=== PATIENT | female | born 1990 | race Caucasian/White ===

== ENCOUNTER → 2016-12-02 | Outpatient (CLI) | payer MEDICAID ==
[~2016-12-02] MED LIST: AMOXICOT500 MG PO; BENZONATATE100 M1 PO; CEFDINIR300 M1 PO; CIPRO 500MG TA500 MG PO; DICYCLOMINE HCL20 MG PO; FLEXERIL10 MG PO; FLINTSTONES CO1 EACH PO; KEFLEX 500MG.500 MG PO; NICOTINE T21 MG/24 H TD; PERCOCET 5/3251 EACH PO; PERCOGESIC1 TAB PO; PHENERGAN 25MG.25 M1 PO; PROMETHAZINE5 ML/UDC PO; ZYRTEC10 M2 PO; [UNRECOGNIZED DRUG - OTHER] PO
== END ==
LOC: LAB 16:50
DX: N39.0 Urinary tract infection, site not specified (principal)

== ENCOUNTER 2017-04-20 17:18 | Emergency (ER) | payer MEDICAID ==
[~2017-04-20] VITALS: Ht 162.6 cm; Wt 74.8 kg
--- NOTE | 2017-04-20 17:40 | [facility]gent Treatment Center Report ---
History of Present Issue Date/Time Seen by Provider 04/20/17 4354 Visit Reason Pt arrived:Walked Presenting Problem:PT C/O LOWER BACK PAIN, BILATERAL EAR PAIN, AND FATIGUE X2 DAYS Location if Accident: Onset of symptoms date/time:/ or onset unknown for:MEDICAL HX UNKNOWN Have you (or family members/close friends) recently traveled outside the [place]? N If Yes, where/when: Have you had exposure to infectious disease within the past month? TB? Other? Specify: c/o bilateral ear pain with right worse then left and mild intermittent cough x 2-3 days. Daughter w/ same symptoms. No fevers. While here, also wanting to discuss chronic low back pain present since of children > 8 years ago. Intermittent, more frequently over the last year, unchanged with tylenol, hasnt taken or tried anything else. Denies new injury or new symptoms. Intermittent burning pain right side x years. No incontinence or difficulty urinating. Has never discussed w/ PCP. Source patient Exam Limitations no limitations ALLERGIES Coded Allergies: aspirin (06/22/16) ibuprofen (From MOTRIN) (06/22/16) naproxen (06/22/16) nitrofurantoin (From MACROBID) (06/22/16) sulfamethoxazole (From BACTRIM) (06/22/16) trimethoprim (From BACTRIM) (06/22/16) Home Medications Active Scripts Oxycodone 5MG/[id number] (Oxycodone-Acetaminophen 5-325) 1-2 TAB PO Q4HP PRN MODERATE TO SEVERE PAIN #30 TAB Prov: 06/24/16 Nicotine (Nicotine Patch) 21 MG TD DAILY #14 PATCH Ref 1 Prov: 06/24/16 Reported Medications Multivitamin W/Iron, Minerals (Flintstones Complete) 1 EACH PO DAILY History Medical History General CAD? No Angina: No NH: No Hypertension? No Hyperlipidemia? No CHF? No DVT? No PE? No COPD? No Asthma? No Anemia? No GERD? No Gastric ulcers? No GI Bleed? No Hernia? No Thyroid Problems? No Hypothyroidism? No CVA? No Seizures? No Diabetes? No Renal Insuffiency? No UTI? No Stones? No BPH? No GB Disease: No Nephritic Syndrome? No Asplenia? No Hepatitis? No Sickle Cell Disease? No Arthritis? No Migraines? No Cataracts? No Glaucoma? No MRSA? No HIV? No TB? No Anxiety? No Depression? No Cancer? No More? No Immunization HX DT/Tetanus 1-4 YRS Flu Refused Pneumonia Refuses Surgical Hx Previous Surgery?Y LEFT FOOT CYST Social History Smoking Hx Smoker: Current Every Day Smoker Tobacco: Yes Type Cigarettes Packs/day < 1 Pack Alcohol Alcohol: No Review of Systems All Other Systems Reviewed and Negative Constitutional see HPI Eyes denies drainage ENT see HPI, nose discharge. denies: ear discharge, nose congestion, throat pain. Respiratory see HPI, denies shortness of breath, denies wheezing Cardiovascular denies chest pain Gastrointestinal denies no symptoms reported Genitourinary denies: dysuria, frequency. Musculoskeletal see HPI Skin denies lesions, denies lumps, denies rash Psychiatric/Neurological denies headache Physical Exam Vital Signs Vital Signs Date Time Temp Pulse Resp B/P Pulse O2 O2 Flow FiO2 Ox Delivery Rate 04/20 1822 98.6 77 18 106/63 98 04/20 1733 98.6 77 18 106/63 98 General Appearance normal appearance, no apparent distress, lifted 96 pound autistic 9 year old onto exam table without any obvious distress Eye Exam - bilateral eye normal exam Ear, Nose, Throat normal ENT inspection Neck non-tender, supple Respiratory Status No: respiratory distress, productive cough, non productive cough. Lung Sounds anterior: lungs clear. posterior: lungs clear. bilateral: lungs clear. Cardiovascular regular rate/rhythm, no peripheral edema, no murmur Back normal inspection, no CVA tenderness, gait normal, no tenderness Extremities normal range of motion Strength 5 Lower Ext (L), 5 Lower Ext (R) Neurologic alert, no motor/sensory deficits, oriented x 3 Skin normal color, warm/dry Lymphatic no adenopathy Medical Decision Making LABS/Meds/Orders Pt receiving controlled substance in ED? No Departure Departure Time of Disposition 1810 Disposition DC Home or Self Care(routine) Clinical Impression Primary Impression: Chronic low back pain with right-sided sciatica Qualifiers: Back pain laterality: midline Qualified Code: M54.41 - Lumbago with sciatica, right side Secondary Impressions: Upper respiratory virus Condition STABLE Referrals VIDYA GUNTER (Family) Schedule a follow up to discuss chronic low back pain since we do not treat chronic pain here at [facility]. IMMEDIATELY for new or worsening symptoms OR no noticeable improvement over the next 72 hours. 911 for difficulty breathing or swallowing. Patient Instructions DI for Low Back Pain, DI for Viral Upper Respiratory Infection -- Adult Additional Instructions * No sign of bacterial infection. Likely viral. Virus can take 7-14 days to run their course * Monitor Temp. Tylenol every 4 hours as needed no more then 5 times in 24 hours and/or ibuprofen every 6 hours as needed (as long as your primary care doctor has told you that it is ok to take both) for fever/aches/pain. ER if fever no less than 101 despite tylenol and ibuprofen * Encourage fluids, water, gatorade, powerade, pedialyte if /toddler/child * warm salt water gargles * warm fluids * sore throat lozenges * sleep elevated * humidifier/vaporizer * Bromfed may cause drowsiness. Know how it effects you (or your child) before driving, caring for small children, or sending your child to school. No other antihistamines/allergy medications while taking bromfed. * Be sure to schedule fu appt with primary care to discuss chronic low back pain Discharge Counseling Counseled pt/family regarding diagnosis, medications/RX, home care, follow up needs Prescriptions Current Visit Scripts D-METHORPHAN HB/P-EPD HCL/BPM (Bromfed Dm Cough Syrup) 10 ML PO QIDP PRN cough #240 ML at 1207
[2017-04-20 18:22] VITALS: BP 106/63
--- OUTSIDE RECORDS SUMMARY | 2017-04-29 08:01 | External Medical Summary Rpt | CCD ---
Author Author , DESHAWN HESS Address Unknown Phone [email or web address] [place] Care Team Providers Care Carton Maker Name Role Phone [facility] Unavailable Unavailable PHYSICIANS [facility], [facility] PHYSICIANS [facility] Unavailable Unavailable MEDICAL CT, [facility] CT DENIZ FINLEY, Unavailable Unavailable DENIZ FINLEY ALL, SANTOYO ALL Unavailable Unavailable MERRITT DELMERRITT DEL Unavailable Unavailable [facility], Unavailable Unavailable [facility] GERSON NIETO Unavailable Unavailable GERSON MCDONALD, GERSON Unavailable Unavailable [facility] Unavailable Unavailable PHYSICIANS, [facility] GREG LETICIA, Unavailable Unavailable GREG LETICIA [id number], Unavailable Unavailable [id number] JESSIE SHAH, Unavailable Unavailable JESSIE SHAH KIRK M, Unavailable Unavailable RHYS VALDEZ DAMIAN F, Unavailable Unavailable AMADA GILLIAM F GERMAINE TONIA, GERMAINE Unavailable Unavailable TONIA TAVARES HEN, TAVARES Unavailable Unavailable HEN JUNIOR CHANEY, Unavailable Unavailable JUNIOR CHANEY JOSHUA M, Unavailable Unavailable GENIA MOODY ROBERT P, Unavailable Unavailable EVANGELIST MERRITT MARK E, Unavailable Unavailable REJI SOSA, Unavailable Unavailable SONNY STEVENS Unavailable Unavailable KEISHA RODRI DENNIS, Unavailable Unavailable RODRI DENNIS DOUGLAS J, Unavailable Unavailable MARIA CALHOUN WILLIAM B, Unavailable Unavailable RENARD HARRELL HARPEYojana SOMMERS, HARPEL Unavailable Unavailable TOOTIE DENVER ALAS, Unavailable Unavailable DENVER ALAS [facility] Unavailable Unavailable INC, [facility] ROSALES BAZZI, Unavailable Unavailable ROSALES BAZZI ROB F, Unavailable Unavailable HERFEYojana DOROTHY F [facility], Unavailable Unavailable [facility] SHEA, MAURICE I, Unavailable Unavailable SHEA MAURICE I [facility], Unavailable Unavailable [facility], Unavailable Unavailable [facility] POOL DE LA CRUZ, POOL Unavailable Unavailable DOROTHY CALZADA, FAUSTINA CALZADA Unavailable Unavailable FAREED GARSIA, Unavailable Unavailable FAREED GARSIA DARREN R, Unavailable Unavailable RODNEY SILVA R [facility] Unavailable Unavailable PHYSICIANS L, [facility] VICKEY ABDUL, Unavailable Unavailable VICKEY ABDUL, Unavailable Unavailable BETTYE ADHIKARI JANESSA JONES, JILL, JONES, Unavailable Unavailable TAYLOR REHMAN CHR, SHERIE Unavailable Unavailable [facility] Unavailable Unavailable [facility], [facility] [employer], Unavailable Unavailable [employer] [facility] [employer], Unavailable Unavailable [facility] [employer] MATTY ROSEN, Unavailable Unavailable MATTY ROSEN [facility] Unavailable Unavailable DEPARTMENT, [facility] DEPART[facility] Unavailable Unavailable DEPARTMENT, [facility] HEALTH DEPARTMENT WALTER MANE, Unavailable Unavailable WALTER MANE MAUREEN, LI, Unavailable Unavailable DALTON ZIMMERMAN Unavailable Unavailable FRITZ CABAN SHLOMO, CABAN Unavailable Unavailable DINA MONTES DE OCA Unavailable Unavailable [facility] Unavailable Unavailable HOSPITA, [facility] Unavailable Unavailable HOSPITAL, [facility] Unavailable Unavailable HOSPITAL E, [facility] CHRIS CURTIS, Unavailable Unavailable CHRIS CURTIS EMMETT P, Unavailable Unavailable LISA SHAY MORGAN Unavailable Unavailable TOOTIE OVERBEE TAVIA, OVERBEE Unavailable Unavailable TAVIA [facility], Unavailable Unavailable [facility], Unavailable Unavailable [facility] LINDSEY MENENDEZ, Unavailable Unavailable LINDSEY MENENDEZ BAL, Renetta R, BAL, A Unavailable Unavailable R BAL, VIRAL, BAL, Unavailable Unavailable [facility] Un[facility], Unavailable Unavailable [facility] PICKMARIA M HUNTLEY NATALIE, Unavailable Unavailable EVANGELIST ARRIAGA JR, Unavailable Unavailable [facility]ANGELIST HUGGINS [facility] Unavailable Unavailable OF [place], [facility] Unavailable [facility], [facility], Unavailable Unavailable [facility], Unavailable Unavailable [facility], Unavailable Unavailable [facility], Unavailable Unavailable INC., [facility], Unavailable Unavailable [facility] Unavailable Unavailable OF [facility], [facility] MELI LARA RAUF, Unavailable Unavailable MELI SABRINA, MCKAYLA Unavailable Unavailable A, SABRINA, MCKAYLA A RENUSCH RUI, RENUSCH Unavailable Unavailable LEONIE VITALE, Unavailable Unavailable LEONIE LYNCH [id number], Unavailable Unavailable [id number] Unavailable Unavailable [id number] # [id number], [facility] [id number] # [id number] JUNIOR SANCHEZ, Unavailable Unavailable JUNIOR SANCHEZ ROGERS Unavailable Unavailable GIOVANI VILLARREAL, Unavailable Unavailable GIOVANI SR MICAELA, ROSS, Unavailable Unavailable YASMANI BERMUDEZ, Unavailable Unavailable YASMANI MCCARTHY C STONE GAR, STONE Unavailable Unavailable GAR STONE JAM, STONE Unavailable Unavailable WALTER BLACKWELL, Unavailable Unavailable WALTER GONZALEZ KENNETH L, Unavailable Unavailable CHAVO ANNA SOMAY JHA, Unavailable Unavailable SOTINGEAWALTER SWANSON SOWER, Unavailable Unavailable WALTER ELDER, Unavailable Unavailable RADHA ELDER, Unavailable Unavailable ROBER TOLEDO, Unavailable Unavailable ROBER LIGHT [facility] Unavailable Unavailable [facility], [facility] Unavailable Unavailable DOCK COORDINATOR , [facility] CTR DOCK COORDINATOR [facility] Unavailable Unavailable [facility], [facility] Unavailable Unavailable PHYSICIANS, [facility] Unavailable Unavailable [place], [facility] Unavailable Unavailable [facility] MILDRED, Unavailable Unavailable [facility] DUNG ETIENNE, Unavailable Unavailable STERNEBERG, DUNG B THRELKELD II UMER, Unavailable Unavailable THRELKELD II UMER [facility] Unavailable Unavailable #5, [facility] JUNIOR LEONARD, Unavailable Unavailable JUNIOR LEONARD ROY, Unavailable Unavailable SALAS BEATTY, CUATE ALANIS, Unavailable Unavailable [facility]KE [facility] # [id number], Unavailable Unavailable [facility] # [id number] WALKER III, Unavailable Unavailable JJ, WALKER III, JJ [facility], Unavailable Unavailable [facility] PHM [id number] LEONIE PHILLIP, Unavailable Unavailable LEONIE PHILLIP, Unavailable Unavailable ALLISON PORTILLO, Unavailable Unavailable ALLISON TRINIDAD JEFFREY, Unavailable Unavailable JESSIE WALDEN YOUNG VAN Unavailable Unavailable Purpose Continuity of Care Document - 08-22-2007 through 2016 Problems Code Diagnosis DOS Provider Status 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 [id number] ATYP SQ 12-25-2016 [facility] CELLS UNDET PHYSICIANS GROUP SIGNIFICANC E CYTOL SMER CERV [id number] CERV HIGH 12-25-2016 [facility] RSK HUMAN PHYSICIANS PAPILLOMAVI GROUP PERI DNA TEST POS N390 URINARY 12-02-2016 [facility] TRACT PHYSICIANS INFECTION GROUP SITE NOT SPECIFIED R102 PELVIC AND 12-02-2016 [facility] PERINEAL PHYSICIANS PAIN GROUP Z392 ENCOUNTER 08-19-2016 [facility] FOR ROUTINE LLC FOLLOW-UP O80 ENCOUNTER 06-22-2016 [facility] FOR PHYSICIANS FULL-TERM GROUP UNCOMPLICAT ED DELIVERY Z370 SINGLE LIVE 06-22-2016 [facility] PHYSICIANS GROUP Z3A39 39 WEEKS 06-22-2016 [facility] Z3480 ENC 06-16-2016 [facility] SUPERVISION PHYSICIANS OTH NORMAL GROUP PREG UNS TRIMESTER O6003 06-09-2016 [facility] LABOR PHYSICIANS WITHOUT GROUP DELIVERY THIRD TRIMESTER F82109 DRUG USE 06-09-2016 [facility] COMPLICATIN PHYSICIANS G GROUP UNS TRIMESTER O4703 FALSE LABOR 06-01-2016 [facility] BEFORE 37 PHYSICIANS CMPLETE GROUP WEEKS GEST 3RD TRI Z3A36 36 WEEKS 06-01-2016 [facility] [id number] OTHER SPEC 05-21-2016 [facility] RELATED INC COND 3RD TRIMESTER O471 FALSE LABOR 05-21-2016 [facility] AT/AFTER PHYSICIANS 37 GROUP COMPLETED WEEKS GEST Z3A34 34 WEEKS 05-21-2016 [facility] R109 UNSPECIFIED 05-20-2016 [facility] PAIN INC J069 ACUTE UPPER 05-11-2016 [facility]ANS, RESPIRATORY PLLC INFECTION UNSPECIFIED U72773 DRUG USE 05-08-2016 [facility] COMPLICATIN PHYSICIANS G GROUP THIRD TRIMESTER J95573 SPOTTING 04-11-2016 [facility] G INC THIRD TRIMESTER V696394 DECREASED 04-11-2016 [facility] MOVEMENTS INC THIRD TRIMESTER NA/UNS Z3A28 28 WEEKS 04-11-2016 [facility] Y19549 ABNORMAL 03-30-2016 [facility] GLUCOSE PHYSICIANS COMPLICATIN GROUP G R1011 RIGHT UPPER 03-19-2016 [facility] MEDICAL PAIN IMAGING ASS R110 NAUSEA 03-19-2016 [place] [facility] T96001 OTHER SPEC 03-10-2016 [facility] RELATED INC COND 2ND TRIMESTER O479 FALSE LABOR 03-10-2016 [facility] PHYSICIANS UNSPECIFIED GROUP Z3A24 24 WEEKS 03-10-2016 [facility] Z3492 ENC 02-12-2016 [facility] MEDICAL NORMAL IMAGING ASS UNS 2 TRIMESTER Z36 ENCOUNTER 02-12-2016 [facility] FOR [facility] INC SCREENING OF MOTHER Z3A20 20 WEEKS 02-12-2016 [facility]ICAL OF IMAGING ASS N898 OTHER 01-29-2016 [facility] SPECIFIED PHYSICIANS, NONINFLAMMA PLLC TORY DISORDERS VAGINA O209 HEMORRHAGE 01-29-2016 [place] IN EARLY MEDICAL IMAGING ASS UNSPECIFIED O2692 01-29-2016 [facility] RELATED PHYSICIANS, CONDITIONS PLLC UNS 2ND TRIMESTER Z3A18 18 WEEKS 01-29-2016 [facility] OF IMAGING ASS L74770 UTERINE 12-04-2015 [facility] SIZE-DATE PHYSICIANS DISCREPANCY GROUP FIRST TRIMESTER Z78676 SPOTTING 12-01-2015 [place] COMPLICATIN MEDICAL G IMAGING ASS FIRST TRIMESTER O2691 12-01-2015 [facility] RELATED PHYSICIANS, CONDITIONS PLLC UNS 1ST TRIMESTER Z3A09 9 WEEKS 12-01-2015 [facility] MEDICAL OF IMAGING ASS B373 CANDIDIASIS 11-22-2015 [facility], OF [facility] LLC AND VAGINA Z113 ENCOUNTER 11-22-2015 [facility], SCREEN LLC INFECTIONS SEXL MODE TRANSMISSN Z3201 ENCOUNTER 11-22-2015 [facility] FOR PHYSICIANS GROUP TEST RESULT POSITIVE Z3481 ENC 11-22-2015 [facility], SUPERVISION LLC OT NORMAL 1 TRIMESTER N3000 ACUTE 11-09-2015 [facility] CYSTITIS PHYSICIANS, WITHOUT PLLC HEMATURIA R112 NAUSEA WITH 10-29-2015 ST VOMITING [facility] UNSPECIFIED PHYSICIANS K088 OTH SPEC 10-26-2015 ST. DISORDERS [facility] TEETH & MILDRED SUPPORTING STRUCTURES C52780 OTHER SPEC 10-26-2015 [facility] EMERGENCY RELATED PHYSICIANS COND 1ST TRIMESTER X43136 OTHER SPEC 10-26-2015 ST. [facility] RELATED MILDRED COND UNS TRIMESTER C50317 SMOKING 10-26-2015 ST. TOBACCO [facility] COMP MILDRED UNS TRIMESTER Z3A00 WEEKS OF 10-26-2015 [facility] GESTATION EMERGENCY OF PHYSICIANS NOT SPECIFIED O12885 OTHER LONG 10-26-2015 ST. [address] [facility] CURRENT MILDRED DRUG THERAPY Z881 ALLERGY 10-26-2015 ST. STATUS TO [facility] OTHER MIL[place]ED ANTIBIOTIC AGENTS STATUS Z886 ALLERGY 10-26-2015 ST. STATUS TO [facility] ANALGESIC [place] AGENT STATUS Z720 TOBACCO USE 10-21-2015 [facility] J0190 ACUTE 10-10-2015 ST SINUSITIS [facility] UNSPECIFIED PHYSICIANS R05 COUGH 10-10-2015 ST [facility] PHYSICIANS N33867 PAIN IN 08-24-2015 ST LEFT ELBOW [facility] PHYSICIANS U66570 PAIN IN 08-24-2015 ST LEFT KNEE [facility] PHYSICIANS Q08571Z UNSPECIFIED 08-24-2015 ST INJURY [facility] LEFT ELBOW PHYSICIANS SUBSEQUENT ENCNTR D8987ZM UNS INJURY 08-24-2015 ST LT LOWER [facility] LEG PHYSICIANS SUBSEQUENT ENCOUNTER T1490 INJURY 08-24-2015 ST UNSPECIFIED [facility] PHYSICIANS S8765ZV CONTUSION 08-22-2015 [facility] LEFT EMERGENCY ELBOW PHYSICIANS INITIAL ENCOUNTER D6638TB CONTUSION 08-22-2015 [facility] OF LEFT EMERGENCY KNEE PHYSICIANS INITIAL ENCOUNTER Z043 ENCOUNTER 08-22-2015 [facility] OBSERVATION OF NOT FOLLOW OT ACCIDENT M545 LOW BACK 07-16-2015 ST PAIN [facility] PHYSICIANS R47592 ARCUATE 06-06-2015 [facility] UTERUS PHYSICIANS GROUP M546 PAIN IN 05-30-2015 . THORACIC [facility] SPINE MIL[place]ED N946 DYSMENORRHE 05-30-2015 A [facility] UNSPECIFIED PHYSICIANS Z202 CONTACT 05-30-2015 WITH [facility] EXPOSURE PHYSICIANS INFECT SEXUAL MODE TRANSMS N921 EXCESS & 05-20-2015 . FREQUENT [facility] MENSTRUATIO MILDRED N W/IRREGULAR CYCLE N3001 ACUTE 05-02-2015 CYSTITIS [facility] WITH PHYSICIANS HEMATURIA R5383 OTHER 05-02-2015 FATIGUE [facility] PHYSICIANS Z789 OTHER 05-02-2015 SPECIFIED [facility] PHYSICIANS STATUS N939 ABNORMAL 04-30-2015 [facility] UTERINE & PHYSICIANS, VAGINAL PLLC BLEEDING UNSPECIFIED J0100 ACUTE 04-22-2015 MAXILLARY [facility] SINUSITIS PHYSICIANS UNSPECIFIED J40 BRONCHITIS 04-22-2015 NOT [facility] SPECIFIED PHYSICIANS ACUTE OR CHRONIC 5950 ACUTE 04-02-2015 CYSTITIS [facility] PHYSICIANS 96377 URINARY 04-02-2015 FREQUENCY [facility] PHYSICIANS 4778 ALLERGIC 03-19-2015 RHINITIS [facility] DUE TO PHYSICIANS OTHER ALLERGEN 6260 ABSENCE OF 03-19-2015 MENSTRUATIO [facility]LA N PHYSICIANS 14864 WHEEZING 03-19-2015 ST [facility] PHYSICIANS 7862 COUGH 03-19-2015 [facility] PHYSICIANS 29403 ABDOMINAL 03-19-2015 PAIN RIGHT [facility] UPPER PHYSICIANS QUADRANT 5990 URINARY 02-24-2015 [facility] TRACT PHYSICIANS, INFECTION PLL SITE NOT SPECIFIED 2662 OTHER 08-24-2014 [facility] B-COMPLEX HEALTH DEFICIENCIE DEPARTMENT S 45633 OTHER SIGN 08-24-2014 [facility] AND SYMPTOM HEALTH IN BREAST DEPARTMENT V0481 NEED 04-05-2013 [facility] PROPHYLACTI HEALTH C DEPARTMENT VACCINATION &INOCULATIO N FLU 6266 METRORRHAGI 03-09-2013 [facility] A HEALTH DEPARTMENT V2542 SURVEILLANC 03-09-2013 [facility] E PREV PRSC HEALTH INTRAUTERN DEPARTMENT CNTRACPT DEVC 4619 ACUTE 06-21-2012 [facility]IN[facility] UNSPECIFIED 462 ACUTE 06-21-2012 [facility] 4659 ACUTE URIS 06-16-2012 [facility] OF CLINIC UNSPECIFIED SITE 3829 UNSPECIFIED 04-25-2012 [facility] MEDIA 1121 CANDIDIASIS 04-18-2012 [facility] OF [facility] AND VAGINA DEPARTMENT V2549 SURVEILLANC 04-18-2012 [facility] PREV DIAGNOSTICS PRSC CONTRACEPT METHOD 00775 UNSPECIFIED 04-12-2012 [facility] 3670 HYPERMETROP 03-24-2012 [facility] JERROD 4779 ALLERGIC 12-21-2011 [facility] CAUSE UNSPECIFIED 5259 UNSPECIFIED 12-11-2011 [facility] DISORDER [facility] STRUCTURES 27004 NAUSEA WITH 12-11-2011 [facility] V[facility] EMERGENCY PHYSICIANS L V2511 ENC FOR 01-26-2011 [facility] INSERTION HEALTH INTRAUTERIN DEPARTMENT E CONTRACEPT DEVICE V2509 OTH GENERAL 01-23-2011 [facility] CNSL&ADVICE DEPARTMENT CONTRACEPT MANAGEMENT V7240 01-15-2011 [facility] EXAMINATION HEALTH /TEST DEPARTMENT UNCONFIRMED 7295 PAIN IN 12-15-2010 [facility] SOFT SERVICES TISSUES OF LIMB 8419 SPRAIN&STRA 12-15-2010 [facility] IN [facility] UNSPECIFIED E HOSPITAL SITE E ELBOW&FOREA RM 9592 INJURY 12-15-2010 RADI[facility]Y OTHER&UNSPE SERVICES CIFIED SHOULDER&UP PER ARM E8499 UNSPECIFIED 12-15-[address] [facility] [address] OF [facility] OCCURRENCE E HOSPITAL E E9289 UNSPECIFIED 12-15-2010 [facility] ACCIDENT [facility] E HOSP[facility] E 6268 OTH D/O 07-28-2010 PR[facility] MENSTRUATIO CARE N&OTH ABN CENTERS OF BLEED FE EAST GNT TRACT 99613 PAIN IN 04-03-2010 [facility], PHYSICIANS FOREARM PSC 85798 ABDOMINAL 08-13-2009 RADIOLOGY PAIN, SERVICES UNSPECIFIED SITE 7821 RASH AND 07-09-2009 PRIMARY OTHER CARE NONSPECIFIC CENTERS OF SKIN EAST ERUPTION 5220 PULPITIS 05-14-2009 [facility] 2441 UNSPEC 04-22-2009 PRIMARY SYMPTOM CARE ASSOC CENTERS OF W/FEMALE EAST GENITAL ORGANS 59063 NAUSEA 04-19-2009 [facility] ALONE [facility] EMERGENCY SERVICES 7881 DYSURIA 04-19-2009 [facility] EMERGENCY SERVICES V7381 SPECIAL 04-18-2009 [facility] OF SCREENING [facility] EXAMINATION HUMAN PAPILVIRUS V762 SCREENING 04-18-2009 LAB[facility] OF FOR [facility] MALIGNANT NEOPLASM OF THE CERVIX V7241 04-02-2009 [facility] EXAMINATION HEALTH OR TEST CENTRAL NEGATIVE BANK ACCT RESULT 85937 UNSPECIFIED 03-22-2009 LEONIE PHILLIP ASTIGMATISM 5206 DISTURBANCE 02-22-2009 Galina HARRELL IN TOOTH RENARD B ERUPTION 2486 DYSMENORRHE 02-05-2009 PRIMARY A CARE [facility] 12713 OTHER 01-07-2009 Y[facility]I MALAISE [facility] 7906 OTHER 01-07-2009 [facility]AL [facility] CHEMISTR[facility] 57198 OTH 01-07-2009 DEE ABNORMAL MOY/MILNER BRAIN & VOCATIONAL NURSE N RHC FUNCTION STUDY 5368 DYSPEPSIA&O 01-03-2009 YASMANI THER SPEC [facility] DISORDERS [facility]OSPITAL FUNCTION EMERGENCY STOMACH SERVICES 7804 DIZZINESS 01-03-2009 Y[facility]I AND [facility] GIDDINESS E HOSPITAL EMERGENCY SERVICES 55415 CHEST PAIN 01-03-2009 RADIOLOGY UNSPECIFIED SERVICES 71209 PAIN IN 10-18-2008 RAD[facility] JOINT, ASSOCIATES ANKLE AND PSC FOOT 93716 UNSPECIFIED 10-18-2008 [facility] SITE OF MEDICAL ANKLE GROUP SPRAIN AND STRAIN V242 ROUTINE 10-10-2008 PRIMARY CARE FOLLOW-UP CENTERS OF [place] 490 BRONCHITIS 10-07-2008 YASMANI NOT [facility] SPECIFIED E HOSPITAL ACUTE OR EMERGENCY CHRONIC SERVICES 5589 OTH&UNSPEC 09-20-2008 [facility] NONINFECTIO [employer] GASTROENTER ITIS&COLITI S 7820 DISTURBANCE 08-13-2008 [facility] 48548 OTHER 08-13-2008 RADI[facility] DYSPNEA AND ASSOCIATES PSC RESPIRATORY ABNORMALITI ES 650 NORMAL 08-10-2008 [facility] DELIVERY [facility] 89536 POOR 08-10-2008 ST GR[facility] AFFECT MED CTR MANAGEMENT MOTH DELIV 10601 POLYHYDRAMN 08-10-2008 ST IOS, WITH [facility] DELIVERY MED CTR 34771 HIGH 08-10-2008 ST VAGINAL [facility] LACERATION MED CTR WITH DELIVERY V270 OUTCOME OF 08-10-2008 ST DELIVERY [facility] SINGLE MED CTR LIVEBORN V279 OUTCOME OF 08-10-2008 [facility]ATER DELIVERY, CINTI UNSPECIFIED PATHOLOGIST INC 2859 UNSPECIFIED 08-09-2008 [facility] 34659 PERIPH 08-09-2008 [facility] NEURITIS [facility] EAST W/DELIV W/CURRENT PPC 97947 MATERNAL 08-09-2008 [facility] W/DELIVERY EAST W/CURRENT PPC V220 SUPERVISION 08-09-2008 [facility] 75164 TOB USE D/O 08-07-2008 [facility] COMP PG [place] /PP ANTEPARTM [facility]OC LLC COND/COMP 81254 POLYHYDRAMN 08-07-2008 [facility]ATER IOS [place] ANTEPARTUM COMPLICATIO ASSOC LLC N 23262 POOR 08-02-2008 [facility] ANTPRTM COND/COMP 78991 CNTRL NERV 07-30-2008 [facility]ATER SYS [place] MALFORMATIO N IN FETUS ASSOC LLC ANTEPARTUM V283 ENCOUNTER 07-30-2008 [facility] MALFORMATIO ASSOC LLC N ULTRASONIC 51847 THREATENED 07-27-2008 [facility] PREMATURE [facility] LABOR EAST ANTEPARTUM 39512 DECR 07-27-2008 [facility] ANTPRTM COND/COMP V141 PERSONAL 07-27-2008 [facility] [place] OTHER ANTIBIOTIC AGENT V149 PERSONAL 07-27-2008 [facility] [place] UNSPEC MEDICINAL AGENT 7291 UNSPECIFIED 06-29-2008 [facility] AND PHYSICIANS MYOSITIS FOR WOMEN 93504 OTH CURRENT 06-17-2008 [facility] MAT [facility] CLASSIFIABL PHYSICIANS E ELSW FOR WOMEN ANTPRTM 90573 ABDOMINAL 06-17-2008 [facility] PAIN OTHER HOSPITAL SPECIFIED EAST SITE 88187 SEVERE 06-13-2008 [facility] PRE-ECLAMPS HOSPITALS [place], PHYSICIANS ANTEPARTUM FOR WOMEN 7901 ELEVATED 06-13-2008 [facility] OF SEDIMENTATI [place] INC [place] RATE 69342 OTH SPEC 06-11-2008 [facility]ATER INDICAT [place] CARE/INTERV EN REL L&D ASSOC LLC ANTPRTM V2341 SUPERVISION 06-11-2008 [facility]ATER [place] W/HISTORY PRE-TERM ASSOC LLC LABOR 35826 SPOTTING 05-31-2008 [facility] OF COMP [place] INC ANTEPARTUM COND/COMP V222 05-03-2008 EMERGENCY STATE, [place] [address] OTHER 04-30-2008 DENVER ALAS MD LABOR, ANTEPARTUM 06809 INFECTIONS 04-19-2008 [facility] RY TRACT FOR WOMEN ANTEPARTUM 93860 MATERNAL 04-19-2008 [facility] ANEMIA, [facility] ANTEPARTUM PHYSICIANS FOR WOMEN 31284 OTH 04-19-2008 [facility] KNOWN/SUSPE HOSPITALS CTED PHYSICIANS ABNORMALITY FOR WOMEN -NEC-APC/C V289 UNSPECIFIED 03-22-2008 [employer] DIAGNOSTICS SCREENING , INC. 7802 SYNCOPE AND 03-02-2008 [facility] 06528 ENTHESOPATH 02-24-2008 [facility] UNSPECIFIED EAST SITE 64535 OTHER 02-24-2008 EMERGENCY TENOSYNOVIT CARE PHYS IS OF HAND [place] AND WRIST 7840 HEADACHE 02-24-2008 DIAGNOSTIC CARDIOLOGIS TS INC 02323 UNSPECIFIED 02-01-2008 [facility] ANTEPARTUM HOSPITALS HEMORRHAGE PHYSICIANS ANTEPARTUM FOR WOMEN 71070 RHESUS 02-01-2008 [facility] ISOIMMUN [facility] AFFCT MGMT [place] MOTH ANTPRTM COND V072 NEED FOR 02-01-2008 [facility] PROPHYLACTI [facility] IMMUNOTHERA PY V221 SUPERVISION 02-01-2008 LAB[facility] OF OF [facility] NORMAL 17925 DEHYDRATION 01-12-2008 [facility] 463 ACUTE 01-12-2008 [facility] TONSILLITIS [facility] 7336 TIETZES 01-03-2008 EMERGENCY DISEASE CARE PHYS [facility] V5869 LONG-TERM 01-03-2008 [facility] (CURRENT) HOSPITAL USE OF RUST OTHER MEDICATIONS 6823 CELLULITIS 12-24-2007 [facility] OF UPPER INC ARM AND FOREARM 23601 THREATENED 12-22-2007 [facility] , [facility] ANTEPARTUM [facility] 71617 MILD 12-17-2007 [place] [facility]PEREMESIS [facility] PROF SERV 9479 OTH SPEC 12-15-2007 [facility] PSC W/FEMALE GENITAL ORGANS 6200 FOLLICULAR 12-08-2007 [facility] CYST OF [facility] OVARY PHYSICIANS FOR WOMEN V2541 SURVEILLANC 12-08-2007 [facility] E PREV [facility] PRESCRIBED PHYSICIANS CONTRACEPT FOR WOMEN PILL 40677 ABDOMINAL 11-18-2007 [facility] RIGHT [facility] LOWER INC QUADRANT V258 OTHER 11-17-2007 [facility]PTI PHYSICIANS VE FOR WOMEN MANAGEMENT V2641 PROCREATIVE 11-17-2007 [facility] & ADVICE PHYSICIANS NATURAL FAM FOR WOMEN PLAN V7231 ROUTINE 11-17-2007 [facility] GYNECOLOGIC [facility] AL PHYSICIANS EXAMINATION FOR WOMEN 14250 SPRAIN AND 11-12-2007 [facility] UNSPECIFIED IMAGING SITE OF ASSOCIATES FOOT E8490 PLACE OF 11-12-2007 [place] [facility], [facility] E927 OVEREXERTIO 11-12-2007 [place] N&STRENUOUS MEDICAL &REPETITIVE [facility] MVMNTS/LOAD S 6264 IRREGULAR 10-27-2007 [facility] MENSTRUAL [facility] CYCLE [facility] FOR WOMEN V146 PERSONAL 10-22-2007 ST [facility] TO MEDICALCENT ANALGESIC ER AGENT 6202 OTHER AND 10-14-2007 ST [facility]PECIFIED [facility] CYST 6262 EXCESSIVE 09-28-2007 [facility] OR [facility] PSC M[place]STRUATIO N 58209 VOMITING 09-13-2007 [facility]ICE V148 PERSONAL 09-13-2007 ST HISTORY [facility] O[facility] MEDICALCENT SPEC ER MEDICINAL AGTS [id number] INSOMNIA 08-30-2007 [facility] Medications Na ND Rx Da Fi Fi Am Da Di Ph RX Ph St me C No te ll ll ou ys ag ar # ys at rm s nt no ma ic us Or Da si cy ia de te s n re d CE 16 09 10 30 30 00 TO Ac TI 71 -0 -0 .0 00 TA ti RI 40 1- 6- 00 00 L ve ZI 27 20 20 93 CA NE 10 17 17 68 RE 3 90 HC PH L AR 10 MA CY MG #5 TA BL ET MO 16 09 10 28 28 00 TO Ac NO 71 -0 -0 .0 00 TA ti -L 40 1- 6- 00 00 L ve IN 36 20 20 94 CA YA 00 17 17 04 RE H 4 80 28 PH AR TA MA BL CY ET #5 SE 16 09 10 30 30 00 TO Ac RT 71 -0 -0 .0 00 TA ti RA 40 1- 6- 00 00 L ve LI 61 20 20 95 CA NE 20 17 17 12 RE 5 38 HC PH L AR 50 MA CY MG #5 TA BL ET MI 65 09 10 14 7 00 TO Ac OM 16 -0 -0 .0 00 TA ti ET 20 1- 6- 00 00 L ve VIVEROS 74 20 20 96 CA ZI 51 17 17 01 RE NE 0 53 PH 12 AR .5 MA CY MG #5 TA BL ET HY 00 09 10 [address] 55 -0 -0 .0 00 TA ti OX 50 1- 6- 00 00 L ve YZ 32 20 20 95 CA IN 30 17 17 07 RE E 4 61 PA PH M AR 25 MA CY MG #5 CA P MO 16 07 08 28 28 00 TO NO 71 -1 -1 .0 00 TA ti -L 40 0- 1- 00 00 L ve IN 36 20 20 94 CA YA 00 17 17 04 RE H 4 80 28 PH AR TA MA BL CY ET #5 HY 00 07 08 [address] 18 -1 -1 .0 00 TA ti OX 50 0- 1- 00 00 L ve YZ 67 20 20 95 CA IN 40 17 17 07 RE E 5 61 PA PH M AR 25 MA CY MG #5 CA P SE 65 07 08 30 30 00 TO RT 86 -1 -1 .0 00 TA ti RA 20 0- 1- 00 00 L ve LI 01 20 20 95 CA NE 20 17 17 12 RE 5 38 HC PH L AR 50 MA CY MG #5 TA BL ET FE 57 07 08 30 30 00 TO RR 66 -1 -1 .0 00 TA ti OU 40 0- 1- 00 00 L ve S 07 20 20 92 CA COELLO 01 17 17 22 RE LF 0 09 AT PH E AR 32 MA 5 CY MG #5 TA BL ET CE 16 07 08 30 30 00 TO TI 71 -1 -1 .0 00 TA ti RI 40 0- 1- 00 00 L ve ZI 27 20 20 93 CA NE 10 17 17 68 RE 3 90 HC PH L AR 10 MA CY MG #5 TA BL ET MI 65 07 08 14 7 00 TO OM 16 -1 -1 .0 00 TA ti ET 20 2- 1- 00 00 L ve VIVEROS 74 20 20 95 CA ZI 51 17 17 58 RE NE 0 36 PH 12 AR .5 MA CY MG #5 TA BL ET MA 51 06 07 59 7 00 TO LA 67 -1 -2 .0 00 TA ti TH 25 6- 1- 00 00 L ve IO 29 20 20 93 CA N 40 17 17 41 RE 0. 4 99 5% PH AR LO MA TI CY ON #5 MO 16 06 07 28 28 00 TO NO 71 -0 -1 .0 00 TA ti -L 40 8- 4- 00 00 L ve IN 36 20 20 94 CA YA 00 17 17 04 RE H 4 80 28 PH AR TA MA BL CY ET #5 SE 16 05 06 30 30 00 TO RT 71 -2 -2 .0 00 TA ti RA 40 3- 3- 00 00 L ve LI 61 20 20 95 CA NE 20 17 17 12 RE 5 38 HC PH L AR 50 MA CY MG #5 TA BL ET HY 00 05 06 [address] 18 -2 -2 .0 00 TA ti OX 50 3- 3- 00 00 L ve YZ 67 20 20 95 CA IN 40 17 17 07 RE E 5 61 PA PH M AR 25 MA CY MG #5 CA P NI 16 05 06 10 5 00 TO TR 71 -1 -1 .0 00 TA ti OF 40 7- 6- 00 00 L ve UR 43 20 20 95 CA AN 90 17 17 07 RE TO 1 60 IN PH AR MO MA NO CY -M CR #5 10 0 MG MO 16 05 06 28 28 00 TO NO 71 -0 -0 .0 00 TA ti -L 40 3- 2- 00 00 L ve IN 36 20 20 94 CA YA 00 17 17 04 RE H 4 80 28 PH AR TA MA BL CY ET #5 FE 57 04 05 30 30 00 TO RR 66 -0 -0 .0 00 TA ti OU 40 5- 5- 00 00 L ve S 07 20 20 92 CA COELLO 01 17 17 22 RE LF 0 09 AT PH E AR 32 MA 5 CY MG #5 TA BL ET CE 16 04 05 30 30 00 TO TI 71 -0 -0 .0 00 TA ti RI 40 5- 5- 00 00 L ve ZI 27 20 20 93 CA NE 10 17 17 68 RE 3 90 HC PH L AR 10 MA CY MG #5 TA BL ET CI 65 04 05 30 30 00 TO Ac TA 86 -0 -0 .0 00 TA ti LO 20 5- 5- 00 00 L ve MI 00 20 20 94 CA AM 60 17 17 03 RE 5 49 HB PH R AR 20 MA CY MG #5 TA BL ET MO 16 04 05 28 28 00 TO NO 71 -0 -0 .0 00 TA ti -L 40 5- 5- 00 00 L ve IN 36 20 20 94 CA YA 00 17 17 04 RE H 4 80 28 PH AR TA MA BL CY ET #5 CE 16 03 04 30 30 00 TO Ac TI 71 -0 -0 .0 00 TA ti RI 40 6- 7- 00 00 L ve ZI 27 20 20 93 CA NE 10 17 17 68 RE 3 90 HC PH L AR 10 MA CY MG #5 TA BL ET CI 65 03 04 30 30 00 TO Ac TA 86 -0 -0 .0 00 TA ti LO 20 6- 7- 00 00 L ve MI 00 20 20 94 CA AM 60 17 17 03 RE 5 49 HB PH R AR 20 MA CY MG #5 TA BL ET MO 16 03 04 28 28 00 TO Ac NO 71 -0 -0 .0 00 TA ti -L 40 6- 7- 00 00 L ve IN 36 20 20 94 CA YA 00 17 17 04 RE H 4 80 28 PH AR TA MA BL CY ET #5 MO 16 02 03 28 28 00 TO Ac NO 71 -0 -1 .0 00 TA ti -L 40 3- 0- 00 00 L ve IN 36 20 20 94 CA YA 00 17 17 04 RE H 4 80 28 PH AR TA MA BL CY ET #5 CI 65 02 03 30 30 00 TO Ac TA 86 -0 -0 .0 00 TA ti LO 20 1- 3- 00 00 L ve MI 00 20 20 94 CA AM 60 17 17 03 RE 5 49 HB PH R AR 20 MA CY MG #5 TA BL ET CE 16 12 02 30 30 00 TO Ac TI 71 -2 -0 .0 00 TA ti RI 40 9- 3- 00 00 L ve ZI 27 20 20 93 CA NE 10 16 17 68 RE 3 90 HC PH L AR 10 MA CY MG #5 TA BL ET CI 65 01 02 30 30 00 TO Ac TA 86 -0 -0 .0 00 TA ti LO 20 4- 3- 00 00 L ve MI 00 20 20 93 CA AM 50 17 17 75 RE 5 35 HB PH R AR 10 MA CY MG #5 TA BL ET FE 57 12 01 30 30 00 TO Ac RR 66 -2 -2 .0 00 TA ti OU 40 2- 7- 00 00 L ve S 07 20 20 92 CA COELLO 01 16 17 22 RE LF 0 09 AT PH E AR 32 MA 5 CY MG #5 TA BL ET SM 49 12 01 14 14 00 TO Ac 34 -2 -2 .0 00 TA ti NI 80 2- 7- 00 00 L ve CO 14 20 20 93 CA TI 44 16 17 48 RE NE 6 27 PH 21 AR MA MG CY /2 4H #5 R PA TC H VE 00 12 01 18 17 00 TO Ac NT 17 -0 -1 .0 00 TA ti OL 30 8- 3- 00 00 L ve IN 68 20 20 92 CA 22 16 17 08 RE HF 0 25 A PH 90 AR MA MC CY G IN #5 VIVEROS LE R SM 49 12 01 14 14 00 TO Ac 34 -0 -0 .0 00 TA ti NI 80 7- 9- 00 00 L ve CO 14 20 20 93 CA TI 44 16 17 48 RE NE 6 27 PH 21 AR MA MG CY /2 4H #5 R PA TC H OX 00 12 01 30 3 00 TO Ac YC 40 -0 -0 .0 00 TA ti OD 60 7- 9- 00 00 L ve ON 51 20 20 93 CA E- 20 16 17 48 RE AC 1 54 ET PH AM AR IN MA OP CY HE N #5 5- 32 5 ME 00 07 07 20 3 RI 85 OS Ac CL 37 -0 -1 .0 TE 05 PAMELA ti OF 82 7- 1- 00 87 RN ve EN 15 20 20 AI E AM 00 11 11 D MA AT 1 PH RI E AR LY 50 MA N CY R MG 02 CA 43 PS 9 UL # E 02 43 IB 53 05 05 15 5 RI 84 EU Ac UP 74 -3 -3 .0 TE 43 GE ti RO 60 0- 1- 00 76 NI ve FE 46 20 20 AI O N 50 11 11 D HE 60 5 PH NR 0 AR Y MG MA M CY TA BL 02 ET 43 9 # 02 43 AZ 00 03 03 6. 5 RI 83 SA Ac IT 78 -2 -2 00 TE 28 VIVEROS ti HR 11 3- 3- 0 50 Y ve OM 49 20 20 AI CH YC 66 11 11 D AN IN 8 PH DA AR N 25 MA 0 CY MG 02 TA 43 BL 9 ET # 02 43 65 01 01 10 25 RI 81 MO Ac 16 -1 -1 0. TE 77 RG ti 20 0- 0- 00 77 AN ve 60 20 20 0 AI 71 11 11 D GE 0 PH RT AR RU MA DE CY 02 43 9 # 02 43 MI 00 01 01 20 5 RI 81 MO Ac OM 60 -1 -1 .0 TE 77 RG ti ET 35 0- 0- 00 78 AN ve VIVEROS 43 20 20 AI ZI 82 11 11 D GE NE 1 PH RT AR RU 25 MA DE CY MG 02 TA 43 BL 9 ET # 02 43 IB 53 09 09 60 15 RI 79 BU Ac UP 74 -1 -1 .0 TE 64 RG ti RO 60 6- 6- 00 14 E ve FE 46 20 20 AI DE N 50 10 10 D LA 60 5 PH NA 0 AR K MG MA CY TA BL 02 ET 43 9 # 02 43 CE 00 12 06 3 30 30 RI 74 MO Ac TI 78 -2 -0 .0 TE 37 RG ti RI 11 2- 7- 00 78 AN ve ZI 68 20 20 AI NE 40 09 10 D GE 1 PH RT HC AR RU L MA DE 10 CY MG 02 43 TA 9 BL # ET 02 43 TR 00 03 06 5 28 28 RI 76 WH Ac I- 55 -2 -0 .0 TE 12 IT ti SP 59 2- 7- 00 51 AK ve RI 01 20 20 AI ER NT 85 10 10 D EC 8 PH RO AR BI TA MA N BL CY C ET 02 43 9 # 02 43 RA 00 03 06 2 60 30 RI 76 WH Ac NI 17 -2 -0 .0 TE 12 IT ti TI 24 2- 7- 00 52 AK ve DI 35 20 20 AI ER NE 74 10 10 D 9 PH RO 15 AR BI 0 MA N MG CY C TA 02 BL 43 ET 9 # 02 43 CE 00 12 04 3 30 30 RI 74 MO Ac TI 78 -2 -2 .0 TE 37 RG ti RI 11 2- 7- 00 78 AN ve ZI 68 20 20 AI NE 40 09 10 D GE 1 PH RT HC AR RU L MA DE 10 CY MG 02 43 TA 9 BL # ET 02 43 CH 00 03 04 1 47 25 RI 75 RA Ac LO 11 -0 -2 3. TE 75 TL ti RH 62 4- 7- 00 74 IF ve EX 00 20 20 0 AI F ID 11 10 10 D FR IN 6 PH ED E AR ER 0. MA IC 12 CY K % C RI 02 NS 43 E 9 # 02 43 TR 00 03 04 5 28 28 RI 76 WH Ac I- 55 -2 -2 .0 TE 12 IT ti SP 59 2- 7- 00 51 AK ve RI 01 20 20 AI ER NT 85 10 10 D EC 8 PH RO AR BI TA MA N BL CY C ET 02 43 9 # 02 43 RA 00 03 04 2 60 30 RI 76 WH Ac NI 17 -2 -2 .0 TE 12 IT ti TI 24 2- 7- 00 52 AK ve DI 35 20 20 AI ER NE 74 10 10 D 9 PH RO 15 AR BI 0 MA N MG CY C TA 02 BL 43 ET 9 # 02 43 TR 00 03 03 5 28 28 RI 76 WH Ac I- 55 -2 -2 .0 TE 12 IT ti SP 59 2- 2- 00 51 AK ve RI 01 20 20 AI ER NT 85 10 10 D EC 8 PH RO AR BI TA MA N BL CY C ET 02 43 9 # 02 43 RA 00 03 03 2 60 30 RI 76 WH Ac NI 17 -2 -2 .0 TE 12 IT ti TI 24 2- 2- 00 52 AK ve DI 35 20 20 AI ER NE 74 10 10 D 9 PH RO 15 AR BI 0 MA N MG CY C TA 02 BL 43 ET 9 # 02 43 TU 00 03 03 18 4 RI 76 WH Ac SS 11 -2 -2 0. TE 12 IT ti IN 30 2- 2- 00 54 AK ve 35 20 20 0 AI ER DM 92 10 10 D 6 PH RO CO AR BI UG MA N H CY C SY RU 02 P 43 9 # 02 43 CE 00 12 03 3 30 30 RI 74 MO Ac TI 78 -2 -1 .0 TE 37 RG ti RI 11 2- 0- 00 78 AN ve ZI 68 20 20 AI NE 40 09 10 D GE 1 PH RT HC AR RU L MA DE 10 CY MG 02 43 TA 9 BL # ET 02 43 CH 00 03 03 1 47 25 RI 75 RA Ac LO 11 -0 -0 3. TE 75 TL ti RH 62 4- 4- 00 74 IF ve EX 00 20 20 0 AI F ID 11 10 10 D FR IN 6 PH ED E AR ER 0. MA IC 12 CY K % C RI 02 NS 43 E 9 # 02 43 NO 00 01 02 00 28 28 RI 75 Ac RT 55 -2 -1 .0 TE 01 CA ti RE 59 6- 1- 00 25 NI ve L 01 20 20 AI 1- 05 10 10 D II 35 8 PH I AR EN 28 M# RI 24 CO TA 39 BL ET MI 00 01 01 00 10 6 RI 74 WH Ac OM 78 -1 -2 .0 TE 78 IT ti ET 11 4- 8- 00 55 AK ve VIVEROS 83 20 20 AI ER ZI 00 10 10 D NE 1 PH RO AR BI 25 M# N 24 C MG 39 TA BL ET NU 00 01 01 00 3. 84 RI 74 WH Ac VA 05 -1 -2 00 TE 78 IT ti RI 20 4- 8- 0 53 AK ve NG 27 20 20 AI ER 30 10 10 D VA 1 PH RO GI AR BI NA M# N L 24 C RI 39 NG CE 00 12 12 00 30 30 RI 74 MO Ac TI 78 -2 -3 .0 TE 37 RG ti RI 11 2- 1- 00 78 AN ve ZI 68 20 20 AI NE 40 09 09 D GE 1 PH RT HC AR RU L M# DE 10 24 39 MG TA BL ET SE 59 12 12 00 15 30 RI 74 WH Ac RT 76 -0 -1 .0 TE 12 IT ti RA 24 9- 7- 00 42 AK ve LI 91 20 20 AI ER NE 00 09 09 D 1 PH RO HC AR BI L M# N 10 24 C 0 39 MG TA BL ET AV 00 12 12 00 28 28 RI 74 WH Ac IA 55 -0 -1 .0 TE 12 IT ti NE 59 9- 7- 00 43 AK ve -2 04 20 20 AI ER 8 55 09 09 D TA 8 PH RO BL AR BI ET M# N 24 C 39 59 12 12 00 20 10 RI 73 MO Ac 76 -0 -1 .0 TE 93 RG ti 22 1- 7- 00 59 AN ve 22 20 20 AI 10 09 09 D GE 1 PH RT AR RU M# DE 24 39 EN 00 09 11 01 28 28 RI 72 WH Ac MI 55 -1 -1 .0 TE 72 IT ti ES 59 6- 9- 00 63 AK ve SE 04 20 20 AI ER -2 75 09 09 D 8 8 PH RO TA AR BI BL M# N ET 24 C 39 00 10 11 00 15 3 RI 73 RA Ac 60 -2 -0 .0 TE 12 TL ti 35 7- 5- 00 13 IF ve 46 20 20 AI F 82 09 09 D FR 8 PH ED AR ER M# IC 24 K 39 C CI 00 10 10 00 14 7 RI 72 VA Ac MI 17 -0 -2 .0 TE 58 RG ti OF 25 3- 2- 00 33 HE ve LO 31 20 20 AI SE XA 26 09 09 D CI 0 PH RO N AR Y HC M# L 24 50 39 0 MG TA B EN 00 09 10 00 28 28 RI 72 WH Ac MI 55 -1 -2 .0 TE 72 IT ti ES 59 6- 2- 00 63 AK ve SE 04 20 20 AI ER -2 75 09 09 D 8 8 PH RO TA AR BI BL M# N ET 24 C 39 00 09 10 00 15 3 RI 72 RA Ac 60 -2 -0 .0 TE 30 TL ti 35 1- 8- 00 77 IF ve 46 20 20 AI F 82 09 09 D FR 8 PH ED AR ER M# IC 24 K 39 C FL 00 10 10 00 2. 2 RI 72 WH Ac UC 17 -0 -0 00 TE 55 IT ti ON 25 1- 8- 0 05 AK ve AZ 41 20 20 AI ER OL 21 09 09 D E 1 PH RO 15 AR BI 0 M# N MG 24 C 39 TA BL ET AC 00 09 09 00 8. 2 RI 72 RA Ac ET 09 -1 -2 00 TE 16 TL ti AM 30 4- 4- 0 83 IF ve IN 15 20 20 AI F OP 01 09 09 D FR HE 0 PH ED N- AR ER CO M# IC D 24 K #3 39 C TA BL ET EN 00 09 09 00 28 28 HO 12 WH Ac MI 55 -1 -2 .0 ME 26 IT ti ES 59 6- 4- 00 TO 28 AK ve SE 04 20 20 WN 7 ER -2 75 09 09 8 8 PH RO TA AR BI BL MA N ET CY C 00 07 08 00 15 3 RI 71 RA Ac 60 -2 -1 .0 TE 24 TL ti 35 9- 3- 00 17 IF ve 46 20 20 AI F 82 09 09 D FR 8 PH ED AR ER M# IC 24 K 39 C 00 08 08 00 20 5 KI 25 GI Ac 59 -0 -1 .0 NG 62 BS ti 10 7- 3- 00 60 ON ve 54 20 20 PH 00 09 09 AR WI 5 MA LL CY IA M IN B C 00 07 08 00 6. 1 RI 71 RA Ac 40 -2 -1 00 TE 22 TL ti 60 8- 3- 0 66 IF ve 35 20 20 AI F 70 09 09 D FR 5 PH ED AR ER M# IC 24 K 39 C AM 67 08 08 00 30 10 KI 25 GI Ac OX 25 -0 -1 .0 NG 62 BS ti IC 30 7- 3- 00 59 ON ve IL 14 20 20 PH LI 15 09 09 AR WI N 0 MA LL 50 CY IA 0 M MG IN B C CA PS UL E 00 06 06 00 10 25 RI 70 RA Ac 12 -0 -1 6. TE 15 TL ti 60 2- 8- 00 95 IF ve 07 20 20 0 AI F 53 09 09 D FR 4 PH ED AR ER M# IC 24 K 39 C TR 65 05 06 00 20 3 TO 70 ME Ac AM 16 -2 -0 .0 TA 27 LT ti AD 20 6- 4- 00 L 95 ON ve OL 62 20 20 CA 71 09 09 RE GA HC 1 RY L PH J 50 AR MA MG CY TA #5 BL ET FL 00 05 06 00 2. 1 TO 70 VIVEROS Ac UC 17 -2 -0 00 TA 24 RT ti ON 25 0- 4- 0 L 67 IG ve AZ 41 20 20 CA OL 21 09 09 RE PRANAY E 1 SE 15 PH PH 0 AR E MG MA CY TA BL #5 ET CY 00 05 06 00 30 30 TO 70 VIVEROS Ac MB 00 -1 -0 .0 TA 23 RT ti AL 23 9- 4- 00 L 53 IG ve TA 24 20 20 CA 03 09 09 RE PRANAY 30 0 SE PH PH MG AR E MA CA CY PS UL #5 E AZ 00 05 06 00 6. 5 TO 70 ME Ac IT 78 -2 -0 00 TA 27 LT ti HR 11 6- 4- 0 L 94 ON ve OM 49 20 20 CA YC 66 09 09 RE GA IN 8 RY PH J 25 AR 0 MA MG CY TA #5 BL ET FL 00 05 05 00 2. 2 TO 70 PA Ac UC 17 -1 -2 00 TA 15 TE ti ON 25 1- 1- 0 L 80 L ve AZ 41 20 20 CA OL 21 09 09 RE RA E 1 L 15 PH 0 AR MG MA CY TA BL #5 ET TR 65 05 05 00 30 15 TO 70 VIVEROS Ac AM 16 -0 -2 .0 TA 14 RT ti AD 20 8- 1- 00 L 43 IG ve OL 62 20 20 CA 71 09 09 RE PRANAY HC 1 SE L PH PH 50 AR E MA MG CY TA #5 BL ET MI 68 04 05 00 [address] Ac OM 38 -3 -0 .0 TA 05 ER ti ET 20 0- 7- 00 L 83 NE ve VIVEROS 04 20 20 CA BE ZI 11 09 09 RE RG NE [address] 25 AR EV MA EN MG CY B TA #5 BL ET LO 45 04 05 00 [address] Ac RA 80 -3 -0 .0 TA 05 ER ti TA 20 0- 7- 00 L 84 NE ve DI 65 20 20 CA BE NE 08 09 09 RE RG [address] AR EV MG MA EN CY B TA BL #5 ET 00 04 04 00 40 20 TO 50 VIVEROS Ac 59 -1 -2 .0 TA 00 RT ti 10 6- 3- 00 L 91 IG ve 33 20 20 CA 91 09 09 RE PRANAY 0 SE PH PH AR E MA CY #5 PA 68 04 04 00 30 30 TO 50 VIVEROS Ac RO 38 -1 -2 .0 TA 00 RT ti XE 20 6- 3- 00 L 92 IG ve TI 09 20 20 CA NE 70 09 09 RE PRANAY 6 SE HC PH PH L AR E 10 MA CY MG #5 TA BL ET AM 00 03 04 00 24 10 RI 68 RA Ac OX 09 -2 -0 .0 TE 68 UF ti IC 33 3- 9- 00 00 ve IL 10 20 20 AI NA LI 70 09 09 D SE N 5 PH EM 25 AR 0 M# MG 24 39 CA PS UL E 00 02 03 00 3. 5 TO 66 PA Ac 16 -2 -1 50 TA 63 TE ti 80 4- 2- 0 L 21 L ve 07 20 20 CA 03 09 09 RE RA 8 L PH AR MA CY #5 AN 24 02 03 00 30 10 TO 66 PA Ac TI 38 -2 -1 .0 TA 63 TE ti FU 50 4- 2- 00 L 19 L ve NG 20 20 20 CA AL 50 09 09 RE RA 3 L 1% PH AR CR MA EA CY M #5 AM 00 02 03 00 10 7 TO 66 PA Ac OX 09 -2 -1 0. TA 63 TE ti IC 34 4- 2- 00 L 20 L ve IL 15 20 20 0 CA LI 07 09 09 RE RA N 3 L 12 PH 5 AR MG MA /5 CY ML #5 COELLO SP AZ 00 02 02 00 6[address] Ac IT 78 -1 -2 00 TA 56 ER ti HR 11 8- 6- 0 L 85 NE ve OM 49 20 20 CA BE YC 66 09 09 RE RG IN [address] 25 AR EV 0 MA EN MG CY B TA #5 BL ET 60 02 02 00 [address] Ac 25 -1 -2 0. TA 56 ER ti 80 8- 6- 00 L 86 NE ve 23 20 20 0 CA BE 91 09 09 RE RG [address] AR EV MA EN CY B #5 CL 51 02 02 00 15 7 TO 66 PA Ac OT 67 -1 -2 .0 TA 52 TE ti RI 21 2- 6- 00 L 41 L ve MA 27 20 20 CA ZO 50 09 09 RE RA LE 1 L PH 1% AR MA CR CY EA M #5 65 01 02 00 90 30 WA 27 FL Ac 16 -2 -1 .0 LG 82 IC ti 20 5- 2- 00 RE 09 K ve 40 20 20 EN 9 RO 61 09 09 # BE 1 RT 07 P 34 6 IB 53 01 02 00 30 7 WA 27 FL Ac UP 74 -2 -1 .0 LG 82 IC ti RO 60 5- 2- 00 RE 10 K ve FE 46 20 20 EN 2 RO N 60 09 09 # BE 80 5 RT 0 07 P MG 34 6 TA BL ET AC 00 01 02 00 20 5 WA 27 FL Ac ET 09 -2 -1 .0 LG 82 IC ti AM 30 5- 2- 00 RE 09 K ve IN 15 20 20 EN 7 RO OP 01 09 09 # BE HE 0 RT N- 07 P CO 34 D 6 #3 TA BL ET LO 60 07 01 01 [address] Ac RA 50 -2 -1 .0 TA 97 ER ti TA 50 4- 5- 00 L 59 NE ve DI 14 20 20 CA BE NE 70 08 09 RE RG [address] AR EV MG MA EN CY B TA BL #5 ET NY 45 11 12 00 30 7 TO [address] 80 -1 -1 .0 TA 96 NE ti AT 20 3- 8- 00 L 95 S ve IN 05 20 20 CA JI 91 08 08 RE LL 10 1 S 0, PH 00 AR 0 MA UN CY IT /G #5 M CR EA M CE 68 12 12 00 28 7 TO 65 PRANAY Ac PH 18 -0 -1 .0 TA 96 NE ti AL 00 4- 8- 00 L 94 S ve EX 12 20 20 CA JI IN 20 08 08 RE LL 2 S 50 PH 0 AR MG MA CY CA PS #5 UL E LO 60 07 12 00 [address] Ac RA 50 -2 -1 .0 TA 97 ER ti TA 50 4- 8- 00 L 59 NE ve DI 14 20 20 CA BE NE 70 08 08 RE RG [address] AR EV MG MA EN CY B TA BL #5 ET TE 00 11 12 00 60 15 WA 27 RI Ac RB 11 -2 -0 .0 LG 51 ED ti UT 52 3- 4- 00 RE 96 LE ve AL 61 20 20 EN 2 R IN 10 08 08 # RI E 1 CH COELLO 07 AE LF 34 L AT 6 J E 2. 5 MG TA B LO 60 07 11 03 [address] Ac RA 50 -2 -2 .0 AR 97 ER ti TA 50 4- 0- 00 MC 59 NE ve DI 14 20 20 AR BE NE 70 08 08 E RG [address] MA EV MG CY EN B TA BL ET MI 68 10 11 00 [address] Ac OM 38 -2 -0 .0 AR 64 ER ti ET 20 4- 7- 00 MC 25 NE ve VIVEROS 04 20 20 AR BE ZI 11 08 08 E RG NE [address] 25 MA EV CY EN MG B TA BL ET AM 00 10 11 00 21 7 PH 65 PRANAY Ac OX 78 -2 -0 .0 AR 63 NE ti IC 12 3- 7- 00 MC 55 S ve IL 61 20 20 AR JI LI 30 08 08 E LL N 5 PH S 50 AR 0 MA MG CY CA PS UL E 64 10 11 00 5. 1 PH 65 PRANAY Ac 01 -2 -0 79 AR 63 NE ti 10 3- 7- 9 MC 56 S ve 00 20 20 AR JI 10 08 08 E LL 8 PH S AR MA CY 00 10 10 00 56 7 PH 65 PRANAY Ac 17 -0 -0 .0 AR 46 NE ti 24 2- 9- 00 MC 81 S ve 07 20 20 AR JI 37 08 08 E LL 0 PH S AR MA CY LO 60 07 10 02 [address] Ac RA 50 -2 -0 .0 AR 97 ER ti TA 50 4- 9- 00 MC 59 NE ve DI 14 20 20 AR BE NE 70 08 08 E RG [address] MA EV MG CY EN B TA BL ET HY 00 09 10 00 [address] 16 -2 -0 .3 AR 37 ER ti OC 80 0- 9- 99 MC 88 NE ve OR 01 20 20 AR BE TI 53 08 08 E RG SO [address] MA EV 1% CY EN B CR EA M MU 45 09 10 00 [address] Ac PI 80 -2 -0 .0 AR 37 ER ti RO 20 0- 9- 00 MC 89 NE ve CI 11 20 20 AR BE N 22 08 08 E RG 2% [address] OI MA EV NT CY EN ME B NT MI 10 09 09 00 10 3 PH 65 HE Ac OM 70 -1 -2 .0 AR 37 RF ti ET 20 4- 6- 00 MC 82 EL ve VIVEROS 00 20 20 AR ZI 31 08 08 E RO NE 0 PH B AR F 25 MA CY MG TA BL ET LO 60 07 09 01 [address] Ac RA 50 -2 -1 .0 AR 97 ER ti TA 50 4- 1- 00 MC 59 NE ve DI 14 20 20 AR BE NE 70 08 08 E RG [address] MA EV MG CY EN B TA BL ET NI 00 07 08 00 14 7 PH 64 PRANAY Ac TR 18 -1 -0 .0 AR 93 NE ti OF 50 7- 1- 00 MC 27 S ve UR 12 20 20 AR JI AN 20 08 08 E LL TO 1 PH S IN AR MA MO CY NO -M CR 10 0 MG 63 07 08 00 10 2 PH 64 VE Ac 30 -1 -[address] ti 40 7- 1- 00 MC 26 ve 56 20 20 AR PRANAY 21 08 08 E NI 0 PH AR MA CY 64 07 08 00 28 28 PH 64 PRANAY Ac 01 -1 -0 .0 AR 93 NE ti 10 7- 1- 00 MC 28 S ve 20 20 20 AR JI 73 08 08 E LL 4 PH S AR MA CY LO 51 07 08 00 [address] Ac RA 66 -2 -0 .0 AR 97 ER ti TA 00 4- 1- 00 MC 59 NE ve DI 52 20 20 AR BE NE 60 08 08 E RG [address] MA EV MG CY EN B TA BL ET 63 06 07 00 15 2 PH 64 SH Ac 30 -1 -0 .0 AR 74 AR ti 40 7- 3- 00 MC 43 P ve 56 20 20 AR DA 21 08 08 E 0 PH D AR P MA CY NI 00 06 07 00 14 7 WA 26 HE Ac TR 18 -2 -0 .0 LG 25 RF ti OF 50 4- 3- 00 RE 79 EL ve UR 12 20 20 EN 2 AN 20 08 08 # RO TO 1 B IN 07 F 34 MO 6 NO -M CR 10 0 MG LO 51 03 07 02 [address] Ac RA 66 -2 -0 .0 AR 13 ER ti TA 00 5- 3- 00 MC 10 NE ve DI 52 20 20 AR BE NE 60 08 08 E RG [address] MA EV MG CY EN B TA BL ET CE 00 06 07 00 21 7 CV 45 GA Ac PH 09 -0 -0 .0 S 99 IN ti AL 33 7- 3- 00 PH 54 EY ve EX 14 20 20 AR IN 70 08 08 MA RI 1 CY CH 50 AE 0 #5 L MG 43 S 7 CA PS UL E 00 06 07 00 [address] Ac 17 -2 -0 .0 AR 78 ER ti 24 5- 3- 00 MC 69 NE ve 07 20 20 AR BE 37 08 08 E RG [address] MA EV CY EN B TR 57 05 06 00 24 6 PH 64 PRANAY Ac AM 66 -2 -0 .0 AR 56 NE ti AD 40 2- 5- 00 MC 26 S ve OL 53 20 20 AR JI -A 78 08 08 E LL CE 8 PH S TA AR RI MA NO CY PH N 37 .5 -3 25 NU 00 05 06 00 1. 28 PH 64 PRANAY Ac VA 05 -2 -0 00 AR 56 NE ti RI 20 2- 5- 0 MC 25 S ve NG 27 20 20 AR JI 30 08 08 E LL VA 3 PH S GI AR NA MA L CY RI NG 00 03 05 01 30 30 TO 64 No Ac 60 -1 -2 .0 TA 02 t ti 35 1- 2- 00 L 40 Av ve 36 20 20 CA ai 12 08 08 RE la 1 bl PH e AR MA CY #5 LO 51 03 05 01 30 30 PH 64 No Ac RA 66 -2 -0 .0 AR 13 t ti TA 00 5- 8- 00 MC 10 Av ve DI 52 20 20 AR ai NE 60 08 08 E la 1 PH bl 10 AR e MA MG CY TA BL ET AM 00 04 04 00 30 10 PH 64 No Ac OX 78 -0 -2 .0 AR 23 t ti IC 12 7- 4- 00 MC 25 Av ve IL 61 20 20 AR ai LI 30 08 08 E la N 5 PH bl 50 AR e 0 MA MG CY CA PS UL E 00 03 04 00 30 30 PH 64 No Ac 60 -1 -1 .0 AR 02 t ti 35 1- 7- 00 MC 40 Av ve 36 20 20 AR ai 12 08 08 E la 1 PH bl AR e MA CY NA 68 01 04 01 60 30 PH 63 No Ac MI 46 -1 -1 .0 AR 59 t ti OX 20 6- 7- 00 MC 03 Av ve EN 18 20 20 AR ai 90 08 08 E la 37 1 PH bl 5 AR e MG MA CY TA BL ET LO 51 03 04 00 30 30 PH 64 No Ac RA 66 -2 -1 .0 AR 13 t ti TA 00 5- 0- 00 MC 10 Av ve DI 52 20 20 AR ai NE 60 08 08 E la 1 PH bl 10 AR e MA MG CY TA BL ET MI 00 03 04 00 6. 30 PH 64 No Ac OV 08 -2 -1 70 AR 13 t ti EN 51 5- 0- 0 MC 11 Av ve TI 13 20 20 AR ai L 20 08 08 E la HF 1 PH bl A AR e 90 MA CY MC G IN VIVEROS LE R 00 03 04 00 20 3 WA 45 No Ac 40 -2 -1 .0 LM 61 t ti 60 8- 0- 00 AR 44 Av ve 35 20 20 T 9 ai 70 08 08 PH la 5 M bl 10 e -0 58 4 00 02 04 00 20 10 PH 63 No Ac 52 -2 -0 .0 AR 90 t ti 71 5- 7- 00 MC 26 Av ve 44 20 20 AR ai 30 08 08 E la 5 PH bl AR e MA CY MI 00 02 04 00 20 5 PH 63 No Ac OM 59 -2 -0 .0 AR 90 t ti ET 15 5- 7- 00 MC 27 Av ve VIVEROS 30 20 20 AR ai ZI 71 08 08 E la NE 0 PH bl AR e 25 MA CY MG TA BL ET YA 50 02 03 00 28 28 PH 63 No Ac SM 41 -1 -2 .0 AR 85 t ti IN 90 8- 6- 00 MC 03 Av ve 40 20 20 AR ai 28 20 08 08 E la 3 PH bl TA AR e BL MA ET CY 63 02 03 00 10 10 PH 63 No Ac 30 -1 -2 .0 AR 81 t ti 40 2- 6- 00 MC 26 Av ve 56 20 20 AR ai 21 08 08 E la 0 PH bl AR e MA CY 50 02 03 00 20 20 PH 63 No Ac 11 -1 -2 .0 AR 81 t ti 10 2- 6- 00 MC 27 Av ve 30 20 20 AR ai 80 08 08 E la 2 PH bl AR e MA CY MI 10 02 03 00 30 5 PH 63 No Ac OM 70 -1 -2 .0 AR 80 t ti ET 20 2- 6- 00 MC 87 Av ve VIVEROS 00 20 20 AR ai ZI 31 08 08 E la NE 0 PH bl AR e 25 MA CY MG TA BL ET TE 00 01 03 00 14 14 PH 63 No Ac MA 22 -2 -2 .0 AR 66 t ti ZE 82 5- 5- 00 MC 94 Av ve PA 07 20 20 AR ai M 65 08 08 E la 15 0 PH bl AR e MG MA CY CA PS UL E NA 68 01 03 00 60 30 PH 63 No Ac MI 46 -1 -2 .0 AR 59 t ti OX 20 6- 5- 00 MC 03 Av ve EN 18 20 20 AR ai 90 08 08 E la 37 1 PH bl 5 AR e MG MA CY TA BL ET CI 65 01 03 00 30 30 PH 63 No Ac TA 86 -1 -2 .0 AR 59 t ti LO 20 6- 5- 00 MC 02 Av ve MI 00 20 20 AR ai AM 70 08 08 E la 1 PH bl HB AR e R MA 40 CY MG TA BL ET Immunization Name Date Rout CVX Reac Dose Comm Prov Is Faci e tion ent ider Refu lity Give sed n IIV3 09- 140 LESL No LESL 8-20 IE IE VACC 13 CO CO HEAL HEAL PRES TH TH ERVA DEPA DEPA TIVE RTME RTME NT NT FREE 0.5 ML DOSA GE IM USE IIV3 10-0 141 LESL No LESL 1-20 IE IE VACC 12 CO CO INE HEAL HEAL SPLI TH TH T DEPA DEPA VIRU RTME RTME S NT NT 0.5 ML DOSA GE IM USE IIV3 09- 141 LESL No DHS/ 5-20 IE CO VACC 09 CO HEAL INE HEAL TH SPLI TH CENT T DEPA RAL VIRU RTME BANK S NT 0.5 ACCT ML DOSA GE IM USE RHO( 05-[address] D) 4-20 [facility] G[facility]B ITAL ITAL [facility] N FULL -DOS E IM RHO( 01-[address] D) 6-20 [facility] IM Procedures Procedure DOS Code Location Performer Comment COLPOSCOP 28241 [facility] GERSON Y CERVIX 7 PHYSICIAN ENDOCERVI [place] [address] [facility] SURG [address] [facility] PATHOLOGY GROSS&KEISHA ROSCOPIC EXAM CULTURE 26167 [facility] BACTERIAL 7 [facility] INC INC QUANTTATI VE COLONY COUNT URINE CULTURE 76862 [facility] BCT 7 [facility] ISOL&PRSM INC INC PTV ID ISOLATE EA URINE URNLS DIP 87965 [facility] NIETO 7 PHYSICIAN STICK/TAB S GROUP LET RGNT NON-[place] W/[place] [address] [facility] TRANSVAGI 7 PHYSICIAN NAL S GROUP SUSCEPTIB 72380 [facility] LTY STDY 7 [facility] ANTIMICRB INC INC IAL MICRO/AGA R DILUTJ CYTP 64047 [facility] CERVICAL/ 7 LLC VAGINAL REQ INTERP PHYSICIAN CYTP C/V 05240 [facility] AUTO THIN 7 LLC LYR PREPJ SCR MNL RESCR PHYS IADNA 39879 [facility] HUMAN 7 LLC PAPILLOMA VIRUS HIGH-RISK TYPES VAGINAL 14060 [facility]ERSON DELIVERY 6 PHYSICIAN HARRY ONLY S GROUP W/POSTPAR [facility] DELIVERY [id number] [facility] PRODUCTS 6 [facility] OF INC INC CONCEPTIO N EXTERNAL 61419 [facility] NONSTRESS 6 PHYSICIAN HARRY TEST S GROUP PARTICLE 02011 [facility] AGGLUTINA 6 [facility] TION INC INC SCREEN EACH ANTIBODY HANDLG&/O 16914 [facility] R CONVEY 6 PHYSICIAN PHYSICIAN OF SPEC S GROUP S GROUP FOR TR OFFICE TO LAB DRUG TST G0477 [facility] PRESUMP;C 6 PHYSICIAN HARRY PBL BEING S GROUP READ DC OPT OBV ONLY EVAL C/V 17726 [facility] AMNIOTIC 6 [facility] FLUID INC INC PROTEIN QUAL EA SPECIMEN 21752 [facility] NONSTRESS 6 [facility] TEST INC INC URNLS DIP 82715 [facility] STICK/TAB INC INC LET REAGENT AUTO MICROSCOP Y 78368 [facility] NONSTRESS 6 [facility] TEST INC INC THERAPEUT 07384 [facility] IC 6 [facility] PROPHYLAC INC INC TIC/DX INJECTION SUBQ/IM FTL 01527 [facility] FIBRONECT 6 [facility] IN INC INC CERVIC[place] [address] [facility] INFUSION 6 [facility] THERAPY/P INC INC ROPHYLAXI S /DX 1ST [place] 1 [place] [address] [facility] NONSTRESS 6 [facility] TEST INC INC URNLS DIP 23896 [facility] TONG 6 [facility] STICK/TAB INC INC LET REAGENT AUTO MICROSCOP Y CULTURE 79959 [facility] BACTERIAL 6 [facility] INC INC QUANTTATI VE COLONY COUNT URINE DRUG TST G0477 [facility]ERSON PRESUMP;C 6 PHYSICIAN HARRY PBL BEING S GROUP READ DC OPT OBV ONLY DRUG TST G0477 [facility] GERSON PRESUMP;C 6 PHYSICIAN HARRY PBL BEING S GROUP READ DC OPT OBV ONLY FTL 78184 [facility] FIBRONECT 6 [facility] IN INC INC CERVICOVA G SECRETION S SEMI-NATIVIDAD DRUG TST G0477 [facility] GERSON PRESUMP;C 6 PHYSICIAN HARRY PBL BEING S GROUP READ DC OPT OBV ONLY DRUG TST G0477 [facility] PRESUMP;C 6 [facility]OSP PBL BEING INC INC READ DC OPT OBV ONLY 51807 [facility] NONSTRESS 6 [facility] TEST INC INC COLLECTIO 05763 [facility] GERSON N 6 PHYSICIAN HARRY CAPILLARY S GROUP BLOOD SPECIMEN GLUCOSE 10571 [facility] POST 6 PHYSICIAN PHYSICIAN [place] [address] [facility] ABDOMINAL 6 [facility] REAL INC INC TIME W/IMAGE LIMITED DRUG TST G0477 [facility] PRESUMP;C 6 [facility] PBL BEING INC INC READ DC OPT OBV ONLY DRUG TST G0477 [facility] PRESUMP;C 6 MEM HOSP MEM HOSP PBL BEING INC INC READ DC OPT OBV ONLY 66423 [facility] HARPEL NONSTRESS 6 PHYSICIAN TOOTIE TEST S GROUP US PREG 52283 [facility] UTERUS 6 [facility] W/DETAIL INC INC SELENA 1ST GESTATION US PREG 54721 [facility] UTERUS 6 MEDICAL LETICIA AFTER 1ST IMAGING TRIMEST ASS 1/ GESTATION DRUG TST G0477 [facility] GERSON PRESUMP;C 6 PHYSICIAN HARRY PBL [place]ING [place] [address] CHAD SANTOYO ALL 6 MEDICAL UTERUS IMAGING LIMITED ASS 1/> [place] PREG [address]08 [facility] GERSON UTERUS 6 PHYSICIAN HARRY REAL TIME S GROUP W/IMAGE DCMTN TRANSVAG DRUG TST G0477 [facility] GERSON PRESUMP;C 6 PHYSICIAN HARRY PBL BEING S GROUP READ DC OPT OBV ONLY US PREG 44952 [facility] GREG UTERUS 6 MEDICAL LETICIA REAL TIME IMAGING W/IMAGE ASS DCMTN TRANSVAG CYTP C/V 74515 [facility] AUTO THIN 6 [facility] ER JR NATALIE LYR PREPJ SCR MNL RESCR PHYS DRUG TST G0477 [facility] GERSON PRESUMP;C 6 PHYSICIAN PBL BEING S GROUP READ DC OPT OBV ONLY IADNA 37453 [facility] CHLAMYDIA 6 LLC ER JR NATALIE TRACHOMAT IS AMPLIFIED PROBE TQ IADNA 77047 [facility] NEISSERIA 6 LLC ER JR NATALIE GONORRHOE AE AMPLIFIED PROBE TQ CULTURE 57537 [facility] BACTERIAL 6 MCKAYLA BLOCK MED CTR MED CTR QUANTTATI [facility] ST VE COLONY COUNT URINE DRUG TEST G0480 [facility] DEFINITV [address] ID MED CTR MED CTR METH P DOCK COORDINATOR [facility] ST DAY 1-7 DRUG CL DRUG TEST G0479 [facility] 6 MCKAYLA BLOCK PRESUMP;I MED CTR MED CTR NSTRUMENT [facility] ST ED CHEMISTRY ANLYZER GONADOTRO 04129 [facility]. PIN 6 MCKAYLA BLOCK CHORIONIC MILDRED MILDRED QUALITATI VE COLLECTIO 55227 [facility]. N VENOUS 6 MCKAYLA BUTTSTH BLOOD MILDRED MILDRED VENIPUNCT URE RADEX 96012 RADIOLOGY STONE ELBOW 6 GAR COMPLETE ASSOCIATE MINIMUM 3 S OF NOTH VIEWS RADIOLOGI 77235 RADIOLOGY STONE C EXAM 6 GAR KNEE ASSOCIATE COMPLETE S OF NOTH 4/MORE VIEWS RADEX 05735 RADIOLOGY SHERIE SPINE 5 CHR LUMBOSACR ASSOCIATE AL 2/3 S OF NOTH VIEWS RADEX 48355 RADIOLOGY LUBBERS SPINE 5 FRITZ THORACIC ASSOCIATE 2 VIEWS S OF NOTH THERAPEUT 09351 ST CABAN IC 5 MCKAYLA JEN PROPHYLAC TIC/DX PHYSICIAN INJECTION S SUBQ/IM INJECTION J0696 ST CABAN 5 MCKAYLA SHLOMO CEFTRIAXO NE SODIUM PHYSICIAN [place] [address] [place] [address] RADIOLOGY ERWIN SOUSA TRANSVAGI 5 [place] [address] RADIOLOGY STONE ABDOMINAL 5 JAM REAL ASSOCIATE TIME S OF NOTH W/IMAGE LIMITED US PELVIC 98415 RADIOLOGY ERWIN SOUSA 5 NONOBSTET ASSOCIATE MARYBEL S OF NOTH REAL-TIME IMAGE COMPLETE COMPREHEN [address] SIVE 5 MCKAYLA MCKAYLA METABOLIC MED CTR MED CTR PANEL DOCK COORDINATOR ST DOCK COORDINATOR ST IADNA [address] CHLAMYDIA 5 MCKAYLA MCKAYLA MED CTR MED CTR TRACHOMAT DOCK COORDINATOR ST DOCK COORDINATOR ST IS AMPLIFIED PROBE TQ IADNA [address] NEISSERIA 5 MCKAYLA MCKAYLA MED CTR MED CTR GONORRHOE DOCK COORDINATOR ST DOCK COORDINATOR ST AE AMPLIFIED PROBE TQ URINE 32443 ST CABAN 5 MCKAYLA SHLOMO TEST VISUAL PHYSIC[place] [address] FREE 5 MCKAYLA MCKAYLA THYROXINE MED CTR MED CTR DOCK COORDIN[place] [address] THYROID 5 MCKAYLA MCKAYLA STIMULATI MED CTR MED CTR NG DOCK COORDINATOR ST DOCK COORDINATOR ST HORMONE TSH BLOOD [address] COUNT 5 MCKAYLA MCKAYLA COMPLETE MED CTR MED CTR AUTOMATED DOCK COORDINATOR ST DOCK COORDINATOR ST GONADOTRO [address] PIN 5 MCKAYLA MCKAYLA CHORIONIC MED CTR MED CTR DOCK COORDINATOR ST DOCK COORDINATOR ST QUALITATI VE URINE 72192 ST THRELKELD 5 MCKAYLA II UMER TEST VISUAL PHYSICIAN COLOR S CMPRSN METHS URINE 11706 [facility] FORTUNE 5 MEM [facility]OS[facility] TEST INC INC VISUAL COLOR CMPRSN METHS CULTURE 14801 [facility] BACTERIAL 5 [facility]OS[facility] INC INC [place]TT[place] [address] [facility] AMYLASE 5 [place] [address] [facility] LIPASE 5 [facility] INC INC COMPREHEN 73128 [facility] SIVE 5 [facility]OS[facility] METABOLIC INC INC PANEL URNLS DIP 61089 [facility]E 5 [facility] STICK/TAB INC INC LET REAGENT AUTO MICROSCOP Y UNCLASSIF J3490 [facility] IED DRUGS 5 [facility] INC INC BLOOD 46524 [facility] COUNT 5 [facility] COMPLETE INC INC AUTO&AUTO DIFRNTL WBC URINE 31478 [facility] CHARLIE CO 5 [facility] TEST [facility] VISUAL T T COLOR CMPRSN METHS IIV3 VACC 19309 [facility] CHAR[facility] CO 3 [facility] PRESERVAT [facility] LUL FREE T T 0.5 ML DOSAGE IM USE CONTRACEP S4993 [facility] TIVE 3 [facility] PILLS FOR [facility] T T CONTROL IAADIADOO 50172 [facility] TAVIA INFLUENZA IAADIADOO 49345 [facility] TAVIA STREPTOCO CCUS GROUP A IIV3 79140 [facility] VACCINE 2 [facility]ALTH HEALTH SPLIT [facility] VIRUS 0.5 T T ML DOSAGE IM USE CYTP 21771 [facility] CERV/VAG 2 DIAGNOSTI DIAGNOSTI AUTO THIN CS CS LAYER PREP MNL SCREEN FRAMES V2020 [facility] PURCHASES 2 JERROD ELDER DETERMINA 38062 [facility] TION 2 JERROD ELDER REFRACTIV E STATE FITTING 63006 [facility] SPECTACLE 2 JERROD ELDER S XCPT APHAKIA MONOFOCAL SPHERE V2100 [facility] SINGLE 2 JERROD ELDER VISION PLANO +/- 4.00 PER LENS OPHTH 80606 [facility] MEDICAL 2 JERROD ELDER XM&EVAL COMPRE NEW PT 1/> VST THERAPEUT 24250 YASMANI SOLIS 2 BECKINRID BECKINRID PROPHYLAC GE ARH GE ARH TIC/DX HOSPITA HOSPITA INJECTION SUBQ/IM INJECTION J2001 YASMANI GRUBER 2 BECKINRID BECKINRID LIDOCAINE GE AR[facility] HCL HOSPITA HOSPITA INTRAVENO US INFUS 10 MG INJECTION J0696 YASMANI GRUBER 2 BECKINRID BECKINRID CEFTRIAXO GE ARH GE ARH NE SODIUM HOSPITA HOSPITA PER 250 MG INJECTION J2550 YASMANI GRUBER 2 BECKINRID BECKINRID PROMETHAZ GE ARH GE AR[facility] INE HCL HOSPITA HOSPITA UP TO 50 MG INSERTION 88163 [facility] CO 1 [facility] HEALTH INTRAUTER [facility] INE T T DEVICE IUD LEVONORGE J7302 [facility] STREL-RLS 1 [facility] E [facility] INTRAUTER T T N CNTRACPT 52 MG BLOOD 49357 [facility] COUNT 1 [facility] HEMOGLOBI [facility] N T T IADNA 93207 [facility] CO NEISSERIA 1 [facility] GONORRHOE T T AE AMPLIFIED PROBE TQ IADNA 19351 [facility]IE CO CHLAMYDIA 1 [facility] TRACHOMAT T T IS AMPLIFIED PROBE TQ URINE 78951 [facility] CHARLIE CO 1 [facility] TEST [facility] VISUAL T T COLOR CMPRSN METHS RADEX 34303 YASMANI GRUBER ELBOW 1 [facility] COMPLETE DGE DGE MINIMUM 3 HOSPITAL HOSPITAL VIEWS RADEX 74008 YASMANI GRUBER FOREARM 2 1 JAZ SEBASTIAN VIEWS DGE DGE [facility]OSPITAL COLLECTIO 04821 PRIMARY PEDRO LUIS N VENOUS 1 [facility] BLOOD CENTERS VENIPUNCT OF RUST URE BLOOD 00898 PRIMARY PEDRO LUIS COUNT 1 [facility] COMPLETE CENTERS AUTO&AUTO OF RUST DIFRNTL WBC IAADIADOO 17117 PRIMARY TRINIDAD 0 CARE DOROTHY STREPTOCO CENTERS CCUS OF RUST GROUP A GONADOTRO 40920 PRIMARY TRINIDAD, PIN 0 CARE CTR ALLISON C [facility]ORIONIC OF [place] QUANTIT[place] L[place] GONADOTRO 25373 PRIMARY PEDRO LUIS PIN 0 [facility] [address] RADIOLOGY BAL, A ABDOMEN 0 SERVICES R W/CONTRAS T MATERIAL CT PELVIS 44671 RADIOLOGY BAL, A 0 SERVICES R W/CONTRAS T MATERIAL URINE 43123 PRIMARY TRINIDAD 0 CARE DOROTHY TEST CENTERS VISUAL OF RUST COLOR CMPRSN METHS COLLECTIO 81566 PRIMARY TRINIDAD N VENOUS 0 CARE DOROTHY BLOOD CENTERS VENIPUNCT OF RUST URE CULTURE 59127 [facility] BACTERIAL 9 [facility] QUANTPREMIER [facility]ALTH [facility] MEDICAL MEDICAL VE COLONY CT CT COUNT URINE URNLS DIP 81196 PRIMARY PEDRO LUIS 9 [facility] STICK/TAB CENTERS LET OF RUST REAGENT AUTO MICROSCOP Y INFLUENZA G9141 DHS/CO CHARLIE CO A H1N1 9 HEALTH HEALTH IMMUNIZAT [facility] ION BANK ACCT T ADMINISTR ATION US PELVIC 88882 PRIMARY TRINIDAD 9 CARE DOROTHY NONOBSTET CENTERS MARYBEL OF RUST REAL-TIME IMAGE COMPLETE URNLS DIP 60560 YASMANI GRUBER 9 BRECKINRI BRECKINRI STICK/TAB DGE DGE [facility] REAGENT AUTO MICROSCOP Y SUSCEPTIB 37571 YASMANI GRUBER LTY STDY 9 BRECKINRI BRECKINRI ANTIMICRB DGE DGE [facility] MICRO/AGA R DILUTJ CULTURE 75457 YASMANI GRUBER BACTERIAL 9 BRECKINRI BRECKINRI DGE DGE [facility] VE COLONY COUNT URINE CUL BACT 19628 YASMANI GRUBER AEROBIC 9 BRECKINRI BRECKINRI ADDL DGE DGE [facility] DEFINITIV E EA ISOL IADNA 73596 [facility] NEISSERIA 9 [facility] GONORRHOE AE AMPLIFIED PROBE TQ IADNA 37178 [facility] CHLAMYDIA 9 [facility] TRACHOMAT IS AMPLIFIED PROBE TQ IADNA 65597 [facility] PAPILLOMA 9 [facility] VIRUS HUMAN AMPLIFIED PROBE TQ CYTP C/V 38510 [facility] AUTO THIN 9 [facility] LYR PREPJ SCR MNL RESCR PHYS IIV3 32060 DHS/CO CHARLIE CO VACCINE 9 [facility] VIRUS 0.5 BANK ACCT T ML DOSAGE IM USE GONADOTRO 28295 YASMANI GRUBER PIN 9 JAZ SEBASTIAN [facility]IC [facility] QUANTITAT LUL URINE 46620 DHS/CO CHARLIE CO 9 [facility] VISUAL BANK ACCT T COLOR CMPRSN METHS ANALGESIA D9230 DALE HUNTER 9 [facility]. C[facility] ANXIOLYSI GILBERT HUNT S INHALATIO N OF NITROUS OXIDE SPHERE V2100 [facility], SINGLE 9 MAURICE I MAURICE I VISION PLANO +/- 4.00 PER LENS FITTING 96768 [facility], SPECTACLE 9 MAURICE I MAURICE I S XCPT APHAKIA MONOFOCAL FRAMES V2020 [facility], PURCHASES 9 MAURICE I MAURICE I DETERMINA 40900 MARJAN PHILLIP TION 9 LEONIE Gordon REFRACTIV E STATE DEEP D9220 JULIO CESAR HARRELL, SEDATION/ 9 RENARD Patel GENERAL ANESTHESI A-1ST 30 MINUTES ORTHOPANT 62481 JULIO CESAR HARRELL OGTANISHA 9 RENARD Patel COMPREHEN 95128 YASMANI GRUBER SIVE 9 [facility] ACUTE 46519 YASMANI GRUBER HEPATITIS 9 [facility]IAN PANEL [facility] BLOOD 05053 YASMANI GRUBER COUNT 9 BRECKINRI BRECKINRI COMPLETE DGE DGE AUTO&AUTO [facility] [place] [address] YASMANI GRUBER ABDOMINAL 9 BRECKINRI BRECKINRI REAL DGE DGE TIME [facility] W/IMAGE LIMITED URNLS DIP 43438 YASMANI GRUBER 9 BRECKINRI BRECKINRI STICK/TAB DGE DGE LET [facility] REAGENT AUTO MICROSCOP Y BASIC 47883 YASMANI GRUBER METABOLIC 9 BRECKINRI BRECKINRI PANEL DGE DGE CALCIUM [facility] TOTAL RADIOLOGI 88678 RADIOLOGY PAMPATI, C EXAM 9 SERVICES MAHENDER CHEST 2 VIEWS FRONTAL&L ATERAL CREATINE 31516 YASMANI GRUBER KINASE 9 BRECKINRI BRECKINRI TOTAL DGE DGE [facility] CREATINE 97548 YASMANI GRUBER KINASE MB 9 BRECKINRI BRECKINRI FRACTION DGE DGE ONLY [facility] CULTURE 82202 YASMANI GRUBER BACTERIAL 9 BRECKINRI BRECKINRI DGE DGE QUANTTATI [facility] VE COLONY COUNT URINE BLOOD 62696 YASMANI GRUBER COUNT 9 BRECKINRI BRECKINRI COMPLETE DGE DGE AUTO&AUTO [facility] DIFRNTL WBC ECG 08944 YASMANI GRUBER ROUTINE 9 BRECKINRI BRECKINRI ECG DGE DGE W/LEAST [facility] 12 LDS TRCG ONLY W/O I&[place] [address] YASMANI GRUBER TROPONIN 9 BRECKINRI BRECKINRI QUANTITAT DGE DGE LUL [facility] BLOOD [address] COUNT 9 [facility] COMPLETE AUTO&AUTO MEDICALCE MEDICALCE DIFRNTL NTER NTER WBC IADNA [address] NEISSERIA 9 [facility] GONORRHOE MEDICALCE MEDICALCE AE NTER NTER AMPLIFIED PROBE TQ BILIRUBIN [address] DIRECT 9 [facility] MEDICALCE MEDICALCE NTER NTER GONADOTRO [address] PIN 9 [facility] CHORIONIC MEDICALCE MEDICAL[place] [address] PHOSPHORU 9 [facility] S INORGANIC MEDICALCE MEDICALCE NTER NTER IADNA 61483 [facility] CHLAMYDIA 9 [facility] TRACHOMAT MEDICALCE MEDICALCE IS NTER NTER AMPLIFIED PROBE TQ COMPREHEN 72629 [facility] SIVE 9 [facility] METABOLIC PANEL MEDICALCE MEDICALCE NTER NTER COLLECTIO 88616 ST BE, N VENOUS 9 [facility] CTR VENIPUNCT URE COLLECTIO [address] N VENOUS 9 [facility] VENIPUNCT URE RADEX 31123 [facility] ANKLE 9 [facility] MINIMUM 3 VIEWS GONADOTRO 36191 [facility] PIN 9 [facility] QUALITATI VE URINALYSI 96807 [facility] S [address] [place] [address] QUAL/SEMI QUANT EXCEPT [place] AYS URINE [address] TEST VISUAL COLOR CMPRSN METHS URINE 79279 YASMANI GRUBER 9 BRECKINRI BRECKINRI TEST [facility]GE [facility] COLOR CMPRSN METHS RADIOLOGI 26978 YASMANI GRUBER C EXAM 9 BRECKINRI BREJESSINRI CHEST 2 DGE DGE [facility] FRONTAL&L ATERAL BASIC 75152 YASMANI GRUBER METABOLIC 9 BRECKINRI BRECKINRI PANEL DGE DGE [facility] TOTAL URNLS DIP 04711 YASMANI GRUBER 9 BRECKINRI BRECKINRI STICK/TAB DGE DGE [facility] REAGENT AUTO MICROSCOP Y BLOOD 06283 YASMANI GRUBER COUNT 9 BRECKINRI BRECKINRI COMPLETE DGE DGE AUTO&AUTO [facility] DIFRNTL WBC BLOOD 53621 [facility] COUNT 9 MEM HOS[facility] MEM HOSP COMPLETE INC INC AUTO&AUTO DIFRNTL WBC URNLS DIP 04404 [facility] FORTUNE 9 [facility]OS[facility] STICK/TAB INC INC LET REAGENT AUTO MICROSCOP Y BASIC 82372 [facility] METABOLIC 9 MEM HOS[facility] MEM HOSP PANEL INC INC CALCIUM TOTAL INITIAL 12393 NATALY POLLACK, INPATIENT 9 S AMBER CONSULT HEALTHCAR NEW/ESTAB E INC PT 55 MIN RADIOLOGI 12993 RADIOLOGY Eleno BENNETT 9 EXAMINATI ASSOCIATE MCKAYLA ON CHEST S PSC A SINGLE VIEW FRONTAL RADIOLOGI 66650 RADIOLOGY SABRINA C EXAM 9 CHEST 2 ASSOCIATE MCKAYLA VIEWS S PSC A FRONTAL&L ATERAL ECHOENCEP 15519 RADIOLOGY DANIEL, HALOGRAPH 9 JUNIOR Arteaga REAL ASSOCIATE TIME S PSC IMAGING EKG [address] [place] [address] CURRENT [facility] OBSTETRIC LACERATIO N OTHER 7309 [facility] ARTIFICIA [address] [place] [address] L RUPTURE [facility] OTHER 7359 [facility] MANUALLY [address] [place] [address] ASSISTED [facility] DELIVERY RADIOLOGI 67410 RADIOLOGY Eleno ROSEN 9 MATTY H EXAMINATI ASSOCIATE ON CHEST S PSC SING[place]IEW FRONTAL NEURAXIAL 38490 ST MANE, LABOR 9 MCKAYLA Meyrs ANALG/ANE MED CTR S PLND [place]INAL DEL[place] V [address] [facility] ROSS, SURG 9 CINTI SANDER PATHOLOGY PATHOLOGI STINC GROSS&KEISHA ROSCOPIC EXAM VAGINAL 17309 ST SRIVASTAV DELIVERY 9 [facility] W/POSTPAR [facility] MEDICAL 734 [facility] INDUCTION [address] [place] [address] [facility] US PREG 99061 [facility] [place], UTERUS 9 [facility] [place] REAL TIME I W/IMAGE DCMTN ASSOC [employer] DOPPLER 32341 [facility] ECHO [address] [place] [address] [facility] SPECTRAL DISPLAY COMPLETE US PREG 67401 [facility] UTERUS [address] [place] [address] REAL TIME [facility] F/U TRNSABDL PER FETUS DOPPLER 58482 [facility] REYNOLDEKLE, ECHO 9 [facility] VICKEY Alas I PULS SPECTRAL ASSOC F/U/REPEA LLC T URNLS DIP [address] HOSPITAL STICK/TAB [facility] LET REAGENT AUTO MICROSCOP Y 84353 [facility], NONSTRESS 9 MCKAYLA BLANCA J TEST MED CTR OBSERVATI 00338 ST POLACEK, ON/INPATI 9 MCKAYLA [facility] HOSPITAL CARE 50 MINUTES CULTURE 96650 [facility] BACTERIAL [address] [place] [address] QUANTTATI VE COLONY COUNT URINE OTHER 7534 [facility] [address] [place] [address] [facility] G OTHER [address] [facility] G CUL BACT 20738 [facility] XCPT 9 MCKAYLA MCKAYLA URINE BLOOD/STO MEDICALCE MEDICALCE OL NTER NTER AEROBIC ISOL IADNA 96228 [facility] NEISSERIA 9 [facility] GONORRHOE MEDICALCE MEDICALCE AE NTER NTER AMPLIFIED PROBE TQ OBSERVATI 88899 ST BOHME, ON/INPATI 9 MCKAYLA DENIZ ENT MED CTR J HOSPITAL CARE 40 MINUTES IADNA 04451 [facility] CHLAMYDIA 9 [facility] TRACHOMAT MEDICALCE MEDICALCE [place] N[place] [address] [facility] NONSTRESS [address] [place] [address] IADNA NOS 40029 [facility] DIRECT 9 [facility] PROBE TQ EACH MEDICALCE MEDICALCE ORGANISM NTER NTER 75117 [facility] NONSTRESS [address] [place] [address] SMR PRIM 94198 [facility] SRC WET [address] [place] [address] NFCT AGT PH BODY 75286 [facility] FLUID NOT [address] [place] [address] ELSEWHERE SPECIFIED OTHER 7534 [facility] [address] [place] [address] [facility] G DOPPLER 14407 [facility] ECHO 8 [facility] SPECTRAL [place] COM[place] 04257 [facility] UTERUS [address] [place] [address] REAL TIME [facility] F/U TRNSABDL PER FETUS [address] FAREED TEST PHYSICIAN S FOR WOMEN OTHER 7534 [facility] [address] [place] [address] [facility] G CULTURE 44382 [facility] TYPING 8 [facility] IMMUNOLOG IC OTH/THN IMMUNOFLU ORES CULTURE 31553 [facility] BCT 8 [facility] ISOL&PRSM PTV ID ISOLATE EA URINE CULTURE 10571 [facility] BACTERIAL 8 [facility] QUANTTATI VE COLONY COUNT URINE US PREG 26558 [facility] UTERUS [address] [place] [address] REAL TIME [facility] W/IMAGE DCMTN TRANSVAG 71302 [facility] [address] [place] [address] TEST PHYSICIAN S FOR WOMEN SMR PRIM 29143 [facility] SRC WET [address] [place] [address] [place] [facility] AGT PHYSICIAN S FOR WOMEN RHO(D) 62470 [facility] IMMUNE [address] [place] [address] GLOBULIN [facility] HUMAN FULL-DOSE IM [place] PREG 36717 [facility] UTERUS [address] [place] [address] REAL TIME [facility] F/U TRNSABDL PER [facility] THER 21881 [facility] PROPH/DX [address] [place] [address] NJX [facility] SUBQ/IM ANTIBODY 58050 [facility] SCREEN [address] [place] [address] RBC EACH [facility] SERUM TECHNIQUE IADNA 22518 [facility] [place] [employer] SPECIES DIRECT PROBE TQ IADNA 65833 [facility] [facility] [employer] VAGINALIS DIRECT PROBE TQ IADNA 03065 [facility] [place] [facility] [employer] LA VAGINALIS DIRECT PROBE TQ IADNA 28595 [facility] [place] [facility] [employer] TRACHOMAT IS AMPLIFIED PROBE TQ IADNA 83024 [facility] [place] 8 [facility] GONORRHOE AE AMPLIFIED PROBE TQ OBSERVATI 50655 [place], ON/INPATI 8 BISHOP Brooks [facility] CARE 55 MINUTES 60779 TONG [facility] NONSTRESS 8 [facility] [place] P[place] 16268 GREATER ALHAJI, UTERUS 8 [facility] F REAL TIME I F/U TRNSABDL ASSOC PER [employer] OPHTH 52983 FAMILYNELA CALHOUN, MEDICAL 8 E [facility]ISION [facility] J XM&EVAL CARE COMPRHNSV ESTAB PT 1/> 1 VISN V2103 NITIN CALHOUN PLANO 8 [facility] J TO+/-4.00 CARE D SPHER 0.12-2.00 D CYL EA FRAMES V2020 NITIN CALHOUN, PURCHASES 8 [facility] CARE DETERMINA 08406 NITIN CALHOUN TION 8 [facility] REFRACTIV CARE E STATE FITTING 31427 NITIN CALHOUN, SPECTACLE 8 [facility] S XCPT CARE APHAKIA MONOFOCAL CUL BACT 77999 [facility] AEROBIC 8 [facility] ADDL METHS DEFINITIV E EA ISOL CULTURE 79377 [facility] BACTERIAL 8 [facility] QUANTTATI VE COLONY COUNT URINE CULTURE 01877 [facility] BCT 8 [facility] ISOL&PRSM PTV ID ISOLATE EA URINE SUSCEPTIB 92231 [facility] LTY STDY 8 [facility] ANTIMICRB IAL MICRO/AGA R DILUTJ THER 75425 [facility] PROPH/DX [address] [place] [address] NJX [facility] SUBQ/IM US PREG 90954 [facility] UTERUS [address] [place] [address] AFTER TRIMEST GESTATION GONADOTRO 40061 [facility] PIN 8 DIAGNOSTI DIAGNOSTI CHORIONIC CS, INC. CS, INC. QUANTITAT LUL INHIBIN A 23045 [facility]ST 8 DIAGNOSTI DIAGNOSTI , INC. CS, INC. CHEMILUMI 10051 [facility] NESCENT 8 DIAGNOSTI DIAGNOSTI ASSAY , INC. , INC. ALPHA-FET 50070 [facility] OPROTEIN 8 DIAGNOSTI DIAGNOSTI SERUM , [place] , [place] [address] [facility] ESTRIOL 8 DIAGNOSTI DIAGNOSTI , INC. , INC. ECG 89969 [facility] ROUTINE [address] [place] [address] ECG [facility] W/LEAST 12 LDS TRCG ONLY W/O I&R ECG 94350 [facility]AG[facility]STI MCDANNOLD ROUTINE 8 C , CHRIS J ECG CARDIOLOG W/LEAST ISTS INC 12 LDS I&R ONLY BLOOD 05112 [facility] COUNT [address] [place] [address] COMPLETE [facility] AUTO&AUTO DIFRNTL WBC RHYTHM 20025 EMERGENCY CHANEY, ECG 1-3 8 [facility] LEADS PHYS INTERPRET [place] & [place] REPRT ON APPLICATI 9354 [facility] ON OF [address] [place] [address] SPLINT [facility] THER 96409 [facility] PROPH/DX [address] [place] [address] SUBQ/IM BASIC 66831 [facility] METABOLIC [address] [place] [address] PANEL [facility] [place] [address] [facility] [address] [place] [address] UTERUS 14 KINDRED [facility] WK TRANSABDL GESTAT [place] PREG 38620 [facility] [place], UTERUS 8 [facility] W REAL TIME I W/[place] [address] [facility] ABDOMINAL [address] [place] [address] REAL [facility] TIME W/IMAGE LIMITED RHO(D) 24035 [facility] IMMUNE [address] [place] [address] GLOBULIN [facility] HUMAN FULL-DOSE IM CYTP C/V 97347 [facility] AUTO THIN 8 [facility] LYR PREPJ SCR MNL RESCR CONSTRUCTION GRIP 22203 [facility] PROPH/DX [address] [place] [address] SUBQ/IM IADNA 01024 [facility] NEISSERIA 8 [facility] GONORRHOE AE AMPLIFIED PROBE TQ ANTIBODY [address] RBC EACH [facility] SERUM TECHNIQUE IADNA 80201 [facility] CHLAMYDIA 8 [facility] TRACHOMAT [place] P[place] [address]79 [facility] UTERUS [address] [place] [address] REAL TIME [facility] W/IMAGE DCMTN TRANSVAG URNLS DIP [address] STICK/TAB [facility] LET RGNT AUTO W/O MICROSCOP Y BASIC [address] PANEL [facility] CALCIUM TOTAL BLOOD [address] COMPLETE [facility] AUTO&AUTO DIFRNTL WBC BLOOD 19183 [facility] COUNT [address] [place] [address] COMPLETE AUTO&AUTO MEDICALCE MEDICALCE DIFRNTL NTER NTER WBC ANTIBODY 34312 [facility] RODRIGO-B [address] [place] [address] ARR EB VIRUS MEDICALCE MEDICALCE [place] [address] PROPH/DX [facility] 1ST >1 HR BASIC 47970 [facility] METABOLIC [address] [place] [address] PANEL CALCIUM MEDICALCE MEDICALCE TOTAL NTER NTER COLLECTIO 28089 [facility] N VENOUS 8 MEDICAL G, DUNG BLOOD GROUP B VENIPUNCT URE ANTISTREP 80124 [facility] TOLYSIN O 8 [facility] SCREEN MEDICALCE MEDICALCE NTER NTER IAADIADOO 35248 [facility] STER[facility] 8 MEDICAL G, DUNG STREPTOCO GROUP B CCUS GROUP A IAADIADOO [address] STREPTOCO [facility] CCUS GROUP A URNLS DIP [address] STICK/TAB [facility] LET RGNT AUTO W/O MICROSCOP Y CUL 89042 [facility] PRSMPTV [address] [place] [address] PTHGNC [facility] ORGANISM SCRN W/COLONY ESTIMJ INSJ 53864 [facility] NON-NDWEL [address] [place] [address] LG [facility] BLADDER CATHETER IADNA 91084 [facility] CHLAMYDIA [address] [place] [address] TRACHOMAT IS AMPLIFIED PROBE TQ GONADOTRO 58772 [facility] PIN [address] [place] [address] CHORIONIC [facility] QUANTITAT LUL IADNA 49356 [facility] NEISSERIA [address] [place] [address] GONORRHOE AE AMPLIFIED PROBE TQ BASIC 97317 [facility] METABOLIC [address] [place] [address] PANEL [facility] CALCIUM TOTAL URNLS DIP [address] STICK/TAB [facility] LET REAGENT AUTO MICROSCOP Y BLOOD 93763 [facility] COUNT [address] [place] [address] COMPLETE [facility] AUTO&AUTO DIFRNTL WBC RHYTHM 82403 EMERG[facility], ECG 1-3 8 CARE WALTER P LEADS PHYS INTERPRET [place] & [place] ECG [address] [facility] ROUTINE [address] [place] [address] ECG [facility] W/LEAST 12 LDS TRCG ONLY W/O I&R MOLEC 87874 [facility] ISOL/XTRJ 8 [facility] ACID EA TYPE MOLECULAR 09222 [facility] DX AMP 8 HARRIETT LOR[facility] 1ST 2 SEQ MOLECULAR 24094 [facility] COLE[facility] QUEST COLEMAN 8 HARRIETT [place] DIAGNOSTI [facility] INTERPRET ATION & REPORT MUTATION 31832 [facility] ID 8 HARRIETT L[place] ENZYMATIC [facility] LIG/PRIME R XTN 1 SGM EA MOLECULAR 28241 [facility] DX AMP 8 HARRIETT [place]EN[place] TARGET [facility] EA ADDL SEQ MOLEC 07565 [facility] SEP&ID HI 8 HARRIETT DELANEYU TQ [facility] NUCLEIC ACID PREP CULTURE 04089 [facility] BACTERIAL 8 [facility] INC INC QUANTTATI VE COLONY COUNT URINE BASIC 23952 [facility] METABOLIC 8 [facility] PANEL INC INC CALCIUM TOTAL URINE 78311 [facility] 8 [facility] TEST INC INC VISUAL COLOR CMPRSN METHS URNLS DIP 56281 [facility] STICK/TAB INC INC LET REAGENT [place] 77150 [facility] UTERUS 8 [facility] REAL TIME INC INC W/IMAGE DCMTN TRANSVAG BLOOD 69406 [facility] COUNT 8 [facility] COMPLETE INC INC AUTO&AUTO DIFRNTL WBC GONADOTRO 34728 [facility] PIN 8 [facility] [place] [address] [facility] LIPASE 8 [facility] INC INC BILIRUBIN 32739 [facility] DIRECT 8 [facility] INC INC URINE 17825 [facility] 8 [facility] TEST INC INC [place] [address] [facility] AMYLASE 8 [facility] INC INC URNLS DIP 24393 [facility] 8 [facility] STICK/TAB INC INC LET REAGENT AUTO MICROSCOP Y COMPREHEN 79637 [facility] SIVE 8 [facility] METABOLIC INC INC PANEL BLOOD 83413 [facility] COUNT 8 [facility] COMPLETE INC INC AUTO&[place] [address] [facility] TRANSVAGI 8 [facility] US PELVIC [address] RADIOLOGY FABIO, 8 YASMANI C NONOBSTET ASSOCIATE MARYBEL S PSC REAL[place] 09207 [facility] THER 8 [facility] PROPH/[place] [address] CHAD SHAY, ABDOMEN 8 MEDICAL LISA P W/O IMAGING CONTRAST ASSOCI[place] NFS 30771 [facility] THER 8 [facility] PROPH/DX INC INC 1ST >[address] PELVIS 49554 [facility] W/O 8 [facility] CONTRAST INC INC MATERIAL 3D 01409 CHAD LAURITA, RENDERING 8 MEDICAL LISA P IMAGING W/INTERP& ASSOCIATE POSTPROC S DIFF WORK STATION BLOOD 23763 [facility] COUNT 8 [facility] COMPLETE INC INC AUTO&AUTO DIFRNTL WBC URINE 25066 [facility] 8 [facility] TEST INC INC VISUAL COLOR CMPRSN METHS URNLS DIP 42408 [facility] 8 [facility] STICK/TAB INC INC LET REAGENT AUTO MICROSCOP Y COMPREHEN 66747 [facility] SIVE 8 [facility] METABOLIC INC INC PANEL IADNA 67983 [facility] [place] 8 [facility] GONORRHOE AE AMPLIFIED PROBE TQ CYTP C/V 14192 [facility]O THIN 8 [facility] LYR PREPJ SCR MNL RESCR PHYS IADNA 82255 [facility] 8 [facility] TRACHOMAT IS AMPLIFIED [place] 26008 RADIOLOGY RICARDO, 8 RODNEY R NONOBSTET ASSOCIATE MARYBEL IMAGE S PSC DCMTN LIMITED/F /U [place] [address] ST [facility] [place] [address] [facility] TRANSVAGI 8 [facility] URNLS DIP 46003 [facility] 8 [facility] STICK/TAB INC INC LET REAGENT AUTO MICROSCOP Y URINE 88596 [facility] 8 [facility] TEST INC INC VISUAL COLOR CMPRSN METHS RADEX 55633 [facility] FOOT 8 [facility] COMPLETE INC INC MINIMUM 3 VIEWS RADEX 29025 CHAD LAURITA, ANKLE 8 MEDICAL LISA P COMPLETE IMAGING MINIMUM 3 [place] [address] [facility] THYROID 8 [facility] STIMULATI NG HORMONE TSH GONADOTRO 64825 [facility] PIN 8 [facility] INC CHORIONIC QUANTITAT LUL ANTIBODY 28988 [facility] RUBELLA 8 [facility] ANTIBODY 47414 [facility] VARICELLA 8 DIAGNOSTI DIAGNOSTI -ZOSTER CS IN CS IN URNLS DIP [address] STICK/TAB LET MEDICALCE MEDICALCE REAGENT NTER NTER AUTO MICROSCOP Y CULTURE 01639 [facility] BCT 8 [facility] ISOL&PRSM PTV ID MEDICALCE MEDICALCE ISOLATE NTER NTER EA URINE CULTURE 15758 [facility] BACTERIAL 8 [facility] QUANTTATI MEDICALCE MEDICALCE VE COLONY NTER NTER COUNT URINE URINE 29625 [facility] [address] [place] [address] VISUAL MEDICALCE MEDICALCE COLOR NTER NTER CMPRSN METHS URINE 88861 [facility] [address] [place] [address] VISUAL COLOR CMPRSN METHS IADNA 42782 [facility] CHLAMYDIA [address] [place] [address] TRACHOMAT IS AMPLIFIED PROBE TQ IAADIADOO [address] VAGINALIS COLLECTIO [address] [facility] N VENOUS [address] [place] [address] VENIPUNCT URE IADNA 54013 [facility] NEISSERIA [address] [place] [address] GONORRHOE AE AMPLIFIED PROBE TQ BLOOD 48697 [facility] COUNT [address] [place] [address] AUTO&[place] [address] [facility] TRANSVAGI [address] [place] [address] [place] P[place]VIC 78819 RADIOLOGY Katya VALDEZOBSTET ASSOCIATE MARYBEL COLES REAL-TIME IMAGE COMPLETE HEPATIC 29493 [facility] FUNCTION 8 [facility] PANEL MEDICALCE MEDICALCE NTER NTER GROUND A0425 [facility] MILEAGE 8 CO CO PER AMBULANCE AMBULANCE STATUTE SERVICE SERVICE MILE AMBULANCE A0429 [facility] SERVICE 8 CO CO BLS AMBULANCE AMBULANCE EMERGENCY SERVICE SERVICE TRANSPORT COLLECTIO 75696 [facility] N VENOUS 8 [facility] BLOOD VENIPUNCT MEDICALCE MEDICALCE URE NTER NTER THER 91458 [facility] PROPH/DX [facility] P[facility] 1ST MEDICALCE MEDICALCE SBST/DRUG NTER NTER IV NFUS 91010 [facility] HYDRATION 8 [facility] EA HR [place] [address] [facility] LIPASE 8 [facility] MEDICALCE MEDICALCE NTER NTER BLOOD 10339 [facility] COUNT 8 [facility] COMPLETE AUTO&AUTO MEDICALCE MEDICALCE DIFRNTL NTER NTER WBC CULTURE 65578 [facility] BACTERIAL [address] [place] [address] QUANTTATI VE COLONY COUNT URINE URINE 83392 [facility] [address] [place] [address] VISUAL COLOR CMPRSN METHS THER 32108 [facility] PROPH/DX [address] [place] [address] SUBQ/IM IADNA 83025 [facility] TRICHOMON 8 [facility] VAGINALIS DIRECT PROBE TQ IADNA 04451 [facility] [place] 8 [facility] INC GONORRHOE AE AMPLIFIED PROBE TQ IADNA 79910 [facility] [place] 8 [facility] INC SPECIES DIRECT PROBE TQ IADNA 74131 [facility] GARDNEREL 8 [facility] INC [place] VAGINALIS DIRECT PROBE TQ IADNA 01083 [facility] CHLAM[facility]DIA 8 [facility] [facility] [place] [address] RADIOLOGY [facility] ABDOMEN 8 , JESSIE W/CONTRAS ASSOCIATE T T S PSC MATERIAL CT [place]VIS [address] 8 [facility] MATERIAL Encounters Encounter Start End Date Code Location Performer Type Date [facility] TONG - 7 7 [facility] TONG - 6 6 [facility] INPATIENT INC OFFICE 53196 [facility] GERSON OUTPATIEN 6 6 PHYSICIAN HARRY T VISIT S GROUP 15 MINUTES [facility] TONG - 6 6 [facility] TONG - 6 6 [facility] TONG [facility] 6 6 [facility] TONG [facility] 6 6 [facility] OUTPATIEN [facility] T OFFICE 95740 [facility] GERSON OUTPATIEN 6 6 PHYSICIAN HARRY T VISIT S GROUP 15 MINUTES EMERGENCY 27590 LOUANN CALZADA 6 6 PHYSIC[facility] V[facility] MODERATE SEVERITY OFFICE 14381 [facility] GERSON OUTPATIEN 6 6 PHYSICIAN HARRY T VISIT S GROUP 15 MINUTES [facility] TONG - 6 6 [facility] OUTPATIEN [facility] T OFFICE 77914 [facility] GERSON OUTPATIEN 6 6 PHYSICIAN HARRY T VISIT S GROUP 15 MINUTES HOSPITAL TONG - 6 6 [facility] OUTPATIEN [facility] TONG [facility] 6 6 [facility] OUT[facility]EN [facility] TONG - 6 6 [facility] OUTPATIEN [facility] T OFFICE 13959 [facility] GERSON OUTPATIEN 6 6 PHYSICIAN HARRY T VISIT S GROUP 15 MINUTES HOSPITAL TONG - 6 6 [facility] OUTPATIEN INC T OFFICE 45625 [facility] GERSON OUTPATIEN 6 6 PHYSICIAN HARRY T VISIT S GROUP 15 MINUTES [facility] TONG - 6 6 [facility] OUTPATIEN INC T EMERGENCY 13920 LOUANN RAMIREZ 6 6 [facility]YSICIAN RUI [facility] T VISIT HIGH/URGE NT SEVERITY EMERGENCY 52156 LOUANN TAMARA 6 6 PHYSICIAN [address] [facility] S, [facility] T VISIT HIGH/URGE NT SEVERITY OFFICE 85507 [facility] OUTPATIEN 6 6 PHYSICIAN T VISIT S GROUP 25 MINUTES OFFICE 52005 [facility] OUTPATIEN 6 6 PHYSICIAN T NEW 45 S GROUP MINUTES EMERGENCY 07512 LOUANN DENNIS [address] [facility] T VISIT HIGH/URGE NT SEVERITY [facility]OSPITAL ST - 6 6 [facility] OUTPATIEN MED CTR T DOCK COORDINATOR ST OFFICE 79843 [facility] OUTPATIEN 6 6 [facility] SHLOMO T VISIT 15 PHYSICIAN MINUTES S [facility] - 6 6 [facility] OUTPATIEN [facility] T EMERGENCY 30304 ST. 6 6 [facility] T VISIT MODERATE SEVERITY EMERGENCY 68002 [facility] 6 6 EMERGENCY [facility] T VISIT PHYSICIAN HIGH/URGE S NT SEVERITY EMERGENCY 34446 LOUANN MCDONALD 6 6 PHYSICIAN Kaur [address] [facility] T VISIT LOW/MODER SEVERITY HOSPITAL TONG - 6 6 [facility] OUTPATIEN INC T OFFICE 03601 [facility] OUTPATIEN 6 6 [facility]LA SHLOMO T VISIT 15 PHYSICIAN MINUTES S OFFICE [address] ST TH[facility]KELD OUTPATIEN 6 6 MCKAYLA II UMER T VISIT 25 PHYSICIAN MINUTES S EMERGENCY 64931 [facility] LAU 6 6 EMERGENCY [facility] T VISIT PHYSICIAN HIGH/URGE S NT SEVERITY OFFICE 66947 [facility] OUT[facility]IEN 5 5 [facility] SHLOMO T VISIT 15 PHYSICIAN MINUTES S OFFICE 01495 [facility] NIETO OUTPATIEN 5 5 PHYSICIAN HARRY T NEW 30 S GROUP MINUTES OFFICE 90006 [facility] OUTPATIEN 5 5 [place] SHLOMO T VISIT 15 PHYSICIAN MINUTES S [facility] - 5 5 [place] OUTPATIEN [facility] - 5 5 [place] OUTPATIEN [facility] HOSPITAL ST - 5 5 [place] OUTPATIEN MED CTR T DOCK COORDINATOR OFFICE 08471 [facility] OUTPATIEN 5 5 [place] SHLOMO T VISIT 25 PHYSICIAN MINUTES S EMERGENCY 65801 LOUANN DENNIS [address] [facility] S, [facility] VISIT MODERATE SEVERITY OFFICE 21184 [facility] OUTPATIEN 5 5 [facility] SHLOMO T VISIT 25 PHYSICIAN MINUTES S OFFICE 219[address] [facility] OUTPATIEN 5 5 M[facility]AYLA II UMER T VISIT [address] [facility] - 5 5 [facility] OUTPATIEN MED CTR T DOCK COORDINATOR ST OFFICE 00923 ST [facility] OUTPATIEN 5 5 MCKAYLA II UMER T NEW 30 MINUTES PHYSICIAN S EMERGENCY 71878 TONG 5 5 [facility] DEPARTMEN INC T VISIT MODERATE SEVERITY HOSPITAL TONG - 5 5 [facility] OUTPATIEN INC T EMERGENCY 50946 LOUANN MCDONALD 5 5 PHYSICIAN U YUDELKA DEPARTMEN S, PLLC T VISIT HIGH/URGE NT SEVERITY OFFICE 40160 [facility] OUTPATIEN 5 5 [facility]ALTH [facility] T VISIT DEPARTMEN DEPARTMEN 15 T T MINUTES OFFICE 97708 [facility] OUTPATIEN 3 3 HEALTH T VISIT DEPARTMEN 15 T MINUTES OFFICE 60722 [facility] POOL OUTPATIEN 2 2 CLINIC DOROTHY T VISIT 15 MINUTES OFFICE 46318 [facility] OVER[facility]EE OUTPATIEN 2 2 CLINIC TAVIA T VISIT 15 MINUTES OFFICE 75882 [facility] OUTPATIEN 2 2 CLINIC DOROTHY T VISIT 15 MINUTES PERIODIC 94017 [facility] PREVENTIV 2 2 [facility]ALTH HEALTH E MED EST DEPARTMEN DEPARTMEN PATIENT T T 18-39 YRS OFFICE 04298 [facility] OUTPATIEN 2 2 [facility]ALTH [facility]ALTH T VISIT DEPARTMEN DEPARTMEN 15 T T MINUTES OFFICE 36972 [facility] OUTPATI[facility] 2 2 CLINIC DOROTHY T VISIT 15 MINUTES OFFICE 85773 [facility] OUTPATIEN 2 2 CLINIC DOROTHY T VISIT 15 MINUTES OFFICE 57357 [facility] OUTPATIEN 2 2 CLINIC DOROTHY T NEW 30 MINUTES EMERGENCY 41567 YASMANI 2 2 [facility] AR[facility] T VISIT HOSPITA MODERATE SEVERITY HOSPITAL YASMANI - 2 2 [facility] OUTPATIEN GE ARH T HOSPITA OFFICE 07772 [facility] OUTPATIEN 1 1 [facility]ALTH HEALTH T VISIT DEPARTMEN DEPARTMEN 15 T T MINUTES PERIODIC 96081 [facility] PREVENTIV 1 1 [facility]ALTH HEALTH E MED EST DEPARTMEN DEPARTMEN PATIENT T T 18-39 YRS OFFICE 62953 [facility] OUTPATIEN 1 1 [facility]ALTH HEALTH T VISIT 5 DEPARTMEN DEPARTMEN MINUTES T T EMERGENCY 43276 YASMANI CHAPIN 1 1 [facility] DEPARTMEN DGE T VISIT HOSPITAL MODERATE E SEVERITY HOSPITAL YASMANI - 1 1 [facility]PAT[facility] DGE T HOSPITAL EMERGENCY 03455 YASMANI 1 1 [facility] DEPARTMEN DGE T VISIT HOSPITAL LOW/MODER SEVERITY OFFICE 75738 [facility] LUIS OUTPATIEN 1 1 CARE TOOTIE T VISIT [facility] OFFICE 29164 APPALACHI MERRITT DEL OUTPATIEN 0 0 AN T NEW 20 PHYSICIAN MINUTES S PSC OFFICE 52226 PR[facility] TRINIDAD OUTPATIEN 0 0 CARE DOROTHY T V[facility]IT [facility] OFFICE 29584 [facility] P[facility]RO LUIS OUTPATIEN 0 0 CARE TOOTIE T VISIT [facility]ENT[facility] YASMANI - 0 0 [facility] OUTPATIEN DGE T HOSPITAL OFFICE 94546 [facility] TR[facility]AD OUTPATIEN 0 0 CARE DOROTHY T VISIT [facility] OFFICE 29440 PRIMARY PEDRO LUIS OUTPATIEN 9 9 CARE TOOTIE T VISIT CENTERS [facility] OFFICE 59867 [facility] OUTPATIEN 9 9 CARE DOROTHY T VISIT CENTERS 15 [facility] APPALACHI - 9 9 AN OUTPATIEN REGIONAL T MEDICAL CT OFFICE 17910 PRIMARY PEDRO LUIS OUTPATIEN 9 9 CARE TOOTIE T VISIT [facility]ERS [facility] OFFICE 44784 [facility] OUTPATIEN 9 9 CARE DOROTHY T VISIT CENTERS [facility] EMERGENCY 08031 YASMANI BEATTY, 9 9 [facility] SALAS [facility] DGE T VISIT HOSPITAL MODERATE EMERGENCY SEVERITY SERVICES EMERGENCY 73134 YASMANI 9 9 [facility] DEPARTMEN DGE T VISIT HOSPITAL LOW/MODER SEVERITY HOSPITAL YASMANI - 9 9 [facility] OUTPATIEN DGE T HOSPITAL OFFICE 39763 [facility] OUTPATIEN 9 9 CARE DOROTHY T VISIT [facility]ENTERS [facility] OFFICE 65011 [facility] OUTPATIEN 9 9 CARE DOROTHY T VISIT CENTERS [facility] YASMANI - 9 9 [facility] OUTPATIEN DGE T HOSPITAL OFFICE 76503 DHS/CO CHARLIE CO OUTPATIEN 9 9 HEALTH HEALTH T [facility] 20 [facility] BANK ACCT T OFFICE 17715 DEE MENENDEZ OUTPATIEN 9 9 MOY/HY LINDSEY J T VISIT 5 DEN [facility] OFFICE 99301 MARJAN PHILLIP OUTPATIEN 9 9 LEONIE Gordon T [facility] 30 [facility] PERIODIC 80965 PRIMARY TRINIDAD PREVENTIV 9 9 CARE DOROTHY E MED EST CENTERS PATIENT OF RUST [id number] [facility] OFFICE 93767 PRIMARY PEDRO LUIS OUTPATIEN 9 9 CARE TOOTIE T VISIT CENTERS [facility] OFFICE 15476 JULIO CESAR HARRELL OUTPATIEN 9 9 RENARD Patel [facility] 20 MINUTES OFFICE 40252 DEE CORRIGAN OUTPATIEN 9 9 MOY/HY ANASTACIO, T VISIT [facility] 10 [facility] YASMANI - 9 9 [facility] OUTPATIEN DGE T [facility] YASMANI - 9 9 [facility] OUTPATIEN DGE T HOSPITAL EMERGENCY 09548 YASMANI 9 9 [facility] LOW/MODER SEVERITY HOSPITAL YASMANI - 9 9 [facility] OUTPATIEN DGE T HOSPITAL EMERGENCY 96649 YASMANI JANE, 9 9 [facility] MODERATE EMERGENCY SEVERITY SERVICES EMERGENCY 49134 EMERGENCY RICHARDSO [address] [facility] PHYS T VISIT [facility] H[facility]/[place]GE [place] NT SEVERITY OFFICE [address] [facility] 9 9 MCKAYLA VAZQUEZ T VISIT MED [facility] [address] [facility] 89212 [place] [facility] 9 9 MEDICAL ROSALES E T VISIT GROUP [address] [facility] T OFFICE 06369 [facility] 9 9 MEDICAL ROSALES E T VISIT GROUP 15 MINUTES HOSPITAL [facility] - 9 9 [facility] [id number] DEPARTMEN T VISIT LOW/MODER SEVERITY OFFICE 09879 [facility] 9 9 CARE DOROTHY T NEW 20 CENTERS MINUTES [facility] EMERGENCY 62270 [facility] [address] [facility] DGE T VISIT HOSPITAL LOW/MODER SEVERITY HOSPITAL [facility] 9 9 [place] [facility] DGE T HOSPITAL EMERGENCY 16812 [place]ON[place], 9 9 [facility] CORPOR[facility] T VISIT ON MODERATE SEVERITY HOSPITAL [place] - 9 9 [facility] [place] [address] 9 HOSPITAL INPATIENT RUST OFFICE [address] [facility] 9 9 MCKAYLAPASTORA VAZQUEZ T VISIT MED CTR 15 MINUTES OFFICE 95517 LEODAN ELKINS [address] [facility] JUNIOR W ION I NEW/ESTAB PATIENT ASSOC [address] [facility] OFF[facility] [address] [facility] 9 9 MCKAYLAPASTORA VAZQUEZ T [facility]ISIT MED CTR 15 MINUTES HOSPITAL [facility] 9 9 [facility] 49608 [facility] 9 9 HOSPITAL T VISIT EAST 40 MINUTES [facility] 9 9 [facility] - 9 9 [facility] T OFFICE [address] [place] [address] 9 HOSPITAL T VISIT EAST 40 MINUTES OFFICE 26278 [facility] [address] [facility] T VISIT [facility] 15 MINUTES [facility]OSP[facility] 9 9 [facility] T OFFICE 90659 [facility] 9 9 HOSPITAL T VISIT EAST 40 MINUTES [facility] 8 8 [facility] T OFFICE 47239 [facility] 8 8 [facility] T [facility]ISIT 15 PHYSICIAN MINUTES S FOR WOMEN OFFICE 49619 [facility] 8 8 [facility] T [facility]ISIT 15 PHYSICIAN MINUTES S FOR WOMEN OFFICE 72124 [facility] 8 8 [facility] III, T VISIT JJ 15 PHYSICIAN MINUTES S [facility] [place] [address] 8 [facility] T OFFICE 86087 [facility] 8 8 [facility] T VISIT 15 PHYSICIAN MINUTES S [facility] [place] [address] 8 [facility] T OFFICE 79127 [facility] 8 8 [facility] GIOVANI T VISIT 15 PHYSICIAN MINUT[facility] [place] [address] 8 [facility] T OFFICE 83138 [facility] 8 8 [facility] [place] T VISIT 15 PHYSICIAN MINUTES S FOR WOMEN OFFICE [address] [place] [address] 8 [facility] T VISIT 10 PHYSICIAN MINUTES S FOR WOMEN EMERGENCY 17124 EMERGENCY FEL, 8 8 CARE DOROTHY Lucia [facility] VISIT [facility] LOW/MODER [place] [facility] - 8 8 [facility] [place] [address] 8 [facility] OFFICE [address] [place] [address] 8 [facility] [place] T VISIT 15 PHYSICIAN MINUTES S FOR WOMEN OFFICE [address]3763 [place] [address] 8 [facility] Leon VISIT GROUP B 15 MINUTES EMERGENCY [address]7535 [place] [address] 8 [facility] VISIT MOD[facility]ATE SEVERITY [facility] [place] [address] 8 [facility] [place] [address] 8 [facility] OFFICE [address]32 [place] [address] 8 [facility] [place] VISIT GROUP B 15 MINUTES OFFICE 29341 [place] [address] 8 [facility] [place] T VISIT 15 PHYSICIAN MINUTES S FOR WOMEN EMERGENCY [address]2966 [place] [address] 8 [facility] VISIT MODERATE SEVERITY EMERGENCY 63439 EMERGENCY RITU, DEPT 8 8 CARE JUNIOR Yojana VISIT PHYS HIGH [facility] SE[facility] [place] [facility] [place] [address] 8 [facility] [place] [address] 8 [facility] [place] [address] 8 [facility] OFFICE [address]6360 [place] [address] 8 [facility] [place] T VISIT 25 PHYSICIAN MINUTES S FOR [facility] [place] [address] 8 [facility] EMERGENCY 38830 EMERGENCY VEST, [address] [facility] PHYS T VISIT [facility] [place] [facility] [place] [address] 8 [facility] [place] [address] 8 [facility] EMERGENCY 21593 [place] [address] 8 [facility] VISIT HIGH/URGE NT SEVERITY OFFICE 12197 [facility] 8 8 MEDICAL D[facility]G Leon T VISIT GROUP B 15 MINUTES HOSPITAL [facility] 8 [facility] MEDICALCE NTER EMERGENCY [address] VISIT HIGH/URGE NT SEVERITY [facility] [place] [address] 8 [facility] [place] [address] 8 [facility] EMERGENCY [address] VISIT MODERATE SEVERITY EMERGENCY 92099 EMERGENCY [place], 8 8 CARE WALTER Thompson [facility] T VISIT [facility] [place] [facility] [place] [address] 8 [facility] EMERGENCY [address] VISIT LOW/MODER SEVERITY OFFICE 72145 [facility] 8 8 [facility] III, T VISIT 5 JJ MINUTES PHYSICIAN S FOR [facility] [place] [address] 8 [facility] EMERGENCY [address] [place] [address] [facility] VISIT MODERATE SEVERITY OFFICE 92858 [facility] 8 8 [facility] [place] T VISIT 10 PHYSICIAN MINUTES S FOR [facility] [place] [address] 8 [facility] OUTPATIEN INC T EMERGENCY 06654 [place] [address] 8 [facility] T VISIT PROF SERV MODERATE SEVERITY [facility]OSPITAL [facility] [address] [facility] T OFFICE 02887 [facility] 8 8 [facility] [place] T VISIT 15 PHYSICIAN MINUTES S FOR WOMEN EMERGENCY [address] [place] [address] 8 [facility] SEVERITY [facility] [place] [address] 8 [facility] OUTPATIEN [facility] T OFFICE 67644 [facility] 8 8 [facility] A, [facility] T VISIT 25 PHYSICIAN MINUTES S [facility] [address] [facility] T EMERGENCY [address] [place] [address] 8 [facility] [place] [facility] T VISIT [facility]ATE [facility]VERITY HOSP[facility] [place] [address] 8 [facility] T OFFICE 75294 [facility] 8 8 [facility] [place] T VISIT 15 PHYSICIAN MINUTES S [facility] 8 [facility] MEDICAL[facility] NTER EMERGENCY 74306 [facility] 8 [facility] T VISIT MEDICALCE MODERATE NTER SEVERITY EMERGENCY 02824 [facility] [address] [facility] T VISIT HIGH/URGE NT SEVERITY EMERGENCY 13354 [facility] 8 [facility] T VISIT MODERATE [facility]VERITY [facility]OSPITAL [facility] [address] [facility] T EMERGENCY 98829 [facility] [address] [facility] T [facility]ISIT [facility]IGH/URGE NT SEVERITY [facility]OSPITAL [facility] [address] [facility] T OFFICE 15163 [place] [facility] 8 8 MEDICAL [facility]G Leon T [facility]ISIT GROUP B 15 MINUTES [facility] 8 [facility] NTER EMERGENCY [address] T VISIT MEDICALCE MODERATE NTER SEVERITY EMERGENCY 89674 [facility] 8 8 [facility] E VISIT MED CTR HIGH SEVERITY& THREAT FUN EMERGENCY [address] T VISIT MODERATE SEVERITY HOSPITAL [facility] [address] [facility] T OFFICE [address] [place] [address] 8 [facility] EVANGELIST ANDERSEN 45 MINUTES PHYSICIAN S FOR WOMEN OFFICE 42472 [place] [facility] 8 8 MEDICAL VIRAL T VISIT GROUP 15 MINUTES [facility] T
--- OUTSIDE RECORDS SUMMARY | 2017-04-29 08:01 | External Medical Summary Rpt | CCD ---
Author Author , DESHAWN HESS Address Unknown Phone [email or web address] Team Providers Care Vat Skimmer Name Role Phone [facility] Unavailable Unavailable PHYSICIANS [facility], [facility]IC[facility]ANS [facility] Unavailable Unavailable MEDICAL CT, [facility] DENIZ FINLEY, Unavailable Unavailable DENIZ FINLEY ALL, SANTOYO ALL Unavailable Unavailable MERRITT DELMERRITT DEL Unavailable Unavailable [facility], Unavailable Unavailable [facility] GERSON NIETO Unavailable Unavailable GERSON MCDONALD, GERSON Unavailable Unavailable [facility] Unavailable Unavailable PHYSICIANS, [facility] GREG LETICIA, Unavailable Unavailable GREG LETICIA [id number], Unavailable Unavailable [id number] JESSIE SHAH, Unavailable Unavailable JESSIE [...] ROB F, Unavailable Unavailable HERFEYojana DOROTHY F [facility], Unavailable Unavailable [facility] SHEA, MAURICE I, Unavailable Unavailable [...] TAYLOR REHMAN CHR, SHERIE Unavailable Unavailable CHR [facility] Unavailable Unavailable [facility], [facility], Unavailable Unavailable [facility], Unavailable Unavailable [facility] MATTY ROSEN, Unavailable Unavailable MATTY ROSEN [facility] Unavailable Unavailable DEPARTMENT, [facility] Unavailable Unavailable DEPARTMENT, [facility] WALTER MANE, Unavailable Unavailable WALTER MANE MAUREEN, LI, Unavailable Unavailable DALTON ZIMMERMAN Unavailable Unavailable FRITZ CABAN SHLOMO, CABAN Unavailable Unavailable DINA MONTES DE OCA Unavailable Unavailable [facility] Unavailable Unavailable HOSPITA, [facility] Unavailable Unavailable HOSPITAL, [facility] Unavailable Unavailable HOSPITAL E, [facility] E CHRIS CURTIS, Unavailable Unavailable CHRIS CURTIS EMMETT P, Unavailable Unavailable LISA SHAY MORGAN Unavailable Unavailable TOOTIE OVERBEE TAVIA, OVERBEE Unavailable Unavailable TAVIA [facility], Unavailable Unavailable [facility], [facility]available Unavailable [facility] LINDSEY MENENDEZ, Unavailable Unavailable LINDSEY MENENDEZ BAL, Renetta R, BAL, A Unavailable Unavailable R BAL, VIRAL, ABL, Unavailable Unavailable V[facility] Unavailable [facility], [facility], Unavailable Unavailable [facility] PICKMARIA M HUNTLEY NATALIE, Unavailable Unavailable EVANGELIST ARRIAGA JR, Unavailable Unavailable [facility] Unavailable Unavailable OF [facility], [facility] Un[facility] Unavailable INSTITUTE, [facility], [facility]available Unavailable [facility], Unavailable Unavailable [facility], Unavailable Unavailable [facility], Unavailable Unavailable INC., [facility], Unavailable Unavailable [facility] Unavailable Unavailable OF [facility], [facility] EMLI LARA RAUF, Unavailable Unavailable MELI SABRINA, MCKAYLA Unavailable Unavailable A, SABRINA, MCKAYLA A RENUSCH RUI, RENUSCH Unavailable Unavailable LEONIE VITALE, Unavailable Unavailable LEONIE LYNCH [id number], Unavailable Unavailable [id number] Unavailable Unavailable [id number] # [id number], [facility] [id number] # [id number] JUNIOR SANCHEZ, Unavailable Unavailable JUNIOR [...] Unavailable ROBER TOLEDO, Unavailable Unavailable ROBER [facility] Unavailable Unavailable [facility], [facility] Unavailable Unavailable [facility] , [facility] Unavailable [facility]available [facility], [facility] Unavailable Unavailable PHYSICIANS, [facility] Unavailable Unavailable [facility], [facility] Unavailable Unavailable [facility], [facility], Unavailable Unavailable [facility] DUNG ETIENNE, Unavailable Unavailable STERNEBERG, DUNG B THRELKELD II UMER, Unavailable Unavailable THRELKELD II UMER [facility] Unavailable Unavailable #5, [facility] JUNIOR LEONARD, Unavailable Unavailable JUNIOR LEONARD ROY, Unavailable Unavailable SALAS BEATTY, CUATE ALANIS, Unavailable Unavailable [facility] # [id number], Unavailable Unavailable [facility] # [id number] WALKER III, Unavailable Unavailable JJ, WALKER III, JJ [facility], Unavailable Unavailable [facility] PHM [id number] LEONIE PHILLIP, Unavailable Unavailable LEONIE PHILLIP, Unavailable Unavailable ALLISON PORTILLO, Unavailable Unavailable ALLISON TRINIDAD JEFFREY, Unavailable Unavailable JESSIE WALDEN YOUNG VAN Unavailable Unavailable Purpose Continuity of Care Document - 08-22-2007 through 2016 Problems Code Diagnosis DOS Provider Status 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 [id number] ATYP SQ 12-25-2016 [facility] CELLS UNDET PHYSICIANS GROUP SIGNIFICANC E CYTOL SMER CERV S35643 CERV HIGH 12-25-2016 [facility] RSK HUMAN PHYSICIANS PAPILLOMAVI GROUP PERI DNA TEST POS N390 URINARY 12-02-2016 [facility] TRACT PHYSICIANS INFECTION GROUP SITE NOT SPECIFIED R102 PELVIC AND 12-02-2016 [facility] PERINEAL PHYSICIANS PAIN GROUP Z392 ENCOUNTER 08-19-2016 [facility] FOR ROUTINE LLC FOLLOW-UP O80 ENCOUNTER 06-22-2016 [facility] FOR PHYSICIANS FULL-TERM GROUP UNCOMPLICAT ED DELIVERY Z370 SINGLE LIVE 06-22-2016 [facility] PH[facility]ANS GROUP Z3A39 39 WEEKS 06-22-2016 [facility] Z3480 ENC 06-16-2016 [facility] SUPERVISION PHYSICIANS OTH NORMAL GROUP PREG UNS TRIMESTER O6003 06-09-2016 [facility] LABOR PHYSICIANS WITHOUT GROUP DELIVERY THIRD TRIMESTER Q26377 DRUG USE 06-09-2016 [facility] COMPLICATIN PHYSICIANS G GROUP UNS TRIMESTER O4703 FALSE LABOR 06-01-2016 [facility] BEFORE 37 PHYSICIANS CMPLETE GROUP WEEKS GEST 3RD TRI Z3A36 36 WEEKS 06-01-2016 [facility] INC R49129 OTHER SPEC 05-21-2016 [facility] RELATED INC COND 3RD TRIMESTER O471 FALSE LABOR 05-21-2016 [facility] AT/AFTER PHYSICIANS 37 GROUP COMPLETED WEEKS GEST Z3A34 34 WEEKS 05-21-2016 [facility] INC R109 UNSPECIFIED 05-20-2016 [facility] PAIN INC J069 ACUTE UPPER 05-11-2016 [facility], RESPIRATORY PLLC INFECTION UNSPECIFIED Q47528 DRUG USE 05-08-2016 [facility] COMPLICATIN PHYSICIANS G GROUP THIRD TRIMESTER J71488 SPOTTING 04-11-2016 [facility] G INC THIRD TRIMESTER [id number] DECREASED 04-11-2016 [facility] MOVEMENTS INC THIRD TRIMESTER NA/UNS Z3A28 28 WEEKS 04-11-2016 [facility] INC J35264 ABNORMAL 03-30-2016 [facility] GLUCOSE PHYSICIANS COMPLICATIN GROUP G R1011 RIGHT UPPER 03-19-2016 [facility] MEDICAL PAIN IMAGING ASS R110 NAUSEA 03-19-2016 [facility] P25151 OTHER SPEC 03-10-2016 [facility] INC COND 2ND TRIMESTER O479 FALSE LABOR 03-10-2016 [facility] PHYSICIANS UNSPECIFIED GROUP Z3A24 24 WEEKS 03-10-2016 [facility] INC Z3492 ENC 02-12-2016 [facility] MEDICAL NORMAL IMAGING ASS UNS 2 TRIMESTER Z36 ENCOUNTER 02-12-2016 [facility] INC SCREENING OF MOTHER Z3A20 20 WEEKS 02-12-2016 [facility] MEDICAL OF IMAGING ASS N898 OTHER 01-29-2016 [facility] SPECIFIED PHYSICIANS, NONINFLAMMA PLLC TORY DISORDERS VAGINA O209 HEMORRHAGE 01-29-2016 [facility]ING ASS UNSPECIFIED O2692 01-29-2016 [facility] RELATED PHYSICIANS, CONDITIONS PLLC UNS 2ND TRIMESTER Z3A18 18 WEEKS 01-29-2016 [facility] MEDICAL OF IMAGING ASS M46396 UTERINE 12-04-2015 [facility] SIZE-DATE PHYSICIANS DISCREPANCY GROUP FIRST TRIMESTER K57167 SPOTTING 12-01-2015 [facility] G IMAGING ASS FIRST TRIMESTER O2691 12-01-2015 [facility] RELATED PHYSICIANS, CONDITIONS PLLC UNS 1ST TRIMESTER Z3A09 9 WEEKS 12-01-2015 [facility] MEDICAL OF IMAGING ASS B373 CANDIDIASIS 11-22-2015 [facility], OF [facility] AND VAGINA Z113 ENCOUNTER 11-22-2015 [facility], SCREEN LLC INFECTIONS SEXL MODE TRANSMISSN Z3201 ENCOUNTER 11-22-2015 [facility] FOR PHYSICIANS GROUP TEST RESULT POSITIVE Z3481 ENC 11-22-2015 [facility], SUPERVISION LLC OT NORMAL 1 TRIMESTER N3000 ACUTE 11-09-2015 [facility] CYSTITIS PHYSICIANS, WITHOUT PLLC HEMATURIA R112 NAUSEA WITH 10-29-2015 ST VOMITING [facility] UNSPECIFIED PHYSICIANS K088 OTH SPEC 10-26-2015 ST. DISORDERS [facility] TEETH & MILDRED SUPPORTING STRUCTURES L97683 OTHER SPEC 10-26-2015 [facility] EMERGENCY RELATED PHYSICIANS COND 1ST TRIMESTER Z35235 OTHER SPEC 10-26-2015 ST. [facility] RELATED MILDRED COND UNS TRIMESTER C46583 SMOKING 10-26-2015 ST. TOBACCO [facility] COMP MILDRED UNS TRIMESTER Z3A00 WEEKS OF 10-26-2015 [facility] GESTATION EMERGENCY OF PHYSICIANS NOT SPECIFIED X42173 OTHER LONG 10-26-[address] ST. [address] [facility] CURRENT MILDRED DRUG THERAPY Z881 ALLERGY 10-26-2015 ST. STATUS TO [facility] OTHER MILDRED ANTIBIOTIC AGENTS STATUS Z886 ALLERGY 10-26-2015 ST. STATUS TO [facility] ANALGESIC [place]ED AGENT STATUS Z720 TOBACCO USE 10-21-2015 [facility] J0190 ACUTE 10-10-2015 ST SINUSITIS [facility] UNSPECIFIED PHYSICIANS R05 COUGH 10-10-2015 ST [facility] PHYSICIANS D28462 PAIN IN 08-24-2015 ST LEFT ELBOW [facility]LA PHYSICIANS Q44522 PAIN IN 08-24-2015 ST LEFT KNEE [facility] PHYSICIANS P77681X UNSPECIFIED 08-24-2015 ST INJURY [facility] LEFT ELBOW PHYSICIANS SUBSEQUENT ENCNTR O5523MU UNS INJURY 08-24-2015 ST LT LOWER [facility] LEG PHYSICIANS SUBSEQUENT ENCOUNTER T1490 INJURY 08-24-2015 ST UNSPECIFIED [facility] PHYSICIANS L7226JI CONTUSION 08-22-2015 [facility] OF LEFT EMERGENCY ELBOW PHYSICIANS INITIAL ENCOUNTER N4868ZU CONTUSION 08-22-2015 [facility] OF LEFT EMERGENCY KNEE PHYSICIANS INITIAL ENCOUNTER Z043 ENCOUNTER 08-22-2015 [facility] OBSERVATION OF NOT FOLLOW OT ACCIDENT M545 LOW BACK 07-16-2015 ST PAIN [facility] PHYSICIANS K94303 ARCUATE 06-06-2015 [facility] UTERUS PHYSICIANS GROUP M546 PAIN IN 05-30-2015 . THORACIC [facility] SPINE MILDRED N946 DYSMENORRHE 05-30-2015 A [facility] UNSPECIFIED PHYSICIANS Z202 CONTACT 05-30-2015 WITH [facility] EXPOSURE PHYSICIANS INFECT SEXUAL MODE TRANSMS N921 EXCESS & 05-20-2015 . FREQUENT M[facility]LA MENSTRUATIO MILDRED N W/IRREGULAR CYCLE N3001 ACUTE 05-02-2015 CYSTITIS [facility] WITH PHYSICIANS HEMATURIA R5383 OTHER 05-02-2015 FATIGUE [facility] PHYSICIANS Z789 OTHER 05-02-2015 SPECIFIED [facility] PHYSICIANS STATUS N939 ABNORMAL 04-30-2015 [facility] UTERINE & PHYSICIANS, VAGINAL PLLC BLEEDING UNSPECIFIED J0100 ACUTE 04-22-2015 MAXILLARY [facility] SINUSITIS PHYSICIANS UNSPECIFIED J40 BRONCHITIS 04-22-2015 NOT [facility] SPECIFIED PHYSICIANS ACUTE OR CHRONIC 5950 ACUTE 04-02-2015 CYSTITIS [facility] PHYSICIANS 15524 URINARY 04-02-2015 FREQUENCY [facility] PHYSICIANS 4778 ALLERGIC 03-19-2015 RHINITIS ORELAND DUE TO PHYSICIANS OTHER ALLERGEN 6260 ABSENCE OF 03-19-2015 MENSTRUATIO M[facility]LA N PHYSICIANS 33338 WHEEZING 03-19-2015 ST [facility] PHYSICIANS 7862 COUGH 03-19-2015 [facility] PHYSICIANS 02264 ABDOMINAL 03-19-2015 PAIN RIGHT ORELAND UPPER PHYSICIANS QUADRANT 5990 URINARY 02-24-2015 [facility] TRACT PHYSICIANS, INFECTION PLL SITE NOT SPECIFIED 2662 OTHER 08-24-2014 [facility] B-COMPLEX HEALTH DEFICIENCIE DEPARTMENT S 87358 OTHER SIGN 08-24-2014 [facility] AND SYMPTOM [...] OF CLINIC UNSPECIFIED SITE 3829 UNSPECIFIED 04-25-2012 [facility] MEDIA 1121 CANDIDIASIS 04-18-2012 [facility] OF [facility] DEPARTMENT V2549 SURVEILLANC 04-18-2012 [facility] PREV DIAGNOSTICS PRSC CONTRACEPT METHOD 99664 UNSPECIFIED 04-12-2012 [facility] 3670 HYPERMETROP 03-24-2012 [facility] J[facility] 4779 ALLERGIC 12-21-2011 [facility] CAUSE UNSPECIFIED 5259 UNSPECIFIED 12-11-2011 [facility] DISORDER [facility] STRUCTURES 98428 NAUSEA WITH 12-11-2011 [facility] VOMITING EMERGENCY PHYSICIANS L V2511 ENC FOR 01-26-2011 [facility] INSERTION HEALTH INTRAUTERIN DEPARTMENT E CONTRACEPT DEVICE V2509 OTH GENERAL 01-23-2011 [facility] HEALTH CNSL&ADVICE DEPARTMENT CONTRACEPT MANAGEMENT V7240 01-15-2011 [facility] EXAMINATION HEALTH /TEST DEPARTMENT UNCONFIRMED 7295 PAIN IN 12-15-2010 [facility] SOFT SERVICES TISSUES OF LIMB 8419 SPRAIN&STRA 12-15-2010 [facility] IN [facility] UNSPECIFIED E HOSPITAL SITE E ELBOW&FOREA RM 9592 INJURY 12-15-2010 RADIOLOGY OTHER&UNSPE SERVICES CIFIED SHOULDER&UP PER ARM E8499 UNSPECIFIED 12-15-2010 [facility] PLACE OF [facility] OCCURRENCE E HOSPITAL E E9289 UNSPECIFIED 12-15-2010 [facility] ACCIDENT [facility] E HOSPITAL E 6268 OTH D/O 07-28-2010 PRIMARY MENSTRUATIO CARE N&OTH ABN CENTERS OF BLEED FE EAST GNT TRACT 41057 PAIN IN 04-03-2010 [facility], PHYSICIANS FOREARM PSC 30198 ABDOMINAL 08-13-2009 RADIOLOGY PAIN, SERVICES UNSPECIFIED SITE 7821 RASH AND 07-09-2009 PRIMARY OTHER CARE NONSPECIFIC CENTERS OF SKIN EAST ERUPTION 5220 PULPITIS 05-14-2009 [facility] 9447 UNSPEC 04-22-2009 PRIMARY SYMPTOM CARE ASSOC CENTERS OF W/FEMALE EAST GENITAL ORGANS 55552 NAUSEA 04-19-2009 [facility] ALONE [facility] EMERGENCY SERVICES 7881 DYSURIA 04-19-2009 [facility] EMERGENCY SERVICES V7381 SPECIAL 04-18-2009 [facility] SCREENING [facility] EXAMINATION HUMAN PAPILVIRUS V762 SCREENING 04-18-2009 [facility] OF FOR [facility] MALIGNANT NEOPLASM OF THE CERVIX V7241 04-02-2009 [facility]/CO EXAMINATION HEALTH OR TEST CENTRAL NEGATIVE BANK ACCT RESULT 13783 UNSPECIFIED 03-22-2009 LEONIE PHILLIP ASTIGMATISM 5206 DISTURBANCE 02-22-2009 Galina HARRELL IN TOOTH RNEARD B ERUPTION 6105 DYSMENORRHE 02-05-2009 PRIMARY A CARE CENTERS OF [facility] 12403 OTHER 01-07-2009 [facility] 7906 OTHER 01-07-2009 [facility] ABNORMAL [facility] B[facility] HOSPITAL CHEMISTRY 44006 OTH 01-07-2009 DEE ABNORMAL [facility]Y/[facility]ANCIAL INSTITUTION TREASURER N RHC FUNCTION STUDY 5368 DYSPEPSIA&O 01-03-2009 [facility] THER SPEC [facility] DISORD[facility] FUNCTION EMERGENCY STOMACH SERVICES 7804 DIZZINESS 01-03-2009 [facility] AND [facility] G[facility]PITAL EMERGENCY SERVICES 47334 CHEST PAIN 01-03-2009 RADIOLOGY UNSPECIFIED SERVICES 08367 PAIN IN 10-18-2008 [facility] JOINT, ASSOCIATES ANKLE AND PSC FOOT 96744 UNSPECIFIED 10-18-2008 [facility] SITE OF MEDICAL ANKLE GROUP SPRAIN AND STRAIN V242 ROUTINE 10-10-2008 PRIMARY CARE FOLLOW-UP CENTERS OF [facility] 490 BRONCHITIS 10-07-2008 Y[facility]I NOT [facility] SPECIFIED E HOSPITAL ACUTE OR EMERGENCY CHRONIC SERVICES 5589 OTH&UNSPEC 09-20-2008 [facility] NONINFECTIO [place] [facility] ITIS&COLITI S 7820 DISTURBANCE 08-13-2008 [facility]ARE SENSATION INC 60781 OTHER 08-13-2008 RADI[facility]Y DYSPNEA AND ASSOCIATES PSC RESPIRATORY ABNORMALITI ES 650 NORMAL 08-10-2008 ST DELIVERY [facility] 67377 POOR 08-10-2008 ST GR[facility] AFFECT MED CTR MANAGEMENT MOTH DELIV 82624 POLYHYDRAMN 08-10-2008 ST IOS, WITH [facility] DELIVERY MED CTR 20711 HIGH 08-10-2008 ST VAGINAL [facility] LACERATION MED CTR WITH DELIVERY V270 OUTCOME OF 08-10-2008 ST DELIVERY [facility] SINGLE MED CTR LIVEBORN V279 OUTCOME OF 08-10-2008 GREATER DELIVERY, CINTI UNSPECIFIED PATHOLOGIST INC 2859 UNSPECIFIED 08-09-2008 [facility] 37545 PERIPH 08-09-2008 [facility] NEURITIS [facility] EAST W/DELIV W/CURRENT PPC 57492 MATERNAL 08-09-2008 [facility] W/DELIVERY EAST W/CURRENT PPC V220 SUPERVISION 08-09-2008 [facility] 62480 TOB USE D/O 08-07-2008 [facility] COMP PG [place] /PP ANTEPARTM ASSOC LLC COND/COMP 77011 POLYHYDRAMN 08-07-2008 [facility]ATER IOS [place] ANTEPARTUM COMPLICATIO ASSOC LLC N 13484 POOR 08-02-2008 [facility] ANTPR[facility] COND/COMP 53411 CNTRL NERV 07-30-2008 [facility]ATER SYS [place] MALFORMATIO N IN FETUS ASSOC LLC ANTEPARTUM V283 ENCOUNTER 07-30-2008 [facility]INE [facility] MALFORMATIO ASSOC LLC N ULTRASONIC 33035 THREATENED 07-27-2008 [facility] PREMATURE [facility] LABOR EAST ANTEPARTUM 37962 DECR 07-27-2008 [facility] ANTPR[facility] COND/COMP V141 PERSONAL 07-27-2008 [facility] ALLERGY [facility] OTHER ANTIBIOTIC AGENT V149 PERSONAL 07-27-2008 [facility] ALLERGY [facility] UNSPEC MEDICINAL AGENT 7291 UNSPECIFIED 06-29-2008 [facility]ANS MYOSITIS FOR WOMEN 83391 OTH CURRENT 06-17-2008 [facility] MAT [facility] CLASSIFIABL PHYSICIANS E ELSW FOR WOMEN ANTPRTM 40663 ABDOMINAL 06-17-2008 [facility] PAIN OTHER HOSPITAL SPECIFIED EAST SITE 78554 SEVERE 06-13-2008 [facility] PRE-[facility] [place], PHYSICIANS ANTEPARTUM FOR WOMEN 7901 ELEVATED 06-13-2008 [facility] OF [place] 49248 OTH SPEC 06-11-2008 [facility]ATER INDICAT [place] CARE/INTERV EN REL L&D ASSOC LLC ANTPRTM V2341 SUPERVISION 06-11-2008 [facility]ATER [place] W/HISTORY PRE-TERM ASSOC LLC LABOR 19148 SPOTTING 05-31-2008 [facility] OF COMP [place] INC ANTEPARTUM COND/COMP V222 05-03-2008 EMERGENCY STATE, [place] [address] OTHER 04-30-2008 DENVER ALAS MD LABOR, ANTEPARTUM 49441 INFECTIONS 04-19-2008 [facility] GENITOURINA PHYSICIANS RY TRACT FOR WOMEN ANTEPARTUM 64621 MATERNAL 04-19-2008 [facility] ANEMIA, [facility] ANTEPARTUM PHYSICIANS FOR WOMEN 10337 OTH 04-19-2008 [facility] KNOWN/SUSPE HOSPITALS CTED PHYSICIANS ABNORMALITY FOR WOMEN -NEC-APC/C V289 UNSPECIFIED 03-22-2008 [facility] S[facility]EN[facility] , INC. 7802 SYNCOPE AND 03-02-2008 [facility] 51015 ENTHESOPATH 02-24-2008 [facility] UNSPECIFIED EAST SITE 98538 OTHER 02-24-2008 EMERGENCY TENOSYNOVIT CARE PHYS IS OF HAND [place] AND WRIST 7840 HEADACHE 02-24-2008 DIAGNOSTIC CARDIOLOGIS TS INC 51172 UNSPECIFIED 02-01-2008 [facility] ANTEPARTUM HOSPITALS HEMORRHAGE PHYSICIANS ANTEPARTUM FOR WOMEN 56504 RHESUS 02-01-2008 [facility] ISOIMMUN [facility] AFFCT MGMT [facility] MOTH ANTPRTM COND V072 NEED FOR 02-01-2008 [facility] PROPHYLACTI [facility] IMMUNOTHERA PY V221 SUPERVISION 02-01-2008 LABONE OF OF [facility] NORMAL 70119 DEHYDRATION 01-12-2008 [facility] 463 ACUTE 01-12-2008 [facility] TONSILLITIS [facility] 7336 TIETZES 01-03-2008 EMERGENCY DISEASE CARE PHYS [facility] V5869 LONG-TERM 01-03-2008 [facility] (CURRENT) HOSPITAL USE OF [facility] OTHER MEDICATIONS 6823 CELLULITIS 12-24-2007 [facility] AND ABSCESS MEM HOSP OF UPPER INC ARM AND FOREARM 38090 THREATENED 12-22-2007 [facility] , [facility] ANTEPARTUM PHYSICIANS FOR WOMEN 07421 MILD 12-17-2007 [facility] ANTE[facility] PROF SERV 1118 OTH SPEC 12-15-2007 RAD[facility] SYMPTOM ASSOCIATES ASSOC PSC W/FEMALE GENITAL ORGANS 6200 FOLLICULAR 12-08-2007 [facility] CYST OF [facility] OVARY PHYSICIANS FOR WOMEN V2541 SURVEILLANC 12-08-2007 [facility] E PREV [facility] PRESCRIBED PHYSICIANS CONTRACEPT FOR WOMEN PILL 67497 ABDOMINAL 11-18-2007 [facility] PAIN RIGHT MEM HOSP LOWER INC QUADRANT V258 OTHER 11-17-2007 [facility] CONTRACEPTI PHYSICIANS VE FOR WOMEN MANAGEMENT V2641 PROCREATIVE 11-17-2007 [facility] PHYSICIANS NATURAL FAM FOR WOMEN PLAN V7231 ROUTINE 11-17-2007 [facility] GYNECOLOGIC [facility] AL PHYSICIANS EXAMINATION FOR WOMEN 64216 SPRAIN AND 11-12-2007 [facility] OF MEDICAL UNSPECIFIED IMAGING SITE OF [facility] FOOT [id number] PLACE OF 11-12-2007 [place] E927 OVEREXERTIO 11-12-2007 [place] N&STRENUOUS [facility] MVMNTS/LOAD S 6264 IRREGULAR 10-27-2007 [facility] MENSTRUAL [facility] V146 PERSONAL 10-22-2007 [facility] ANALGESIC ER AGENT 6202 OTHER AND 10-14-2007 [facility]IF[facility] CYST 6262 EXCESSIVE 09-28-2007 [facility] [place] N [address] VOMITING 09-13-2007 [facility]ICE V148 PERSONAL 09-13-2007 ST [facility]ORY [facility]ICAL[facility] SPEC ER MEDICINAL AGTS 17110 INSOMNIA 08-30-2007 [facility] Medications [...] MA CY MG #5 TA BL ET [place] 65 09 10 14 7 00 TO [...] MA CY MG #5 TA BL ET [place] 65 07 08 14 7 00 TO [...] 20 5- 5- 00 00 L ve [place] 00 20 20 94 CA AM 60 [...] 20 6- 7- 00 00 L ve [place] 00 20 20 94 CA AM 60 [...] 20 1- 3- 00 00 L ve [place] 00 20 20 94 CA AM 60 [...] 20 4- 3- 00 00 L ve [place] 00 20 20 93 CA AM 50 [...] CY 02 43 9 # 02 43 W[place] 00 01 01 20 5 RI 81 [...] RI 24 CO TA 39 BL ET [place] 00 01 01 00 10 6 RI [...] 01 28 28 RI 72 WH Ac WY 55 -1 -1 .0 TE 72 IT [...] 00 14 7 RI 72 VA Ac W[place] 17 -0 -2 .0 TE 58 RG ti OF 25 3- 2- 00 33 HE ve LO 31 20 20 AI SE XA 26 09 09 D CI 0 PH RO N AR Y HC M# L 24 50 39 0 MG TA B EN 00 09 10 00 28 28 RI 72 WH Ac WY 55 -1 -2 .0 TE 72 IT [...] 00 28 28 HO 12 WH Ac WY 55 -1 -2 .0 ME 26 IT [...] MA MG CY TA #5 BL ET [place] 68 04 05 00 30 5 TO [...] 11 12 00 60 15 WA 27 DE Ac RB 11 -2 -0 .0 LG 51 ED ti UT 52 3- 4- 00 RE 96 LE ve AL 61 20 20 EN 2 R IN 10 08 08 # DE E 1 CH COELLO 07 AE LF [...] MG CY EN B TA BL ET [place] 68 10 11 00 30 5 PH [...] EV NT CY EN ME B NT WY 10 09 09 00 10 3 PH [...] 20 AR IN 70 08 08 MA DE 1 CY CH 50 AE 0 #5 [...] LL CE 8 PH S TA AR DE MA NO CY PH N 37 .5 [...] 01 60 30 PH 63 No Ac WY 46 -1 -1 .0 AR 59 t [...] e MA MG CY TA BL ET [place] 00 03 04 00 6. 30 PH [...] 5 PH bl AR e MA CY [place] 00 02 04 00 20 5 PH [...] 2 PH bl AR e MA CY W[place] 10 02 03 00 30 5 PH [...] 00 60 30 PH 63 No Ac WY 46 -1 -2 .0 AR 59 t [...] 6- 5- 00 MC 02 Av ve W[place] 00 20 20 AR ai AM 70 [...] 08 [facility] G[facility] ITAL ITAL [facility] N FULL -DOS E IM RHO( 01-[address] D) 6-20 [facility] 08 [facility] Procedures Procedure DOS Code Location Performer Comment [facility] [id number] [facility] [facility] Y CERVIX 7 PHYSICIAN ENDOCERVI [place] [address] [facility], [facility] SURG 7 [facility] PATH[facility] GROSS&KEISHA ROSCOPIC EXAM CULTURE 20883 [facility] BACTERIAL 7 [facility] INC INC QUANTTATI VE COLONY COUNT URINE CULTURE 22941 [facility] BCT 7 [facility] ISOL&PRSM INC INC PTV ID ISOLATE EA URINE URNLS DIP 40648 [facility] NIETO 7 PHYSICIAN STICK/TAB S GROUP LET RGNT [place] [address] [facility] GERSON TRANSVAGI 7 PHYSICIAN NAL S GROUP SUSCEPTIB 24421 [facility] LTY STDY 7 [facility] ANTIMICRB INC INC IAL MICRO/AGA R DILUTJ CYTP 22856 [facility] CERVICAL/ 7 LLC VAGINAL REQ INTERP PHYSICIAN CYTP C/V 54428 [facility], [facility] AUTO THIN 7 LLC LYR PREPJ SCR MNL RESCR PHYS IADNA 91031 [facility], [facility] HUMAN 7 LLC PAPILLOMA VIRUS HIGH-RISK TYPES VAGINAL 15146 [facility] GERSON DELIVERY 6 PHYSICIAN HARRY ONLY S GROUP W/POSTPAR TAHMINA CARE DELIVERY [id number] [facility] PRODUCTS 6 [facility] OF INC INC CONCEPTIO N EXTERNAL 76573 [facility] GERSON NONSTRESS 6 PHYSICIAN HARRY TEST S GROUP PARTICLE 83319 [facility] AGGLUTINA 6 [facility] TION INC INC SCREEN EACH ANTIBODY HANDLG&/O 93107 [facility] R CONVEY 6 PHYSICIAN PHYSICIAN OF SPEC S GROUP S GROUP FOR TR OFFICE TO LAB DRUG TST G0477 [facility] GERSON PRESUMP;C 6 PHYSICIAN HARRY PBL BEING S GROUP READ DC OPT OBV ONLY EVAL C/V 46049 [facility] AMNIOTIC 6 [facility] FLUID INC INC PROTEIN QUAL EA SPECIMEN 01072 [facility] NONSTRESS 6 [facility] TEST INC INC URNLS DIP 87822 [facility] 6 [facility] STICK/TAB INC INC LET REAGENT AUTO MICROSCOP Y 70492 [facility] NONSTRESS 6 [facility] TEST INC INC THERAPEUT 09607 [facility] IC 6 [facility] PROPHYLAC INC INC TIC/DX INJECTION SUBQ/IM FTL 92533 [facility] FIBRONECT 6 [facility] IN INC INC CERVIC[place] [address] [facility] INFUSION 6 [facility] THERAPY/P INC INC ROPHYLAXI S /DX 1ST TO 1 HR [address]303 [facility] NONSTRESS 6 [facility] TEST INC INC URNLS DIP 54268 [facility] TONG 6 [facility] STICK/TAB INC INC LET REAGENT AUTO MICROSCOP Y CULTURE 78745 [facility]ORGE [facility] BACTERIAL 6 [facility] INC INC QUANTTATI VE COLONY COUNT URINE DRUG TST G0477 [facility] GERSON PRESUMP;C 6 PHYSICIAN HARRY PBL BEING S GROUP READ DC OPT OBV ONLY DRUG TST G0477 [facility] GERSON PRESUMP;C 6 PHYSICIAN HARRY PBL BEING S GROUP READ DC OPT OBV ONLY FTL 61403 [facility] FIBRONECT 6 [facility] IN INC INC CERVICOVA G SECRETION S [place] DRUG TST G0477 [facility] GERSON PRESUMP;C 6 PHYSICIAN HARRY PBL BEING S GROUP READ DC OPT OBV ONLY DRUG TST G0477 [facility] PRESUMP;C 6 [facility] PBL BEING INC INC READ DC OPT OBV ONLY 57184 [facility] NONSTRESS 6 [facility] TEST INC INC COLLECTIO 95652 [facility] GERSON N 6 PHYSICIAN HARRY CAPILLARY S GROUP BLOOD SPECIMEN GLUCOSE 01164 [facility] EDMUN[facility] POST 6 PHYSICIAN PHYSICIAN [place] [address] [facility] ABDOMINAL 6 [facility] REAL INC INC TIME W/IMAGE LIMITED DRUG TST G0477 [facility] PRESUMP;C 6 [facility] PBL BEING INC INC READ DC OPT OBV ONLY DRUG TST G0477 [facility] PRESUMP;C 6 [facility] PBL BEING INC INC READ DC OPT OBV ONLY 23611 [facility] HARPEL NONSTRESS 6 PHYSICIAN TOOTIE TEST S GROUP US PREG 95149 [facility] UTERUS 6 [facility] W/DETAIL INC INC SELENA 1ST GESTATION US PREG 70758 [facility] GREG UTERUS 6 MEDICAL LETICIA AFTER 1ST IMAGING TRIMEST ASS 1/ GESTATION DRUG TST G0477 [facility] GERSON PRESUMP;C 6 PHYSICIAN HARRY PBL BEING [place] [address] CHAD SANTOYO ALL 6 MEDICAL UTERUS IMAGING LIMITED ASS 1/> FETUSES US PREG 29426 [facility] GERSON UTERUS 6 PHYSICIAN HARRY REAL TIME S GROUP W/IMAGE DCMTN TRANSVAG DRUG TST G0477 [facility] GERSON PRESUMP;C 6 PHYSICIAN HARRY PBL BEING S GROUP READ DC OPT OBV ONLY US PREG 48119 [facility] GREG UTERUS 6 MEDICAL LETICIA REAL TIME IMAGING W/IMAGE ASS DCMTN TRANSVAG CYTP C/V 34392 [facility], PICKLESIM AUTO THIN 6 LLC ER JR NATALIE LYR PREPJ SCR MNL RESCR PHYS DRUG TST G0477 [facility] GERSON PRESUMP;C 6 PHYSICIAN PBL BEING S GROUP READ DC OPT OBV ONLY IADNA 40781 [facility], PICKLESIM CHLAMYDIA 6 LLC ER JR NATALIE TRACHOMAT IS AMPLIFIED PROBE TQ IADNA 01760 [facility], PICKLESIM NEISSERIA 6 LLC ER JR NATALIE GONORRHOE AE AMPLIFIED PROBE TQ CULTURE 03017 [facility] BACTERIAL 6 MCKAYLA BLOCK MED CTR MED CTR [facility] VE COLONY COUNT URINE DRUG TEST G0480 [facility] DEFINITV [address] ID MED CTR MED CTR METH P [facility] ST DAY 1-7 DRUG CL DRUG TEST G0479 [facility] 6 MCKAYLA BLOCK PRESUMP;I MED CTR MED CTR [facility] ED CHEMISTRY ANLYZER GONADOTRO 21306 [facility]. PIN 6 MCKAYLA BLOCK CHORIONIC MILDRED MILDRED QUALITATI VE COLLECTIO 09951 [facility]. N VENOUS 6 MCKAYLA BUTTSTH BLOOD MILDRED MILDRED VENIPUNCT URE RADEX 07141 RADIOLOGY STONE ELBOW 6 GAR COMPLETE ASSOCIATE MINIMUM 3 S OF NOTH VIEWS RADIOLOGI 21511 RADIOLOGY STONE C EXAM 6 GAR KNEE ASSOCIATE COMPLETE S OF NOTH 4/MORE VIEWS RADEX 78194 RADIOLOGY SHERIE SPINE 5 CHR LUMBOSACR ASSOCIATE AL 2/3 S OF NOTH VIEWS RADEX 25627 RADIOLOGY LUBBERS SPINE 5 FRITZ THORACIC ASSOCIATE 2 VIEWS S OF NOTH THERAPEUT 26752 ST CABAN IC 5 MCKAYLA JEN PROPHYLAC TIC/DX PHYSICIAN INJECTION S SUBQ/IM INJECTION J0696 ST CABAN 5 MCKAYLA SHLOMO CEFTRIAXO NE SODIUM PHYSICIAN PER [address] [place] [address] RADIOLOGY ERWIN SOUSA TRANSVAGI 5 [place] [address] RADIOLOGY STONE ABDOMINAL 5 JAM REAL ASSOCIATE TIME S OF NOTH W/IMAGE LIMITED US PELVIC 73509 RADIOLOGY ERWIN SOUSA 5 NONOBSTET ASSOCIATE MARYBEL S OF NOTH REAL-TIME IMAGE COMPLETE COMPREHEN [address] SIVE 5 MCKAYLA MCKAYLA METABOLIC MED CTR MED CTR PANEL [facility] IADNA [address] CHLAMYDIA 5 MCKAYLA MCKAYLA MED CTR MED CTR TRACHOMAT [facility] ST IS AMPLIFIED PROBE TQ IADNA [address] NEISSERIA 5 MCKAYLA MCKAYLA MED CTR MED CTR GONORRHOE [facility] ST AE AMPLIFIED PROBE TQ URINE 28960 ST CABAN 5 MCKAYLA SHLOMO TEST VISUAL PHYSICIAN [place] [address] FREE 5 MCKAYLA MCKAYLA THYROXINE MED CTR MED CTR [facility] [place] [address] THYROID 5 MCKAYLA MCKAYLA STIMULATI MED CTR MED CTR NG [facility] ST HORMONE TSH BLOOD [address] COUNT 5 MCKAYLA MCKAYLA COMPLETE MED CTR MED CTR AUTOMATED [facility] ST GONADOTRO [address] PIN 5 MCKAYLA MCKAYLA CHORIONIC MED CTR MED CTR [facility] ST QUALITATI VE URINE 55529 ST THRELKELD 5 MCKAYLA II UMER TEST VISUAL PHYSICIAN COLOR S CMPRSN METHS URINE 55403 TONG FORTUNE 5 [facility] TEST INC INC VISUAL COLOR CMPRSN METHS CULTURE 86301 [facility] BACTERIAL 5 [facility] INC INC [place] [address] [facility] AMYLASE 5 [place] [address] [facility] LIPASE 5 [facility] INC INC COMPREHEN 71183 [facility] SIVE 5 [facility] METABOLIC INC INC PANEL URNLS DIP 98077 [facility]E 5 [facility] STICK/TAB INC INC LET REAGENT AUTO MICROSCOP Y UNCLASSIF J3490 [facility] IED DRUGS 5 [facility] INC INC BLOOD 23360 [facility] COUNT 5 [facility] COMPLETE INC INC AUTO&AUTO DIFRNTL WBC URINE 69287 [facility] CO 5 [facility] TEST [facility] VISUAL T T COLOR CMPRSN METHS IIV3 VACC 56437 [facility] 3 [facility] PRESERVAT [facility] LUL FREE T T 0.5 ML DOSAGE IM USE CONTRACEP S4993 [facility] TIVE 3 [facility] PILLS FOR [facility] T T CONTROL IAADIADOO 37884 [facility] T[facility] INFLUENZA IAADIADOO 42786 [facility] TAVIA STREPTOCO CCUS GROUP A IIV3 51463 [facility] VACCINE 2 [facility] SPLIT [facility] VIRUS 0.5 T T ML DOSAGE IM USE CYTP 33321 [facility] CERV/VAG 2 DIAGNOSTI DIAGNOSTI AUTO THIN CS CS LAYER PREP MNL SCREEN FRAMES V2020 [facility] PURCHASES 2 JERROD ELDER DETERMINA 70720 [facility] TION 2 JERROD ELDER REFRACTIV E STATE FITTING 10956 [facility] SPECTACLE 2 JERROD ELDER S XCPT APHAKIA MONOFOCAL SPHERE V2100 [facility] SINGLE 2 JERROD ELDER VISION PLANO +/- 4.00 PER LENS OPHTH 56073 [facility] MEDICAL 2 JERROD ELDER XM&EVAL COMPRE NEW PT 1/> VST THERAPEUT 14376 YASMANI SOLIS 2 BECKINRID BECKINRID PROPHYLAC GE [...] HOSPITA HOSPITA UP TO 50 MG INSERTION 38158 [facility] CHARLIE CO 1 [facility] HEALTH INTRAUTER [facility] INE T T DEVICE IUD LEVONORGE J7302 [facility] STREL-RLS 1 [facility] E [facility] INTRAUTER T T N CNTRACPT 52 MG BLOOD 10385 [facility] COUNT 1 [facility] HEMOGLOBI [facility] N T T IADNA 55480 [facility] CO NEISSERIA 1 [facility] GONORRHOE T T AE AMPLIFIED PROBE TQ IADNA 53510 [facility] CO CHLAMYDIA 1 [facility] DE[facility] TRACHOMAT T T IS AMPLIFIED PROBE TQ URINE 48376 [facility] CHARLIE CO 1 [facility] TEST [facility] VISUAL T T COLOR CMPRSN METHS RADEX 25340 YASMANI GRUBER ELBOW 1 JAZ SE[facility]STIAN COMPLETE DGE DGE MINIMUM 3 HOSPITAL HOSPITAL VIEWS RADEX 48488 YASMANI GRUBER FOREARM 2 1 JAZ SEBASTIAN VIEWS DGE DGE [facility] COLLECTIO 83901 PRIMARY PEDRO LUIS N VENOUS 1 CARE TOOTIE BLOOD CENTERS VENIPUNCT [facility] URE BLOOD 33931 PRIMARY PEDRO LUIS COUNT 1 CARE TOOTIE COMPLETE CENTERS AUTO&AUTO OF [facility] DIFRNTL WBC IAADIADOO 59034 PRIMARY TRINIDAD 0 CARE DOROTHY STREPTOCO CENTERS CCUS OF [facility] GROUP A GONADOTRO 44874 PRIMARY TRINIDAD, PIN 0 CARE CTR ALLISON C [facility] [place] QUANTITAT [place] LUL GONADOTRO 40805 PRIMARY PEDRO LUIS PIN 0 CARE TOOTIE [facility]ERS [facility] [place] [address] RADIOLOGY BAL, A ABDOMEN 0 SERVICES R W/CONTRAS T MATERIAL CT PELVIS 42523 RADIOLOGY BAL, A 0 SERVICES R W/CONTRAS T MATERIAL URINE 55494 PRIMARY TRINIDAD 0 CARE DOROTHY TEST CENTERS VISUAL OF [facility] COLOR CMPRSN METHS COLLECTIO 73150 PRIMARY TRINIDAD N VENOUS 0 CARE DOROTHY BLOOD CENTERS VENIPUNCT [facility] URE CULTURE 06558 [facility] BACTERIAL 9 [facility]ICAL VE COLONY CT CT COUNT URINE URNLS DIP 53445 PRIMARY PEDRO LUIS 9 CARE TOOTIE STICK/TAB CENTERS LET [facility] REAGENT AUTO MICROSCOP Y INFLUENZA G9141 DHS/CO CHARLIE CO A H1N1 9 HEALTH HEALTH IMMUNIZAT [facility] ION BANK ACCT T ADMINISTR ATION US PELVIC 65836 PRIMARY TRINIDAD 9 CARE DOROTHY NONOBSTET CENTERS MARYBEL [facility] REAL-TIME IMAGE COMPLETE URNLS DIP 53781 YASMANI GRUBER 9 BRECKINRI BRECKINRI STICK/TAB DGE DGE [facility] REAGENT AUTO MICROSCOP Y SUSCEPTIB 94503 YASMANI GRUBER LTY STDY 9 BRECKINRI BRECKINRI ANTIMICRB DGE DGE [facility] MICRO/AGA R DILUTJ CULTURE 98491 YASMANI GRUBER BACTERIAL 9 BRECKINRI BRECKINRI DGE DGE [facility] VE COLONY COUNT URINE CUL BACT 09781 YASMANI GRUBER AEROBIC 9 BRECKINRI BRECKINRI ADDL DGE DGE [facility] DEFINITIV E EA ISOL IADNA 02174 [facility] NEISSERIA 9 [facility] GONORRHOE AE AMPLIFIED PROBE TQ IADNA 83065 [facility] CHLAMYDIA 9 [facility] INC TRACHOMAT IS AMPLIFIED PROBE TQ IADNA 80143 [facility] PAPILLOMA 9 [facility] VIRUS HUMAN AMPLIFIED PROBE TQ CYTP C/V 25855 [facility] AUTO THIN 9 [facility] LYR PREPJ SCR MNL RESCR PHYS IIV3 85786 [facility]/CO CHARLIE CO VACCINE 9 [facility] VIRUS 0.5 BANK ACCT T ML DOSAGE IM USE GONADOTRO 43123 YASMANI GRUBER PIN 9 JAZ SEBASTIAN [facility] QUANTITAT LUL URINE 68264 DHS/CO CHARLIE CO 9 [facility] VISUAL BANK ACCT T COLOR CMPRSN METHS ANALGESIA D9230 [facility] HUNTER 9 C. C. ANXIOLYSI [facility] S INHALATIO N OF NITROUS OXIDE SPHERE V2100 [facility], SINGLE 9 MAURICE I MAURICE I VISION PLANO +/- 4.00 PER LENS FITTING 49269 [facility], SPECTACLE 9 MAURICE I MAURICE I S XCPT APHAKIA MONOFOCAL FRAMES V2020 [facility], PURCHASES 9 MAURICE I MAURICE I DETERMINA 63900 MARJAN PHILLIP TION 9 LEONIE Gordon REFRACTIV E STATE DEEP D9220 JULIO CESAR HARRELL, SEDATION/ 9 RENARD Patel GENERAL ANESTHESI A-1ST 30 MINUTES ORTHOPANT 46771 JULIO CESAR HARRELL OGTANISHA 9 RENARD Patel COMPREHEN 35624 YASMANI GRUBER SIVE 9 JAZ SEBASTIAN METABOLIC [facility] ACUTE 03128 YASMANI GRUBER HEPATITIS 9 JAZ SEBASTIAN PANEL [facility] BLOOD 19756 YASMANI GRUBER COUNT 9 BRECKINRI BRECKINRI COMPLETE DGE DGE AUTO&AUTO [facility] [place] [address] YASMANI GRUBER ABDOMINAL 9 BRECKINRI BRECKINRI REAL DGE DGE TIME [facility] W/IMAGE LIMITED URNLS DIP 49119 YASMANI GRUBER 9 BRECKINRI BRECKINRI STICK/TAB DGE DGE LET [facility] REAGENT AUTO MICROSCOP Y BASIC 62952 YASMANI GRUBER METABOLIC 9 BRECKINRI BRECKINRI PANEL DGE DGE CALCIUM [facility] TOTAL RADIOLOGI 30305 RADIOLOGY PAMPATI, C EXAM 9 SERVICES MAHENDER CHEST 2 VIEWS FRONTAL&L ATERAL CREATINE 66890 YASMANI GRUBER KINASE 9 BRECKINRI BRECKINRI TOTAL DGE DGE [facility] CREATINE 98390 YASMANI GRUBER KINASE MB 9 BRECKINRI BRECKINRI FRACTION DGE DGE ONLY [facility] CULTURE 20368 YASMANI GRUBER BACTERIAL 9 BRECKINRI BRECKINRI DGE DGE QUANTTATI [facility] VE COLONY COUNT URINE BLOOD 91485 YASMANI GRUBER COUNT 9 BRECKINRI BRECKINRI COMPLETE DGE DGE AUTO&AUTO [facility] DIFRNTL WBC ECG 06364 YASMANI GRUBER ROUTINE 9 BRECKINRI BRECKINRI ECG DGE DGE W/LEAST [facility] 12 LDS TRCG ONLY W/O I&[place] [address] YASMANI GRUBER TROPONIN 9 BRECKINRI BRECKINRI QUANTITAT DGE DGE LUL [facility] BLOOD [address] COUNT 9 [facility] COMPLETE AUTO&AUTO MEDICALCE MEDICALCE DIFRNTL NTER NTER WBC IADNA [address] NEISSERIA 9 [facility] GONORRHOE MEDICALCE MEDICALCE AE NTER NTER AMPLIFIED PROBE TQ BILIRUBIN [address] DIRECT 9 [facility] MEDICALCE MEDICALCE NTER NTER GONADOTRO [address] PIN 9 [facility] CHORIONIC MEDICALCE MEDICALCE [place] [address] PHOSPHORU 9 [facility] S INORGANIC MEDICALCE MEDICALCE NTER NTER IADNA 39943 [facility] CHLAMYDIA 9 [facility] TRACHOMAT MEDICALCE MEDICALCE IS NTER NTER AMPLIFIED PROBE TQ COMPREHEN 17900 [facility] SIVE 9 [facility] METABOLIC PANEL MEDICALCE MEDICALCE NTER NTER COLLECTIO 78646 ST BE, N VENOUS 9 [facility] CTR VENIPUNCT URE COLLECTIO [address] N VENOUS 9 [facility] VENIPUNCT URE RADEX 95291 [facility] ANKLE 9 [facility] MINIMUM 3 VIEWS GONADOTRO 84935 [facility] PIN 9 [facility] QUALITATI VE URINALYSI 96545 [facility] S [address] [place] [address] QUAL/SEMI QUANT EXCEPT [place] A[place] URINE [address] TEST VISUAL COLOR CMPRSN METHS URINE 69902 YASMANI GRUBER 9 BRECKINRI BRECKINRI TEST DGE [facility] COLOR CMPRSN METHS RADIOLOGI 01838 YASMANI GRUBER C EXAM 9 BRECKINRI BREJESSINRI CHEST [address] [facility] FRONTAL&L ATERAL BASIC 75429 YASMANI GRUBER METABOLIC 9 BRECKINRI BRECKINRI PANEL DGE DGE [facility] TOTAL URNLS DIP 44376 YASMANI GRUBER 9 BRECKINRI BRECKINRI STICK/TAB DGE DGE [facility] REAGENT AUTO MICROSCOP Y BLOOD 84066 YASMANI GRUBER COUNT 9 BRECKINRI BRECKINRI COMPLETE DGE DGE AUTO&AUTO [facility] DIFRNTL WBC BLOOD 70146 TONG FORTUNE COUNT 9 MEM HOS[facility]OS[facility] COMPLETE INC INC AUTO&AUTO DIFRNTL WBC URNLS DIP 81713 TONG FORTUNE 9 [facility] STICK/TAB INC INC LET REAGENT AUTO MICROSCOP Y BASIC 11918 TONG FORTUNE METABOLIC 9 [facility] PANEL INC INC CALCIUM TOTAL INITIAL 29799 NATALY POLLACK, INPATIENT 9 S AMBER CONSULT HEALTHCAR NEW/ESTAB E INC PT 55 MIN RADIOLOGI 16081 RADIOLOGY Eleno BENNETT 9 EXAMINATI ASSOCIATE MCKAYLA ON CHEST S PSC A SING[place]IEW FRONTAL RADIOLOGI 13375 RADIOLOGY SABRINA C EXAM 9 CHEST 2 ASSOCIATE MCKAYLA VIEWS S PSC A FRONTAL&L ATERAL ECHOENCEP 87436 RADIOLOGY DANIEL, HALOGRAPH 9 JUNIOR Arteaga REAL ASSOCIATE TIME S PSC IMAGING EKG [address] [place] [place] [address] CURRENT [facility] OBSTETRIC LACERATIO N OTHER [address] [facility] ARTIFICIA [address] [place] [address] L RUPTURE [facility] OTHER [address] [facility] MANUALLY [address] [place] [address] ASSISTED [facility] DELIVERY RADIOLOGI 53342 RADIOLOGY Eleno ROSEN 9 MATTY H EXAMINATI ASSOCIATE ON CHEST S PSC SING[place] FRONTAL NEURAXIAL 41510 ST MANE, LABOR 9 MCKAYLA Myers ANALG/ANE MED CTR S PLND [place]INAL [place] V [address] [facility] ROSS, SURG 9 CINTI SANDER PATHOLOGY PATHOLOGI STINC GROSS&KEISHA ROSCOPIC EXAM VAGINAL 94237 ST SRIVASTAV DELIVERY 9 [facility] W/POSTPAR [facility] CARE MEDICAL [address] [facility] [address] [facility] INDUCTION [address] [place] [address] HOSPITAL OF LABOR [facility] US PREG 32616 [facility] VANHOOK, UTERUS [address] [facility] Gordon REAL TIME I W/IMAGE DCMTN [facility] [employer] DOPPLER [address] [facility] ECHO [address] [place] [address] [facility] SPECTRAL DIS[place] COM[place] [address] [facility] UTERUS [address] [place] [address] REAL TIME [facility] F/U TRNSABDL PER FETUS DOPPLER 22449 [facility] REYNOLDEKLE, ECHO 9 [facility] VICKEY Alas I PULS SPECTRAL ASSOC F/U/[facility] T URNLS DIP [address] HOSPITAL STICK/TAB [facility] LET REAGENT AUTO MICROSCOP Y 26787 [facility] NONSTRESS 9 MCKAYLA BLANCA J TEST MED CTR OBSERVATI [address] ST POLACEK, ON/INPATI 9 MCKAYLA [facility] HOSPITAL CARE [address]ES CULTURE [address] [facility] BACTERIAL [address] [place] [address] QUANTTATI VE COLONY COUNT URINE OTHER [address] [facility] [address] [place] [address] MONITORIN [facility] G OTHER [address] MONITORIN [facility] G CUL BACT 23940 [facility] XCPT 9 MCKAYLA MCKAYLA URINE BLOOD/STO MEDICALCE MEDICALCE OL NTER NTER AEROBIC ISOL IADNA 75609 [facility] NEISSERIA 9 [facility] GONORRHOE MEDICALCE MEDICALCE AE NTER NTER AMPLIFIED PROBE TQ OBSERVATI 53536 ST BOHME, ON/INPATI 9 MCKAYLA DENIZ ENT MED CTR J HOSPITAL CARE 40 MINUTES IADNA 75578 [facility] CHLAMYDIA 9 [facility] TRACHOMAT MEDICALCE MEDICALCE [place] N[place] [address] [facility] NONSTRESS [address] [place] [address] IADNA NOS 79492 [facility] DIRECT 9 [facility] PROBE TQ EACH MEDICALCE MEDICALCE ORGANISM NTER NTER [address] [facility] NONSTRESS [address] [place] [address] [facility] SRC WET [address] [place] [address] NFCT AGT PH BODY [address] [facility] FLUID NOT [address] [place] [address] ELSEWHERE SPECIFIED OTHER [address] [facility] [address] [place] [address] MONITORIN [facility] G DOPPLER [address] [facility] ECHO 8 [facility] [place] COM[place] [address] [facility] UTERUS [address] [place] [address] REAL TIME [facility] F/U TRNSABDL PER FETUS [address] FAREED TEST PHYSICIAN S FOR WOMEN OTHER [address] [facility] [address] [place] [address] MONITORIN [facility] G CULTURE 18314 [facility] TYPING 8 [facility] IMMUNOLOG IC OTH/THN IMMUNOFLU ORES CULTURE 65459 [facility] BCT 8 [facility] ISOL&PRSM PTV ID ISOLATE EA URINE CULTURE 23532 [facility] BACTERIAL 8 [facility] QUANTTATI [place] P[place] [address] [facility] UTERUS [address] [place] [address] REAL TIME [facility] W/IMAGE DCMTN TRANSVAG 34734 [facility] [address] [place] [address] TEST PHYSICIAN S FOR WOMEN SMR PRIM [address] [facility], SRC WET [address] [place] [address] [facility] AGT PHYSICIAN S FOR WOMEN RHO(D) [address] [facility] IMMUNE [address] [place] [address] GLOBULIN [facility] HUMAN F[place] [address] [facility] UTERUS [address] [place] [address] REAL TIME [facility] F/U TRNSABDL PER FETUS THER [address] [facility] PROPH/DX [address] [place] [address] NJX [facility] SUBQ/IM ANTIBODY [address] [facility] SCREEN [address] [place] [address] RBC EACH [facility] SERUM TECHNIQUE IADNA 33635 [facility] [place] 8 [facility] SPECIES DIRECT PROBE TQ IADNA 36926 [facility] [place]ICH[place] 8 [facility] INC VAGINALIS DIRECT PROBE TQ IADNA 52704 [facility] [place]ARD[place] 8 [facility] INC LA VAGINALIS DIRECT PROBE TQ IADNA 38975 [facility] CHLAMYDIA 8 [facility] INC TRACHOMAT IS AMPLIFIED PROBE TQ IADNA 94473 [facility] [place] 8 [facility] GONORRHOE AE AMPLIFIED PROBE TQ OBSERVATI 15690 [place], ON/INPATI 8 [facility] HOSPITAL CARE 55 MINUTES 37109 [facility] NONSTRESS 8 [facility] [place] P[place] [address] [facility], UTERUS 8 [facility] F REAL TIME I F/U TRNSABDL ASSOC PER [employer] OPHTH 73519 FAMILYNELA CALHOUN, MEDICAL 8 [facility] XM&EVAL CARE COMPRHNSV ESTAB PT 1/> 1 VISN V2103 NITIN CALHOUN PLANO 8 [facility] TO+/-4.00 CARE D SPHER 0.12-2.00 D CYL EA FRAMES V2020 NITIN CALHOUN, PURCHASES 8 [facility] CARE DETERMINA 25471 NITIN CALHOUN TION 8 [facility] REFRACTIV CARE E STATE FITTING 98150 NITIN CALHOUN, SPECTACLE 8 [facility] S XCPT CARE APHAKIA MONOFOCAL CUL BACT 49416 [facility] AEROBIC 8 [facility] ADDL METHS DEFINITIV E EA ISOL CULTURE 05152 [facility] BACTERIAL 8 [facility] QUANTTATI VE COLONY COUNT URINE CULTURE 81811 [facility] BCT 8 [facility] ISOL&PRSM PTV ID ISOLATE EA URINE SUSCEPTIB 52481 [facility] LTY STDY 8 [facility] ANTIMICRB IAL MICRO/AGA R DILUTJ THER [address] [facility] PROPH/DX [address] [place] [address] NJX [facility] SUBQ/[place] PREG [address] [facility] UTERUS [address] [place] [address] AFTER TRIMEST GESTATION GONADOTRO 27613 [facility] QUEST PIN 8 DIAGNOSTI DIAGNOSTI CHORIONIC CS, INC. CS, INC. [place] A [address] [facility] QUEST 8 DIAGNOSTI DIAGNOSTI , INC. CS, INC. CHEMILUMI 70986 [facility] NESCENT 8 DIAGNOSTI DIAGNOSTI ASSAY , INC. , INC. ALPHA-FET 83975 [facility] OPROTEIN 8 DIAGNOSTI DIAGNOSTI SERUM , [place] , [place] [address] [facility] ESTRIOL 8 DIAGNOSTI DIAGNOSTI , INC. , INC. ECG [address] [facility] ROUTINE [address] [place] [address] ECG [facility] W/LEAST 12 LDS TRCG ONLY W/O I&R ECG 03901 DIAGNOSTI MCDANNOLD ROUTINE 8 C , CHRIS J ECG CARDIOLOG W/LEAST ISTS INC 12 LDS I&R ONLY BLOOD [address] [facility] COUNT [address] [place] [address] COMPLETE [facility] AUTO&AUTO DIFRNTL WBC RHYTHM 24837 EMERGENCY CHANEY, ECG 1-3 8 [facility] LEADS PHYS INTERPRET [place] REPRT ON APPLICATI [address] [facility] ON OF [address] [place] [address] SPLINT [facility] THER [address] [facility] PROPH/DX [address] [place] [address] SUBQ/IM BASIC [address] [facility] METABOLIC [address] [place] [address] PANEL [facility] [place] [address] [facility] [address] [place] [address] UTERUS 14 [facility] [place] P[place] 47880 [facility] [place], UTERUS 8 [facility] W REAL TIME I W/[place] [address] [facility] ABDOMINAL [address] [place] [address] REAL [facility] TIME W/IMAGE LIMITED RHO(D) [address] [facility] IMMUNE [address] [place] [address] GLOBULIN [facility] HUMAN FULL-DOSE IM CYTP C/V 62448 [facility] AUTO THIN 8 [facility] LYR PREPJ SCR MNL RESCR CRANE OPERATOR CAB [address] [facility] PROPH/DX [address] [place] [address] SUBQ/IM IADNA 70883 [facility] NE[place] 8 [facility] INC GONORRHOE AE AMPLIFIED PROBE TQ ANTIBODY [address] RBC EACH [facility] SERUM TECHNIQUE IADNA 76218 [facility] [place] 8 [facility] INC TRACHOMAT IS AMPLIFIED PROBE TQ US PREG [address] [facility] UTERUS [address] [place] [address] REAL TIME [facility] W/IMAGE DCMTN TRANSVAG URNLS DIP [address] STICK/TAB [facility] LET RGNT AUTO W/O MICROSCOP Y BASIC [address] PANEL [facility] CALCIUM TOTAL BLOOD [address] COMPLETE [facility] AUTO&AUTO DIFRNTL WBC BLOOD 75988 [facility] COUNT [address] [place] [address] COMPLETE AUTO&AUTO MEDICALCE MEDICALCE DIFRNTL NTER NTER WBC ANTIBODY 09415 [facility] RODRIGO-B [address] [place] [address] ARR EB VIRUS MEDICALCE MEDICALCE [place] [address] PROPH/DX [facility] 1ST >1 HR BASIC 03033 [facility] METABOLIC [address] [place] [address] PANEL CALCIUM MEDICALCE MEDICALCE TOTAL NTER NTER COLLECTIO 87481 [facility] N VENOUS 8 MEDICAL G, DUNG BLOOD GROUP B VENIPUNCT URE ANTISTREP 36722 [facility] TOLYSIN O 8 [facility] SCREEN MEDICALCE MEDICALCE NTER NTER IAADIADOO 07050 [facility] 8 MEDICAL G, DUNG STREPTOCO GROUP B CCUS GROUP A IAADIADOO [address] STREPTOCO [facility] CCUS GROUP A URNLS DIP [address] STICK/TAB [facility] LET RGNT AUTO W/O MICROSCOP Y CUL [address] [facility] PRSMPTV [address] [place] [address] PTHGNC [facility] ORGANISM SCRN W/COLONY ESTIMJ INSJ [address] [facility] NON-NDWEL [address] [place] [address] LG [facility] BLADDER CATHETER IADNA [address] [facility] CHLAMYDIA [address] [place] [address] TRACHOMAT IS AMPLIFIED PROBE TQ GONADOTRO [address] [facility] PIN [address] [place] [address] CHORIONIC [facility] QUANTITAT LUL IADNA [address] [facility] NEISSERIA [address] [place] [address] GONORRHOE AE AMPLIFIED PROBE TQ BASIC [address] [facility] METABOLIC [address] [place] [address] PANEL [facility] CALCIUM TOTAL URNLS DIP [address] STICK/TAB [facility] LET REAGENT AUTO MICROSCOP Y BLOOD [address] [facility] COUNT [address] [place] [address] COMPLETE [facility] AUTO&AUTO DIFRNTL WBC RHYTHM 03913 EMERGENCY [place], ECG 1-3 8 [facility] P LEADS PHYS INTERPRET [place] & [place] ECG [address] [facility] ROUTINE [address] [place] [address] ECG [facility] W/LEAST 12 LDS TRCG ONLY W/O I&R MOLEC 93055 [facility] COLEMAN [facility] ISOL/XTRJ 8 [facility] ACID EA TYPE MOLECULAR 75552 [facility] COLEMAN [facility]ST COLEMAN DX AMP 8 [facility] [place] [facility] 1ST 2 SEQ MOLECULAR 20197 [facility] COLEMAN QUEST COLEMAN 8 [facility] [place] DIAGNOSTI [facility] INTERPRET ATION & REPORT MUTATION 40256 [facility] COLEMAN QUEST COLEMAN ID 8 [facility]RI[facility] [place] ENZYMATIC [facility] LIG/PRIME R XTN 1 SGM EA MOLECULAR 04014 [facility] COLEMAN QUEST COLEMAN DX AMP 8 HARRIET[place] TARGET [facility] EA ADDL SEQ MOLEC 62656 QUEST COLEMAN QUEST COLEMAN SEP&ID HI 8 HARRIETT DELANEYU TQ R [facility] NUCLEIC ACID PREP CULTURE 25186 [facility] BACTERIAL 8 [facility] INC INC QUANTTATI VE COLONY COUNT URINE BASIC 21269 [facility] METABOLIC 8 [facility] PANEL INC INC CALCIUM TOTAL URINE 32569 [facility] 8 [facility] TEST INC INC VISUAL COLOR CMPRSN METHS URNLS DIP 53054 [facility] 8 [facility] STICK/TAB INC INC LET REAGENT AUTO MICROSCOP Y US PREG 76823 [facility] UTERUS 8 [facility] REAL TIME INC INC W/IMAGE DCMTN TRANSVAG BLOOD 00734 [facility] COUNT 8 [facility] COMPLETE INC INC AUTO&AUTO DIFRNTL WBC GONADOTRO 32867 [facility] PIN 8 [facility] [place] [address] [facility] LIPASE 8 [facility] INC INC BILIRUBIN 26364 [facility] DIRECT 8 [facility] INC INC URINE 10822 [facility] 8 [facility] TEST INC INC [place] [address] [facility] AMYLASE 8 [facility] INC INC URNLS DIP 80261 [facility] 8 [facility] STICK/TAB INC INC LET REAGENT AUTO MICROSCOP Y COMPREHEN 68005 [facility] SIVE 8 [facility] METABOLIC INC INC PANEL BLOOD 58823 [facility] COUNT 8 [facility] COMPLETE INC INC AUTO&[place] [address] [facility] TRANSVAGI 8 [facility] US PELVIC 59829 RADIOLOGY FABIO, 8 YASMANI C NONOBSTET ASSOCIATE MARYBEL S PSC REAL-[place] NFUS 70989 [facility] THER 8 [facility] PROPH/[place] [address] CHAD SHAY, ABDOMEN 8 MEDICAL LISA P W/O IMAGING CONTRAST [place] N[place] 63421 [facility] THER 8 [facility] PROPH/DX INC INC 1ST >[address] PELVIS 67063 [facility] W/O 8 [facility] CONTRAST INC INC MATERIAL 3D 55685 CHAD LAURITA, RENDERING 8 MEDICAL LISA P IMAGING W/INTERP& ASSOCIATE POSTPROC S DIFF WORK STATION BLOOD 48267 [facility] COUNT 8 [facility] COMPLETE INC INC AUTO&AUTO DIFRNTL WBC URINE 32014 [facility] 8 [facility] TEST INC INC VISUAL COLOR CMPRSN METHS URNLS DIP 51468 [facility] 8 [facility] STICK/TAB INC INC LET REAGENT AUTO MICROSCOP Y COMPREHEN 44049 [facility] SIVE 8 [facility] METABOLIC INC INC PANEL IADNA 20283 [facility] [place] 8 [facility] GONORRHOE AE AMPLIFIED PROBE TQ CYTP C/V 52943 [facility] AUTO THIN 8 [facility] LYR PREPJ SCR MNL RESCR PHYS IADNA 39234 [facility] [place] 8 [facility] TRACHOMAT IS AMPLIFIED PROBE TQ US PELVIC 66760 RADIOLOGY RICARDO, 8 RODNEY R NONOBSTET ASSOCIATE MARYBEL IMAGE S PSC DCMTN LIMITED/F /U [place] [address] ST 8 [facility] [place] [address] [facility] TRANSVAGI 8 [facility] URNLS DIP 08147 [facility] 8 [facility] STICK/TAB INC INC LET REAGENT AUTO MICROSCOP Y URINE 33854 [facility] 8 [facility] TEST INC INC VISUAL COLOR CMPRSN METHS RADEX 93070 [facility] FOOT 8 [facility] COMPLETE INC INC MINIMUM 3 VIEWS RADEX 34712 CHAD LAURITA, ANKLE 8 MEDICAL LISA P COMPLETE IMAGING MINIMUM 3 [place] [address] [facility] THYROID 8 [facility] INC STIMULATI NG HORMONE TSH GONADOTRO 09753 [facility] PIN 8 [facility] INC CHORIONIC QUANTITAT LUL ANTIBODY 18647 [facility] RUBELLA 8 [facility] INC ANTIBODY 40964 [facility] QUEST VARICELLA 8 DIAGNOSTI DIAGNOSTI -ZOSTER CS IN CS IN URNLS DIP [address] STICK/TAB LET MEDICALCE MEDICALCE REAGENT NTER NTER AUTO MICROSCOP Y CULTURE 24165 [facility] BCT 8 [facility] ISOL&PRSM PTV ID MEDICALCE MEDICALCE ISOLATE NTER NTER EA URINE CULTURE 69389 [facility] BACTERIAL 8 [facility] QUANTTATI MEDICALCE MEDICALCE VE COLONY NTER NTER COUNT URINE URINE 66275 [facility] [address] [place] [address] VISUAL MEDICALCE MEDICALCE COLOR NTER NTER CMPRSN METHS URINE 29257 [facility] [address] [place] [address] VISUAL COLOR CMPRSN METHS IADNA 43896 [facility] CHLAMYDIA [address] [place] [address] TRACHOMAT IS AMPLIFIED PROBE TQ IAADIADOO [address] VAGINALIS COLLECTIO 44672 [facility] N VENOUS [address] [place] [address] VENIPUNCT URE IADNA 09121 [facility] NE[place] [address] [place] [address] GONORRHOE AE AMPLIFIED PROBE TQ BLOOD 92436 [facility] COUNT [address] [place] [address] AUTO&[place] [address] [facility] TRANSVAGI [address] [place] [address] [place] PELVIC 45614 RADIOLOGY Katya VALDEZOBSTET ASSOCIATE MARYBEL COLES REAL-TIME IMAGE COMPLETE HEPATIC 79657 [facility] FUNCTION 8 [facility] PANEL MEDICALCE MEDICALCE NTER NTER GROUND A0425 KOJO KOJO MILEAGE 8 CO CO PER AMBULANCE AMBULANCE STATUTE SERVICE SERVICE MILE AMBULANCE A0429 KOJO KOJO SERVICE 8 CO CO BLS AMBULANCE AMBULANCE EMERGENCY SERVICE SERVICE TRANSPORT COLLECTIO 93841 [facility] N VENOUS 8 [facility] BLOOD VENIPUNCT MEDICALCE MEDICALCE URE NTER NTER THER 94736 [facility] PROPH/DX [facility] P[facility] MEDICALCE MEDICALCE SBST/DRUG NTER NTER IV NFUS 28111 [facility] HYDRATION 8 [facility] EA HR [place] [address] [facility] LIPASE 8 [facility] MEDICALCE MEDICALCE NTER NTER BLOOD 29415 [facility] COUNT 8 [facility] COMPLETE AUTO&AUTO MEDICALCE MEDICALCE DIFRNTL NTER NTER WBC CULTURE 33709 [facility] BACTERIAL [address] [place] [address] QUANTTATI VE COLONY COUNT URINE URINE 86237 [facility] [address] [place] [address] VISUAL COLOR CMPRSN METHS THER 80022 [facility] PROPH/DX [address] [place] [address] SUBQ/IM IADNA 87877 [facility] TRICHOMON 8 [facility] VAGINALIS DIRECT PROBE TQ IADNA 91311 [facility] [place] 8 [facility] INC GONORRHOE AE AMPLIFIED PROBE TQ IADNA 21432 [facility] [place] 8 [facility] INC SPECIES DIRECT PROBE TQ IADNA 17540 [facility] GARDNEREL 8 [facility] INC LA VAGINALIS DIRECT PROBE TQ IADNA 88576 [facility] CHLAMYDIA 8 [facility] [place] [address] RADIOLOGY [facility] ABDOMEN 8 , JESSIE W/CONTRAS ASSOCIATE T T S PSC MATERIAL CT P[place]VIS [address] 8 [facility] MATERIAL Encounters Encounter Start End Date Code Location Performer Type Date [facility] TONG - 7 7 [facility] OUT[facility]IEN [facility] TONG - 6 6 [facility] INPATIENT INC OFFICE 30102 [facility] GERSON OUTPATIEN 6 6 PHYSICIAN HARRY T VISIT S GROUP 15 MINUTES [facility] TONG - 6 6 [facility] TONG - 6 6 [facility] TONG - 6 6 [facility] TONG - 6 6 [facility] OUTPATIEN [facility] T OFFICE 13364 [facility] GERSON OUTPATIEN 6 6 PHYSICIAN HARRY T VISIT S GROUP 15 MINUTES EMERGENCY 99020 LOUANN CALZADA 6 6 PHYSICIAN DEPARTMEN S, [facility] V[facility] MODERATE SEVERITY OFFICE 05282 [facility] GERSON OUTPATIEN 6 6 PHYSICIAN HARRY T VISIT S GROUP 15 MINUTES [facility] TONG - 6 6 [facility] OUTPATIEN [facility] T OFFICE 09067 [facility] GERSON OUTPATIEN 6 6 PHYSICIAN HARRY T VISIT S GROUP 15 MINUTES HOSPITAL TONG - 6 6 [facility] OUTPATIEN [facility] TONG - 6 6 [facility] TONG - 6 6 [facility] OUTPATIEN [facility] T OFFICE 39127 [facility] GERSON OUTPATIEN 6 6 PHYSICIAN HARRY T VISIT S GROUP 15 MINUTES HOSPITAL TONG - 6 6 [facility] OUTPATIEN INC T OFFICE 09970 [facility] GERSON OUTPATIEN 6 6 PHYSICIAN HARRY T VISIT S GROUP 15 MINUTES [facility] TONG - 6 6 [facility] OUTPATIEN INC T EMERGENCY 04653 LOUANN RAMIREZ 6 6 [facility]ICIAN [facility]UI [facility] [place] [facility] T VISIT HIGH/URGE NT SEVERITY EMERGENCY 37338 LOUANN TAMARA 6 6 PHYSICIAN U YUDELKA [facility] S, [facility] T VISIT HIGH/URGE NT SEVERITY OFFICE 74515 [facility] OUTPATIEN 6 6 PHYSICIAN T VISIT S GROUP 25 MINUTES OFFICE 63415 [facility] OUTPATIEN 6 6 PHYSICIAN T NEW 45 S GROUP MINUTES EMERGENCY 41832 LOUANN DENNIS 6 6 PHYSICIAN KEISHA [facility] S [facility] T VISIT HIGH/URGE NT SEVERITY [facility]PITAL ST - 6 6 [facility] OUT[facility]IEN [facility] OFFICE 74054 [facility] OUTPATIEN 6 6 [facility] SHLOMO T VISIT 15 PHYSICIAN MINUTES S [facility] - 6 6 [facility] OUTPATIEN MILDRED T EMERGENCY 91745 ST. 6 6 [facility] [facility] T VISIT MODERATE SEVERITY EMERGENCY 02377 [facility] 6 6 EMERGENCY [facility] T VISIT PHYSICIAN HIGH/URGE S NT SEVERITY EMERGENCY 71016 LOUANN MCDONALD 6 6 PHYSICIAN Kaur YUDELKA [facility] S [facility] T VISIT LOW/MODER SEVERITY HOSPITAL TONG - 6 6 [facility] OUTPATIEN INC T OFFICE [address] [facility] OUT[facility] 6 6 [facility] SHLOMO T VISIT 15 PHYSICIAN MINUTES S OFFICE [address] [facility] TH[facility]KELD OUTPATIEN 6 6 [facility]CKAYLA II UMER T VISIT 25 PHYSICIAN MINUTES S EMERGENCY 46958 [facility] 6 6 EMERGENCY [facility] T VISIT PHYSICIAN HIGH/URGE S NT SEVERITY OFFICE 564[address] [facility] OUT[facility] 5 5 [facility] SHLOMO T VISIT 15 PHYSICIAN MINUTES S OFFICE 05064 [facility] NIETO OUTPATIEN 5 5 PHYSICIAN HARRY T NEW 30 S GROUP MINUTES OFFICE 61853 [facility] 5 5 [facility] SHLOMO T VISIT 15 PHYSICIAN MINUTES S [facility] - 5 5 [facility] OUTPATIEN [facility] ST. - 5 5 [facility] OUTPATIEN [facility] ST - 5 5 [facility] OUTPATIEN [facility] OFFICE 37[address] [facility] OUTPATIEN 5 5 [facility] SHLOMO T VISIT 25 PHYSICIAN MINUTES S EMERGENCY 76615 LOUANN DENNIS 5 5 PHYSICIAN KEISHA [facility] S, [facility] T VISIT MODERATE SEVERITY OFFICE 71781 [facility] OUT[facility]EN 5 5 [facility] SHLOMO T VISIT 25 PHYSICIAN MINUTES S OFFICE [address]8586 [facility] OUTPATIEN 5 5 MCKAYLA II UMER T VISIT 15 PHYSIC[address] [facility] [address] - 5 5 [facility]PATIEN [facility] OFFICE [address]257 [facility] OUTPATIEN 5 5 MCKAYLA II UMER T NEW 30 MINUTES PHYSICIAN S EMERGENCY 42393 TONG 5 5 [facility] DEPARTMEN INC T VISIT MODERATE SEVERITY HOSPITAL TONG - 5 5 [facility] OUTPATIEN INC T EMERGENCY 97097 LOUANN MCDONALD 5 5 PHYSICIAN U YUDELKA [facility]PARTMEN S, PLL[facility] T VISIT HIGH/URGE NT SEVERITY OFFICE 70131 [facility] OUTPATIEN 5 5 [facility] T VISIT DEPARTMEN DEPARTMEN 15 T T MINUTES OFFICE 18536 [facility] OUTPATIEN 3 3 HEALTH T VISIT DEPARTMEN 15 T MINUTES OFFICE 71728 [facility] 2 2 CLINIC DOROTHY T VISIT 15 MINUTES OFFICE 39112 [facility] OUT[facility] 2 2 CLINIC TAVIA T VISIT 15 MINUTES OFFICE 44865 [facility] 2 2 CLINIC DOROTHY T VISIT 15 MINUTES PERIODIC 10380 [facility] PREVENTIV 2 2 [facility]ALTH HEALTH E MED EST DEPARTMEN DEPARTMEN PATIENT T T 18-39 YRS OFFICE 95144 [facility] OUTPATIEN 2 2 [facility]ALTH [facility]ALTH T VISIT DEPARTMEN DEPARTMEN 15 T T MINUTES OFFICE 35086 [facility] 2 2 CLINIC DOROTHY T VISIT 15 MINUTES OFFICE 16366 [facility] 2 2 CLINIC DOROTHY T VISIT 15 MINUTES OFFICE 67976 [facility] OUTPATIEN 2 2 CLINIC DOROTHY T NEW 30 MINUTES EMERGENCY 88567 YASMANI 2 2 [facility] [place] [facility] T VISIT HOSPITA MODERATE SEVERITY HOSPITAL YASMANI - 2 2 [facility] OUTPATIEN GE ARH T HOSPITA OFFICE 38019 [facility] OUTPATIEN 1 1 [facility] T VISIT DEPARTMEN DEPARTMEN 15 T T MINUTES PERIODIC 91689 [facility] PREVENTIV 1 1 [facility]ALTH HEALTH E MED EST DEPARTMEN DEPARTMEN PATIENT T T 18-39 YRS OFFICE 88842 [facility] OUTPATIEN 1 1 [facility]ALTH HEALTH T VISIT 5 DEPARTMEN DEPARTMEN MINUTES T T EMERGENCY 20294 YASMANI CHAPIN 1 1 MAILEINRI [facility] DEPARTMEN DGE T VISIT HOSPITAL MODERATE E SEVERITY HOSPITAL YASMANI - 1 1 [facility] OUTPATIEN DGE T HOSPITAL EMERGENCY 36915 YASMANI 1 1 [facility] DEPARTMEN DGE T VISIT HOSPITAL LOW/MODER SEVERITY OFFICE 56156 [facility] PEDRO LUIS OUTPATIEN 1 1 CARE TOOTIE T VISIT CENTERS 15 OF [facility] OFFICE 37098 APPALACHI MERRITT DEL OUTPATIEN 0 0 AN T NEW 20 PHYSICIAN MINUTES S PSC OFFICE 06291 [facility] TRINIDAD OUTPATIEN 0 0 CARE DOROTHY T VISIT CENTERS 15 OF [facility] OFFICE 91915 PRIMARY PEDRO LUIS OUTPATIEN 0 0 CARE TOOTIE T VISIT CENTERS 15 OF [facility] YASMANI - 0 0 [facility] OUTPATIEN DGE T HOSPITAL OFFICE 37753 PR[facility] TR[facility] OUTPATIEN 0 0 CARE DOROTHY T VISIT CENTERS 15 OF [facility] OFFICE 37039 PRIMARY PEDRO LUIS OUTPATIEN 9 9 CARE TOOTIE T VISIT CENTERS 15 OF [facility] OFFICE 21620 PRIMARY TR[facility]AD OUTPATIEN 9 9 CARE DOROTHY T VISIT CENTERS 15 OF [facility] APPALACHI - 9 9 AN OUTPATIEN REGIONAL T MEDICAL CT OFFICE 95224 PRIMARY PEDRO LUIS OUTPATIEN 9 9 CARE TOOTIE T VISIT CENTERS 15 OF [facility] OFFICE 97439 [facility] OUTPATIEN 9 9 CARE DOROTHY T VISIT CENTERS 15 OF [facility] EMERGENCY 59058 YASMANI BEATTY, 9 9 [facility]ILEINRI [facility] [place] DGE T VISIT HOSPITAL MODERATE EMERGENCY SEVERITY SERVICES EMERGENCY 95277 YASMANI 9 9 [facility] DEPARTMEN DGE T VISIT HOSPITAL LOW/MODER SEVERITY HOSPITAL YASMANI - 9 9 [facility] OUTPATIEN DGE T HOSPITAL OFFICE 70175 [facility] [place] OUTPATIEN 9 9 CARE DOROTHY T VISIT CENTERS 15 OF [facility] OFFICE 06774 [facility]IMARY [place] OUTPATIEN 9 9 CARE DOROTHY T VISIT CENTERS 15 OF [facility] YASMANI - 9 9 [place] OUTPATIEN DGE T HOSPITAL OFFICE 81186 DHS/CO CHARLIE CO OUTPATIEN 9 9 [facility] 20 [facility] BANK ACCT T OFFICE 05197 DEE MENENDEZ OUTPATIEN 9 9 MOY/HY LINDSEY J T VISIT 5 DEN [facility] OFFICE 30893 MARJAN PHILLIP OUTPATIEN 9 9 LEONIE Gordon T [facility] 30 [facility] PERIODIC 81195 PRIMARY [place] PREVENTIV 9 9 CARE DOROTHY E MED EST CENTERS PATIENT OF [facility] OFFICE 03851 PRIMARY PEDRO LUIS OUTPATIEN 9 9 CARE TOOTIE T VISIT CENTERS 15 OF [facility] OFFICE 23382 JULIO CESAR HARRELL OUTPATIEN 9 9 RENARD Patel [facility] 20 MINUTES OFFICE 43361 DEE CORRIGAN OUTPATIEN 9 9 MOY/HY ANASTACIO, T VISIT [facility] 10 [facility] YASMANI - 9 9 [place] OUTPATIEN DGE T [facility] YASMANI - 9 9 [place] OUTPATIEN DGE T HOSPITAL EMERGENCY 31952 YASMANI 9 9 [facility] LOW/MODER SEVERITY HOSPITAL YASMANI - 9 9 [place] OUTPATIEN DGE T HOSPITAL EMERGENCY 72892 YASMANI JANE, 9 9 [facility] MODERATE EMERGENCY SEVERITY SERVICES EMERGENCY 22156 EMERGENCY RICHARDSO 9 9 LEONIE TSAI [facility] PHYS T VISIT [facility] HIGH/URGE [place] NT SEVERITY OFFICE [address] [facility] 9 9 MCKAYLA VAZQUEZ T VISIT MED CTR [address] - 9 9 [facility] 66642 [facility] 9 9 MEDICAL ROSALES E T VISIT GROUP [address] 9 9 [facility] T OFFICE 89197 [facility] 9 9 MEDICAL ROSALES E T VISIT GROUP 15 MINUTES HOSPITAL [facility] 9 9 [facility] [address] DEPARTMEN T VISIT LOW/MODER SEVERITY OFFICE 82881 PRIMARY [facility] 9 9 CARE DOROTHY T NEW 20 CENTERS MINUTES [facility] EMERGENCY 25893 [facility] 9 [facility]OSP[facility] LOW/MODER SEVERITY [facility]OSPITAL [facility] 9 9 [facility]RI [facility] DGE T HOSPITAL EMERGENCY 95870 [place] SONNY, 9 9 [facility] CORPORATI T VISIT ON MODERATE SEVERITY HOSPITAL [place] - 9 9 [facility] [place] [phone] 9 HOSPITAL INPATIENT [facility] OFFICE [address] [facility] 9 9 MCKAYLAPASTORA VAZQUEZ T VISIT MED CTR 15 MINUTES OFFICE 31188 LEODAN ELKINS 9 9 [facility] JUNIOR W ION I NEW/ESTAB PATIENT ASSOC 15 MIN [facility] [address] [facility] 9 9 MCKAYLAPASTORA VAZQUEZ T VISIT MED CTR 15 MINUTES HOSPITAL [facility] 9 9 [facility] 25764 [facility] 9 9 HOSPITAL T VISIT EAST 40 MINUTES HOSPITAL [facility] 9 9 [facility] 9 9 [facility] T OFFICE 19870 [place] [address] 9 [facility] T VISIT EAST 40 MINUTES OFFICE 48753 [facility] 9 9 [facility] 9 9 [facility] T OFF[facility] 80336 [facility] 9 9 HOSPITAL T VISIT EAST 40 MINUTES [facility]PITAL [facility] 8 8 [facility] T OFFICE 22094 [facility] 8 8 [facility] T [facility]ISIT 15 PHYSICIAN MINUTES S FOR WOMEN OFFICE 16849 [facility] 8 8 [facility] T VISIT 15 PHYSICIAN MINUTES S FOR WOMEN OFFICE 05380 [facility] 8 8 [facility] III, T VISIT JJ 15 PHYSICIAN MIN[facility]ES [facility] [place] [address] 8 [facility] T OFFICE 66438 [facility] 8 8 [facility] T [facility]ISIT 15 PHYSICIAN MINUT[facility] S [facility] [place] [address] 8 [facility] T OFFICE 55304 [facility] 8 8 [facility] GIOVANI T VISIT 15 [facility]IC[facility] [place] [address] 8 [facility] T OFFICE 69582 [facility] 8 8 [facility] T [facility]ISIT 15 PHYSICIAN MINUTES S FOR WOMEN OFFICE 21079 [place] [address] 8 [facility] T [facility]ISIT 10 PHYSICIAN MINUTES S FOR WOMEN EMERGENCY 59158 EMERGENCY FEL, 8 8 CARE DOROTHY Lucia [facility] VISIT [facility] [place] [facility] T[facility] - 8 8 [facility] [place] [address] 8 [facility] OFFICE 38222 [place] [address] 8 [facility] T VISIT 15 PHYSICIAN MINUTES S FOR WOMEN OFFICE 56606 [place] [address] 8 [facility] [place] VISIT GROUP B 15 MINUTES EMERGENCY 18615 [place] [address] 8 [facility] VISIT MODERATE SEVERITY [facility]OSPITAL [place] [address] 8 [facility] [place] [address] 8 [facility] OFFICE 19329 [place] [address] 8 [facility] [place] VISIT GROUP B 15 MINUTES OFFICE 00737 [place] [address] 8 [facility] T VISIT 15 PHYSICIAN MINUTES S FOR WOMEN EMERGENCY 94983 [place] [address] 8 [facility] VISIT MODERATE SEVERITY EMERGENCY 10329 EMERGENCY RITU, DEPT 8 8 CARE JUNIOR Yojana VISIT PHYS HIGH [facility] SE[place] [place] [facility] [place] [address] 8 [facility] [place] [address] 8 [facility] [place] [address] 8 [facility] OFFICE 34022 [place] [address] 8 [facility] T VISIT 25 PHYSICIAN MINUTES S [facility] [place] [address] 8 [facility] EMERGENCY 86911 EMERGENCY VEST, 8 8 CARE ZEKE [facility] PHYS T VISIT [facility] [place] NT SEVERITY [facility] [place] [address] 8 [facility] [place] [address] 8 [facility] EMERGENCY 32606 [place] [address] 8 [facility] VISIT HIGH/URGE NT SEVERITY OFFICE 01405 [facility] 8 8 MED[facility] Leon T VISIT GROUP B 15 MINUTES H[facility] 8 [facility] MED[facility] NTER EMERGENCY [address] VISIT HIGH/URGE NT SEVERITY [facility] [place] [address] 8 [facility] [place] [address] 8 [facility] EMERGENCY [address] VISIT MODERATE SEVERITY EMERGENCY 03177 EMERGENCY [place], 8 8 CARE WALTER [facility] T VISIT [facility] [place] SE[facility] [place] [address] 8 [facility] EMERGENCY [address] VISIT LOW/MODER SEVERITY OFFICE 72513 [facility] 8 8 [facility] III, T VISIT 5 JJ MINUTES PHYSICIAN S [facility] [place] [address] 8 [facility] EMERGENCY [address]1583 [place] [address] [address] [facility] VISIT MODERATE SEVERITY OFFICE 57479 [facility] 8 8 [facility] T [facility]ISIT 10 PHYSICIAN MINUTES S [facility] [place] [address] 8 [facility] OUTPATIEN INC T EMERGENCY 65819 [place] [address] 8 [facility] T VISIT PROF SERV MODERATE SEVERITY [facility]OSPITAL [facility] 8 8 [facility] T OFFICE 87948 [facility] 8 8 [facility] T VISIT 15 PHYSICIAN MINUTES S FOR WOMEN EMERGENCY 27690 [place] [address] 8 [facility] VISIT MODERATE SEVERITY [facility]OSP[facility] [place] [address] 8 [facility]PAT[facility]EN [facility] T OFFICE 90692 [facility] 8 8 [facility] A, [place] T VISIT 25 PHYSICIAN MINUTES S [facility] 8 8 [facility] T EMERGENCY 97250 [place] [address] 8 [facility] VISIT MODERATE [facility]VERITY HOSPITAL [place] [address] [facility] T OFFICE 44661 [facility] 8 8 [facility] T VISIT 15 PHYSICIAN MINUTES S [facility] 8 8 [facility] T MEDICALCE NTER EMERGENCY 29972 [facility] 8 [facility] T VISIT MEDICALCE MODERATE NTER SEVERITY EMERGENCY 98863 [facility] 8 8 [place] [facility] MED CTR T VISIT HIGH/URGE NT SEVERITY EMERGENCY 55887 [facility] 8 [facility] T VISIT MODERATE [facility]VERITY [facility]OSP[facility] 8 8 [facility] T EMERGENCY 40846 [facility] 8 8 [place] Dial [facility] T VISIT HIGH/URGE NT SEVERITY [facility]OSP[facility] 8 [facility] T OFFICE 52693 [place] [facility] 8 [facility] [place] T VISIT GROUP B 15 MINUTES [facility] 8 [facility] T MEDICALCE NTER EMERGENCY [address] T VISIT MEDICALCE MODERATE NTER SEVERITY EMERGENCY 30716 [facility] 8 8 [facility] E VISIT MED CTR HIGH SEVERITY& THREAT FUN EMERGENCY [address] T VISIT MODERATE SEVERITY HOSPITAL [facility] 8 [facility] T OFFICE 09828 [place] [address] 8 [facility] EVANGELIST ANDERSEN 45 MINUTES PHYSICIAN S FOR WOMEN OFFICE 31146 [place] [facility] 8 8 MEDICAL VIRAL T VISIT GROUP 15 MINUTES HOSPITAL [facility] 8 [facility] T
--- OUTSIDE RECORDS SUMMARY | 2017-04-29 08:14 | External Medical Summary Rpt | CCD ---
Author Author , DESHAWN ROCHEEVETTE Address Unknown Phone [email or web address] & [email or web address] Care Team Providers Care Chestnut Tanner Name Role Phone [facility] Unavailable Unavailable [facility], [facility] Unavailable Unavailable MEDICAL CT, [facility] MED[facility] CT DENIZ FINLEY, Unavailable Unavailable DENIZ FINLEY ALL, SANTOYO ALL Unavailable Unavailable JAMARI HERRERA, Unavailable Unavailable JAMARI HERRERA BURGE DEL Unavailable Unavailable [facility], Unavailable Unavailable [facility] GERSON NIETO Unavailable Unavailable GERSON MCDONALD, GERSON Unavailable Unavailable [facility] Unavailable Unavailable PHYSICIANS, [facility] GREG LETICIA, Unavailable Unavailable GREG LETICIA [id number], Unavailable Unavailable [id number] JESSIE SHAH, Unavailable Unavailable JESSIE SHAH KIRK M, Unavailable Unavailable RHYS VALDEZ DAMIAN F, Unavailable Unavailable AMADA GILLIAM DOZIER Unavailable Unavailable TONIA TAVARES SHAHRAM, TAVARES Unavailable Unavailable JUNIOR REAGAN, Unavailable Unavailable JUNIOR CHANEY JOSHUA M, Unavailable Unavailable GENIA MOODY ROBERT P, Unavailable Unavailable EVANGELIST MERRITT MARK E, Unavailable Unavailable REJI SOSA, Unavailable Unavailable SONNY STEVENS Unavailable Unavailable KEISHA RODRI DENNIS, Unavailable Unavailable RODRI DENNIS DOUGLAS J, Unavailable Unavailable MARIA CALHOUN WILLIAM B, Unavailable Unavailable RENARD HARRELL HARPEYojana TOOTIE, HARPEL Unavailable Unavailable TOOTIE DENVER ALAS, Unavailable Unavailable DENVER ALAS [facility] Unavailable Unavailable INC, [facility] ROSALES BAZZI, Unavailable Unavailable ROSALES BAZZI ROB F, Unavailable Unavailable HERFEL DOROTHY F [facility], Unavailable Unavailable [facility] SHEA, MAURICE I, Unavailable Unavailable SHEA, MAURICE I [facility], Unavailable Un[facility], Unavailable Unavailable [facility] POOL DE LA CRUZ, POOL Unavailable Unavailable DOROTHY FAUSTINA CALZADA, FAUSTINA CALZADA Unavailable Unavailable FAREED GARSIA, Unavailable Unavailable FAREED GARSIA DARREN R, Unavailable Unavailable RODNEY SILVA R [facility] Unavailable Unavailable [facility] L, [facility] VICKEY ABDUL, Unavailable Unavailable VICKEY ABDUL, Unavailable Unavailable BETTYE ADHIKARI, TAYLOR BROOKS JONES, Unavailable Unavailable TAYLOR REHMAN CHR, SHERIE Unavailable Unavailable CHR [facility] Unavailable Unavailable [facility], [facility], Unavailable Unavailable [facility], Unavailable Unavailable [facility] MATTY ROSEN, Unavailable Unavailable MATTY ROSEN [facility] Unavailable Unavailable DEPARTMENT, [facility] Unavailable Unavailable DEPARTMENT, [facility] WALTER MANE, Unavailable Unavailable WALTER MANE MAUREEN, LI, Unavailable Unavailable DALTON ZIMMERMAN Unavailable Unavailable FRITZ CABAN SHLOMO, CABAN Unavailable Unavailable DINA MONTES DE OCA Unavailable Unavailable [facility] Unavailable Unavailable HOSPITA, [facility] Unavailable Unavailable HOSPITAL E, [facility] CHRIS CURTIS, Unavailable Unavailable CHRIS CURTIS BRADLEY L, Unavailable Unavailable KEISHA LÓPEZ EMMETT P, Unavailable Unavailable LISA SHAY MORGAN Unavailable Unavailable TOOTIE OVERBEE TAVIA, OVERBEE Unavailable Unavailable TAVIA [facility], Unavailable Unavailable [facility], Unavailable Unavailable [facility] LINDSEY MENENDEZ, Unavailable Unavailable LINDSEY MENENDEZ BAL, A R, MALLY, A Unavailable Unavailable R BAL, VIRAL, BAL, Unavailable Unavailable V[facility] Unavailable [facility], Unavailable Unavailable [facility] ALBANJOSÉ MIGUEL HUNTLEY NATALIE, Unavailable Unavailable EVANGELIST ARRIAGA JR, Unavailable Unavailable [facility] Unavailable Unavailable [facility], [facility], [facility], [facility]available Unavailable [facility], Unavailable Unavailable [facility], Unavailable Unavailable [facility], Unavailable Unavailable INC., [facility], Unavailable Unavailable [facility] Unavailable Unavailable OF [facility], [facility] JANE, JANE GARRISON, Unavailable Unavailable MELI MCKAYLA BENNETT Unavailable Unavailable A, SABRINA MCKAYLA A ASHLEY LY Unavailable Unavailable LEONIE VITALE, Unavailable Unavailable LEONIE LYNCH [id number], Unavailable Unavailable [id number] Unavailable Unavailable [id number] # [id number], [facility] [id number] # [id number] JUNIOR SANCHEZ, Unavailable Unavailable JUNIOR SANCHEZ ROGERS Unavailable Unavailable MONTSERRAT SR GIOVANI, Unavailable Unavailable ORIN, GIOVANI SANDER PINEDA, MIRIAM, Unavailable Unavailable YASMANI BERMUDEZ, Unavailable Unavailable YASMANI MCCARTHY STONE Unavailable Unavailable JAIDEN SAMANIEGO, STONE Unavailable Unavailable WALTER BLACKWELL, Unavailable Unavailable WALTER GONZALEZ KENNETH L, Unavailable Unavailable CHAVO ANNA, Unavailable Unavailable WALTER NICOLAS SOWER, Unavailable Unavailable WALTER ELDER, Unavailable Unavailable RADHA ELDER, Unavailable Unavailable ROBER TOLEDO, Unavailable Unavailable NADEGE, ROBER [facility] Unavailable Unavailable [facility] Unavailable Unavailable [facility] Unavailable Unavailable [facility], [facility] Unavailable Unavailable PH[facility]IC[facility]ANS, [facility] Unavailable Unavailable [facility], Unavailable Unavailable [facility] DUNG ETIENNE, Unavailable Unavailable DUNG BARROSO THRELKELD II UMER, Unavailable Unavailable THRELKELD II UMER [facility] Unavailable Unavailable #5, [facility] JUNIOR LEONARD, Unavailable Unavailable JUNIOR LEONARD ROY, Unavailable Unavailable SALAS BEATTY, DENISE ALANIST, Unavailable Unavailable [facility]EKE [facility] # [id number], Unavailable Unavailable [facility] # [id number] WALKER III, Unavailable Unavailable JJ, WALKER III, JJ [id number], Unavailable Unavailable [id number] LEONIE PHILLIP, Unavailable Unavailable LEONIE PHILLIP, Unavailable Unavailable ALLISON PORTILLO, Unavailable Unavailable ALLISON TRINIDAD JEFFREY, Unavailable Unavailable JESSIE WALDEN YOUNG VAN Unavailable Unavailable Purpose Continuity of Care Document - 08-22-2007 through 2016 Problems Code Diagnosis DOS Provider Status 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 [id number] ATYP SQ 12-25-2016 [facility] CELLS UNDET PHYSICIANS GROUP SIGNIFICANC E CYTOL SMER CERV G48603 CERV HIGH 12-25-2016 [facility] RSK HUMAN PHYSICIANS PAPILLOMAVI GROUP PERI DNA TEST POS N390 URINARY 12-02-2016 [facility] TRACT PHYSICIANS INFECTION GROUP SITE NOT SPECIFIED R102 PELVIC AND 12-02-2016 [facility] PERINEAL PHYSICIANS PAIN GROUP Z392 ENCOUNTER 08-19-2016 [facility] FOR ROUTINE LLC FOLLOW-UP O80 ENCOUNTER 06-22-2016 [facility] FOR PHYSICIANS FULL-TERM GROUP UNCOMPLICAT ED DELIVERY Z370 SINGLE LIVE 06-22-2016 [facility] PHYSICIANS GROUP Z3A39 39 WEEKS 06-22-2016 [facility] Z3480 ENC 06-16-2016 [facility] SUPERVISION PHYSICIANS OTH NORMAL GROUP PREG UNS TRIMESTER O6003 06-09-2016 [facility] LABOR PHYSICIANS WITHOUT GROUP DELIVERY THIRD TRIMESTER H68406 DRUG USE 06-09-2016 [facility] COMPLICATIN PHYSICIANS G GROUP UNS TRIMESTER O4703 FALSE LABOR 06-01-2016 [facility] BEFORE 37 PHYSICIANS CMPLETE GROUP WEEKS GEST 3RD TRI Z3A36 36 WEEKS 06-01-2016 [facility] F38173 OTHER SPEC 05-21-2016 [facility] RELATED INC COND 3RD TRIMESTER O471 FALSE LABOR 05-21-2016 [facility] AT/AFTER PHYSICIANS 37 GROUP COMPLETED WEEKS GEST Z3A34 34 WEEKS 05-21-2016 [facility] INC R109 UNSPECIFIED 05-20-2016 [facility]AL [facility] PAIN INC J069 ACUTE UPPER 05-11-2016 [facility], RESPIRATORY PLLC INFECTION UNSPECIFIED P10850 DRUG USE 05-08-2016 [facility] COMPLICATIN PHYSICIANS G GROUP THIRD TRIMESTER R81068 SPOTTING 04-11-2016 [facility] G INC THIRD TRIMESTER [id number] DECREASED 04-11-2016 [facility] MOVEMENTS INC THIRD TRIMESTER NA/UNS Z3A28 28 WEEKS 04-11-2016 [facility] C69032 ABNORMAL 03-30-2016 [facility] GLUCOSE PHYSICIANS COMPLICATIN GROUP G R1011 RIGHT UPPER 03-19-2016 [facility] MEDICAL PAIN IMAGING ASS R110 NAUSEA 03-19-2016 [facility] M06730 OTHER SPEC 03-10-2016 [facility] RELATED [facility] COND 2ND TRIMESTER O479 FALSE LABOR 03-10-2016 [facility] PHYSICIANS UNSPECIFIED GROUP Z3A24 24 WEEKS 03-10-2016 [facility] INC Z3492 ENC 02-12-2016 [facility] MEDICAL NORMAL IMAGING ASS UNS 2 TRIMESTER Z36 ENCOUNTER 02-12-2016 [facility] SCREENING OF MOTHER Z3A20 20 WEEKS 02-12-2016 [facility] MEDICAL OF IMAGING ASS N898 OTHER 01-29-2016 [facility] SPECIFIED PHYSICIANS, NONINFLAMMA PLLC TORY DISORDERS VAGINA O209 HEMORRHAGE 01-29-2016 [place] IN EARLY MEDICAL IMAGING ASS UNSPECIFIED O2692 01-29-2016 [facility] RELATED PHYSICIANS, CONDITIONS PLLC UNS 2ND TRIMESTER Z3A18 18 WEEKS 01-29-2016 [facility] MEDICAL OF IMAGING ASS A56707 UTERINE 12-04-2015 [facility] SIZE-DATE PHYSICIANS DISCREPANCY GROUP FIRST TRIMESTER M65011 SPOTTING 12-01-2015 [place] COMPLICATIN MEDICAL G IMAGING ASS FIRST TRIMESTER O2691 12-01-2015 [facility] RELATED PHYSICIANS, CONDITIONS PLLC UNS 1ST TRIMESTER Z3A09 9 WEEKS 12-01-2015 [facility] MEDICAL OF IMAGING ASS B373 CANDIDIASIS 11-22-2015 [facility], OF [facility] LLC AND VAGINA Z113 ENCOUNTER 11-22-2015 [facility], SCREEN LLC INFECTIONS SEXL MODE TRANSMISSN Z3201 ENCOUNTER 11-22-2015 [facility] FOR PHYSICIANS GROUP TEST RESULT POSITIVE Z3481 ENC 11-22-2015 [facility], SUPERVISION LLC OTH NORMAL 1 TRIMESTER N3000 ACUTE 11-09-2015 [facility] CYSTITIS PHYSICIANS, WITHOUT PLLC HEMATURIA R112 NAUSEA WITH 10-29-2015 ST VOMITING [facility] UNSPECIFIED PHYSICIANS K088 OTH SPEC 10-26-2015 ST. DISORDERS [facility] TEETH & [place] SUPPORTING STRUCTURES Y44736 OTHER SPEC 10-26-2015 [facility] RELATED PHYSICIANS COND 1ST TRIMESTER G30196 OTHER SPEC 10-26-2015 ST. [facility] RELATED [place] COND UNS TRIMESTER W00236 SMOKING 10-26-2015 ST. TOBACCO [facility] COMP [place] UNS TRIMESTER Z3A00 WEEKS OF 10-26-2015 [facility] GESTATION EMERGENCY OF PHYSICIANS NOT SPECIFIED J11477 OTHER LONG 10-26-2015 ST. [address] [facility] CURRENT [place] DRUG THERAPY Z881 ALLERGY 10-26-2015 ST. STATUS TO [facility] OTHER [place] ANTIBIOTIC AGENTS STATUS Z886 ALLERGY 10-26-2015 ST. STATUS TO [facility] ANALGESIC [place] AGENT STATUS Z720 TOBACCO USE 10-21-2015 [facility] J0190 ACUTE 10-10-2015 ST SINUSITIS [facility] UNSPECIFIED PHYSICIANS R05 COUGH 10-10-2015 ST [facility] PHYSICIANS U36313 PAIN IN 08-24-2015 ST LEFT ELBOW [facility] PHYSICIANS P08655 PAIN IN 08-24-2015 ST LEFT KNEE [facility] PHYSICIANS R27433T UNSPECIFIED 08-24-2015 ST INJURY [facility] LEFT ELBOW PHYSICIANS SUBSEQUENT ENCNTR S7764CF UNS INJURY 08-24-2015 ST LT LOWER [facility] LEG PHYSICIANS SUBSEQUENT ENCOUNTER T1490 INJURY 08-24-2015 ST UNSPECIFIED [facility] PHYSICIANS H2585YX CONTUSION 08-22-2015 [facility] OF LEFT EMERGENCY ELBOW PHYSICIANS INITIAL ENCOUNTER K9168DS CONTUSION 08-22-2015 [facility] OF LEFT EMERGENCY KNEE PHYSICIANS INITIAL ENCOUNTER Z043 ENCOUNTER 08-22-2015 [facility] OBSERVATION OF NOT FOLLOW OT ACCIDENT M545 LOW BACK 07-16-2015 ST PAIN [facility] PHYSICIANS R29765 ARCUATE 06-06-2015 [facility] UTERUS PHYSICIANS GROUP M546 PAIN IN 05-30-2015 ST. THORACIC [facility] SPINE [place] N946 DYSMENORRHE 05-30-2015 ST A [facility] UNSPECIFIED PHYSICIANS Z202 CONTACT 05-30-2015 ST WITH [facility] EXPOSURE PHYSICIANS INFECT SEXUAL MODE TRANSMS N921 EXCESS & 05-20-2015 ST. FREQUENT [facility] MENSTRUATIO MILDRED N W/IRREGULAR CYCLE N3001 ACUTE 05-02-2015 ST CYSTITIS [facility] WITH PHYSICIANS HEMATURIA R5383 OTHER 05-02-2015 ST FATIGUE [facility] PHYSICIANS Z789 OTHER 05-02-2015 SPECIFIED [facility] PHYSICIANS STATUS N939 ABNORMAL 04-30-2015 [facility] UTERINE & PHYSICIANS, VAGINAL PLLC BLEEDING UNSPECIFIED J0100 ACUTE 04-22-2015 ST MAXILLARY [facility] SINUSITIS PHYSICIANS UNSPECIFIED J40 BRONCHITIS 04-22-2015 NOT [facility] SPECIFIED PHYSICIANS ACUTE OR CHRONIC 5950 ACUTE 04-02-2015 ST CYSTITIS [facility] PHYSICIANS 50498 URINARY 04-02-2015 ST FREQUENCY [facility] PHYSICIANS 4778 ALLERGIC 03-19-2015 RHINITIS [facility] DUE TO PHYSICIANS OTHER ALLERGEN 6260 ABSENCE OF 03-19-2015 ST MENSTRUATIO [facility] N PHYSICIANS 51121 WHEEZING 03-19-2015 ST [facility] PHYSICIANS 7862 COUGH 03-19-2015 ST [facility] PHYSICIANS 55938 ABDOMINAL 03-19-[address] UPPER PHYSICIANS QUADRANT 5990 URINARY 02-24-2015 [facility] TRACT PHYSICIANS, INFECTION PLLC SITE NOT SPECIFIED 2662 OTHER 08-24-2014 [facility] B-COMPLEX HEALTH DEFICIENCIE DEPARTMENT S 42015 OTHER SIGN 08-24-2014 [facility] AND SYMPTOM [...] OF CLINIC UNSPECIFIED SITE 3829 UNSPECIFIED 04-25-2012 [facility] MEDIA 1121 CANDIDIASIS 04-18-2012 [facility] DEPARTMENT V2549 SURVEILLANC 04-18-2012 [facility] PRE[facility]AG[facility]ST[facility] PRSC CONTRACEPT METHOD 69026 UNSPECIFIED 04-12-2012 [facility] 3670 HYPERMETROP 03-24-2012 [facility] JERROD 4779 ALLERGIC 12-21-2011 [facility]IN[facility] CAUSE UNSPECIFIED 5259 UNSPECIFIED 12-11-2011 [facility] DISORDER [facility] STRUCTURES 08381 NAUSEA WITH 12-11-2011 [facility] V[facility] EMERGENCY PHYSICIANS L V2511 ENC FOR 01-26-2011 [facility] INSERTION HEALTH INTRAUTERIN DEPARTMENT E CONTRACEPT DEVICE V2509 OTH GENERAL 01-23-2011 [facility] HEALTH CNSL&ADVICE DEPARTMENT CONTRACEPT MANAGEMENT V7240 01-15-2011 [facility] EXAMINATION HEALTH /TEST DEPARTMENT UNCONFIRMED 7295 PAIN IN 12-15-2010 [facility] SOFT SERVICES TISSUES OF LIMB 8419 SPRAIN&STRA 12-15-2010 YASMANI IN [facility] UNSPECIFIED E HOSPITAL SITE E ELBOW&FOREA RM 9592 INJURY 12-15-2010 RADIOLOGY OTHER&UNSPE SERVICES CIFIED SHOULDER&UP PER ARM E8499 UNSPECIFIED 12-15-[address] [facility] [address] OF [facility] OCCURRENCE E HOSPITAL E E9289 UNSPECIFIED 12-15-2010 [facility] ACCIDENT [facility] E HOSPITAL E 6268 OTH D/O 07-28-2010 PR[facility] MENSTRUATIO CARE N&OTH ABN CENTERS OF BLEED FE EAST GNT TRACT 96349 PAIN IN 04-03-2010 [facility], PHYSICIANS FOREARM PSC 91464 ABDOMINAL 08-13-2009 RADIOLOGY PAIN, SERVICES UNSPECIFIED SITE 7821 RASH AND 07-09-2009 PRIMARY OTHER CARE NONSPECIFIC CENTERS OF SKIN EAST ERUPTION 5220 PULPITIS 05-14-2009 [facility] 8762 UNSPEC 04-22-2009 PRIMARY SYMPTOM CARE ASSOC CENTERS OF W/FEMALE EAST GENITAL ORGANS 27752 NAUSEA 04-19-2009 [facility] EMERGENCY SERVICES 7881 DYSURIA 04-19-2009 [facility] EMERGENCY SERVICES V7381 SPECIAL 04-18-2009 [facility] OF SCREENING [place] INC EXAMINATION HUMAN PAPILVIRUS V762 SCREENING 04-18-2009 [facility] OF FOR [facility] MALIGNANT NEOPLASM OF THE CERVIX V7241 04-02-2009 [facility]/CO EXAMINATION HEALTH OR TEST CENTRAL NEGATIVE BANK ACCT RESULT 76351 UNSPECIFIED 03-22-2009 LEONIE PHILLIP W ASTIGMATISM 5206 DISTURBANCE 02-22-2009 Galina HARRELL IN TOOTH RENARD B ERUPTION 6583 DYSMENORRHE 02-05-2009 PRIMARY A CARE CENTERS [facility] 17660 OTHER 01-07-2009 YASMANI MALAISE AND [facility] 7906 OTHER 01-07-2009 YASMANI ABNORMAL [facility] BLOOD E HOSPITAL CHEMISTRY 37021 OTH 01-07-2009 DEE ABNORMAL MOY/MILNER BRAIN & ACCOUNT INSTALLATION SPECIALIST N RHC FUNCTION STUDY 5368 DYSPEPSIA&O 01-03-2009 YASMANI THER SPEC [facility] DISORDERS E HOSPITAL FUNCTION EMERGENCY STOMACH SERVICES 7804 DIZZINESS 01-03-2009 YASMANI AND ZEESHANHOLLYCarolyn GIDDINESS E HOSPITAL EMERGENCY SERVICES 91216 CHEST PAIN 01-03-2009 RADIOLOGY UNSPECIFIED SERVICES 84433 PAIN IN 10-18-2008 [facility] JOINT, ASSOCIATES ANKLE AND PSC FOOT 12887 UNSPECIFIED 10-18-2008 [facility] SITE OF MEDICAL ANKLE GROUP SPRAIN AND STRAIN V242 ROUTINE 10-10-2008 PRIMARY CARE FOLLOW-UP CENTERS [facility] 490 BRONCHITIS 10-07-2008 [facility] NOT [facility] SPECIFIED E HOSPITAL ACUTE OR EMERGENCY CHRONIC SERVICES 5589 OTH&UNSPEC 09-20-2008 [facility] NONINFECTIO Adzuna GASTROENTER ITIS&COLITI S 7820 DISTURBANCE 08-13-2008 [facility] 29609 OTHER 08-13-2008 RADI[facility] DYSPNEA AND ASSOCIATES PSC RESPIRATORY ABNORMALITI ES 650 NORMAL 08-10-2008 ST DELIVERY [facility] 69847 POOR 08-10-2008 ST GROWTH [facility] AFFECT MED CTR MANAGEMENT MOTH DELIV 64013 POLYHYDRAMN 08-10-2008 ST IOS, WITH [facility] DELIVERY MED CTR 71536 HIGH 08-10-2008 ST VAGINAL [facility] LACERATION MED CTR WITH DELIVERY V270 OUTCOME OF 08-10-2008 ST DELIVERY [facility] SINGLE MED CTR LIVEBORN V279 OUTCOME OF 08-10-2008 [facility]ATER DELIVERY, CINTI UNSPECIFIED PATHOLOGIST INC 2859 UNSPECIFIED 08-09-2008 [facility] 64416 PERIPH 08-09-2008 [facility] NEURITIS [facility] W/DELIV W/CURRENT PPC 40550 MATERNAL 08-09-2008 [facility] W/DELIVERY EAST W/CURRENT PPC V220 SUPERVISION 08-09-2008 [facility] OF [facility] CTR 85618 TOB USE D/O 08-07-2008 [facility] COMP PG [place] /PP ANTEPARTM ASSOC LLC COND/COMP 61721 POLYHYDRAMN 08-07-2008 [facility]ATER IOS [place] ANTEPARTUM COMPLICATIO ASSOC LLC N 05318 POOR 08-02-[address] [facility] ANTPRTM COND/COMP 89295 CNTRL NERV 07-30-2008 [facility]ATER SYS [place] MALFORMATIO N IN FETUS ASSOC LLC ANTEPARTUM V283 ENCOUNTER 07-30-2008 [facility]ATER ROUTINE [place] SCREEN MALFORMATIO ASSOC LLC N ULTRASONIC 78091 THREATENED 07-27-2008 [facility] LABOR EAST ANTEPARTUM 23462 DECR 07-27-2008 [facility] ANTPRTM COND/COMP V141 PERSONAL 07-27-2008 [facility] ALLERGY [facility] OTHER ANTIBIOTIC AGENT V149 PERSONAL 07-27-2008 [facility] ALLERGY [facility] UNSPEC MEDICINAL AGENT 7291 UNSPECIFIED 06-29-2008 [facility] MYALGIA HOSPITALS AND PHYSICIANS MYOSITIS FOR WOMEN 22278 OTH CURRENT 06-17-2008 [facility] MAT [facility] CLASSIFIABL PHYSICIANS E ELSW FOR WOMEN ANTPRTM 70365 ABDOMINAL 06-17-2008 [facility] PAIN OTHER HOSPITAL SPECIFIED EAST SITE 17093 SEVERE 06-13-2008 [facility] PRE-ECLAMPS HOSPITALS [place], PHYSICIANS ANTEPARTUM FOR WOMEN 7901 ELEVATED 06-13-2008 [facility] OF SEDIMENTATI [place] R[place] 60672 OTH SPEC 06-11-2008 [facility]ATER INDICAT [place] CARE/INTERV EN REL L&D ASSOC LLC ANTPRTM V2341 SUPERVISION 06-11-2008 [facility]ATER [place] W/HISTORY PRE-TERM ASSOC LLC LABOR 81943 SPOTTING 05-31-2008 [facility] OF COMP [place] INC ANTEPARTUM COND/COMP V222 05-03-2008 EMERGENCY STATE, CARE PHYS INCIDENTAL [facility] 99175 OTHER 04-30-2008 DENVER ALAS MD LABOR, ANTEPARTUM 49383 INFECTIONS 04-19-2008 [facility] GEN[facility] PHYSICIANS RY TRACT FOR WOMEN ANTEPARTUM 04131 MATERNAL 04-19-2008 [facility] ANTEPARTUM PHYSICIANS FOR WOMEN 79793 OTH 04-19-2008 [facility] KNOWN/SUSPE HOSPITALS CTED PHYSICIANS ABNORMALITY FOR WOMEN -NEC-APC/C V289 UNSPECIFIED 03-22-2008 [facility] SCREENING , INC. 7802 SYNCOPE AND 03-02-2008 [facility] 78477 ENTHESOPATH 02-24-2008 [facility] UNSPECIFIED EAST SITE 03401 OTHER 02-24-2008 EMERGENCY TENOSYNOVIT CARE PHYS IS OF HAND [facility] [facility] 7840 HEADACHE 02-24-2008 DIAGNOSTIC CARDIOLOGIS TS INC 64258 UNSPECIFIED 02-01-2008 [facility] ANTEPARTUM [facility] HEMORRHAGE PHYSICIANS ANTEPARTUM FOR WOMEN 85001 RHESUS 02-01-2008 [facility] ISOIMMUN [facility] AFFCT MGMT [facility] MOTH ANTPRTM COND V072 NEED FOR 02-01-2008 [facility] PROPHYLACTI [facility] IMMUNOTHERA PY V221 SUPERVISION 02-01-2008 [facility] OF OF [facility] NORMAL 68818 DEHYDRATION 01-12-2008 [facility] 463 ACUTE 01-12-2008 [facility] TONSILLITIS [facility] 7336 TIETZES 01-03-2008 EMERGENCY DISEASE CARE PHYS [facility] V5869 LONG-TERM 01-03-2008 [facility] (CURRENT) [facility] USE OF [facility] OTHER MEDICATIONS 6823 CELLULITIS 12-24-2007 [facility] INC ARM AND FOREARM 60008 THREATENED 12-22-2007 [facility] 18039 MILD 12-17-2007 [facility] PROF SERV 1560 OTH SPEC 12-15-2007 [facility] W/FEMALE GENITAL ORGANS 6200 FOLLICULAR 12-08-2007 [facility] V2541 SURVEILLANC 12-08-2007 [facility] E PREV [facility] PRESCRIBED [facility]ANS CONTRACEPT FOR WOMEN PILL 62272 ABDOMINAL 11-18-2007 [facility] PA[facility] RIGHT [facility] LOWER INC QUADRANT V258 OTHER 11-17-2007 [facility] SPECIFIED HOSPITALS CONTRACEPTI PHYSICIANS VE FOR WOMEN MANAGEMENT V2641 PROCREATIVE 11-17-2007 [facility] COUNSELING HOSPITALS & ADVICE PHYSICIANS NATURAL FAM FOR WOMEN PLAN V7231 ROUTINE 11-17-2007 [facility] GYNECOLOGIC [facility] AL [facility] EXAMINATION FOR WOMEN 32285 SPRAIN AND 11-12-2007 [place] STRAIN OF MEDICAL UNSPECIFIED IMAGING SITE OF ASSOCIATES FOOT E8490 PLACE OF 11-12-2007 [place] OCCURRENCE, [facility] E927 OVEREXERTIO 11-12-2007 [place] N&STRENUOUS MEDICAL &REPETITIVE [facility] MVMNTS/LOAD S 6264 IRREGULAR 10-27-2007 [facility] MENSTRUAL [facility] CYCLE [facility] V146 PERSONAL 10-22-2007 HISTORY OF [facility] TO MEDICALCENT ANALGESIC ER AGENT 6202 OTHER AND 10-14-2007 [facility] CYST 6262 EXCESSIVE 09-28-2007 [facility] [place] N [address] VOMITING 09-13-2007 [facility] V148 PERSONAL 09-13-2007 HISTORY [facility] OTH MEDICALCENT SPEC ER MEDICINAL AGTS 14649 INSOMNIA 08-30-2007 [facility] Medications [...] MA CY MG #5 TA BL ET NJ 65 09 10 14 7 00 TO [...] MA CY MG #5 TA BL ET NJ 65 07 08 14 7 00 TO [...] #5 10 0 MG MO 16 05 01 13 28 00 TO NO 71 -0 -0 [...] 65 04 05 30 30 00 TO TA 86 -0 -0 .0 00 TA ti LO 20 5- 5- 00 00 L ve [place] 00 20 20 94 CA AM 60 [...] 20 6- 7- 00 00 L ve [place] 00 20 20 94 CA AM 60 [...] 20 1- 3- 00 00 L ve [place] 00 20 20 94 CA AM 60 [...] 20 4- 3- 00 00 L ve NJ 00 20 20 93 CA AM 50 [...] CY 02 43 9 # 02 43 NJ 00 01 01 20 5 RI 81 [...] RI 24 CO TA 39 BL ET NJ 00 01 01 00 10 6 RI [...] 10 24 39 MG TA BL ET 59 12 12 00 20 10 RI 73 MO Ac 76 -0 -1 .0 TE 93 RG ti 22 1- 7- 00 59 AN ve 22 20 20 AI 10 09 09 D GE 1 PH RT AR RU M# DE 24 39 SE 59 12 12 00 15 30 [...] BI ET M# N 24 C 39 EN 00 09 11 01 28 28 RI 72 WH Ac NJ 55 -1 -1 .0 TE 72 IT [...] 00 14 7 RI 72 VA Ac NJ 17 -0 -2 .0 TE 58 RG ti OF 25 3- 2- 00 33 HE ve LO 31 20 20 AI SE XA 26 09 09 D CI 0 PH RO N AR Y HC M# L 24 50 39 0 MG TA B EN 00 09 10 00 28 28 RI 72 WH Ac NJ 55 -1 -2 .0 TE 72 IT ti ES 59 6- 2- 00 63 AK ve SE 04 20 20 AI ER -2 75 09 09 D 8 8 PH RO TA AR BI BL M# N ET 24 C 39 FL 00 10 10 00 2. 2 RI 72 WH Ac UC 17 -0 -0 00 TE 55 IT ti ON 25 1- 8- 0 05 AK ve AZ 41 20 20 AI ER OL 21 09 09 D E 1 PH RO 15 AR BI 0 M# N MG 24 C 39 TA BL ET 00 09 10 00 15 3 RI 72 RA Ac 60 -2 -0 .0 TE 30 TL ti 35 1- 8- 00 77 IF ve 46 20 20 AI F 82 09 09 D FR 8 PH ED AR ER M# IC 24 K 39 C EN 00 09 09 00 28 28 HO 12 WH Ac NJ 55 -1 -2 .0 ME 26 IT ti ES 59 6- 4- 00 TO 28 AK ve SE 04 20 20 WN 7 ER -2 75 09 09 8 8 PH RO TA AR BI BL MA N ET CY C AC 00 09 09 00 8. 2 RI 72 RA Ac ET 09 -1 -2 00 TE 16 TL ti AM 30 4- 4- 0 83 IF ve IN 15 20 20 AI F OP 01 09 09 D FR HE 0 PH ED N- AR ER CO M# IC D 24 K #3 39 C TA BL ET 00 07 08 00 6. 1 RI 71 RA Ac 40 -2 -1 00 TE 22 TL ti 60 8- 3- 0 66 IF ve 35 20 20 AI F 70 09 09 D FR 5 PH ED AR ER M# IC 24 K 39 C 00 07 08 00 15 3 [...] B C CA PS UL E 00 08 08 00 20 5 KI 25 GI Ac 59 -0 -1 .0 NG 62 BS ti 10 7- 3- 00 60 ON ve 54 20 20 PH 00 09 09 AR WI 5 MA LL CY IA M IN B C 00 06 06 00 10 25 RI 70 RA Ac 12 -0 -1 6. TE 15 TL ti 60 2- 8- 00 95 IF ve 07 20 20 0 AI F 53 09 09 D FR 4 PH ED AR ER M# IC 24 K 39 C AZ 00 05 06 00 6. 5 TO 70 ME Ac IT 78 -2 -0 00 TA 27 LT ti HR 11 6- 4- 0 L 94 ON ve OM 49 20 20 CA YC 66 09 09 RE GA IN 8 RY PH J 25 AR 0 MA MG CY TA #5 BL ET TR 65 05 06 00 20 3 TO 70 ME Ac AM 16 -2 -0 .0 TA 27 LT ti AD 20 6- 4- 00 L 95 ON ve OL 62 20 20 CA 71 09 09 RE GA HC 1 RY L PH J 50 AR MA MG CY TA #5 BL ET CY 00 05 06 00 30 30 TO 70 VIVEROS Ac MB 00 -1 -0 .0 TA 23 RT ti AL 23 9- 4- 00 L 53 IG ve TA 24 20 20 CA 03 09 09 RE PRANAY 30 0 SE PH PH MG AR E MA CA CY PS UL #5 E FL 00 05 06 00 2. 1 TO 70 VIVEROS Ac UC 17 -2 -0 00 TA 24 RT ti ON 25 0- 4- 0 L 67 IG ve AZ 41 20 20 CA OL 21 09 09 RE PRANAY E 1 SE 15 PH PH 0 AR E MG MA CY TA BL #5 ET FL 00 05 05 00 2. [...] MA MG CY TA #5 BL ET LO 45 04 05 [address] Ac RA 80 -3 -0 .0 TA 05 ER ti TA 20 0- 7- 00 L 84 NE ve DI 65 20 20 CA BE NE 08 09 09 RE RG [address] AR EV MG MA EN CY B TA BL #5 ET NJ 68 04 05 00 [address] Ac OM 38 -3 -0 .0 TA 05 ER ti ET 20 0- 7- 00 L 83 NE ve VIVEROS 04 20 20 CA BE ZI 11 09 09 RE RG NE [address] 25 AR EV MA EN MG CY B TA #5 BL ET 00 04 04 00 40 20 [...] MG CY B TA #5 BL ET CL 51 02 02 00 15 7 TO 66 PA Ac OT 67 -1 -2 .0 TA 52 TE ti RI 21 2- 6- 00 L 41 L ve MA 27 20 20 CA ZO 50 09 09 RE RA LE 1 L PH 1% AR MA CR CY EA M #5 60 02 02 [address] Ac 25 -1 -2 0. TA 56 ER ti 80 8- 6- 00 L 86 NE ve 23 20 20 0 CA BE 91 09 09 RE RG [address] AR EV MA EN CY B #5 AC 00 01 02 00 20 5 WA 27 FL Ac ET 09 -2 -1 .0 LG 82 IC ti AM 30 5- 2- 00 RE 09 K ve IN 15 20 20 EN 7 RO OP 01 09 09 # BE HE 0 RT N- 07 P CO 34 D 6 #3 TA BL ET 65 01 02 00 90 30 WA [...] P MG 34 6 TA BL ET LO 60 07 01 [address] Ac RA 50 -2 -1 .0 TA 97 ER ti TA 50 4- 5- 00 L 59 NE ve DI 14 20 20 CA BE NE 70 08 09 RE RG [address] AR EV MG MA EN CY B TA BL #5 ET CE 68 12 12 00 28 7 [...] IT /G #5 M CR EA M TE 00 11 12 00 60 15 WA 27 IL Ac RB 11 -2 -0 .0 LG 51 ED ti UT 52 3- 4- 00 RE 96 LE ve AL 61 20 20 EN 2 R IN 10 08 08 # IL E 1 CH COELLO 07 AE LF [...] MG CY EN B TA BL ET NJ 68 10 11 00 30 5 PH [...] MG CY EN B TA BL ET MU 45 09 10 [address] Ac PI 80 -2 -0 .0 AR 37 ER ti RO 20 0- 9- 00 MC 89 NE ve CI 11 20 20 AR BE N 22 08 08 E RG 2% [address] OI MA EV NT CY EN ME B NT HY 00 09 10 [address] 16 -2 -0 .3 AR 37 ER ti OC 80 0- 9- 99 MC 88 NE ve OR 01 20 20 AR BE TI 53 08 08 E RG SO [address] MA EV 1% CY EN B CR EA M NJ 10 09 09 00 10 3 PH [...] CY NO -M CR 10 0 MG 64 07 08 00 28 28 PH [...] CY EN B TA BL ET 63 07 08 00 10 2 PH 64 VE Ac 30 -1 -[address] ti 40 7- 1- 00 MC 26 ve 56 20 20 AR PRANAY 21 08 08 E NI 0 PH AR MA CY 63 06 07 00 15 2 PH 64 SH Ac 30 -1 -0 .0 AR 74 AR ti 40 7- 3- 00 MC 43 P ve 56 20 20 AR DA 21 08 08 E 0 PH D AR P MA CY LO 51 03 07 02 30 30 [...] 20 AR IN 70 08 08 MA IL 1 CY CH 50 AE 0 #5 L MG 43 S 7 CA PS UL E NI 00 06 07 00 14 7 WA 26 HE Ac TR 18 -2 -0 .0 LG 25 RF ti OF 50 4- 3- 00 RE 79 EL ve UR 12 20 20 EN 2 AN 20 08 08 # RO TO 1 B IN 07 F 34 MO 6 NO -M CR 10 0 MG 00 06 07 00 [address] Ac 17 -2 -0 .0 AR 78 ER ti 24 5- 3- 00 MC 69 NE ve 07 20 20 AR BE 37 08 08 E RG [address] MA EV CY EN B NU 00 05 06 00 1. 28 PH 64 PRANAY Ac VA 05 -2 -0 00 AR 56 NE ti RI 20 2- 5- 0 MC 25 S ve NG 27 20 20 AR JI 30 08 08 E LL VA 3 PH S GI AR NA MA L CY RI NG TR 57 05 06 00 24 6 PH 64 PRANAY Ac AM 66 -2 -0 .0 AR 56 NE ti AD 40 2- 5- 00 MC 26 S ve OL 53 20 20 AR JI -A 78 08 08 E LL CE 8 PH S TA AR IL MA NO CY PH N 37 .5 -3 25 00 03 05 01 30 30 TO [...] 01 60 30 PH 63 No Ac NJ 46 -1 -1 .0 AR 59 t ti OX 20 6- 7- 00 MC 03 Av ve EN 18 20 20 AR ai 90 08 08 E la 37 1 PH bl 5 AR e MG MA CY TA BL ET 00 03 04 00 20 3 WA 45 No Ac 40 -2 -1 .0 LM 61 t ti 60 8- 0- 00 AR 44 Av ve 35 20 20 T 9 ai 70 08 08 PH la 5 M bl 10 e -0 58 4 NJ 00 03 04 00 6. 30 PH 64 No Ac OV 08 -2 -1 70 AR 13 t ti EN 51 5- 0- 0 MC 11 Av ve TI 13 20 20 AR ai L 20 08 08 E la HF 1 PH bl A AR e 90 MA CY MC G IN VIVEROS LE R LO 51 03 04 00 30 30 PH 64 No Ac RA 66 -2 -1 .0 AR 13 t ti TA 00 5- 0- 00 MC 10 Av ve DI 52 20 20 AR ai NE 60 08 08 E la 1 PH bl 10 AR e MA MG CY TA BL ET 00 02 04 00 20 10 PH 63 No Ac 52 -2 -0 .0 AR 90 t ti 71 5- 7- 00 MC 26 Av ve 44 20 20 AR ai 30 08 08 E la 5 PH bl AR e MA CY NJ 00 02 04 00 20 5 PH 63 No Ac OM 59 -2 -0 .0 AR 90 t ti ET 15 5- 7- 00 MC 27 Av ve VIVEROS 30 20 20 AR ai ZI 71 08 08 E la NE 0 PH bl AR e 25 MA CY MG TA BL ET 63 02 03 00 10 10 PH 63 No Ac 30 -1 -2 .0 AR 81 t ti 40 2- 6- 00 MC 26 Av ve 56 20 20 AR ai 21 08 08 E la 0 PH bl AR e MA CY NJ 10 02 03 00 30 5 PH [...] TA AR e BL MA ET CY 50 02 03 00 20 20 PH 63 No Ac 11 -1 -2 .0 AR 81 t ti 10 2- 6- 00 MC 27 Av ve 30 20 20 AR ai 80 08 08 E la 2 PH bl AR e MA CY TE 00 01 03 00 14 14 [...] 00 60 30 PH 63 No Ac NJ 46 -1 -2 .0 AR 59 t [...] 6- 5- 00 MC 02 Av ve NJ 00 20 20 AR ai AM 70 08 08 E la 1 PH bl HB AR e R MA 40 CY MG TA BL ET Immunization Name Date Rout CVX Reac Dose Comm Prov Is Faci e tion ent ider Refu lity Give sed n IIV3 03-19 140 LESL No LESL 8-20 IE IE [...] 0.5 ML DOSA GE IM USE IIV3 - 141 LESL No DHS/ 5-20 IE CO VACC 09 CO HEAL INE HEAL TH SPLI TH CENT T DEPA RAL VIRU RTME BANK S NT 0.5 ACCT ML DOSA GE IM USE RHO( 05-[address] D) 4-20 [facility] H[facility] GLOB ITAL ITAL [facility] N FULL -DOS E IM RHO( 01-[address] D) 6-20 [facility] 08 [facility] HOSP GLOB ITAL [facility] N FULL -DOS E IM Procedures Procedure DOS [place] [address] [facility]G 7 [facility] GROSS&KEISHA ROSCOPIC EXAM COLPOSCOP 35400 [facility] GERSON Y CERVIX 7 PHYSICIAN ENDOCERVI S GROUP MEGAN CURETTAGE URNLS DIP 40592 [facility] NIETO 7 PHYSICIAN STICK/TAB S GROUP LET RGNT NON-[place] W/[place] [address] [facility] GERSON TRANSVAGI 7 PHYSICIAN NAL S GROUP SUSCEPTIB 53988 [facility] LTY STDY 7 [facility] ANTIMICRB INC INC IAL MICRO/AGA R DILUTJ CULTURE 95298 [facility] BACTERIAL 7 [facility] INC INC QUANTTATI VE COLONY COUNT URINE CULTURE 37835 [facility] BCT 7 [facility] ISOL&PRSM INC INC PTV ID ISOLATE EA URINE IADNA 02120 [facility] HUMAN 7 LLC [place] VIRUS HIGH-RISK TYPES CYTP 56637 [facility] CERVICAL/ 7 LLC VAGINAL REQ INTERP PHYSICIAN CYTP C/V 32009 [facility] AUTO THIN 7 LLC LYR PREPJ SCR MNL RESCR PHYS VAGINAL 79179 [facility] DELIVERY 6 PHYSICIAN HARRY ONLY S GROUP W/POSTPAR [facility]AHMINA CARE DELIVERY [id number] [facility] PRODUCTS 6 [facility] OF INC INC CONCEPTIO N EXTERNAL 36778 [facility] GERSON NONSTRESS 6 PHYSICIAN HARRY TEST S GROUP DRUG TST G0477 [facility] PRESUMP;C 6 PHYSICIAN HARRY PBL BEING S GROUP READ DC OPT OBV ONLY PARTICLE 71968 [facility] AGGLUTINA 6 [facility] TION INC INC SCREEN EACH ANTIBODY HANDLG&/O 68528 [facility] R CONVEY 6 PHYSICIAN PHYSICIAN OF SPEC S GROUP S GROUP FOR TR OFFICE TO LAB URNLS DIP 82832 [facility] 6 [facility] STICK/TAB INC INC LET REAGENT AUTO MICROSCOP Y EVAL C/V 52275 [facility] AMNIOTIC 6 [facility] FLUID INC INC PROTEIN QUAL EA SPECIMEN 59109 [facility] GERSON NONSTRESS 6 PHYSICIAN HARRY TEST S GROUP 21348 [facility] HARPEL NONSTRESS 6 PHYSICIAN TOOTIE TEST S GROUP THERAPEUT 35818 [facility] IC 6 [facility] PROPHYLAC INC INC TIC/DX INJECTION SUBQ/IM FTL 56871 [facility] FIBRONECT 6 [facility] IN INC INC CERVICOVA [place] [address] [facility] INFUSION 6 [facility] THERAPY/P INC INC ROPHYLAXI S /DX 1ST TO 1 HR URNLS DIP 55582 [facility] 6 [facility] STICK/TAB INC INC LET REAGENT AUTO MICROSCOP Y CULTURE 85952 [facility] BACTERIAL 6 [facility] INC INC QUANTTATI VE COLONY COUNT URINE 21267 [facility] NONSTRESS 6 [facility] TEST INC INC DRUG TST G0477 [facility] GERSON PRESUMP;C 6 PHYSICIAN HARRY PBL BEING S GROUP READ DC OPT OBV ONLY DRUG TST G0477 [facility] GERSON PRESUMP;C 6 PHYSICIAN HARRY PBL BEING S GROUP READ DC OPT OBV ONLY FTL 43656 [facility] FIBRONECT 6 [facility] IN INC INC CERVICOVA G SECRETION S SEMI[place] DRUG TST G0477 [facility] GERSON PRESUMP;C 6 PHYSICIAN HARRY PBL BEING S GROUP READ DC OPT OBV ONLY 40696 [facility] NONSTRESS 6 [facility] TEST INC INC DRUG TST G0477 [facility] PRESUMP;C 6 [facility] PBL BEING INC INC READ DC OPT OBV ONLY COLLECTIO 38890 [facility] GERSON N 6 PHYSICIAN HARRY CAPILLARY S GROUP BLOOD SPECIMEN GLUCOSE 00656 [facility] POST 6 PHYSICIAN PHYSICIAN [place] [address] [facility] ABDOMINAL 6 [facility] REAL INC INC TIME W/IMAGE LIMITED DRUG TST G0477 [facility] PRESUMP;C 6 [facility] PBL BEING INC INC READ DC OPT OBV ONLY 23855 [facility] HARPEL NONSTRESS 6 PHYSICIAN TOOTIE TEST S GROUP DRUG TST G0477 [facility] PRESUMP;C 6 [facility] PBL BEING INC INC READ DC OPT OBV ONLY DRUG TST G0477 [facility] GERSON PRESUMP;C 6 PHYSICIAN HARRY PBL BEING S GROUP READ DC OPT OBV ONLY US PREG 07706 [facility] U[facility]US 6 MEDICAL LETICIA AFTER 1ST IMAGING TRIMEST ASS 1 [place]REG 14030 [facility] UTERUS 6 [facility] W/DETAIL INC [place] 1[place] [address] [facility] ALL 6 MEDICAL UTERUS IMAGING LIMITED ASS 1/> FETUSES DRUG TST G0477 [facility] GERSON PRESUMP;C 6 PHYSICIAN HARRY PBL BEING S GROUP READ DC OPT OBV ONLY US PREG 71047 [facility] GERSON UTERUS 6 PHYSICIAN HARRY REAL TIME S GROUP W/IMAGE [place]CM[place] PREG [address]8436 [place] GREG UTERUS 6 MEDICAL LETICIA REAL TIME IMAGING W/IMAGE ASS DCMTN TRANSVAG CYTP C/V 50458 [facility] PICKLESIM AUTO THIN 6 LLC ER JR NATALIE LYR PREPJ SCR MNL RESCR PHYS IADNA 24916 [facility] NEISSERIA 6 LLC ER JR NATALIE GONORRHOE AE AMPLIFIED PROBE TQ IADNA 18417 [facility], [facility] CHLAMYDIA 6 LLC ER JR NATALIE TRACHOMAT IS AMPLIFIED PROBE TQ DRUG TST G0477 [facility] GERSON PRESUMP;C 6 PHYSICIAN PBL BEING S GROUP READ DC OPT OBV ONLY DRUG TEST G0480 ST DEFINITV [address] ID MED CTR MED CTR METH P RN UNIT MANAGER ST RN UNIT MANAGER ST DAY 1-7 DRUG CL CULTURE 58461 [facility] BACTERIAL 6 MCKAYLA BLOCK MED CTR MED CTR QUANTTATI RN UNIT MANAGER RN UNIT MANAGER ST VE COLONY COUNT URINE DRUG TEST G0479 ST 6 MCKAYLA BLOCK PRESUMP;I MED CTR MED CTR NSTRUMENT RN UNIT MANAGER RN UNIT MANAGER ST ED CHEMISTRY ANLYZER GONADOTRO [address] PIN 6 MCKAYLA BLOCK CHORIONIC MILDRED MILDRED QUALITATI VE COLLECTIO [address] N VENOUS 6 MCKAYLA DALLASBETH BLOOD MILDRED MILDRED VENIPUNCT URE RADEX 16672 RADIOLOGY STONE ELBOW 6 GAR COMPLETE ASSOCIATE MINIMUM 3 S OF NOTH VIEWS RADIOLOGI 86880 RADIOLOGY STONE C EXAM 6 GAR KNEE ASSOCIATE COMPLETE S OF NOTH 4/MORE VIEWS RADEX 33454 RADIOLOGY SHERIE SPINE 5 CHR LUMBOSACR ASSOCIATE AL 2/3 S OF NOTH VIEWS RADEX 96576 RADIOLOGY LUBBERS SPINE 5 FRITZ THORACIC ASSOCIATE 2 VIEWS S OF NOTH INJECTION J0696 ST CABAN 5 MCKAYLA SHLOMO CEFTRIAXO NE SODIUM PHYSICIAN PER 250 S [address] THERAPEUT [address] CABAN IC 5 MCKAYLA SHLOMO PROPHYLAC TIC/DX PHYSICIAN INJECTION S SUBQ/[place] [address] RADIOLOGY ERWIN SOUSA TRANSVAGI 5 [place] [address] RADIOLOGY BERTHA ABDOMINAL 5 JAM REAL ASSOCIATE TIME S OF NOTH W/IMAGE LIMITED US PELVIC 48645 RADIOLOGY ERWIN SOUSA 5 NONOBSTET ASSOCIATE MARYBEL S OF NOTH REAL-TIME IMAGE COMPLETE IADNA [address] CHLAMYDIA 5 MCKAYLA MCKAYLA MED CTR MED CTR TRACHOMAT RN UNIT MANAGER ST RN UNIT MANAGER [place] [address] THYROID 5 MCKAYLA MCKAYLA STIMULATI MED CTR MED CTR NG RN UNIT MANAGER ST [address] [place] [address] FREE 5 MCKAYLA MCKAYLA THYROXINE MED CTR MED CTR RN UNIT MANAGER ST RN UNIT MANAGER ST COMPREH[address] SIVE 5 MCKAYLA MCKAYLA METABOLIC MED CTR MED CTR PANEL RN UNIT MANAGER ST RN UNIT MANAGER ST IADNA [address] NEISSERIA 5 MCKAYLA MCKAYLA MED CTR MED CTR GONORRHOE RN UNIT MANAGER ST RN UNIT MANAGER ST AE AMPLIFIED PROBE TQ URINE 09926 ST CABAN 5 MCKAYLA SHLOMO TEST VISUAL PHYSICIAN COLOR S CMPRSN METHS BLOOD [address] ST ST COUNT 5 MCKAYLA MCKAYLA COMPLETE MED CTR MED CTR AUTOMATED RN UNIT MANAGER ST RN UNIT MANAGER ST GONADOTRO [address] PIN 5 MCKAYLA MCKAYLA CHORIONIC MED CTR MED CTR RN UNIT MANAGER ST RN UNIT MANAGER ST QUALITATI VE URINE 87800 ST THRELKELD 5 MCKAYLA II UMER TEST VISUAL PHYSICIAN COLOR S CMPRSN METHS URINE 37479 [facility] FORT[facility]E 5 [facility] TEST INC INC VISUAL COLOR CMPRSN METHS UNCLASSIF J3490 TONG TONG IED DRUGS 5 [facility] INC INC URNLS DIP 80537 [facility] FORT[facility]E 5 [facility] STICK/TAB INC INC LET REAGENT AUTO MICROSCOP Y CULTURE 65947 TONG TONG BACTERIAL 5 [facility] INC INC [place] [address] [facility] AMYLASE 5 [facility] INC INC COMPREHEN 72084 TONG TONG SIVE 5 [facility] METABOLIC INC INC PANEL BLOOD 54921 [facility] COUNT 5 [facility] COMPLETE INC INC AUTO&[place] [address] T[facility] LIPASE 5 [facility] INC INC URINE 70335 [facility] CO 5 [facility] VISUAL T T COLOR CMPRSN METHS IIV3 VACC 95057 [facility] CO 3 HEALTH HEALTH PRESERVAT [facility] LUL FREE T T 0.5 ML DOSAGE IM USE CONTRACEP S4993 [facility] TIVE 3 [facility] T T CONTROL IAADIADOO 63289 [facility] TAVIA INFLUENZA IAADIADOO 48388 [facility]IN[facility] TAVIA STREPTOCO CCUS GROUP A IIV3 93492 [facility] VACCINE 2 HEALTH HEALTH SPLIT [facility] VIRUS 0.5 T T ML DOSAGE IM USE CYTP 09604 [facility] CERV/VAG 2 DIAGNOSTI DIAGNOSTI AUTO THIN CS CS LAYER PREP MNL SCREEN SPHERE V2100 [facility] SINGLE 2 JERROD JERROD VISION PLANO +/- 4.00 PER LENS FITTING 05885 [facility] SPECTACLE 2 JERROD ELDER S XCPT APHAKIA MONOFOCAL OPHTH 71888 [facility] MEDICAL 2 JERROD ELDER XM&EVAL COMPRE NEW PT 1/> VST DETERMINA 18274 [facility] TION 2 JERROD ELDER REFRACTIV E STATE FRAMES V2020 [facility] PURCHASES 2 JERROD JERROD INJECTION J2001 YASMANI GRUBER 2 BECKINRID BECKINRID LIDOCAINE [facility] HCL HOSPITA HOSPITA INTRAVENO US INFUS 10 MG THERAPEUT 48219 YASMANI SOLIS 2 BECKINRID BECKINRID PROPHYLAC [facility] TIC/DX HOSPITA HOSPITA INJECTION SUBQ/IM INJECTION J2550 YASMANI GRUBER 2 BECKINRID BECKINRID PROMETHAZ [facility] INE HCL HOSPITA HOSPITA UP TO 50 MG INJECTION J0696 YASMANI GRUBER 2 BECKINRID BECKINRID CEFTRIAXO GE ARH GE AR[facility] NE SODIUM HOSPITA HOSPITA PER 250 MG LEVONORGE J7302 [facility] STREL-RLS 1 [facility] E DE[facility] INTRAUTER T T N CNTRACPT 52 MG INSERTION 82238 [facility] CO 1 [facility] INTRAUTER [facility]PART[facility] INE T T DEVICE IUD IADNA 68221 [facility] CHARLIE CO NEISSERIA 1 [facility] GONORRHOE T T AE AMPLIFIED PROBE TQ BLOOD 60439 [facility] COUNT 1 [facility] HEMOGLOBI DEPARTMEN [facility] N T T IADNA 32393 [facility] CHARLIE CO CHLAMYDIA 1 [facility] TRACHOMAT T T IS AMPLIFIED PROBE TQ URINE 84679 [facility] CHAR[facility]IE CO 1 [facility] TEST [facility]PART[facility] VISUAL T T COLOR CMPRSN METHS RADEX 36541 YASMANI GRUBER FOREARM 2 1 JAZ SEBASTIAN VIEWS DGE [facility] RADEX 14419 YASMANI GRUBER ELBOW 1 BRECKINRI BRECKINRI COMPLETE DGE DGE MINIMUM 3 [facility] VIEWS COLLECTIO 26308 PRIMARY PEDRO LUIS N VENOUS 1 CARE TOOTIE BLOOD CENTERS VENIPUNCT OF [facility] URE BLOOD 93628 PRIMARY PEDRO LUIS COUNT 1 CARE [place] COMPLETE CENTERS AUTO&AUTO OF [facility] DIFRNTL WBC IAADIADOO 28582 PRIMARY TRINIDAD 0 CARE DOROTHY STREPTOCO CENTERS CCUS OF [facility] GROUP A GONADOTRO 37589 PRIMARY TRINIDAD, PIN 0 CARE CTR ALLISON C CHORIONIC OF [employer] [facility] LUL GONADOTRO 01362 PRIMARY PEDRO LUIS PIN 0 CARE TOOTIE CHORIONIC CENTERS OF [facility] QUALITATI VE CT PELVIS 16721 RADIOLOGY BAL, A 0 SERVICES R W/[place] [address] RADIOLOGY BAL, A ABDOMEN 0 SERVICES R W/CONTRAS T MATERIAL COLLECTIO 52795 PRIMARY TRINIDAD N VENOUS 0 CARE DOROTHY BLOOD CENTERS VENIPUNCT OF [facility] URE URINE 35665 PRIMARY TRINIDAD 0 CARE DOROTHY TEST CENTERS VISUAL OF [facility] COLOR CMPRSN METHS CULTURE 64055 [facility] BACTERIAL 9 AN AN [facility] VE COLONY CT CT COUNT URINE URNLS DIP 38749 PRIMARY PEDRO LUIS 9 CARE TOOTIE STICK/TAB CENTERS LET [facility] REAGENT AUTO MICROSCOP Y INFLUENZA G9141 DHS/CO CHARLIE CO A H1N1 9 HEALTH HEALTH IMMUNIZAT [facility] ION BANK ACCT T ADMINISTR ATION US PELVIC 04604 PRIMARY TRINIDAD 9 CARE DOROTHY NONOBSTET CENTERS MARYBEL OF [facility] REAL-TIME IMAGE COMPLETE URNLS DIP 84268 YASMANI GRUBER 9 BRECKINRI BRECKINRI STICK/TAB DGE DGE [facility] REAGENT AUTO MICROSCOP Y CULTURE 74560 YASMANI GRUBER BACTERIAL 9 BRECKINRI BRECKINRI DGE DGE [facility] VE COLONY COUNT URINE CUL BACT 15145 YASMANI GRUBER AEROBIC 9 BRECKINRI BRECKINRI ADDL DGE DGE [facility] DEFINITIV E EA ISOL SUSCEPTIB 85814 YASMANI GRUBER LTY STDY 9 BRECKINRI MAILEINRI ANTIMICRB DGE [facility] MICRO/AGA R DILUTJ IADNA 08378 [facility] CHLAMYDIA 9 [facility] TRACHOMAT IS AMPLIFIED PROBE TQ CYTP C/V 49041 [facility] AUTO THIN 9 [facility] INC LYR PREPJ SCR MNL RESCR PHYS IADNA 81628 [facility] PAP[place] 9 [facility] VIRUS HUMAN AMPLIFIED PROBE TQ IADNA 05643 [facility] [place] 9 [facility] GONORRHOE AE AMPLIFIED PROBE TQ IIV3 06425 DHS/CO [facility] VACCINE [address] [facility] VIRUS 0.5 BANK ACCT T ML DOSAGE IM USE URINE 01446 DHS/CO CHARLIE CO 9 [facility] VISUAL BANK ACCT T COLOR CMPRSN METHS GONADOTRO 06905 YASMANI GRUBER PIN 9 BREJESSINRI MAILEINRI [facility] QUANTITAT LUL ANALGESIA D9230 DALE HUNTER 9 [facility]. [facility]. ANXIOLYSI GILBERT HUNT S INHALATIO N OF NITROUS OXIDE SPHERE V2100 [facility], SINGLE 9 MAURICE I MAURICE I VISION PLANO +/- 4.00 PER LENS FITTING 22615 [facility], SPECTACLE 9 MAURICE I MAURICE I S XCPT APHAKIA MONOFOCAL FRAMES V2020 [facility], PURCHASES 9 MAURICE I MAURICE I DETERMINA 93392 MARJAN PHILLIP TION 9 LEONIE W LEONIE W REFRACTIV E STATE DEEP D9220 JULIO CESAR HARRELL, SEDATION/ 9 RENARD Patel GENERAL ANESTHESI A-1ST 30 MINUTES ORTHOPANT 93761 JULIO CESAR HARRELL OGRAM 9 RENARD Patel ACUTE 53483 YASMANI GRUBER HEPATITIS 9 JAZ SEBASTIAN PANEL [facility] COMPREHEN 96373 YASMANI GRUBER SIVE 9 BRECKINRI BRECKINRI METABOLIC [facility] BLOOD 24744 YASMANI GRUBER COUNT 9 BRECKINRI BRECKINRI COMPLETE DGE DGE AUTO&AUTO [facility] [address] RADIOLOGY BAL, A ABDOMINAL 9 SERVICES R REAL TIME W/IMAGE LIMITED URNLS DIP 48060 YASMANI GRUBER 9 BRECKINRI BRECKINRI STICK/TAB DGE DGE LET [facility] REAGENT AUTO MICROSCOP Y BASIC 44659 YASMANI GRUBER METABOLIC 9 BRECKINRI BRECKINRI PANEL DGE DGE CALCIUM [facility] TOTAL RADIOLOGI 71911 YASMANI GRUBER C EXAM 9 BRECKINRI BRECKINRI CHEST 2 DGE DGE [facility] FRONTAL&L ATERAL CULTURE 70918 YASMANI GRUBER BACTERIAL 9 BRECKINRI BRECKINRI DGE DGE [facility] [place] [address] YASMANI GRUBER TROPONIN 9 BRECKINRI BRECKINRI QUANTITAT DGE [facility]GE [facility] CREATINE 23180 YASMANI GRUBER KINASE MB 9 BRECKINRI BRECKINRI FRACTION DGE DGE ONLY [facility] ECG 81421 YASMANI GRUBER ROUTINE 9 BRECKINRI BRECKINRI ECG DGE DGE W/LEAST [facility] 12 LDS TRCG ONLY W/O I&R BLOOD 45654 YASMANI BOWEN 9 BRECKINRI BRECKINRI COMPLETE DGE DGE AUTO&AUTO [facility] DIFRNTL WBC CREATINE 24644 YASMANI GRUBER KINASE 9 BRECKINRI BRECKINRI TOTAL DGE DGE [facility] BILIRUBIN [address] DIRECT 9 [facility] [place] [address] ST PHOSPHORU 9 [facility] S INORGANIC MEDICALCE MEDICALCE NTER NTER [place]ONADOTRO [address] PIN 9 [facility] CHORIONIC MED[facility] MEDICALCE QUANTITAT NTER NTER LUL BLOOD [address] COUNT 9 MCKAYLA MCKAYLA COMPLETE AUTO&AUTO MEDICALCE MEDICALCE DIFRNTL NTER NTER WBC COMPREHEN 53524 [facility] SIVE 9 [facility] METABOLIC PANEL MEDICALCE MEDICALCE NTER NTER IADNA 35568 [facility] NEISSERIA 9 [facility] GONORRHOE MEDICALCE MEDICALCE AE NTER NTER AMPLIFIED PROBE TQ COLLECTIO [address] ST BE, N VENOUS [address] VENIPUNCT URE IADNA 97205 [facility] CHLAMYDIA 9 [facility] TRACHOMAT MEDICALCE MEDICALCE IS NTER NTER AMPLIFIED PROBE TQ RADEX 83777 RADIOLOGY [place], ANKLE 9 GENIA M COMPLETE ASSOCIATE MINIMUM 3 S PSC VIEWS COLLECTIO 97938 ST N VENOUS 9 [facility] VENIPUNCT URE GONADOTRO 29435 [facility] PIN 9 [facility] QUALITATI VE URINALYSI 64168 [facility] S [address] [place] [address] QUAL/SEMI QUANT EXCEPT [place]UN[place]ASS [place] URINE [address] TEST VISUAL COLOR CMPRSN METHS URINE 79075 YASMANI GRUBER 9 BRECKINRI BRECKINRI TEST DGE [facility] COLOR CMPRSN METHS BASIC 43275 YASMANI GRUBER METABOLIC 9 BRECKINRI BRECKINRI PANEL DGE DGE [facility] TOTAL URNLS DIP 86051 YASMANI GRUBER 9 BRECKINRI BRECKINRI STICK/TAB DGE [facility] REAGENT AUTO MICROSCOP Y RADIOLOGI 13604 YASMANI GRUBER C EXAM 9 BRECKINRI BRECKINRI CHEST 2 DGE DGE [facility] FRONTAL&L ATERAL BLOOD 32470 YASMANI GRUBER COUNT 9 BRECKINRI BRECKINRI COMPLETE DGE DGE AUTO&[facility]O [facility] DIFRNTL WBC URNLS DIP 44845 [facility]E 9 [facility] STICK/TAB INC INC LET REAGENT AUTO MICROSCOP Y BASIC 15484 TONG FORTUNE METABOLIC 9 [facility] PANEL INC INC CALCIUM TOTAL BLOOD 58977 [facility] FORT[facility]E COUNT 9 [facility] COMPLETE INC INC AUTO&AUTO DIFRNTL WBC RADIOLOGI 21428 RADIOLOGY SABRINA C 9 EXAMINATI ASSOCIATE MCKAYLA ON CHEST S PSC A SINGLE VIEW FRONTAL INITIAL 91973 NATALY POLLACK, INPATIENT 9 S AMBER CONSULT HEALTHCAR NEW/ESTAB E INC PT 55 MIN RADIOLOGI 63218 RADIOLOGY Eleno BENNETT EXAM 9 CHEST 2 ASSOCIATE MCKAYLA VIEWS S PSC A FRONTAL&L ATERAL ECHOENCEP 42946 RADIOLOGY DANIEL HALOGRAPH 9 JUNIOR Arteaga REAL ASSOCIATE TIME S PSC IMAGING RADIOLOGI 49368 RADIOLOGY JESSIKA C 9 MATTY H EXAMINATI ASSOCIATE ON CHEST S PSC SINGLE VIEW FRONTAL NEURAXIAL 24230 ST MANE, LABOR 9 MCKAYLA Myers ANALG/ANE MED CTR S PLND [place] V [address] GREATER ROSS, SURG 9 CINTI SANDER PATHOLOGY PATHOLOGI STINC GROSS&KEISHA ROSCOPIC EXAM VAGINAL 42851 [facility] ROBER COR[place] ONLY MED CTR W/POSTPAR TAHMINA CARE EKG [address] REPAIR OF [address] [facility] OTHER [address] [place] [address] CURRENT [facility] OBSTETRIC LACERATIO N OTHER [address] [facility] ARTIFICIA [address] [place] [address] L RUPTURE [facility] OTHER [address] [facility] MANUALLY [address] [place] [address] ASSISTED [facility] DELIVERY MEDICAL [address] [facility] INDUCTION [address] [place] [address] [facility]OR [facility] US PREG 70435 GREATER VANHOOK, UTERUS 9 LIZ Gordon REAL TIME I W/IMAGE DCMTN ASSOC [employer] DOPPLER [address] [facility] ECHO [address] [place] [address] [facility] SPECTRAL DISPLAY COMPLETE DOPPLER 52231 GREATER JAEKLE, ECHO 9 LIZ Alas I PULS SPECTRAL ASSOC F/U/REPEA LLC T [place] PREG [address] [facility] UTERUS [address] [place] [address] REAL TIME [facility] F/U TRNSABDL PER FETUS URNLS DIP [address] [facility] STICK/TAB [facility] LET REAGENT AUTO MICROSCOP Y OBSERVATI [address]9592 ST POLMACYK, ON/INPATI 9 MCKAYLA EVANGELIST Morris ENT MED CTR HOSPITAL CARE [address] CULT[address] [facility] BACTERIAL [address] [place] [address] QUANTTATI VE COLONY COUNT URINE OTHER [address] [facility] [address] [place] [address] MONITORIN [facility] [address] [facility] NONSTRESS [address] [place] [address] TEST [facility] 18769 [facility], NONSTRESS 9 MCKAYLA DENIZ TEST MED CTR J OTHER [address] [facility]IN [facility] CUL BACT 79802 [facility] XCPT 9 [facility] URINE BLOOD/STO MEDICALCE MEDICALCE OL NTER NTER AEROBIC ISOL IADNA 99325 [facility] CHLAMYDIA 9 [facility] TRACHOMAT MEDICALCE MEDICALCE IS NTER NTER AMPLIFIED PROBE TQ IADNA 82017 [facility] NEISSERIA 9 [facility] GONORRHOE MEDICALCE MEDICALCE AE NTER NTER AMPLIFIED PROBE TQ OBSERVATI 29039 ST BOHME, ON/INPATI 9 MCKAYLA GUAMAN ENT MED CTR J HOSPITAL CARE 40 MINUTES IADNA NOS 05896 [facility] DIRECT 9 [facility] PROBE TQ EACH MEDICALCE MEDICALCE ORGANISM NTER NTER PH BODY [address] [facility] FLUID NOT [address] [place] [address] ELSEWHERE SPECIFIED SMR PRIM [address] [facility] SRC WET [address] [place] [address] NFCT AGT OTHER [address] [facility] [address] [place] [address] [facility]IN [facility] [address] [facility] NONSTRESS [address] [place] [address] [place] P[place] [address] [facility] UTERUS [address] [place] [address] REAL TIME [facility] F/U TRNSABDL PER FETUS DOPPLER [address] [facility] ECHO [address] [place] [address] [facility] SPECTRAL DISPLAY COMPLETE 94778 [facility] [place], NONSTRESS [address] [place] [address] FAREED TEST PHYSICIAN S FOR WOMEN OTHER [address] [facility] [address] [place] [address] MONITORIN [facility] G CULTURE 34913 [facility] TYPING 8 [facility] [place] INC IMMUNOLOG IC OTH/THN IMMUNOFLU ORES CULTURE 24194 [facility] BCT 8 [facility] ISOL&PRSM PTV ID ISOLATE EA URINE CULTURE 79590 [facility] BACTERIAL 8 [facility] QUANTTATI VE COLONY [place] URINE [place] P[place] [address] [facility] UTERUS [address] [place] [address] REAL TIME [facility] W/IMAGE DCMTN TRANSVAG SMR PRIM 76334 [facility], SRC WET [address] [place] [address] NFCT AGT [facility] W[facility] 77364 [facility] [address] [place] [address] TEST [facility] FOR WOM[facility] RHO(D) [address] [facility] IMMUNE [address] [place] [address] GLOBULIN [facility] HUMAN FULL-DOSE [place] PREG 41804 GREATER VANHOOK, UTERUS [address] [place] [address] W REAL TIME I F/U TRNSABDL ASSOC PER [employer] THER [address] [facility] PROPH/DX [address] [place] [address] NJX [facility] SUBQ/IM ANTIBODY [address] [facility] SCREEN [address] [place] [address] RBC EACH [facility] SERUM TECHNIQUE IADNA 80382 [facility] [place] 8 [facility] SPECIES DIRECT PROBE TQ IADNA 51088 [facility] [place] 8 [facility] [place] GONORRHOE AE AMPLIFIED PROBE TQ IADNA 15506 [facility] TRICHOMON 8 [facility] [employer] INC VAGINALIS DIRECT PROBE TQ IADNA 61853 [facility] CHLAMYDIA 8 [facility] [facility] TRACHOMAT IS AMPLIFIED PROBE TQ IADNA 89025 [facility] GARDNEREL 8 [facility] LA VAGINALIS DIRECT PROBE TQ OBSERVATI 70003 [place] ALAS, ON/INPATI 8 BISHOP [facility] CARE 55 MINUTES 45511 TONG FORTUNE NONSTRESS 8 [facility] [place] [address] GREATER ALHAJI, UTERUS 8 [facility] REAL TIME I F/U TRNSABDL ASSOC PER [employer] DETERMINA 52673 FAMILYNELA CALHOUN TION 8 E VISION MARIA J REFRACTIV CARE E STATE OPHTH 36544 NITIN CALHOUN MEDICAL 8 [facility]ISION [facility] J XM&EVAL CARE COMPRHNSV ESTAB PT 1/> FITTING 58651 NITIN CALHOUN, SPECTACLE 8 E [facility]ISION MARIA J S XCPT CARE APHAKIA MONOFOCAL 1 VISN V2103 NITIN CALHOUN, PLANO 8 E VISION MARIA J TO+/-4.00 CARE D SPHER 0.12-2.00 D CYL EA FRAMES V2020 NITIN CALHOUN, PURCHASES 8 E VISION MARIA J CARE CUL BACT 89707 [facility] AEROBIC 8 [facility] ADDL METHS DEFINITIV E EA ISOL SUSCEPTIB 81832 [facility] LTY STDY 8 [facility] INC ANTIMICRB IAL MICRO/AGA R DILUTJ CULTURE 02592 [facility] BCT 8 [facility] INC ISOL&PRSM PTV ID ISOLATE EA URINE CULTURE 47578 [facility] BACTERIAL 8 [facility] QUANTTATI VE COLONY COUNT URINE THER [address] [facility] PROPH/DX [address] [place] [address] NJX [facility] SUBQ/IM [place] P[place] [address] [facility] UTERUS [address] [place] [address] [place] [address] [facility] ESTRIOL 8 DIAGNOSTI DIAGNOSTI CS, INC. CS, INC. ALPHA-FET 45723 [facility] OPROTEIN 8 DIAGNOSTI DIAGNOSTI SERUM CS, INC. CS, INC. CHEMILUMI 39347 [facility] NESCENT 8 DIAGNOSTI DIAGNOSTI [place] CS, INC. [place], [place] A 75[address] [facility] QUEST 8 DIAGNOSTI DIAGNOSTI , INC. CS, INC. GONADOTRO 72833 [facility] PIN 8 DIAGNOSTI DIAGNOSTI CHORIONIC CS, INC. CS, INC. QUANTITAT LUL APPLICATI [address] [facility] ON OF [address] [place] [address] SPLINT [facility] BLOOD [address] [facility] COUNT [address] [place] [address] COMPLETE [facility] AUTO&AUTO DIFRNTL WBC BASIC [address] [facility] METABOLIC [address] [place] [address] PANEL [facility] CALCIUM TOTAL ECG [address] [facility] ROUTINE [address] [place] [address] ECG [facility] W/LEAST 12 LDS TRCG ONLY W/O I&R ECG 58828 DIAGNOSTI MCDANNOLD ROUTINE 8 C , CHRIS J ECG CARDIOLOG W/LEAST ISTS INC 12 LDS I&R ONLY THER [address] [facility] PROPH/DX [address] [place] [address] NJX [facility] SUBQ/IM RHYTHM 13446 EMERGENCY CHANEY, ECG 1-3 8 CARE JUNIOR L LEADS PHYS INTERPRET [facility] [place] & [place] [address] GREATER VANHOOK, 8 LIZ JUNIOR W UTERUS 14 I WK TRANSABDL [facility] [place] PREG 19792 [place]AN[place]OOK, UTERUS 8 LIZ PACHECO W REAL TIME I W/[place] [address] RADIOLOGY LÓPEZ, ABDOMINAL 8 KEISHA Dial REAL ASSOCIATE TIME S PSC W/IMAGE LIMITED RHO(D) [address] [facility] IMMUNE [address] [place] [address] GLOBULIN [facility] HUMAN FULL-DOSE IM IADNA 46855 [facility] [place] 8 [place] TRACHOMAT IS AMPLIFIED PROBE TQ THER [address] [facility] PROPH/DX [address] [place] [address] NJX [facility] SUBQ/IM CYTP C/V 62598 [facility] AUTO THIN 8 [facility] LYR PREPJ SCR MNL RESCR PHYS IADNA 81427 [facility] [place] 8 [place] [facility] [place] [facility] GONORRHOE AE AMPLIFIED PROBE TQ ANTIBODY [address] RBC EACH [facility] [place] [address] [facility] UTERUS [address] [place] [address] REAL TIME [facility] W/IMAGE DCMTN TRANSVAG URNLS DIP [address] STICK/TAB [facility] LET RGNT AUTO W/O MICROSCOP Y BASIC [address] PANEL [facility] CALCIUM TOTAL BLOOD [address] COMPLETE [facility] AUTO&AUTO DIFRNTL WBC BLOOD 07461 [facility] COUNT 8 [facility] COMPLETE AUTO&AUTO MEDICALCE MEDICALCE DIFRNTL NTER NTER WBC BASIC 13745 [place] [address] [facility] PANEL CALCIUM MEDICALCE MEDICALCE T[place] N[place] [address] [facility] THER [address] [place] [address] PROPH/DX [facility] 1ST >1 HR ANTIBODY 21548 [facility] RODRIGO-B [address] [place] [address] ARR EB VIRUS MEDICALCE MEDICALCE VIRAL NTER NTER CAPSID VCA IAADIADOO 27738 [facility] STER[facility] 8 MEDICAL G, DUNG STREPTOCO GROUP B CCUS GROUP A COLLECTIO 63719 [facility] VENOUS 8 MEDICAL G, DUNG BLOOD GROUP B VENIPUNCT URE ANTISTREP 24896 [facility] TOLYSIN O 8 [facility] SCREEN MEDICALCE MEDICALCE NTER NTER URNLS DIP [address] STICK/TAB [facility] LET RGNT AUTO W/O MICROSCOP Y IAADIADOO [address] STREPTOCO [facility] CCUS GROUP A CUL [address] [facility] PRSMPTV [address] [place] [address] PTHGNC [facility] ORGANISM SCRN W/COLONY ESTIMJ INSJ [address] [facility] NON-NDWEL [address] [place] [address] LG [facility] BLADDER CATHETER IADNA [address] [facility] CHLAMYDIA [address] [place] [address] TRACHOMAT IS AMPLIFIED PROBE TQ URNLS DIP [address] STICK/TAB [facility] LET REAGENT AUTO MICROSCOP Y BASIC [address] [facility] METABOLIC [address] [place] [address] PANEL [facility] CALCIUM TOTAL IADNA [address] [facility] NEISSERIA [address] [place] [address] GONORRHOE AE AMPLIFIED PROBE TQ BLOOD [address] [facility] COUNT [address] [place] [address] COMPLETE [facility] AUTO&AUTO DIFRNTL WBC GONADOTRO [address] [facility] PIN [address] [place] [address] CHORIONIC [facility] QUANTITAT LUL RHYTHM 17925 EMERGENCY SHARP, ECG 1-3 8 CARE WALTER P LEADS PHYS INTERPRET [facility] [facility] [place] [address] [facility] ROUTINE [address] [place] [address] ECG [facility] W/LEAST 12 LDS TRCG ONLY W/O I&R MOLECULAR 32695 [facility] COLE[facility] COLEMAN DX AMP [address] [facility] EA ADDL SEQ MOLEC 04787 [facility] CO[facility] COLEMAN SEP&ID HI 8 HARRIETT DELANEYU TQ [facility] NUCLEIC ACID PREP MOLEC 19092 [facility] COLEMAN QUEST COLEMAN ISOL/XTRJ 8 [place]RIETT [place] [facility] ACID EA TYPE MOLECULAR 08927 [facility] COLEMAN QUEST COLEMAN DX AMP [address] [facility] 1ST 2 SEQ MOLECULAR 65130 [facility] COLEMAN QUEST COLEMAN 8 [place] DIAGNOSTI [facility] INTERPRET ATION & REPORT MUTATION 05802 [facility] COLEMAN QUEST COLEMAN ID 8 [facility] [facility] LIG/PRIME R XTN 1 SGM EA BLOOD 09147 [facility]E COUNT 8 [facility] COMPLETE INC INC AUTO&AUTO DIFRNTL WBC URINE 27825 [facility] FORT[facility]E 8 [facility] TEST INC INC VISUAL COLOR CMPRSN METHS US PREG 45534 TONG FOR[facility]E UTERUS 8 [facility] REAL TIME INC INC W/IMAGE DCMTN TRANSVAG BASIC 96561 [facility] METABOLIC 8 [facility] PANEL INC INC CALCIUM TOTAL URNLS DIP 57846 [facility]E 8 [facility] STICK/TAB INC INC LET REAGENT AUTO MICROSCOP Y CULTURE 58574 [facility] BACTERIAL 8 [facility] INC INC QUANTTATI VE COLONY COUNT URINE GONADOTRO 97158 [facility] PIN 8 [place] CHORIONIC QUANTITAT LUL BILIRUBIN 75825 [facility] DIRECT 8 [place] [address] [facility] LIPASE 8 [facility] INC INC BLOOD 45499 TONG TONG COUNT 8 [facility] COMPLETE INC INC AUTO&AUTO DIFRNTL WBC URNLS DIP 46469 [facility] FORT[facility]E 8 [facility] STICK/TAB INC INC [place] [address] [facility] [place] AMYLASE 8 [facility] INC INC URINE 31303 [facility] FORT[facility]E 8 [facility] TEST INC INC VISUAL COLOR CMPRSN METHS COMPREHEN 67332 [facility] [place] SIVE 8 [facility] [place] [address] [address] [address] [place] [address] [place] [address] [place] [address] MARYBEL REAL-TIME IMAGE COMPLETE IV NFUS 28856 TONG [facility]E THER 8 [facility] PROPH/[place] [address] [facility] THER 8 [facility] PROPH/DX INC INC 1ST >[address] PELVIS 16002 CHAD SHAY, W/O 8 MEDICAL LISA P CONTRAST IMAGING MATERIAL ASSOCIATE S 3D 88576 CHAD SHAY, RENDERING 8 MEDICAL LISA P IMAGING W/INTERP& [place]OCI[place] [address] CHAD SHAY, ABDOMEN 8 MEDICAL LISA P W/O IMAGING CONTRAST ASSOCIATE MATERIAL S URNLS DIP 02335 [facility]E 8 [facility] STICK/TAB INC INC LET REAGENT AUTO MICROSCOP Y COMPREHEN 61551 [facility] SIVE 8 [facility] METABOLIC INC INC PANEL URINE 51194 [facility] FORT[facility]E 8 [facility] TEST INC INC VISUAL COLOR CMPRSN METHS BLOOD 93817 [facility] COUNT 8 [facility] COMPLETE INC INC AUTO&AUTO DIFRNTL WBC IADNA 79120 [facility] [place] 8 [facility] GONORRHOE AE AMPLIFIED PROBE TQ CYTP C/V 57529 [facility] AUTO THIN 8 [facility] LYR PREPJ SCR MNL RESCR PHYS IADNA 47369 [facility] [place] 8 [facility] TRACHOMAT IS AMPLIFIED PROBE TQ US PELVIC 98919 [facility] 8 [facility] [place] [address] RADIOLOGY HURST, TRANSVAGI 8 RODNEY R NAL ASSOCIATE S PSC US PELVIC 13571 RADIOLOGY HURST, 8 RODNEY R NONOBSTET ASSOCIATE MARYBEL IMAGE S [facility] DCMTN LIMITED/F /U URNLS DIP 17821 [facility] 8 [facility] STICK/TAB INC INC LET REAGENT AUTO MICROSCOP Y URINE 45474 [facility]E 8 [facility] TEST INC INC VISUAL COLOR CMPRSN METHS RADEX 28306 [facility] ANKLE 8 [facility] COMPLETE INC INC MINIMUM 3 VIEWS RADEX 38514 CHAD SHAY, FOOT 8 MEDICAL LISA P COMPLETE IMAGING MINIMUM 3 ASSOCIATE VIEWS S ANTIBODY 79347 [facility] RUBELL[place] 8 [facility] [place] ANTIBODY 06038 [facility] QUEST VARICELLA 8 DIAGNOSTI DIAGNOSTI -[place] [address] [facility] THYROID 8 [facility] STIMULATI NG HORMONE TSH GONADOTRO 21405 [facility] PIN 8 [facility] INC CHORIONIC QUANTITAT LUL URINE 73008 [facility] 8 [facility] TEST VISUAL MEDICALCE MEDICALCE COLOR NTER NTER CMPRSN METHS CULTURE 23845 [facility] BCT 8 [facility] ISOL&PRSM PTV ID MEDICALCE MEDICALCE ISOLATE NTER NTER EA URINE CULTURE 83874 [facility] BACTERIAL 8 [facility] QUANTTATI MEDICALCE MEDICALCE VE COLONY NTER NTER COUNT URINE URNLS DIP [address] STICK/TAB LET MEDICALCE MEDICALCE REAGENT NTER NTER AUTO MICROSCOP Y URINE 19023 [facility] [address] [place] [address] VISUAL COLOR CMPRSN METHS IAADIADOO [address] VAGINALIS IADNA 13427 [facility] CHLAMYDIA [address] [place] [address] TRACHOMAT IS AMPLIFIED PROBE TQ IADNA 81264 [facility] NEISSERIA [address] [place] [address] GONORRHOE AE AMPLIFIED PROBE TQ COLLECTIO 83180 [facility] N VENOUS [address] [place] [address] VENIPUNCT URE BLOOD 18503 [facility] COUNT [address] [place] [address] AUTO&[place] [address] RADIOLOGY DOERGER, TRANSVAGI 8 RHYS M NAL ASSOCIATE S PSC US PELVIC [address] MARYBEL REAL-TIME IMAGE COMPLETE HEPATIC [address] FUNCTION 8 [facility] PANEL MEDICALCE MEDICALCE [place]US [address] HYDRATION 8 [facility] EA HR MEDICALCE MEDICALCE NTER NTER GROUND A0425 KOJO KOJO MILEAGE 8 CO CO PER AMBULANCE AMBULANCE STATUTE SERVICE SERVICE MILE AMBULANCE A0429 KOJO KOJO SERVICE 8 [facility] CO BLS AMBULANCE AMBULANCE EMERGENCY SERVICE SERVICE TRANSPORT THER [address] PROPH/DX 8 [facility] NJX IV PUSH 1ST MEDICALCE MEDICALCE SBST/DRUG NTER NTER COLLECTIO 90781 [facility] N VENOUS 8 [facility] BLOOD VENIPUNCT MEDICALCE MEDICALCE URE NTER NTER BLOOD [address] COUNT 8 [facility] COMPLETE AUTO&AUTO MEDICALCE MEDICALCE [place] [address] LIPASE 8 [facility] MEDICALCE MEDICALCE NTER NTER THER [address] PROPH/DX 8 [facility] SUBQ/IM CULTURE 03503 [facility] BACTERIAL [address] [place] [address] QUANTTATI VE COLONY COUNT URINE URINE 39627 [facility] [address] [place] [address] VISUAL COLOR CMPRSN METHS IADNA 09908 [facility] [place] 8 [facility] INC TRACHOMAT IS AMPLIFIED PROBE TQ IADNA 07734 [facility] [place] 8 [facility] LA VAGINALIS DIRECT PROBE TQ IADNA 46888 [facility] [place] 8 [facility] INC GONORRHOE AE AMPLIFIED PROBE TQ IADNA 90204 [facility] [place] 8 [facility] [place] [facility] SPECIES DIRECT PROBE TQ IADNA 34611 [facility] TRICHOMON 8 [facility] [place] [address] ABDOMEN 8 [facility] W/[facility] T MATERIAL CT PELVIS 40618 RADIOLOGY PABLO 8 JESSIE W/[facility] PSC MATERIAL Encounters Encounter Start End Date Code Location [facility]former Type Date [facility] T[facility] - 6 6 [facility] OFFICE [id number] [facility] NIETO OUTPATIEN 6 6 PHYSICIAN [facility] T VISIT S GROUP 15 MINUTES [facility]OSPITAL TONG [facility] 6 6 [facility] TONG - 6 6 [facility] TONG - 6 6 [facility] TONG [facility] 6 6 [facility] [id number] [facility] NIETO OUTPATIEN 6 6 PHYSICIAN HARRY T VISIT S GROUP 15 MINUTES EMERGENCY [id number] [facility] ELSI 6 6 PHYSICIAN DEPARTMEN S, [facility] T VISIT MODERATE [facility]VERITY [facility]OSPITAL TONG - 6 6 [facility] 13273 [facility] GERSON OUTPATIEN 6 6 PHYSICIAN HARRY T VISIT S GROUP 15 MINUTES OFFICE 50155 [facility] NIETO OUTPATIEN 6 6 PHYSICIAN HARRY T VISIT S GROUP 15 MINUTES HOSPITAL TONG - 6 6 [facility]EN [facility] - 6 [facility] 69847 [facility] NIETO OUTPATIEN 6 6 PHYSICIAN HARRY T VISIT S GROUP 15 MINUT[facility] HOSPITAL TONG - 6 6 [facility]PATIEN [facility] TONG - 6 6 [facility] TONG - 6 6 [facility] OFFICE 45800 [facility] NIETO OUTPATIEN 6 6 PHYSICIAN HARRY T VISIT S GROUP 15 MINUTES EMERGENCY 02107 LOUANN RAMIREZ 6 6 PHYSICIAN [facility]UI [facility] T VISIT HIGH/URGE NT SEVERITY EMERGENCY 52041 LOUANN SOTINGEAN 6 6 PHYSICIAN U [facility] T VISIT HIGH/URGE NT SEVERITY OFFICE 19545 [facility] OUTPATIEN 6 6 PHYSICIAN T VISIT S GROUP 25 MINUTES OFFICE 75257 [facility] OUTPATIEN 6 6 PHYSICIAN T NEW 45 S GROUP MINUTES EMERGENCY 46906 LOUANN DENNIS 6 6 PHYSICIAN KEISHA [facility] T VISIT HIGH/URGE NT SEVERITY H[facility]PITAL ST - 6 6 [facility] RN UNIT MANAGER OFFICE [address] [facility] OUTPATIEN 6 6 MCKAYLA SHLOMO T VISIT [address] - 6 6 [facility] OUTPATIEN [facility] T EMERGENCY 47357 ST. 6 6 MCKAYLA [facility] MIL[facility]ED T VISIT MODERATE SEVERITY EMERGENCY 68153 [facility] 6 [facility] HIGH/URGE S NT SEVERITY EMERGENCY 28818 LOUANNDominique MEDINAEAN 6 6 PHYSICIAN U [facility] T VISIT LOW/MODER SEVERITY HOSPITAL TONG - 6 6 [facility]PATIEN [facility] OFFICE [address] [facility] OUTPATIEN 6 6 MCKAYLA SHLOMO T VISIT 15 PHYSICIAN MINUTES OFFICE [address] [facility] OUTPATIEN 6 6 MCKAYLA II UMER T VISIT 25 PHYSICIAN MINUTES S EMERGENCY 77235 [facility] 6 6 [facility] PHYSICIAN HIGH/URGE S NT SEVERITY OFFICE 45513 [facility] OUTPATIEN 5 5 MCKAYLAPASTORA KEENAN T VISIT 15 PHYSICIAN MINUTES S OFFICE [id number] [facility] NIETO OUTPATIEN 5 5 PHYSICIAN HARRY T NEW 30 S GROUP MINUTES OFFICE [address] [facility] OUTPATIEN 5 5 MCKAYLAPASTORA KEENAN T VISIT [address] - 5 5 [facility] ST - 5 5 [facility] T RN UNIT MANAGER OFFICE [address] ST CABAN OUTPATIEN 5 5 MCKAYLA KEENAN T VISIT 25 PHYSICIAN MINUTES S EMERGENCY 28167 LOUANN DENNIS 5 5 PHYSICIAN [facility] DEPARTMEN S, PLLC T VISIT MODERATE SEVERITY OFFICE 02982 ST CABAN OUTPATIEN 5 5 MCKAYLAPASTORA KEENAN T VISIT 25 PHYSICIAN MINUTES S OFFICE 08[address] ST THRELKELD OUTPATIEN 5 5 MCKAYLA II UMER T VISIT 15 PHYSICIAN MINUTES S OFFICE 67786 ST THRELKELD OUTPATIEN 5 5 MCKAYLA II UMER T NEW 30 MINUTES PHYSICIAN S HOSPITAL ST - 5 5 [facility] OUTPATI[facility] MED CTR T RN UNIT MANAGER [facility] TONG - 5 5 [facility] OUTPATIEN INC T EMERGENCY 33788 TONG 5 5 [facility] DEPARTMEN INC T VISIT MODERATE SEVERITY EMERGENCY 90989 LOUANN MCDONALD 5 5 PHYSICIAN U YUDELKA DEPARTMEN S, PLLC T VISIT HIGH/URGE NT SEVERITY OFFICE 40945 [facility] OUTPATIEN 5 5 [facility] T VISIT DEPARTMEN DEPARTMEN 15 T T MINUTES OFFICE 42398 [facility] OUTPATIEN 3 3 HEALTH T VISIT DEPARTMEN 15 T MINUTES OFFICE 94676 [place] [facility]PAT[facility] 2 2 CLINIC DOROTHY T VISIT 15 MINUTES OFFICE 78097 [facility] OUTPATIEN 2 2 CLINIC TAVIA T VISIT 15 MINUTES OFFICE 47209 [facility] 2 2 CLINIC DOROTHY T VISIT 15 MINUTES OFFICE 93348 [facility] OUTPATIEN 2 2 [facility] T VISIT DEPARTMEN DEPARTMEN 15 T T MINUTES PERIODIC 61846 [facility] PREVENTIV 2 2 [facility]ALTH [facility]ALTH E MED EST DEPARTMEN DEPARTMEN PATIENT T T 18-39 YRS OFFICE 23098 [place] [facility] 2 2 CLINIC DOROTHY T VISIT 15 MINUTES OFFICE 33326 [facility] [facility] 2 2 CLINIC DOROTHY T VISIT 15 MINUTES OFFICE 44354 [place] [facility] OUTPAT[facility] 2 2 CLINIC DOROTHY T NEW 30 MINUTES EMERGENCY 40558 YASMANI 2 2 [facility] T VISIT HOSPITA MODERATE SEVERITY HOSPITAL YASMANI - 2 2 [facility] OUTPATIEN GE ARH T HOSPITA OFFICE 30300 [facility] OUTPATIEN 1 1 [facility] T VISIT DEPARTMEN DEPARTMEN 15 T T MINUTES PERIODIC 81368 [facility] PREVENTIV 1 1 [facility]ALTH [facility]ALTH E MED EST DEPARTMEN DEPARTMEN PATIENT T T 18-39 YRS OFFICE 21728 [facility]IE [facility] OUTPATIEN 1 1 [facility] T VISIT 5 DEPARTMEN DEPARTMEN MINUTES T T EMERGENCY 80756 YASMANI 1 1 JAZ [facility] DGE T VISIT HOSPITAL LOW/MODER SEVERITY EMERGENCY 55488 YASMANI CHAPIN 1 1 JAZ OMALLEY [facility] DGE T VISIT HOSPITAL MODERATE E SEVERITY HOSPITAL YASMANI - 1 1 [facility] D[facility] T HOSPITAL OFFICE 56032 [facility]IMARY P[facility]RO LUIS OUTPATIEN 1 1 CARE TOOTIE T VISIT [facility]ENT[facility] OFFICE 10700 APPALACHI MERRITT DEL OUTPATIEN 0 0 AN T NEW 20 PHYSICIAN MINUTES S [facility] OFFICE 27620 PRIMARY TRINIDAD OUTPATIEN 0 0 CARE DOROTHY T VISIT CENTERS 15 [facility] OFFICE 63888 PRIMARY PEDRO LUIS OUTPATIEN 0 0 CARE TOOTIE T VISIT CENTERS 15 [facility] YASMANI - 0 0 [facility] OUTPATIEN DGE T HOSPITAL OFFICE 62167 PRIMARY TRINIDAD OUTPATIEN 0 0 CARE DOROTHY T VISIT CENTERS 15 [facility] OFFICE 99728 PRIMARY PEDRO LUIS OUTPATIEN 9 9 CARE TOOTIE T VISIT CENTERS 15 [facility] OFFICE 07087 PRIMARY TRINIDAD OUTPATIEN 9 9 CARE DOROTHY T VISIT [facility]ENTERS 15 [facility] APPALACHI - 9 9 AN OUTPATIEN REGIONAL T MEDICAL CT OFFICE 72332 PRIMARY PEDRO LUIS OUTPATIEN 9 9 CARE TOOTIE T VISIT CENTERS 15 [facility] OFFICE 12469 PRIMARY TRINIDAD OUTPATIEN 9 9 CARE DOROTHY T VISIT CENTERS 15 [facility] YASMANI - 9 9 [facility] OUTPATIEN DGE T HOSPITAL EMERGENCY 05520 YASMANI BEATTY, 9 9 JAZ MARINA [facility] DGE T VISIT HOSPITAL MODERATE EMERGENCY SEVERITY SERVICES EMERGENCY 54819 YASMANI 9 9 BRE[facility]RI [facility] DGE T VISIT HOSPITAL LOW/MODER SEVERITY OFFICE 07074 PRIMARY TRINIDAD OUTPATIEN 9 9 CARE DOROTHY T VISIT [facility]ENTERS 15 [facility] OFFICE 95965 PRIMARY [facility] OUTPATIEN 9 9 CARE DOROTHY T VISIT [facility]ENTERS 15 [facility] OFFICE 43559 DEE MENENDEZ OUTPATIEN 9 9 MOY/HY LINDSEY Morris T VISIT 5 DEN [facility] YASMANI - 9 9 [facility] OUTPATIEN DGE T HOSPITAL OFFICE 39601 DHS/CO CHARLIE CO OUTPATIEN 9 [address] ACCT OFFICE 27209 MARJAN PHILLIP OUTPATIEN 9 9 LEONIE HADLEY Evan T [facility] 30 [facility] 81128 PRIMARY TRINIDAD PREVENTIV 9 9 CARE DOROTHY E MED EST CENTERS PATIENT OF [facility] 12[facility] OFFICE 76190 PRIMARY PEDRO LUIS OUTPATIEN 9 9 CARE TOOTIE T VISIT CENTERS 15 [facility] OFFICE 38502 JULIO CESAR HARRELL OUTPATIEN 9 9 RENARD Patel T [facility] 20 [facility] YASMANI - 9 9 [facility] OUTPATIEN DGE T HOSPITAL OFFICE 62453 DEE ALMARAZPATIEN 9 9 MOY/HY ANASTACIO T VISIT [facility] ZEYNEP 10 [facility] YASMANI - 9 9 [facility] OUTPATIEN DGE T HOSPITAL EMERGENCY 32445 YASMANI LARA, 9 9 [facility] MODERATE EMERGENCY SEVERITY SERVICES HOSPITAL YASMANI - 9 9 [facility] OUTPATIEN DGE T HOSPITAL EMERGENCY 95316 YASMANI 9 9 [facility] LOW/MODER SEVERITY EMERGENCY 97211 EMERGENCY RICHARDSO 9 9 LEONIE TSAI DEPARTMEN PHYS T VISIT [facility] HIGH/URGE [place] NT [facility] H[facility] ST - 9 9 [facility] T MEDICALCE NTER OFF[facility] 49105 [facility] 9 [facility] [place] T VISIT MED CTR 15 MINUTES OFFICE 02553 [facility] 9 9 MEDICAL ROSALES E T VISIT GROUP 15 MINUTES OFFICE 82362 [facility]IS [facility] 9 9 MEDICAL ROSALES E T VISIT GROUP [address] - [address] [facility] EMERGENCY 10257 MARILIN LEGGETTRD 9 9 HOSP MED I, JAMARI [facility] CTR E T VISIT LOW/MODER SEVERITY HOSPITAL [address] [facility] OFF[facility] 20441 [facility]IMARY [facility] 9 9 CARE DOROTHY T NEW 20 CENTERS MINUTES OF [facility] YASMANI - 9 9 [facility]INE[facility]ESSINRI [facility] EMERGENCY 02137 YASMANI LARA, 9 9 [facility] HOSPITAL LOW/MODER EMERGENCY SEVERITY SERVICES EMERGENCY 33982 VIVI SONNY, 9 9 [facility] DEPARTMEN CORPORATI T VISIT ON MODERATE SEVERITY HOSPITAL CULLMAN - 9 9 [facility] 9 9 HOSPITAL INPATIENT [facility] OFFICE 43502 MIKAELA ESTRADA 9 9 MCKAYLA VAZQUEZ T VISIT MED CTR 15 MINUTES OFFICE 43366 LEODAN ELKINS 9 9 [facility] Gordon ION I NEW/ESTAB PATIENT ASSOC 15 MIN [facility] OFFICE 28927 MIKAELA ESTRADA 9 9 MCKAYLA SCHAEFERLL T VISIT MED CTR 15 MINUTES HOSPITAL [facility] 9 9 [facility] 9 9 [facility] OFFICE 13465 [facility] 9 9 HOSPITAL T VISIT EAST 40 MINUTES OFFICE 12018 [place] [address] 9 HOSPITAL T VISIT [facility] 40 MINUTES HOSPITAL [place] [address] 9 [facility] OFFICE 86997 [facility] 9 9 MCKAYLA VAZQUEZ T VISIT MED CTR 15 MINUTES OFFICE 14334 [place] [address] 9 HOSPITAL T VISIT EAST 40 MINUTES [facility]OSPITAL [place] [address] 9 [facility] [place] [address] 8 [facility] OFFICE 68957 [facility] 8 8 [facility] T VISIT 15 PHYSICIAN MINUTES S FOR WOMEN OFFICE 28165 [facility] 8 8 [facility] T VISIT [address] [facility] [place] [address] 8 [facility] OFFICE 31967 [facility] 8 8 [facility] III, T VISIT JJ 15 PHYSICIAN MINUTES S FOR WOMEN OFFICE 63804 [facility] 8 8 [facility] T VISIT [address] [facility] [place] [address] 8 [facility] OFFICE 47317 [facility] 8 8 [facility] V[facility] [address] [facility] [place] [address] 8 [facility] OFFICE 07705 [facility] 8 8 [facility] T VISIT 15 PHYSICIAN MINUTES S FOR WOMEN OFFICE 53255 [facility] 8 8 [facility] T VISIT 10 PHYSICIAN MINUTES S FOR WOMEN EMERGENCY 14150 EMERGENCY HERFE, 8 8 CARE DOROTHY Myers [facility] VISIT [facility] L[place]MODER [place] SEVERITY [facility] TONG - 8 8 [facility] [place] [address] 8 [facility] OFFICE 28143 [facility] 8 8 [facility] T VISIT 15 PHYSICIAN MINUTES S FOR WOMEN OFFICE 52026 [facility] 8 8 MEDICAL DUNG Leon T VISIT GROUP B 15 MINUTES HOSPITAL [place] [address] 8 [facility] EMERGENCY 81080 [place] [address] 8 [facility] VISIT MODERATE SEVERITY HOSPITAL [place] [address] 8 [facility] OFFICE [address]88 [place] [address] 8 MEDICAL DUNG Leon VISIT GROUP B 15 MINUTES EMERGENCY 60572 EMERGENCY RITU DEPT 8 8 CARE JUNIOR Dial VISIT PHYS [facility]IGH [facility] [place]& [place] THREAT FUNJ OFFICE 44028 [facility] 8 8 [facility] T VISIT 15 PHYSICIAN MINUTES S [facility] [place] [address] 8 [facility] EMERGENCY 98823 [place] [address] 8 [facility] VISIT MODERATE SEVERITY [facility]OSP[facility] [place] [address] 8 [facility] [place] [address] 8 [facility] [place] [address] 8 [facility] OFFICE 97966 [facility] 8 8 [facility] T VISIT 25 PHYSICIAN MINUTES S FOR WOMEN EMERGENCY 79877 EMERGENCY VEST, 8 8 CARE ZEKE DEPARTMEN PHYS T VISIT [facility] [place] NT SEVERITY [facility] [place] [address] 8 [facility] [place] [address] 8 [facility] EMERGENCY 60655 EMERGENCY VEST, 8 8 CARE ZEKE DEPARTMEN PHYS T VISIT [facility] [place] NT SEVERITY [facility] 8 [facility] MEDICALCE NTER OFFICE 57545 [facility] 8 8 MEDICAL DUNG Leon T VISIT GROUP B 15 MINUTES EMERGENCY 56428 EMERGENCY HERFEL, 8 8 CARE DOROTHY F DEPARTMEN PHYS T VISIT [facility] [place] NT SEVERITY [facility] [place] [address] 8 [facility] EMERGENCY 63002 [place] [address] 8 [facility] VISIT MODERATE SEVERITY [facility]OSPITAL [place] [address] 8 [facility] EMERGENCY [address] VISIT LOW/MODER SEVERITY HOSPITAL [place] [address] 8 [facility] EMERGENCY 70681 EMERGENCY [place], 8 8 CARE WALTER P DEPARTMEN PHYS T VISIT [facility] [place] NT SEVERITY OFFICE 65328 [facility] 8 8 HOSPITALS III, T VISIT 5 JJ MINUTES PHYSICIAN S FOR WOMEN EMERGENCY 38447 TONG 8 8 MEM HOSP [facility] INC T VISIT MODERATE SEVERITY [facility]PITAL [place] [address] 8 MEM [facility]P OUTPATIEN INC T OFFICE 16006 [facility] 8 8 [facility] T VISIT 10 PHYSICIAN MINUTES S FOR WOMEN EMERGENCY 95432 [facility] 8 8 MEM HOSP DEPARTMEN INC T VISIT MODERATE SEVERITY [facility] [place] [address] 8 [facility] OUTPATIEN INC T [facility]OS[facility]ITAL [facility] 8 [facility] T OFFICE 81949 [facility] 8 8 [facility] T VISIT 15 PHYSICIAN MINUTES S [facility] [place] [address] 8 MEM H[facility]P OUTPATIEN INC T EMERGENCY 25146 [place] 8 8 MEM HOSP DEPARTMEN INC T VISIT MODERATE SEVERITY OFFICE [address] [facility] 8 8 [facility] A, ROBER T VISIT 25 PHYSICIAN MINUTES S FOR [facility]EN [facility] T [facility] [place] [address] 8 [facility] OUTPATIEN [facility] T EMERGENCY 25308 [place] 8 8 [facility] DEPARTMEN INC T VISIT MODERATE SEVERITY OFFICE 35251 [facility] 8 8 [facility] T VISIT 15 PHYSICIAN MINUTES S FOR WOMEN EMERGENCY 09541 [facility] 8 8 MCKAYLA WATSON DEPARTMEN MED CTR T VISIT HIGH/URGE NT SEVERITY EMERGENCY 18463 [facility] 8 MCK[facility]LA [facility] T VISIT MEDICALCE MODERATE NTER SEVERITY HOSPITAL [email or web address] 8 8 [facility] T MEDICALCE NTER EMERGENCY 66050 [facility], 8 8 MCKAYLA Dial DEPARTMEN MED CTR T VISIT HIGH/URGE NT SEVERITY EMERGENCY [address] T VISIT MODERATE SEVERITY HOSPITAL [facility] 8 [facility] HOSPITAL [facility] 8 [facility] T OFFICE 66308 [facility] 8 8 MEDICAL G DUNG T VISIT GROUP B 15 MINUTES EMERGENCY [address] T VISIT MEDICALCE MODERATE NTER SEVERITY HOSPITAL [facility] 8 [facility] MEDICALCE NTER EMERGENCY [address] E VISIT MED CTR HIGH SEVERITY& THREAT FUNJ EMERGENCY [address] T VISIT MODERATE SEVERITY HOSPITAL [facility] 8 [facility] T OFFICE 95793 [facility] 8 8 [facility] 45 MINUTES PHYSICIAN S FOR WOMEN OFFICE 08408 [facility] 8 MEDICAL VIRAL T VISIT GROUP 15 MINUTES HOSPITAL [facility] 8 [facility] T
--- OUTSIDE RECORDS SUMMARY | 2017-04-29 08:14 | External Medical Summary Rpt | CCD ---
Author Author , DESHAWN ROCHEEVETTE Address Unknown Phone [email or web address] Care Team Providers Care Residential Program Director Name Role Phone [facility] Unavailable Unavailable PHYSICIANS [facility], [facility]ANS [facility] Unavailable Unavailable MEDICAL CT, [facility] CT DENIZ FINLEY, Unavailable Unavailable DENIZ FINLEY ALL, SANTOYO ALL Unavailable Unavailable JAMARI HERRERA, Unavailable Unavailable JAMARI HERRERA BURGE DEL Unavailable Unavailable [facility], Unavailable Unavailable [facility] GERSON NIETO Unavailable Unavailable GERSON MCDONALD, GERSON Unavailable Unavailable [facility] Unavailable Unavailable PHYSICIANS, [facility] GREG LETICIA, Unavailable Unavailable GREG LETICIA [id number], Unavailable Unavailable [id number] JESSIE SHAH, Unavailable Unavailable [...] ROB F, Unavailable Unavailable HERFEL DOROTHY F [facility], Unavailable Unavailable [facility] SHEA, MAURICE I, Unavailable [...] TAYLOR REHMAN CHR, SHERIE Unavailable Unavailable CHR [facility] Unavailable Unavailable [facility], [facility], Unavailable Unavailable [employer] [facility], Unavailable Unavailable [facility] MATTY ROSEN, Unavailable Unavailable MATTY ROSEN [facility] Unavailable Unavailable DEPARTMENT, [facility] Unavailable Unavailable DEPARTMENT, [facility] DE[facility]MENT WALTER MANE, Unavailable Unavailable WALTER MANE MAUREEN, LI, Unavailable Unavailable DALTON ZIMMERMAN Unavailable Unavailable FRITZ CABAN SHLOMO, CABAN Unavailable Unavailable DINA MONTES DE OCA Unavailable Unavailable [facility] Unavailable Unavailable [facility], [facility] Unavailable Unavailable [facility], [facility] Unavailable Unavailable HOSPITAL E, [facility] CHRIS CURTIS, Unavailable Unavailable CHRIS [...] [facility] Un[facility] Un[facility], [facility] Un[facility] Unavailable [facility], [facility], Unavailable Unavailable [facility], Unavailable Unavailable [facility], Unavailable Unavailable [facility], Unavailable Unavailable INC., [facility], Unavailable Unavailable [facility] Unavailable Unavailable OF [facility], [facility] JANE, JANE GARRISON, Unavailable Unavailable MELI MCKAYLA BENNETT Unavailable Unavailable A, SABRINA MCKAYLA A ASHLEY LY Unavailable Unavailable LEONIE VITALE, Unavailable Unavailable LEONIE LYNCH [id number], Unavailable Unavailable [id number] Unavailable Unavailable [id number] # [id number], [facility] [id number] # [id number] JUNIOR SANCHEZ, Unavailable Unavailable JUNIOR SANCHEZ ROGERS Unavailable Unavailable MONTSERRAT SR GIOVANI, Unavailable Unavailable ORIN, GIOVANI SANDER PINEDA, MIRIAM, Unavailable Unavailable YASMANI BERMUDEZ, Unavailable Unavailable YASMANI MCCARTHY STONE Unavailable Unavailable JAIDEN SAMANIEGO, STONE Unavailable Unavailable WALTER BLACKWELL, Unavailable Unavailable WALTER GONZALEZ KENNETH L, Unavailable Unavailable CHAVO ANNA, Unavailable Unavailable WALTER NICOLAS SOWER, Unavailable Unavailable WALTER ELDER, Unavailable Unavailable RADAH ELDER, Unavailable Unavailable ROBER TOLEDO, Unavailable Unavailable NADEGE, ROBER [facility] Unavailable Unavailable [facility] Unavailable Unavailable [facility] Unavailable Unavailable [facility], [facility] Unavailable Unavailable PHYSICIANS, [facility] Unavailable Unavailable [facility], Unavailable Unavailable [facility] DUNG ETIENNE, Unavailable Unavailable DUNG BARROSO THRELKELD II UMER, Unavailable Unavailable THRELKELD II UMER [facility] Unavailable Unavailable #5, [facility] JUNIOR LEONARD, Unavailable Unavailable JUNIOR LEONARD ROY, Unavailable Unavailable SALAS BEATTY, DENISE ALANIST, Unavailable Unavailable [facility] # [id number], Unavailable Unavailable [facility] # [id number] WALKER III, Unavailable Unavailable JJ, WALKER III, JJ [id number], Unavailable Unavailable [id number] LEONIE PHILLIP, Unavailable Unavailable LEONIE PHILLIP, Unavailable Unavailable ALLISON PORTILLO, Unavailable Unavailable ALLISON TRINIDAD JEFFREY, Unavailable Unavailable JESSIE WALDEN YOUNG VAN Unavailable Unavailable Purpose Continuity of Care Document - 08-22-2007 through 2016 Problems Code Diagnosis DOS Provider Status 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 Q85425 ATYP SQ 12-25-2016 [facility] CELLS UNDET PHYSICIANS GROUP SIGNIFICANC E CYTOL SMER CERV X60611 CERV HIGH 12-25-2016 [facility] RSK HUMAN PHYSICIANS PAPILLOMAVI GROUP PERI DNA TEST POS N390 URINARY 12-02-2016 [facility] TRACT PHYSICIANS INFECTION GROUP SITE NOT SPECIFIED R102 PELVIC AND 12-02-2016 [facility] PERINEAL PHYSICIANS PAIN GROUP Z392 ENCOUNTER 08-19-2016 [facility] FOR ROUTINE LLC FOLLOW-UP O80 ENCOUNTER 06-22-2016 [facility] FOR PHYSICIANS FULL-TERM GROUP UNCOMPLICAT ED DELIVERY Z370 SINGLE LIVE 06-22-2016 [facility] PHYSICIANS GROUP Z3A39 39 WEEKS 06-22-2016 [facility] INC Z3480 ENC 06-16-2016 [facility] SUPERVISION PHYSICIANS OTH NORMAL GROUP PREG UNS TRIMESTER O6003 06-09-2016 [facility] LABOR PHYSICIANS WITHOUT GROUP DELIVERY THIRD TRIMESTER I93753 DRUG USE 06-09-2016 [facility] COMPLICATIN PHYSICIANS G GROUP UNS TRIMESTER O4703 FALSE LABOR 06-01-2016 [facility] BEFORE 37 PHYSICIANS CMPLETE GROUP WEEKS GEST 3RD TRI Z3A36 36 WEEKS 06-01-2016 [facility] INC E48975 OTHER SPEC 05-21-2016 [facility] RELATED INC COND 3RD TRIMESTER O471 FALSE LABOR 05-21-2016 [facility] AT/AFTER PHYSICIANS 37 GROUP COMPLETED WEEKS GEST Z3A34 34 WEEKS 05-21-2016 [facility] INC R109 UNSPECIFIED 05-20-2016 [facility]BDOMINAL [facility] PAIN INC J069 ACUTE UPPER 05-11-2016 [facility] PH[facility]ICIANS, RESPIRATORY PLLC INFECTION UNSPECIFIED Q50247 DRUG USE 05-08-2016 [facility] COMPLICATIN PHYSICIANS G GROUP THIRD TRIMESTER E94688 SPOTTING 04-11-2016 [facility]PLICATIN [facility] G INC THIRD TRIMESTER [id number] DECREASED 04-11-2016 [facility] MOVEMENTS INC THIRD TRIMESTER NA/UNS Z3A28 28 WEEKS 04-11-2016 [facility] OF INC M42159 ABNORMAL 03-30-2016 [facility] GLUCOSE PHYSICIANS COMPLICATIN GROUP G R1011 RIGHT UPPER 03-19-2016 [facility] MEDICAL PAIN IMAGING ASS R110 NAUSEA 03-19-2016 [facility] N67330 OTHER SPEC 03-10-2016 [facility] COND 2ND TRIMESTER O479 FALSE LABOR 03-10-2016 [facility] PHYSICIANS UNSPECIFIED GROUP Z3A24 24 WEEKS 03-10-2016 [facility] OF INC Z3492 ENC 02-12-2016 [facility] MEDICAL NORMAL IMAGING ASS UNS 2 TRIMESTER Z36 ENCOUNTER 02-12-2016 [facility] INC SCREENING OF MOTHER Z3A20 20 WEEKS 02-12-2016 [facility] OF IMAGING ASS N898 OTHER 01-29-2016 [facility] SPECIFIED PHYSICIANS, NONINFLAMMA PLLC TORY DISORDERS VAGINA O209 HEMORRHAGE 01-29-2016 [place] [facility]LY MEDICAL IMAGING ASS UNSPECIFIED O2692 01-29-2016 [facility] RELATED PHYSICIANS, CONDITIONS PLLC UNS 2ND TRIMESTER Z3A18 18 WEEKS 01-29-2016 [facility] OF IMAGING ASS R75546 UTERINE 12-04-2015 [facility] SIZE-DATE PHYSICIANS DISCREPANCY GROUP FIRST TRIMESTER T63872 SPOTTING 12-01-2015 [place] COMPLICATIN MEDICAL G IMAGING ASS FIRST TRIMESTER O2691 12-01-2015 [facility] RELATED PHYSICIANS, CONDITIONS PLLC UNS 1ST TRIMESTER Z3A09 9 WEEKS 12-01-2015 [facility] OF IMAGING ASS B373 CANDIDIASIS 11-22-2015 [facility], OF VULVA LLC AND VAGINA Z113 ENCOUNTER 11-22-2015 [facility], SCREEN LLC INFECTIONS SEXL MODE TRANSMISSN Z3201 ENCOUNTER 11-22-2015 [facility] FOR PHYSICIANS GROUP TEST RESULT POSITIVE Z3481 ENC 11-22-2015 [facility], SUPERVISION LLC OTH NORMAL 1 TRIMESTER N3000 ACUTE 11-09-2015 [facility] CYSTITIS PHYSICIANS, WITHOUT PLLC HEMATURIA R112 NAUSEA WITH 10-29-2015 ST VOMITING [facility] UNSPECIFIED PHYSICIANS K088 OTH SPEC 10-26-2015 ST. DISORDERS [facility] TEETH & MILDRED SUPPORTING STRUCTURES J15795 OTHER SPEC 10-26-2015 [facility] RELATED PHYSICIANS COND 1ST TRIMESTER Q57194 OTHER SPEC 10-26-2015 ST. [facility] RELATED [facility] COND UNS TRIMESTER Y69022 SMOKING 10-26-2015 ST. TOBACCO [facility] COMP MILDRED UNS TRIMESTER Z3A00 WEEKS OF 10-26-2015 [facility] GESTATION EMERGENCY OF PHYSICIANS NOT SPECIFIED U01346 OTHER LONG 10-26-[address] ST. [address] [facility] CURRENT [facility] DRUG THERAPY Z881 ALLERGY 10-26-2015 ST. STATUS TO [facility] OTHER [place] ANTIBIOTIC AGENTS STATUS Z886 ALLERGY 10-26-2015 ST. STATUS TO [facility] ANALGESIC [place] AGENT STATUS Z720 TOBACCO USE 10-21-2015 [facility] J0190 ACUTE 10-10-2015 ST SINUSITIS [facility] UNSPECIFIED PHYSICIANS R05 COUGH 10-10-2015 ST [facility] PHYSICIANS M32652 PAIN IN 08-24-2015 ST LEFT ELBOW [facility] PHYSICIANS H23042 PAIN IN 08-24-2015 ST LEFT KNEE [facility] PHYSICIANS U30740F UNSPECIFIED 08-24-2015 ST INJURY [facility] LEFT ELBOW PHYSICIANS SUBSEQUENT ENCNTR D6563AM UNS INJURY 08-24-2015 ST LT LOWER [facility] LEG PHYSICIANS SUBSEQUENT ENCOUNTER T1490 INJURY 08-24-2015 ST UNSPECIFIED [facility] PHYSICIANS Z1867GH CONTUSION 08-22-2015 [facility] OF LEFT EMERGENCY ELBOW PHYSICIANS INITIAL ENCOUNTER K5805HM CONTUSION 08-22-2015 [facility] OF LEFT EMERGENCY KNEE PHYSICIANS INITIAL ENCOUNTER Z043 ENCOUNTER 08-22-2015 [facility] ASS[facility] OBSERVATION OF NOT FOLLOW OT ACCIDENT M545 LOW BACK 07-16-2015 ST PAIN [facility] PHYSICIANS Y23688 ARCUATE 06-06-2015 [facility] UTERUS PHYSICIANS GROUP M546 PAIN IN [...] FATIGUE [facility] PHYSICIANS Z789 OTHER 05-02-2015 SPECIFIED [facility] PHYSICIANS STATUS N939 ABNORMAL 04-30-2015 [facility] UTERINE & PHYSICIANS, VAGINAL PLLC BLEEDING UNSPECIFIED J0100 ACUTE 04-22-2015 ST MAXILLARY [facility] SINUSITIS PHYSICIANS UNSPECIFIED J40 BRONCHITIS 04-22-2015 NOT [facility] SPECIFIED PHYSICIANS ACUTE OR CHRONIC 5950 ACUTE 04-02-2015 ST CYSTITIS [facility] PHYSICIANS 32382 URINARY 04-02-2015 ST FREQUENCY [facility] PHYSICIANS 4778 ALLERGIC 03-19-2015 RHINITIS [facility] DUE TO PHYSICIANS OTHER ALLERGEN 6260 ABSENCE OF 03-19-2015 ST MENSTRUATIO [facility] N PHYSICIANS 10254 WHEEZING 03-19-2015 ST [facility] PHYSICIANS 7862 COUGH 03-19-2015 ST [facility] PHYSICIANS 07536 ABDOMINAL 03-19-2015 PAIN RIGHT PLATTER UPPER PHYSICIANS QUADRANT 5990 URINARY 02-24-2015 [facility] TRACT PHYSICIANS, INFECTION PLLC SITE NOT SPECIFIED 2662 OTHER 08-24-2014 [facility] B-COMPLEX HEALTH DEFICIENCIE DEPARTMENT S 03771 OTHER SIGN 08-24-2014 [facility] AND SYMPTOM [...] OF CLINIC UNSPECIFIED SITE 3829 UNSPECIFIED 04-25-2012 [facility] OT[facility] CLIN[facility] MEDIA 1121 CANDIDIASIS 04-18-2012 [facility] DEPARTMENT V2549 SURVEILLANC 04-18-2012 [facility] PRE[facility]NO[facility] PRSC CONTRACEPT METHOD 82942 UNSPECIFIED 04-12-2012 [facility] 3670 HYPERMETROP 03-24-2012 [facility] JERROD 4779 ALLERGIC 12-21-2011 [facility] CAUSE UNSPECIFIED 5259 UNSPECIFIED 12-11-2011 [facility] DISORDER [facility] STRUCTURES 89694 NAUSEA WITH 12-11-2011 [facility] VOMIT[facility] EMERGENCY PHYSICIANS L V2511 ENC FOR 01-26-2011 [facility] INSERTION HEALTH INTRAUTERIN DEPARTMENT E CONTRACEPT DEVICE V2509 OTH GENERAL 01-23-2011 [facility] HEALTH CNSL&ADVICE DEPARTMENT CONTRACEPT MANAGEMENT V7240 01-15-2011 [facility] EXAMINATION HEALTH /TEST DEPARTMENT UNCONFIRMED 7295 PAIN IN 12-15-2010 [facility] SOFT SERVICES TISSUES OF LIMB 8419 SPRAIN&STRA 12-15-2010 YASMANI IN [facility] UNSPECIFIED E HOSPITAL SITE E ELBOW&FOREA RM 9592 INJURY 12-15-2010 RADI[facility]Y OTHER&UNSPE SERVICES CIFIED SHOULDER&UP PER ARM E8499 UNSPECIFIED 12-15-2010 [facility] PLACE OF [facility] OCCURRENCE E HOSPITAL E E9289 UNSPECIFIED 12-15-2010 [facility] ACCIDENT [facility] E HOSPITAL E 6268 OTH D/O 07-28-2010 [facility] MENSTRUATIO CARE N&OTH ABN CENTERS OF BLEED FE EAST GNT TRACT 24565 PAIN IN 04-03-2010 [facility], PHYSICIANS FOREARM PSC 03350 ABDOMINAL 08-13-2009 RADI[facility] PAIN, SERVICES UNSPECIFIED SITE 7821 RASH AND 07-09-2009 PRIMARY OTHER CARE NONSPECIFIC CENTERS OF SKIN EAST ERUPTION 5220 PULPITIS 05-14-2009 [facility] 2826 UNSPEC 04-22-2009 [facility] SYMPTOM CARE ASSOC CENTERS OF W/FEMALE EAST GENITAL ORGANS 53135 NAUSEA 04-19-2009 [facility] HOSPITAL EMERGENCY SERVICES 7881 DYSURIA 04-19-2009 [facility] EMERGENCY SERVICES V7381 SPECIAL 04-18-2009 [facility] SCREENING [place] INC EXAMINATION HUMAN PAPILVIRUS V762 SCREENING 04-18-2009 [facility] OF FOR [facility] MALIGNANT NEOPLASM OF THE CERVIX V7241 04-02-2009 [facility]/CO EXAMINATION HEALTH OR TEST CENTRAL NEGATIVE BANK ACCT RESULT 86752 UNSPECIFIED 03-22-2009 [facility] PHILLIP W ASTIGMATISM 5206 DISTURBANCE 02-22-2009 Galina HARRELL IN TOOTH RENARD B ERUPTION 4163 DYSMENORRHE 02-05-2009 PRIMARY A CARE CENTERS [facility] 91208 OTHER 01-07-2009 YASMANI MALAISE [facility] 7906 OTHER 01-07-2009 YASMANI ABNORMAL [facility] BLOOD E HOSPITAL CHEMISTRY 90891 OTH 01-07-2009 DEE ABNORMAL MOY/MILNER BRAIN & BROWNING PROCESSOR N RHC FUNCTION STUDY 5368 DYSPEPSIA&O 01-03-2009 YASMANI THER SPEC [facility] DISORDERS E HOSPITAL FUNCTION EMERGENCY STOMACH SERVICES 7804 DIZZINESS 01-03-2009 YASMANI AND ZEESHANHOLLYCarolyn GIDDINESS E HOSPITAL EMERGENCY SERVICES 95106 CHEST PAIN 01-03-2009 RADIOLOGY UNSPECIFIED SERVICES 61882 PAIN IN 10-18-2008 [facility] JOINT, ASSOCIATES ANKLE AND PSC FOOT 13059 UNSPECIFIED 10-18-2008 [facility] SITE OF MEDICAL ANKLE GROUP SPRAIN AND STRAIN V242 ROUTINE 10-10-2008 PRIMARY CARE FOLLOW-UP CENTERS [facility] 490 BRONCHITIS 10-07-2008 [facility] NOT [facility] SPECIFIED E HOSPITAL ACUTE OR EMERGENCY CHRONIC SERVICES 5589 OTH&UNSPEC 09-20-2008 [place] NONINFECTIO [facility] GASTROENTER ITIS&COLITI S 7820 DISTURBANCE 08-13-2008 [facility] 18410 OTHER 08-13-2008 RAD[facility] DYSPNEA AND ASSOCIATES PSC RESPIRATORY ABNORMALITI ES 650 NORMAL 08-10-2008 ST DELIVERY [facility] 40687 POOR 08-10-2008 ST GROWTH [facility] AFFECT MED CTR MANAGEMENT MOTH DELIV 01746 POLYHYDRAMN 08-10-2008 ST IOS, WITH [facility] DELIVERY MED CTR 69956 HIGH 08-10-2008 ST VAGINAL [facility] LACERATION MED CTR WITH DELIVERY V270 OUTCOME OF 08-10-2008 ST DELIVERY [facility] SINGLE MED CTR LIVEBORN V279 OUTCOME OF 08-10-2008 [facility] DELIVERY, CINTI UNSPECIFIED PATHOLOGIST INC 2859 UNSPECIFIED 08-09-2008 [facility] 45767 PERIPH 08-09-2008 [facility] NEURITIS [facility] W/DELIV W/CURRENT PPC 12946 MATERNAL 08-09-2008 [facility] W/DELIVERY EAST W/CURRENT PPC V220 SUPERVISION 08-09-2008 [facility] [place] [facility] CTR 80076 TOB USE D/O 08-07-2008 [facility] COMP PG [place] /PP ANTEPARTM ASSOC LLC COND/COMP 45528 POLYHYDRAMN 08-07-2008 [facility] IOS [place] ANTEPARTUM COMPLICATIO ASSOC LLC N 24559 POOR 08-02-2008 [facility]MT [facility] ANTPRTM COND/COMP 08523 CNTRL NERV 07-30-2008 [facility] SYS [place] MALFORMATIO N IN FETUS ASSOC LLC ANTEPARTUM V283 ENCOUNTER 07-30-2008 [facility] ROUTINE [place] SCREEN MALFORMATIO ASSOC LLC N ULTRASONIC 40530 THREATENED 07-27-2008 [facility] LABOR EAST ANTEPARTUM 82539 DECR 07-27-2008 [facility] ANTPR[facility] COND/COMP V141 PERSONAL 07-27-2008 [facility] ALLERGY [facility] OTHER ANTIBIOTIC AGENT V149 PERSONAL 07-27-2008 [facility] ALLERGY [facility] UNSPEC MEDICINAL AGENT 7291 UNSPECIFIED 06-29-2008 [facility] AND PHYSICIANS MYOSITIS FOR WOMEN 34357 OTH CURRENT 06-17-2008 [facility] CLASS[facility]IANS E ELSW FOR WOMEN ANTPRTM 46090 ABDOMINAL 06-17-2008 [facility] PAIN OTHER HOSPITAL SPECIFIED EAST SITE 63650 SEVERE 06-13-2008 [facility] PRE-ECLAMPS HOSPITALS [place], PHYSICIANS ANTEPARTUM FOR WOMEN 7901 ELEVATED 06-13-2008 [facility] [place] 38302 OTH SPEC 06-11-2008 [facility] INDICAT [place] CARE/INTERV EN REL L&D ASSOC LLC ANTPRTM V2341 SUPERVISION 06-11-2008 [facility]ATER [place] W/HISTORY PRE-TERM ASSOC LLC LABOR 12834 SPOTTING 05-31-2008 [facility] OF COMP [place] INC ANTEPARTUM COND/COMP V222 05-03-2008 EMERGENCY STATE, CARE PHYS INCIDENTAL [facility] 93517 OTHER 04-30-2008 DENVER ALAS MD LABOR, ANTEPARTUM 69261 INFECTIONS 04-19-2008 [facility] GENITOURINA PHYSICIANS RY TRACT FOR WOMEN ANTEPARTUM 66358 MATERNAL 04-19-2008 [facility] ANTEPARTUM PHYSICIANS FOR WOMEN 83634 OTH 04-19-2008 [facility] KNOWN/SUSPE HOSPITALS CTED PHYSICIANS ABNORMALITY FOR WOMEN -NEC-APC/C V289 UNSPECIFIED 03-22-2008 [employer] DIAGNOSTICS SCREENING , INC. 7802 SYNCOPE AND 03-02-2008 [facility] 96385 ENTHESOPATH 02-24-2008 [facility] UNSPECIFIED EAST SITE 33074 OTHER 02-24-2008 EMERGENCY TENOSYNOVIT CARE PHYS IS OF HAND [facility] [place] [facility] 7840 HEADACHE 02-24-2008 DIAGNOSTIC CARDIOLOGIS TS INC 91909 UNSPECIFIED 02-01-2008 [facility] ANTEPARTUM [facility] HEMORRHAGE PHYSICIANS ANTEPARTUM FOR WOMEN 34691 RHESUS 02-01-2008 [facility] ISOIMMUN [facility] AFFCT MGMT [facility] MOTH ANTPRTM COND V072 NEED FOR 02-01-2008 [facility] PROPHYLACTI [facility] IMMUNOTHERA PY V221 SUPERVISION 02-01-2008 [facility] OF OF [place] NORMAL 22425 DEHYDRATION 01-12-2008 [facility] 463 ACUTE 01-12-2008 [facility] TONSILLITIS [facility] 7336 TIETZES 01-03-2008 EMERGENCY DISEASE CARE PHYS [facility] V5869 LONG-TERM 01-03-2008 [facility] (CURRENT) [facility] USE OF [facility] OTHER MEDICATIONS 6823 CELLULITIS 12-24-2007 [facility] AND ABSCESS MEM HOSP OF [facility]PPER INC ARM AND FOREARM 93402 THREATENED 12-22-2007 [facility] , [facility] ANTEPARTUM PHYSICIANS FOR WOMEN 10448 MILD 12-17-2007 [facility] HYPEREMESIS [email or web address] ANTEPARTUM PROF SERV 5494 OTH SPEC 12-15-2007 RAD[facility] SYMPTOM ASSOCIATES ASSOC PSC W/FEMALE GENITAL ORGANS 6200 FOLLICULAR 12-08-2007 [facility] OVARY PHYSICIANS FOR WOMEN V2541 SURVEILLANC 12-08-2007 [facility] E PREV [facility] PRESCRIBED PHYSICIANS CONTRACEPT FOR WOMEN PILL 63756 ABDOMINAL 11-18-2007 [facility] PAIN RIGHT MEM HOSP LOWER INC QUADRANT V258 OTHER 11-17-2007 [facility] SPECIFIED HOSPITALS CONTRACEPTI PHYSICIANS VE FOR WOMEN MANAGEMENT V2641 PROCREATIVE 11-17-2007 [facility] COUNSELING HOSPITALS & ADVICE PHYSICIANS NATURAL FAM FOR WOMEN PLAN V7231 ROUTINE 11-17-2007 [facility] GYNECOLOGIC [facility] AL PHYSICIANS EXAMINATION FOR WOMEN 10220 SPRAIN AND 11-12-2007 [place] STRAIN OF MEDICAL UNSPECIFIED IMAGING SITE OF ASSOCIATES FOOT E8490 PLACE OF 11-12-2007 [place] OCCURRENCE, MEDICAL HOME IMAGING ASSOCIATES E927 OVEREXERTIO 11-12-2007 [place] N&STRENUOUS MEDICAL &REPETITIVE IMAGING ASSOCIATES MVMNTS/LOAD S 6264 IRREGULAR 10-27-2007 [facility] MENSTRUAL [facility] CYCLE PHYSICIANS FOR WOMEN V146 PERSONAL 10-22-2007 HISTORY OF [facility] ALLERGY TO MEDICALCENT ANALGESIC ER AGENT 6202 OTHER AND 10-14-2007 UNSPECIFIED [facility]IAN MED CTR CYST 6262 EXCESSIVE 09-28-2007 RADI[facility] OR FREQUENT ASSOCIATES [place] N 86712 VOMITING 09-13-2007 [facility] AMB[facility]ANCE SERVICE V148 PERSONAL 09-13-2007 HISTORY [facility] ALLERGY OTH MEDICALCENT SPEC ER MEDICINAL AGTS 61836 INSOMNIA 08-30-2007 [facility] UNSPECIFIED [facility]ICAL GROUP Medications [...] MA CY MG #5 TA BL ET SC 65 09 10 14 7 00 TO [...] MA CY MG #5 TA BL ET SC 65 07 08 14 7 00 TO [...] 20 5- 5- 00 00 L ve SC 00 20 20 94 CA AM 60 [...] 20 6- 7- 00 00 L ve SC 00 20 20 94 CA AM 60 [...] 20 1- 3- 00 00 L ve SC 00 20 20 94 CA AM 60 [...] 20 4- 3- 00 00 L ve SC 00 20 20 93 CA AM 50 [...] CY 02 43 9 # 02 43 SC 00 01 01 20 5 RI 81 [...] RI 24 CO TA 39 BL ET SC 00 01 01 00 10 6 RI [...] 01 28 28 RI 72 WH Ac SC 55 -1 -1 .0 TE 72 IT [...] 00 14 7 RI 72 VA Ac SC 17 -0 -2 .0 TE 58 RG ti OF 25 3- 2- 00 33 HE ve LO 31 20 20 AI SE XA 26 09 09 D CI 0 PH RO N AR Y HC M# L 24 50 39 0 MG TA B EN 00 09 10 00 28 28 RI 72 WH Ac SC 55 -1 -2 .0 TE 72 IT [...] 00 28 28 HO 12 WH Ac SC 55 -1 -2 .0 ME 26 IT [...] EN CY B TA BL #5 ET SC 68 04 05 00 30 5 TO [...] 11 12 00 60 15 WA 27 VA Ac RB 11 -2 -0 .0 LG 51 ED ti UT 52 3- 4- 00 RE 96 LE ve AL 61 20 20 EN 2 R IN 10 08 08 # VA E 1 CH COELLO 07 AE LF [...] MG CY EN B TA BL ET SC 68 10 11 00 30 5 PH [...] 1% CY EN B CR EA M SC 10 09 09 00 10 3 PH [...] 20 AR IN 70 08 08 MA VA 1 CY CH 50 AE 0 #5 [...] LL CE 8 PH S TA AR VA MA NO CY PH N 37 .5 [...] 01 60 30 PH 63 No Ac SC 46 -1 -1 .0 AR 59 t [...] M bl 10 e -0 58 4 SC 00 03 04 00 6. 30 PH [...] 5 PH bl AR e MA CY SC 00 02 04 00 20 5 PH [...] 0 PH bl AR e MA CY SC 10 02 03 00 30 5 PH [...] 00 60 30 PH 63 No Ac SC 46 -1 -2 .0 AR 59 t [...] 6- 5- 00 MC 02 Av ve SC 00 20 20 AR ai AM 70 [...] 08 [facility] IT[facility] N FULL -DOS E IM RHO( 01-[address] D) 6-20 [facility] 08 [facility]AL [facility] N FULL -DOS E IM Procedures Procedure DOS [place] [id number] [facility], DINA SURG 7 [facility] PATHOLOGY GROSS&KEISHA ROSCOPIC EXAM COLPOSCOP [id number] [facility] GERSON Y CERVIX 7 PHYSICIAN ENDOCERVI S GROUP MEGAN CURETTAGE URNLS DIP 28586 [facility] NIETO 7 PHYSICIAN STICK/TAB S GROUP LET RGNT NON-[place] [address] [facility] GERSON TRANSVAGI 7 PHYSICIAN NAL S GROUP SUSCEPTIB 89451 [facility] LTY STDY 7 [facility] ANTIMICRB INC INC IAL MICRO/AGA R DILUTJ CULTURE 95464 [facility] BACTERIAL 7 [facility] INC INC QUANTTATI VE COLONY COUNT URINE CULTURE 00312 [facility] BCT 7 [facility] ISOL&PRSM INC INC PTV ID ISOLATE EA URINE IADNA [id number] [facility], DINA HUMAN 7 [facility] [place] VIRUS HIGH-RISK TYPES CYTP 88638 [facility] LABS, DINA CERVICAL/ 7 LLC VAGINAL REQ INTERP PHYSICIAN CYTP C/V 96544 P&C LABSDINA AUTO THIN 7 LLC LYR PREPJ SCR MNL RESCR PHYS VAGINAL 61005 [facility] DELIVERY 6 PHYSICIAN HARRY ONLY S GROUP W/POSTPAR TAHMINA CARE DELIVERY [id number] [facility] PRODUCTS 6 [facility] INC INC CONCEPTIO N EXTERNAL 36235 [facility] GERSON NONSTRESS 6 PHYSICIAN HARRY TEST S GROUP DRUG TST G0477 [facility] PRESUMP;C 6 PHYSICIAN HARRY PBL BEING S GROUP READ DC OPT OBV ONLY PARTICLE 61366 [facility] AGGLUTINA 6 [facility] TION INC INC SCREEN EACH ANTIBODY HANDLG&/O 94863 [facility] R CONVEY 6 PHYSICIAN PHYSICIAN OF SPEC S GROUP S GROUP FOR TR OFFICE TO LAB URNLS DIP 81230 [facility] FORT[facility]E 6 [facility] STICK/TAB INC INC LET REAGENT AUTO MICROSCOP Y EVAL C/V 80651 [facility] AMNIOTIC 6 [facility] FLUID INC INC PROTEIN QUAL EA SPECIMEN 29305 [facility] GERSON NONSTRESS 6 PHYSICIAN HARRY TEST S GROUP 86009 [facility] HARPEL NONSTRESS 6 PHYSICIAN TOOTIE TEST S GROUP THERAPEUT 97838 [facility] IC 6 [facility] PROPHYLAC INC INC TIC/DX INJECTION SUBQ/IM FTL 21911 [facility] T[facility] FIBRONECT 6 [facility] IN INC INC CERVICOVA [place] [address] TONG TONG INFUSION 6 [facility] THERAPY/P INC INC ROPHYLAXI S /DX 1ST TO 1 HR URNLS DIP 19284 [facility]E 6 [facility] STICK/TAB INC INC LET REAGENT AUTO MICROSCOP Y CULTURE 59994 [facility] BACTERIAL 6 [facility] INC INC QUANTTATI VE COLONY COUNT URINE 22963 TONG TONG NONSTRESS 6 [facility] TEST INC INC DRUG TST G0477 [facility] GERSON PRESUMP;C 6 PHYSICIAN HARRY PBL BEING S GROUP READ DC OPT OBV ONLY DRUG TST G0477 [facility] GERSON PRESUMP;C 6 PHYSICIAN HARRY PBL BEING S GROUP READ DC OPT OBV ONLY FTL 44115 [facility] FIBRONECT 6 [facility] IN INC INC CERVICOVA G SECRETION S [place] DRUG TST G0477 [facility] GERSON PRESUMP;C 6 PHYSICIAN HARRY PBL BEING S GROUP READ DC OPT OBV ONLY 37523 [facility] FORT[facility]E NONSTRESS 6 [facility] TEST INC INC DRUG TST G0477 [facility] PRESUMP;C 6 [facility] PBL BEING INC INC READ DC OPT OBV ONLY COLLECTIO 26741 [facility] GERSON N 6 PHYSICIAN HARRY CAPILLARY S GROUP BLOOD SPECIMEN GLUCOSE 63983 [facility] POST 6 PHYSICIAN PHYSICIAN [place] [address] [facility] ABDOMINAL 6 [facility] REAL INC INC TIME W/IMAGE LIMITED DRUG TST G0477 [facility] PRESUMP;C 6 [facility] PBL BEING INC INC READ DC OPT OBV ONLY 66390 [facility] HARPEL NONSTRESS 6 PHYSICIAN TOOTIE TEST S GROUP DRUG TST G0477 [facility] PRESUMP;C 6 [facility] PBL BEING INC INC READ DC OPT OBV ONLY DRUG TST G0477 [facility] GERSON PRESUMP;C 6 PHYSICIAN HARRY PBL BEING S GROUP READ DC OPT OBV ONLY US PREG 02973 [facility] 6 MEDICAL LETICIA AFTER 1ST IMAGING TRIMEST ASS 1 [place] PREG 26332 [facility] UTERUS 6 [facility] W/DETAIL [place] 1[place] [address] [facility] ALL 6 MEDICAL UTERUS IMAGING LIMITED ASS 1/> FETUSES DRUG TST G0477 [facility] GERSON PRESUMP;C 6 PHYSICIAN HARRY PBL BEING S GROUP READ DC OPT OBV ONLY US PREG 46402 [facility] GERSON UTERUS 6 PHYSICIAN HARRY REAL TIME S GROUP W/IMAGE DCMTN TRANSVAG [place] PREG 32224 [place] GREG UTERUS 6 MEDICAL LETICIA REAL TIME IMAGING W/IMAGE ASS DCMTN TRANSVAG CYTP C/V 12039 P&C LABS, PICKLESIM AUTO THIN 6 LLC ER JR NATALIE LYR PREPJ SCR MNL RESCR PHYS IADNA 29695 P&C LABS, PICKLESIM NEISSERIA 6 LLC ER JR NATALIE GONORRHOE AE AMPLIFIED PROBE TQ IADNA 86236 P&C LABS, PICKLESIM CHLAMYDIA 6 LLC ER JR NATALIE TRACHOMAT IS AMPLIFIED PROBE TQ DRUG TST G0477 [facility] GERSON PRESUMP;C 6 PHYSICIAN PBL BEING S GROUP READ DC OPT OBV ONLY DRUG TEST G0480 ST DEFINITV [address] ID MED CTR MED CTR METH P SIGHT MOUNTER ST SIGHT MOUNTER ST DAY 1-7 DRUG CL CULTURE 35949 [facility] BACTERIAL 6 MCKAYLA BLOCK MED CTR MED CTR QUANTTATI SIGHT MOUNTER SIGHT MOUNTER ST VE COLONY COUNT URINE DRUG TEST G0479 ST 6 MCKAYLA BLOCK PRESUMP;I MED CTR MED CTR NSTRUMENT SIGHT MOUNTER SIGHT MOUNTER ST ED CHEMISTRY ANLYZER GONADOTRO [address] PIN 6 MCKAYLA BLOCK CHORIONIC MILDRED MILDRED QUALITATI VE COLLECTIO [address] N VENOUS 6 MCKAYLA DALLASBETH BLOOD MILDRED MILDRED VENIPUNCT URE RADEX 72172 RADIOLOGY STONE ELBOW 6 GAR COMPLETE ASSOCIATE MINIMUM 3 S OF NOTH VIEWS RADIOLOGI 03595 RADIOLOGY STONE C EXAM 6 GAR KNEE ASSOCIATE COMPLETE S OF NOTH 4/MORE VIEWS RADEX 92932 RADIOLOGY SHERIE SPINE 5 CHR LUMBOSACR ASSOCIATE AL 2/3 S OF NOTH VIEWS RADEX 80375 RADIOLOGY LUBBERS SPINE 5 FRITZ THORACIC ASSOCIATE 2 VIEWS S OF NOTH INJECTION J0696 ST CABAN 5 MCAKYLA SHLOMO CEFTRIAXO NE SODIUM PHYSICIAN PER 250 S MG THERAPEUT [address] CABAN IC 5 MCKAYLA SHLOMO PROPHYLAC TIC/DX PHYSICIAN INJECTION S SUBQ/[place] [address] RADIOLOGY ERWIN SOUSA TRANSVAGI 5 [place] [address] RADIOLOGY BERTHA ABDOMINAL 5 JAM REAL ASSOCIATE TIME S OF NOTH W/IMAGE LIMITED US PELVIC 21487 RADIOLOGY ERWIN SOUSA 5 NONOBSTET ASSOCIATE MARYBEL S OF NOTH REAL-TIME IMAGE COMPLETE IADNA [address] CHLAMYDIA 5 MCKAYLA MCKAYLA MED CTR MED CTR TRACHOMAT SIGHT MOUNTER ST SIGHT MOUNTER [place] [address] THYROID 5 MCKAYLA MCKAYLA STIMULATI MED CTR MED CTR NG SIGHT M[address] [place] [address] FREE 5 MCKAYLA MCKAYLA THYROXINE MED CTR MED CTR SIGHT MOUNTER ST SIGHT MOUNTER ST COMPREHEN [address] SIVE 5 MCKAYLA MCKAYLA METABOLIC MED CTR MED CTR PANEL SIGHT MOUNTER ST SIGHT MOUNTER ST IADNA [address] NEISSERIA 5 MCKAYLA MCKAYLA MED CTR MED CTR GONORRHOE SIGHT MOUNTER ST SIGHT MOUNTER ST AE AMPLIFIED PROBE TQ URINE 94867 ST CABAN 5 MCKAYLA SHLOMO TEST VISUAL PHYSICIAN COLOR S CMPRSN METHS BLOOD [address] COUNT 5 MCKAYLA MCKAYLA COMPLETE MED CTR MED CTR AUTOMATED SIGHT MOUNTER ST SIGHT MOUNTER ST GONADOTRO [address] PIN 5 MCKAYLA MCKAYLA CHORIONIC MED CTR MED CTR SIGHT MOUNTER ST SIGHT MOUNTER ST QUALITATI VE URINE 78550 ST THRELKELD 5 MCKAYLA II UMER TEST VISUAL PHYSICIAN COLOR S CMPRSN METHS URINE 30141 TONG FORTUNE 5 [facility] TEST INC INC VISUAL COLOR CMPRSN METHS UNCLASSIF J3490 TONG TONG IED DRUGS 5 [facility] INC INC URNLS DIP 90102 TONG FORTUNE 5 [facility] STICK/TAB INC INC LET REAGENT AUTO MICROSCOP Y CULTURE 37321 TONG TONG BACTERIAL 5 [facility] INC INC [place] [address] TONG FORTUNE AMYLASE 5 [facility] INC INC COMPREHEN 29052 TONG TONG SIVE 5 [facility] METABOLIC INC INC PANEL BLOOD 99334 TONG FORTUNE COUNT 5 [facility] COMPLETE INC INC AUTO&[place] [address] TONG FORTUNE LIPASE 5 [facility] INC INC URINE 46412 [facility] 5 [facility] DE[facility] VISUAL T T COLOR CMPRSN METHS IIV3 VACC 22742 [facility]IE [facility] 3 HEALTH HEALTH PRESERVAT [facility] LUL FREE T T 0.5 ML DOSAGE IM USE CONTRACEP S4993 [facility] CHALRIE CO TIVE 3 HEALTH HEALTH PILLS FOR [facility] T T CONTROL IAADIADOO 86471 [facility] TAV[facility] INFLUENZA IAADIADOO 37600 [facility] TAVIA STREPTOCO CCUS GROUP A IIV3 97681 [facility] VACCINE 2 HEALTH HEALTH SPLIT [facility] VIRUS 0.5 T T ML DOSAGE IM USE CYTP 57237 [facility] CERV/VAG 2 DIAGNOSTI DIAGNOSTI AUTO THIN CS CS LAYER PREP MNL SCREEN SPHERE V2100 [facility] SINGLE 2 JERROD JERROD VISION PLANO +/- 4.00 PER LENS FITTING 06733 [facility] SPECTACLE 2 JERROD ELDER S XCPT APHAKIA MONOFOCAL OPHTH 90650 [facility] MEDICAL 2 JERROD ELDER XM&EVAL COMPRE NEW PT 1/> VST DETERMINA 92062 [facility] TION 2 JERROD ELDER REFRACTIV E STATE FRAMES V2020 [facility] PURCHASES 2 JERROD JERROD INJECTION J2001 YASMANI GRUBER 2 BECKINRID BECKINRID LIDOCAINE [facility] HCL HOSPITA HOSPITA INTRAVENO US INFUS 10 MG THERAPEUT 84949 YASMANI SOLIS 2 BECKINRID BECKINRID PROPHYLAC [facility] TIC/DX HOSPITA HOSPITA INJECTION SUBQ/IM INJECTION J2550 YASMANI GRUBER 2 BECKINRID BECKINRID PROMETHAZ [facility] INE HCL HOSPITA HOSPITA UP TO 50 MG INJECTION J0696 YASMANI GRUBER 2 BECKINRID BECKINRID CEFTRIAXO GE ARH GE AR[facility] NE SODIUM HOSPITA HOSPITA PER 250 MG LEVONORGE J7302 [facility] CHARLIE CO STREL-RLS 1 [facility] E DEPARTMEN DE[facility] INTRAUTER T T N CNTRACPT 52 MG INSERTION 01662 [facility] [place] CHARLIE CO [facility] INTRAUTER DEPARTMEN [facility] INE T T DEVICE IUD IADNA 65299 [facility]IE [facility] CHARLIE CO NEISSERIA 1 [facility] GONORRHOE T T AE AMPLIFIED PROBE TQ BLOOD 29762 [facility] CHARLIE CO COUNT [address] [facility] HEMOGLOBI DEPARTMEN DEPARTMISSISSIPPI [facility] N T T IADNA 34805 [facility]IE CO CHARLIE CO CHLAMYDIA 1 [facility]IP[facility] TRACHOMAT T T IS AMPLIFIED PROBE TQ URINE 10547 [facility] CHARLIE CO [facility] TEST DEPARTMEN [facility]PARTMISSISSIPPI [facility] VISUAL T T COLOR CMPRSN METHS RADEX 38452 YASMANI GRUBER FOREARM 2 1 JAZ SEBASTIAN VIEWS DGE DGE [facility] RADEX 25642 YASMANI GRUBER ELBOW 1 BRECKINRI BRECKINRI COMPLETE DGE DGE MINIMUM 3 [facility] VIEWS COLLECTIO 36221 PRIMARY PEDRO LUIS N VENOUS 1 CARE TOOTIE BLOOD [facility]ENTERS VENIPUNCT [facility] URE BLOOD 90702 PRIMARY PEDRO LUIS COUNT 1 [facility] COMPLETE CENTERS AUTO&AUTO [facility] DIFRNTL WBC IAADIADOO 07119 PRIMARY TRINIDAD 0 CARE DOROTHY STREPTOCO CENTERS CCUS [facility] GROUP A GONADOTRO 72115 PRIMARY TRINIDAD, PIN 0 CARE CTR ALLISON C [facility] [place] QUANTITAT [place] LUL GONADOTRO 06664 PRIMARY PEDRO LUIS PIN 0 CARE TOOTIE CHORIONIC [facility]ERS [facility] QUALITATI VE CT PELVIS 71665 RADIOLOGY BAL, A 0 SERVICES R W/[place] [address] RADIOLOGY BAL, A ABDOMEN 0 SERVICES R W/CONTRAS T MATERIAL COLLECTIO 96272 PRIMARY TRINIDAD N VENOUS 0 CARE DOROTHY BLOOD CENTERS VENIPUNCT [facility] URE URINE 66983 PRIMARY TRINIDAD 0 CARE DOROTHY TEST CENTERS VISUAL [facility] COLOR CMPRSN METHS CULTURE 70829 [facility] BACTERIAL 9 AN AN [facility] VE COLONY CT CT COUNT URINE URNLS DIP 37394 PRIMARY PEDRO LUIS 9 CARE [place]OTIE STICK/TAB CENTERS LET [facility] REAGENT AUTO MICROSCOP Y INFLUENZA G9141 DHS/CO CHARLIE CO A H1N1 9 HEALTH HEALTH IMMUNIZAT [facility] ION BANK ACCT T ADMINISTR ATION US PELVIC 97917 PRIMARY TRINIDAD 9 CARE DOROTHY NONOBSTET CENTERS MARYBEL [facility] REAL-TIME IMAGE COMPLETE URNLS DIP 32417 YASMANI GRUBER 9 BRECKINRI BRECKINRI STICK/TAB DGE DGE [facility] REAGENT AUTO MICROSCOP Y CULTURE 00236 YASMANI GRUBER BACTERIAL 9 BRECKINRI BRECKINRI DGE DGE [facility] VE COLONY COUNT URINE CUL BACT 58209 YASMANI GRUBER AEROBIC 9 BRECKINRI BRECKINRI ADDL DGE DGE [facility] DEFINITIV E EA ISOL SUSCEPTIB 51061 YASMANI GRUBER LTY STDY 9 BRECKINRI MAILEINRI ANTIMICRB DGE [facility] MICRO/AGA R DILUTJ IADNA 64548 [facility] CHLAMYDIA 9 [facility] TRACHOMAT IS AMPLIFIED PROBE TQ CYTP C/V 34793 [facility] AUTO THIN 9 [facility] INC LYR PREPJ SCR MNL RESCR PHYS IADNA 25244 [facility] PAP[place] 9 [facility] VIRUS HUMAN AMPLIFIED PROBE TQ IADNA 73660 [facility] NEISSERIA 9 [facility] GONORRHOE AE AMPLIFIED PROBE TQ IIV3 77632 DHS/CO CHARLIE CO VACCINE 9 [facility] VIRUS 0.5 BANK ACCT T ML DOSAGE IM USE URINE 09177 DHS/CO CHARLIE CO 9 [facility] VISUAL BANK ACCT T COLOR CMPRSN METHS GONADOTRO 26201 YASMANI GRUBER PIN 9 BREJESSINRI MAILEINRI [facility] QUANTITAT LUL ANALGESIA D9230 DALE HUNTER 9 [address] ANXIOLYSI GILBERT HUNT S INHALATIO N OF NITROUS OXIDE SPHERE V2100 [facility], SINGLE 9 MAURICE I MAURICE I VISION PLANO +/- 4.00 PER LENS FITTING 94121 [facility], SPECTACLE 9 MAURICE I MAURICE I S XCPT APHAKIA MONOFOCAL FRAMES V2020 [facility], PURCHASES 9 MAURICE I MAURICE I DETERMINA 15739 MARJAN PHILLIP TION 9 LEONIE W LEONIE W REFRACTIV E STATE DEEP D9220 JULIO CESAR HARRELL, SEDATION/ 9 RENARD Patel GENERAL ANESTHESI A-1ST 30 MINUTES ORTHOPANT 61486 JULIO CESAR HARRELL OGRAM 9 RENARD Patel ACUTE 92142 YASMANI GRUBER HEPATITIS 9 JAZ SEBASTIAN PANEL [facility] COMPREHEN 18880 YASMANI GRUBER SIVE 9 BRECKINRI BRECKINRI METABOLIC [facility] BLOOD 62009 YASMANI GRUBER COUNT 9 BRECKINRI BRECKINRI COMPLETE DGE DGE AUTO&AUTO [facility] [place] [address] RADIOLOGY BAL, A ABDOMINAL 9 SERVICES R REAL TIME W/IMAGE LIMITED URNLS DIP 68910 YASMANI GRUBER 9 BRECKINRI BRECKINRI STICK/TAB DGE DGE LET [facility] REAGENT AUTO MICROSCOP Y BASIC 49236 YASMANI GRUBER METABOLIC 9 BRECKINRI BRECKINRI PANEL DGE DGE [facility] TOTAL RADIOLOGI 35075 YASMANI GRUBER C EXAM 9 BRECKINRI BRECKINRI CHEST 2 DGE DGE [facility] FRONTAL&L ATERAL CULTURE 42380 YASMANI GRUBER BACTERIAL 9 BRECKINRI BRECKINRI DGE DGE [facility] [place] [address] YASMANI GRUBER TROPONIN 9 BRECKINRI BRECKINRI QUANTITAT DGE [facility]GE [facility] CREATINE 96058 YASMANI GRUBER KINASE MB 9 BRECKINRI BRECKINRI FRACTION DGE DGE [facility] ECG 07967 YASMANI GRUBER ROUTINE 9 BRECKINRI BRECKINRI ECG DGE DGE W/[facility] 12 LDS TRCG ONLY W/O I&R BLOOD 95812 YASMANI BOWEN 9 BRECKINRI BRECKINRI COMPLETE DGE DGE AUTO&AUTO [facility] DIFRNTL WBC CREATINE 90570 YASMANI GRUBER KINASE 9 BRECKINRI BRECKINRI TOTAL DGE DGE [facility] BILIRUBIN [address] DIRECT [facility] [place] [address] ST PHOSPHORU 9 [facility] S INORGANIC MEDICALCE MEDICALCE NTER NTER GONADOTRO [address] ST PIN 9 [facility] CHORIONIC MEDICALCE MEDICALCE QUANTITAT NTER NTER LUL BLOOD [address] COUNT 9 MCKAYLA MCKAYLA COMPLETE AUTO&AUTO MEDICALCE MEDICALCE DIFRNTL NTER NTER WBC COMPREHEN 83929 [facility] SIVE 9 [facility] METABOLIC PANEL MEDICALCE MEDICALCE NTER NTER IADNA 52645 [facility] NEISSERIA 9 [facility] GONORRHOE MEDICALCE MEDICALCE AE NTER NTER AMPLIFIED PROBE TQ COLLECTIO 82629 ST BE, N VENOUS 9 [facility] CTR VENIPUNCT URE IADNA 81964 [facility] CHLAMYDIA 9 [facility] TRACHOMAT MEDICALCE MEDICALCE IS NTER NTER AMPLIFIED PROBE TQ RADEX 31514 RADIOLOGY FRANSISCO, ANKLE 9 GENIA M COMPLETE ASSOCIATE MINIMUM 3 S PSC VIEWS COLLECTIO 14211 ST N VENOUS 9 [facility] VENIPUNCT URE GONADOTRO 02478 [facility] PIN 9 [facility] QUALITATI VE URINALYSI 04032 [facility] S [address] [place] [address] QUAL/SEMI QUANT EXCEPT [place] URINE [address] TEST VISUAL COLOR CMPRSN METHS URINE 35986 YASMANI GRUBER 9 BRECKINRI BRECKINRI TEST DGE [facility] COLOR CMPRSN METHS BASIC 83481 YASMANI GRUBER METABOLIC 9 BRECKINRI BRECKINRI PANEL DGE DGE [facility] TOTAL URNLS DIP 21486 YASMANI GRUBER 9 BRECKINRI BRECKINRI STICK/TAB DGE DGE [facility] REAGENT AUTO MICROSCOP Y RADIOLOGI 57028 YASMANI GRUBER C EXAM 9 BRECKINRI BRECKINRI CHEST 2 DGE DGE [facility] FRONTAL&L ATERAL BLOOD 27421 YASMANI GRUBER COUNT 9 BRECKINRI BRECKINRI COMPLETE DGE DGE AUTO&AUTO [facility] DIFRNTL WBC URNLS DIP 63681 TONG FORTUNE 9 [facility] STICK/TAB INC INC LET REAGENT AUTO MICROSCOP Y BASIC 04787 TONG FORTUNE METABOLIC 9 [facility] PANEL INC INC CALCIUM TOTAL BLOOD 04158 TONG FORTUNE COUNT 9 [facility] HOS[facility] HOS[facility] COMPLETE INC INC AUTO&AUTO DIFRNTL WBC RADIOLOGI 82171 RADIOLOGY SABRINA C 9 EXAMINATI ASSOCIATE MCKAYLA ON CHEST S PSC A [place] FRONTAL INITIAL 90397 NATALY POLLACK, INPATIENT 9 S AMBER CONSULT HEALTHCAR NEW/ESTAB E INC PT 55 MIN RADIOLOGI 25858 RADIOLOGY Eleno BENNETT EXAM 9 CHEST 2 ASSOCIATE MCKAYLA VIEWS S PSC A FRONTAL&L ATERAL ECHOENCEP 26284 RADIOLOGY DANIEL HALOGRAPH 9 JUNIOR Arteaga REAL ASSOCIATE TIME S PSC IMAGING RADIOLOGI 85249 RADIOLOGY JESSIKA C 9 MATTY H EXAMINATI ASSOCIATE ON CHEST S PSC [place] FRONTAL NEURAXIAL 39833 ST MANE, LABOR 9 MCKAYLA Myers ANALG/ANE MED CTR S [place] [address] GREATER ROSS, SURG 9 CINTI SANDER PATHOLOGY PATHOLOGI STINC GROSS&KEISHA ROSCOPIC EXAM VAGINAL 14473 [facility] 9 ROBER [place] ONLY MED CTR W/POSTPAR TAHMINA CARE EKG [address] REPAIR OF 7569 [facility] OTHER [address] [place] [address] CURRENT [facility] OBSTETRIC LACERATIO N OTHER 7309 [facility] ARTIFICIA [address] [place] [address] L RUPTURE [facility] OTHER 7359 [facility] MANUALLY [address] [place] [address] ASSISTED [facility] DELIVERY MEDICAL 734 [facility] INDUCTION [address] [place] [address] [facility]PITAL OF LABOR [facility] US PREG 23520 [facility], UTERUS 9 LIZ Gordon REAL TIME I W/IMAGE DCMTN [facility] [employer] DOPPLER 25625 [facility] ECHO [address] [place] [address] [facility] SPECTRAL DISPLAY COMPLETE DOPPLER 61361 GREATER JAEKLE, ECHO 9 LIZ Alas I PULS SPECTRAL ASSOC F/U/REPE[facility] T US PREG 23262 [facility] UTERUS [address] [place] [address] REAL TIME [facility] F/U TRNSABDL PER FETUS URNLS DIP [address] [facility] STICK/TAB [facility] LET REAGENT AUTO MICROSCOP Y OBSERVATI 95126 ST POLMACYK, ON/INPATI 9 MCKAYLA EVANGELIST Morris ENT MED CTR HOSPITAL CARE 50 MINUTES CULTURE 78545 [facility] BACTERIAL [address] [place] [address] QUANTTATI VE COLONY COUNT URINE OTHER 7534 [facility] [address] [place] [address] MONITORIN [facility] 31277 [facility] NONSTRESS [address] [place] [address] TEST [facility] 06209 [facility] NONSTRESS 9 MCKAYLA DENIZ TEST MED CTR J OTHER [address] MONITORIN [facility] CUL BACT 88382 [facility] XCPT 9 [facility] URINE BLOOD/STO MEDICALCE MEDICALCE OL NTER NTER AEROBIC ISOL IADNA 12014 [facility] CHLAMYDIA 9 [facility] TRACHOMAT MEDICALCE MEDICALCE IS NTER NTER AMPLIFIED PROBE TQ IADNA 97615 [facility] NEISSERIA 9 [facility] GONORRHOE MEDICALCE MEDICALCE AE NTER NTER AMPLIFIED PROBE TQ OBSERVATI 93207 ST BOHME, ON/INPATI 9 MCKAYLA GUAMAN ENT MED CTR J HOSPITAL CARE 40 MINUTES IADNA NOS 27787 [facility] DIRECT 9 [facility] PROBE TQ EACH MEDICALCE MEDICALCE ORGANISM NTER NTER PH BODY 92280 [facility] FLUID NOT [address] [place] [address] ELSEWHERE SPECIFIED SMR PRIM 68491 [facility] SRC WET [address] [place] [address] NFCT AGT OTHER 7534 [facility] [address] [place] [address] MONITORIN [facility] 71071 [facility] NONSTRESS [address] [place] [address] [place] PREG [address]358 [facility] UTERUS [address] [place] [address] REAL TIME [facility] F/U TRNSABDL PER [employer]ET[employer] DOPPLER 24101 [facility] ECHO [address] [place] [address] [facility] SPECTRAL DISPLAY COMPLETE 91684 [facility] [place], NONSTRESS [address] [place] [address] FAREED TEST PHYSICIAN S FOR WOMEN OTHER 7534 [facility] [address] [place] [address] MONITORIN [facility] G CULTURE 70520 [facility] TYP[facility] 8 [facility] IMMUNOLOG IC OTH/THN IMMUNOFLU ORES CULTURE 95670 [facility] BCT 8 [facility] ISOL&PRSM PTV ID ISOLATE EA URINE CULTURE 52961 [facility] BACTERIAL 8 [facility] QUANTTATI VE [place] PREG [address]249 [facility] UTERUS [address] [place] [address] REAL TIME [facility] W/IMAGE DCMTN TRANSVAG SMR PRIM [id number] [facility], SRC WET [address] [place] [address] NFCT AGT PHYSICIAN [facility] W[facility] [address] [facility] [address] [place] [address] TEST PHYSICIAN S FOR WOMEN RHO(D) 92080 [facility] IMMUNE [address] [place] [address] GLOBULIN [facility] HUMAN F[place] PREG 37753 [facility], UTERUS [address] [place] [address] W REAL TIME I F/U TRNSABDL ASSOC PER [employer] THER 75121 [facility] PROPH/DX [address] [place] [address] NJX [facility] SUBQ/IM ANTIBODY 51199 [facility] SCREEN [address] [place] [address] RBC EACH [facility] SERUM TECHNIQUE IADNA 50280 [facility] [place] 8 [facility] SPECIES DIRECT PROBE TQ IADNA 79518 [facility] [place] 8 [facility] GONORRHOE AE AMPLIFIED PROBE TQ IADNA 53243 [facility] TRICH[place] 8 [facility] [email or web address] INC VAGINALIS DIRECT PROBE TQ IADNA 45487 [facility] CHLAM[place] 8 [facility] TRACHOMAT IS AMPLIFIED PROBE TQ IADNA 05859 [facility] GARDNEREL 8 [facility] LA VAGINALIS DIRECT PROBE TQ OBSERVATI 08908 [place], ON/INPATI 8 BISHOP Brooks [facility] HOSPITAL CARE 55 MINUTES 67513 [facility] NONSTRESS 8 [facility] [place] P[place] [address] [facility], UTERUS 8 [facility] REAL TIME I F/U TRNSABDL ASSOC PER [employer] DETERMINA 08560 FAMILYNELA [facility] TION 8 [facility] J REFRACTIV CARE E STATE OPHTH 50802 NITIN [facility]N MEDICAL 8 [facility] XM&EVAL CARE COMPRHNSV ESTAB PT 1/> FITTING 16591 NITIN CALHOUN, SPECTACLE 8 [facility] S XCPT CARE APHAKIA MONOFOCAL 1 VISN V2103 NITIN CALHOUN, PLANO 8 [facility] J TO+/-4.00 CARE D SPHER 0.12-2.00 D CYL EA FRAMES V2020 NITIN CALHOUN, PURCHASES 8 [facility] CARE CUL BACT 11039 [facility] AEROBIC 8 [facility] ADDL METHS DEFINITIV E EA ISOL SUSCEPTIB 75207 [facility] LTY STDY 8 [facility] INC ANTIMICRB IAL MICRO/AGA R DILUTJ CULTURE 14321 [facility] BCT 8 [facility] INC ISOL&PRSM PTV ID ISOLATE EA URINE CULTURE 90653 [facility] BACTERIAL 8 [facility] QUANTTATI VE COLONY COUNT URINE THER 47364 [facility] PROPH/DX [address] [place] [address] NJX [facility] SUBQ/IM US PREG 81457 [facility] UTERUS [address] [place] [address] [place] [address] [facility]ST ESTRIOL 8 DIAGNOSTI DIAGNOSTI CS, INC. CS, INC. ALPHA-FET 10287 [facility] OPROTEIN 8 DIAGNOSTI DIAGNOSTI SERUM CS, INC. CS, INC. CHEMILUMI 92154 [facility] NESCENT 8 DIAGNOSTI DIAGNOSTI ASSAY CS, INC. [place], [place] A 12[address] QUEST QUEST 8 DIAGNOSTI DIAGNOSTI , INC. CS, INC. GONADOTRO 96863 [facility] QUEST PIN 8 DIAGNOSTI DIAGNOSTI CHORIONIC CS, INC. CS, INC. QUANTITAT LUL APPLICATI 9354 [facility] ON OF [address] [place] [address] SPLINT [facility] BLOOD 84589 [facility] COUNT [address] [place] [address] COMPLETE [facility] AUTO&AUTO DIFRNTL WBC BASIC 07653 [facility] METABOLIC [address] [place] [address] PANEL [facility] CALCIUM TOTAL ECG 48711 [facility] ROUTINE [address] [place] [address] ECG [facility] W/LEAST 12 LDS TRCG ONLY W/O I&R ECG 23055 DIAGNOSTI MCDANNOLD ROUTINE 8 C , CHRIS J ECG CARDIOLOG W/LEAST ISTS INC 12 LDS I&R ONLY THER 59838 [facility] PROPH/DX [address] [place] [address] NJX [facility] SUBQ/IM RHYTHM 67839 EMERGENCY CHANEY, ECG 1-3 8 CARE JUNIOR L LEADS PHYS INTERPRET [facility] [place] [address] GREATER [facility]AN[facility], 8 LIZ JUNIOR W UTERUS 14 I WK [facility] [place] 92190 [facility], UTERUS 8 LIZ PACHECO W REAL TIME I W/[place] [address] RADIOLOGY LÓPEZ, ABDOMINAL 8 KEISHA Dial REAL ASSOCIATE TIME S PSC W/IMAGE LIMITED RHO(D) 85871 [facility] IMMUNE [address] [place] [address] GLOBULIN [facility] HUMAN FULL-DOSE IM IADNA 52035 [facility] CHLAMYDIA 8 [place] [facility] TRACHOMAT IS AMPLIFIED PROBE TQ THER 03898 [facility] PROPH/DX [address] [place] [address] NJX [facility] SUBQ/IM CYTP C/V 28260 [facility] AUTO THIN 8 [facility] INC LYR PREPJ SCR MNL RESCR PHYS IADNA 70323 [facility] NEISS[place]IA 8 [place] [facility] GONORRHOE AE AMPLIFIED PROBE TQ ANTIBODY [address] RBC EACH [facility] SERUM TECHNIQUE US PREG 57591 [facility] UTERUS [address] [place] [address] REAL TIME [facility] W/IMAGE DCMTN TRANSVAG URNLS DIP [address] STICK/TAB [facility] LET RGNT AUTO W/O MICROSCOP Y BASIC [address] PANEL [facility] CALCIUM TOTAL BLOOD [address] COMPLETE [facility] AUTO&AUTO DIFRNTL WBC BLOOD 22543 [facility] COUNT 8 [facility] COMPLETE AUTO&AUTO MEDICALCE MEDICALCE DIFRNTL NTER NTER WBC BASIC 38919 [place] [address] [facility] PANEL CALCIUM MEDICALCE [place] [address] [facility] THER [address] [place] [address] PROPH/DX [facility] 1ST >1 HR ANTIBODY 01219 [facility] RODRIGO-B [address] [place] [address] ARR EB VIRUS MEDICALCE MEDICALCE VIRAL NTER NTER CAPSID VCA IAADIADOO 73803 [facility] 8 MEDICAL G, DUNG STREPTOCO GROUP B CCUS GROUP A COLLECTIO 30375 [facility] N VENOUS 8 MEDICAL G, DUNG BLOOD GROUP B VENIPUNCT URE ANTISTREP 64629 [facility] TOLYSIN O 8 [facility] SCREEN MEDICALCE MEDICALCE NTER NTER URNLS DIP [address] STICK/TAB [facility] LET RGNT AUTO W/O MICROSCOP Y IAADIADOO [address] STREPTOCO [facility] CCUS GROUP A CUL 28963 [facility] PRSMPTV [address] [place] [address] PTHGNC [facility] ORGANISM SCRN W/COLONY ESTIMJ INSJ 92846 [facility] NON-NDWEL [address] [place] [address] LG [facility] BLADDER CATHETER IADNA 58043 [facility] CHLAMYDIA [address] [place] [address] TRACHOMAT IS AMPLIFIED PROBE TQ URNLS DIP [address] STICK/TAB [facility] LET REAGENT AUTO MICROSCOP Y BASIC 23125 [facility] METABOLIC [address] [place] [address] PANEL [facility] CALCIUM TOTAL IADNA 94519 [facility] NEISSERIA [address] [place] [address] GONORRHOE AE AMPLIFIED PROBE TQ BLOOD 81096 [facility] COUNT [address] [place] [address] COMPLETE [facility] AUTO&AUTO DIFRNTL WBC GONADOTRO 01108 [facility] PIN [address] [place] [address] CHORIONIC [facility] QUANTITAT LUL RHYTHM 27113 EMERGENCY [place], ECG 1-3 8 CARE WALTER P LEADS PHYS INTERPRET [facility] [place] ECG [address] [facility] ROUTINE [address] [place] [address] ECG [facility] W/LEAST 12 LDS TRCG ONLY W/O I&R MOLECULAR 15438 [facility] COLEMAN QUEST COLEMAN DX AMP 8 HARRIETT LORENZANA [facility] EA ADDL SEQ MOLEC 93288 [facility] COLEMAN QUEST COLEMAN SEP&ID HI 8 HARRIETT DELANEYU TQ [facility] NUCLEIC ACID PREP MOLEC 78757 QUEST COLEMAN QUEST COLEMAN ISOL/XTRJ 8 HARRIETT LORENZANA HP [facility] ACID EA TYPE MOLECULAR 97069 QUEST COLEMAN QUEST COLEMAN DX AMP 8 HARRIETT LORENZANA [facility] 1ST 2 SEQ MOLECULAR 62779 QUEST COLEMAN QUEST COLEMAN 8 HARRIETT LORENZANA DIAGNOSTI [facility] INTERPRET ATION & REPORT MUTATION 35789 QUEST COLEMAN QUEST COLEMAN ID 8 [facility] LIG/PRIME R XTN 1 SGM EA BLOOD 81647 [facility] 8 [facility] COMPLETE INC INC AUTO&AUTO DIFRNTL WBC URINE 17291 [facility] TEST INC INC VISUAL COLOR CMPRSN METHS US PREG 21159 [facility] UTERUS 8 [facility] REAL TIME INC INC W/IMAGE DCMTN TRANSVAG BASIC 99281 [facility] METABOLIC 8 [facility] PANEL INC INC CALCIUM TOTAL URNLS DIP 22787 [facility] STICK/TAB INC INC LET REAGENT AUTO MICROSCOP Y CULTURE 24576 [facility] BACTERIAL 8 [facility] INC INC QUANTTATI VE COLONY COUNT URINE GONADOTRO 83878 [facility] PIN 8 [place] [facility] [place] [facility] CHORIONIC QUANTITAT LUL BILIRUBIN 55962 [facility] DIRECT 8 [place] [address] [facility] LIPASE 8 [facility] INC INC BLOOD 14155 [facility] TONG COUNT 8 [facility] COMPLETE INC INC AUTO&AUTO DIFRNTL WBC URNLS DIP 50996 [facility]E 8 [facility] STICK/TAB INC INC [place] [address] [facility] [place] AMYLASE 8 [facility] INC INC URINE 76359 T[facility]E 8 [facility] TEST INC INC VISUAL COLOR CMPRSN METHS COMPREHEN 39866 [facility] [place] SIVE 8 [facility] [place] [address] [place] [address] [address] [place] [address] [place] [address] [place] [address] [place] 99843 [facility] THER 8 [facility] PROPH/[place] [address] [facility] THER 8 [facility] PROPH/DX INC INC 1ST >[address] PELVIS 12338 CHAD SHAY, W/O 8 MEDICAL LISA P CONTRAST IMAGING MATERIAL ASSOCIATE S 3D 32202 CHAD SHAY, RENDERING 8 MEDICAL LISA P IMAGING W/INTERP& [place]OCI[place] [address] CHAD SHAY, ABDOMEN 8 MEDICAL LISA P W/O IMAGING CONTRAST ASSOCIATE MATERIAL S URNLS DIP 01940 [facility] 8 [facility] STICK/TAB INC INC LET REAGENT AUTO MICROSCOP Y COMPREHEN 10924 [facility] SIVE 8 [facility] METABOLIC INC INC PANEL URINE 94460 [facility] 8 [facility] TEST INC INC VISUAL COLOR CMPRSN METHS BLOOD 38334 [facility] COUNT 8 [facility] COMPLETE INC INC AUTO&AUTO DIFRNTL WBC IADNA 73511 [facility] [place] 8 [facility] GONORRHOE AE AMPLIFIED PROBE TQ CYTP C/V 73848 [facility] AUTO THIN 8 [facility] LYR PREPJ SCR MNL RESCR PHYS IADNA 06895 [facility] CHLAM[facility]IA 8 [facility] TRACHOMAT IS AMPLIFIED PROBE TQ US PELVIC 02546 [facility] 8 [facility] [place] [address] RADIOLOGY HURST, TRANSVAGI 8 RODNEY R NAL ASSOCIATE S PSC [place] PELVIC 96014 RADIOLOGY HURST, 8 RODNEY R NONOBSTET ASSOCIATE [facility]ARY[facility]EL IMAGE S [facility] DCMTN LIMITED/F /U URNLS DIP 74328 [facility] 8 [facility] STICK/TAB INC INC LET REAGENT AUTO MICROSCOP Y URINE 87217 [facility] 8 [facility] TEST INC INC VISUAL COLOR CMPRSN METHS RADEX 81456 [facility] ANKLE 8 [facility] COMPLETE INC INC MINIMUM 3 VIEWS RADEX 82280 CHAD SHAY, FOOT 8 MEDICAL LISA P COMPLETE IMAGING MINIMUM 3 ASSOCIATE VIEWS S ANTIBODY 40263 [facility] RUBELLA 8 [facility] INC ANTIBODY 00654 [facility] QUEST VARICELLA 8 DIAGNOSTI DIAGNOSTI -[place] [address] [facility] THYROID 8 [facility] STIMULATI NG HORMONE TSH GONADOTRO 86987 [facility] PIN 8 [facility] CHORIONIC QUANTITAT LUL URINE 73979 [facility] 8 [facility] TEST VISUAL MEDICALCE MEDICALCE COLOR NTER NTER CMPRSN METHS CULTURE 38690 [facility] BCT 8 [facility] ISOL&PRSM PTV ID MEDICALCE MEDICALCE ISOLATE NTER NTER EA URINE CULTURE 56138 [facility] BACTERIAL 8 [facility] QUANTTATI MEDICALCE MEDICALCE VE COLONY NTER NTER COUNT URINE URNLS DIP [address] STICK/TAB LET MEDICALCE MEDICALCE REAGENT NTER NTER AUTO MICROSCOP Y URINE 93838 [facility] [address] [place] [place] [address] VISUAL COLOR CMPRSN METHS IAADIADOO [address] VAGINALIS IADNA [address] [facility] CHLAMYDIA [address] [place] [address] TRACHOMAT IS AMPLIFIED PROBE TQ IADNA 64399 [facility] NEISSERIA [address] [place] [address] GONORRHOE AE AMPLIFIED PROBE TQ COLLECTIO 23162 [facility] N VENOUS [address] [place] [address] VENIPUNCT URE BLOOD 48397 [facility] COUNT [address] [place] [address] AUTO&[place] [address] RADIOLOGY DOERGER, TRANSVAGI 8 RHYS M NAL ASSOCIATE S [place]SC [place] [address] [facility] REAL-TIME IMAGE COMPLETE HEPATIC [address] FUNCTION 8 [facility] PANEL MEDICALCE [place] [address] HYDRATION 8 [facility] EA HR MEDICALCE MEDICALCE NTER NTER GROUND A0425 KOJO KOJO MILEAGE 8 CO CO PER AMBULANCE AMBULANCE STATUTE SERVICE SERVICE MILE AMBULANCE A0429 KOJO KOJO SERVICE 8 CO CO BLS AMBULANCE AMBULANCE EMERGENCY SERVICE SERVICE TRANSPORT THER [address] PROPH/DX 8 [facility] NJX IV PUSH 1ST MEDICALCE MEDICALCE SBST/DRUG NTER NTER COLLECTIO 84062 [facility] N VENOUS 8 [facility] BLOOD VENIPUNCT MEDICALCE MEDICALCE URE NTER NTER BLOOD [address] COUNT 8 [facility] COMPLETE AUTO&AUTO MEDICALCE MEDICAL[place] [address] LIPASE 8 [facility] MEDICALCE MEDICALCE NTER NTER THER [address] PROPH/DX 8 [facility] SUBQ/IM CULTURE 16283 [facility] BACTERIAL [address] [place] [address] QUANTTATI VE COLONY COUNT URINE URINE 97232 [facility] [address] [place] [place] [address] VISUAL COLOR CMPRSN METHS IADNA 10991 [facility] 8 [facility] TRACHOMAT IS AMPLIFIED PROBE TQ IADNA 45109 [facility] GARDNEREL 8 [facility] INC LA VAGINALIS DIRECT PROBE TQ IADNA 90304 [facility] [place] 8 [facility] GONORRHOE AE AMPLIFIED PROBE TQ IADNA 63361 [facility] [place] 8 [facility] SPECIES DIRECT PROBE TQ IADNA 67872 [facility] TRICHOMON 8 [facility] [place] [address] ABDOMEN 8 [facility] W/[facility] T MATERIAL CT PELVIS 30701 RADIOLOGY PABLO 8 [facility]IE [facility] ASSOCIATE [facility] PSC MATERIAL Encounters Encounter Start End Date Code Location Performer Type Date [facility] TONG - 7 7 [facility] OUTPATIEN [facility] TONG - 6 6 [facility] OFFICE 38811 [facility] NIETO OUTPATIEN 6 6 PHYSICIAN HARRY T VISIT S GROUP 15 MINUTES HOSPITAL TONG - 6 6 [facility]PATIEN [facility] TONG - 6 6 [facility] TONG - 6 6 [facility] TONG - 6 6 [facility] OFF[facility] 84743 [facility] NIETO OUTPATIEN 6 6 PHYSICIAN HARRY T VISIT S GROUP 15 MINUTES EMERGENCY 96818 [facility] 6 6 PHYSICIAN DEPARTMEN S, [facility] T VISIT MODERATE SEVERITY HOSPITAL TONG - 6 6 [facility] 56848 [facility] GERSON OUTPATIEN 6 6 PHYSICIAN HARRY T VISIT S GROUP 15 MINUTES OFFICE 07800 [facility] NIETO OUTPATIEN 6 6 PHYSICIAN HARRY T VISIT S GROUP 15 MINUTES HOSPITAL TONG - 6 6 [facility] OUTPATIEN [facility] TONG - 6 6 [facility] OFFICE 97934 [facility] NIETO OUTPATIEN 6 6 PHYSICIAN HARRY T VISIT S GROUP 15 MINUTES HOSPITAL TONG - 6 6 [facility] OUTPATIEN [facility] TONG - 6 6 [facility] OUTPATIEN [facility] HOSPITAL TONG - 6 6 [facility] OUTPATIEN [facility] OFFICE 66106 [facility] NIETO OUTPATIEN 6 6 PHYSICIAN HARRY T VISIT S GROUP 15 MINUTES EMERGENCY 02645 LOUANN RAMIREZ 6 6 PHYSICIAN [facility] T VISIT HIGH/URGE NT SEVERITY EMERGENCY 08188 LOUANN SOTINGEAN 6 6 PHYSICIAN U [facility] T VISIT HIGH/URGE NT SEVERITY OFFICE 07563 [facility] OUTPATIEN 6 6 PHYSICIAN T VISIT S GROUP 25 MINUTES OFFICE 36296 [facility] OUTPATIEN 6 6 PHYSICIAN T NEW 45 S GROUP MINUTES EMERGENCY 98090 LOUANN DENNIS 6 6 PHYSICIAN KEISHA [facility] T VISIT HIGH/URGE NT SEVERITY [facility]PITAL ST - 6 6 [facility] OFFICE 10[address] [facility] OUTPATIEN 6 6 [facility] SHLOMO T VISIT [address] - 6 6 [facility] OUTPATIEN [facility] T EMERGENCY [address] ST[facility] 6 6 MCKAYLA [facility] MILDRED T VISIT MODERATE SEVERITY EMERGENCY 14478 [facility] 6 6 [facility] T VISIT PHYSICIAN HIGH/URGE S NT SEVERITY EMERGENCY 58253 LOUANNDominique MEDINAEAN 6 6 PHYSICIAN U [facility] T VISIT LOW/MODER SEVERITY HOSPITAL TONG - 6 6 [facility] OUTPATIEN [facility] OFFICE 905[address] [facility] OUTPATIEN 6 6 MCKAYLA SHLOMO T VISIT 15 PHYSICIAN MINUTES OFFICE [address]75[address] [facility] OUTPATIEN 6 6 MCKAYLA II UMER T VISIT 25 PHYSICIAN MINUTES S EMERGENCY 75378 [facility] 6 6 [facility] T VISIT PHYSICIAN HIGH/URGE S NT SEVERITY OFFICE 58039 [facility] OUTPATIEN 5 5 MCKAYLAPASTORA KEENAN T VISIT 15 PHYSICIAN MINUTES S OFFICE 47672 [facility] NIETO OUTPATIEN 5 5 PHYSICIAN HARRY T NEW 30 S GROUP MINUTES OFFICE [address]131 [facility] OUTPATIEN 5 5 MCKAYLAPASTORA KEENAN T VISIT [address] - 5 [address] [facility] - 5 [address] [facility] [address] [facility] [address] - 5 5 [facility] OUT[facility] CTR T SIGHT MOUNTER OFFICE 87933 [facility] OUTPATIEN 5 5 MCKAYLA KEENAN T VISIT 25 PHYSICIAN MINUTES S EMERGENCY 47030 LOUANN DENNIS 5 5 PHYSICIAN [facility] DEPARTMEN S, PLLC T VISIT MODERATE SEVERITY OFFICE 90922 [facility] OUTPATIEN 5 5 MCKAYLAPASTORA KEENAN T VISIT 25 PHYSICIAN MINUTES S OFFICE [address] [facility] OUTPATIEN 5 5 MCKAYLA II UMER T VISIT 15 PHYSICIAN MINUTES S OFFICE 44[address] [facility] OUTPATIEN 5 5 MCKAYLA II UMER T NEW 30 MINUTES PHYSICIAN S [facility]OSP[facility] ST - 5 5 [facility] OUTPATIEN MED CTR T SIGHT MOUNTER [facility] TONG - 5 5 [facility] OUTPATIEN INC T EMERGENCY 53559 TONG 5 5 [facility] DEPARTMEN INC T VISIT MODERATE SEVERITY EMERGENCY 19933 LOUANN MCDONALD 5 5 PHYSICIAN U [facility] DEPARTMEN S, PLLC T VISIT HIGH/URGE NT SEVERITY OFFICE 10384 [facility] OUTPATIEN 5 5 [facility]ALTH [facility] T VISIT DEPARTMEN DEPARTMEN 15 T T MINUTES OFFICE 18727 [facility] OUTPATIEN 3 3 HEALTH T VISIT DEPARTMEN 15 T MINUTES OFFICE 03943 [facility] 2 2 CLINIC DOROTHY T VISIT 15 MINUTES OFFICE 32213 [facility] OUT[facility] 2 2 CLINIC TAVIA T VISIT 15 MINUTES OFFICE 22216 [facility] OUT[facility] 2 2 CLINIC DOROTHY T VISIT 15 MINUTES OFFICE 31015 [facility] OUTPATIEN 2 2 [facility]ALTH HEALTH T VISIT DEPARTMEN DEPARTMEN 15 T T MINUTES PERIODIC 53568 [facility] PREVENTIV 2 2 [facility]ALTH HEALTH E MED EST DEPARTMEN DEPARTMEN PATIENT T T 18-39 YRS OFFICE 18991 [facility] 2 2 CLINIC DOROTHY T VISIT 15 MINUTES OFFICE 05168 [facility] OUT[facility] 2 2 CLINIC DOROTHY T VISIT 15 MINUTES OFFICE 57997 [facility] OUTPATIEN 2 2 CLINIC DOROTHY T NEW 30 MINUTES EMERGENCY 62238 YASMANI 2 2 [facility] T VISIT HOSPITA MODERATE SEVERITY HOSPITAL YASMANI - 2 2 [facility] OUTPATIEN GE ARH T HOSPITA OFFICE 73746 [facility] OUTPATIEN 1 1 [facility]ALTH HEALTH T VISIT DEPARTMEN DEPARTMEN 15 T T MINUTES PERIODIC 35360 [facility] PREVENTIV 1 1 [facility]ALTH HEALTH E MED EST DEPARTMEN DEPARTMEN PATIENT T T 18-39 YRS OFFICE 74719 [facility] OUTPATIEN 1 1 [facility]ALTH HEALTH T VISIT 5 DEPARTMEN DEPARTMEN MINUTES T T EMERGENCY 65284 YASMANI 1 1 JAZ [facility] DGE T VISIT HOSPITAL LOW/MODER SEVERITY EMERGENCY 77990 YASMANI CHAPIN 1 1 JAZ OMALLEY [facility] DGE T VISIT HOSPITAL MODERATE E SEVERITY HOSPITAL YASMANI - 1 1 [facility] OUTPATI[facility] D[facility] T HOSPITAL OFFICE 39039 [facility] OUTPATIEN 1 1 [facility]ARE TOOTIE T V[facility] 15492 APPALACHI MERRITT DEL OUTPATIEN 0 0 AN T NEW 20 PHYSICIAN MINUTES S [facility] OFFICE 80469 [facility] TRINIDAD OUTPATIEN 0 0 CARE DOROTHY T V[facility]IT [facility] OFFICE 84258 [facility] P[facility]RO LU[facility] OUTPATIEN 0 0 CARE TOOTIE T VISIT [facility]ENTERS [facility] YASMANI - 0 0 [facility] OUTPATIEN DGE T HOSPITAL OFFICE 50204 PRIMARY TRINIDAD OUTPATIEN 0 0 CARE DOROTHY T V[facility] OFFICE 31906 PR[facility] PEDRO LUIS OUTPATIEN 9 9 CARE TOOTIE T VISIT [facility] OFFICE 47491 PRIMARY TRIN[facility]AD OUTPATIEN 9 9 CARE DOROTHY T VISIT CENTERS 15 OF [facility] APPALACHI - 9 9 AN OUTPATIEN REGIONAL T MEDICAL CT OFFICE 67024 PRIMARY PEDRO LUIS OUTPATIEN 9 9 CARE TOOTIE T VIS[facility] OFFICE 47246 PRIMARY TR[facility]AD OUTPATIEN 9 9 CARE DOROTHY T VISIT CENTERS 15 OF [facility] YASMANI - 9 9 BRECKINRI OUTPATIEN DGE T HOSPITAL EMERGENCY 67588 YASMANI BEATTY, 9 9 JAZ MARINA [facility] DGE T VISIT HOSPITAL MODERATE EMERGENCY SEVERITY SERVICES EMERGENCY 39278 YASMANI 9 9 BRECKINRI [facility] DGE T VISIT HOSPITAL LOW/MODER SEVERITY OFFICE 74612 PRIMARY TRINIDAD OUTPATIEN 9 9 CARE DOROTHY T VISIT CENTERS [facility] OFFICE 73589 PRIMARY TR[facility]IDAD OUTPATIEN 9 9 CARE DOROTHY T VISIT CENTERS [facility] OFFICE 19414 DEE MENENDEZ OUTPATIEN 9 9 MOY/HY LINDSEY Morris T VISIT 5 DEN [facility] YASMANI - 9 9 BRECKINRI OUTPATIEN DGE T HOSPITAL OFFICE 21378 DHS/CO CHARLIE CO OUTPATIEN 9 [address] [facility] [address] ACCT OFFICE 21645 MARJAN PHILLIP OUTPATIEN 9 9 LEONIE HADLEY Evan T [facility] 30 [facility] 29476 PRIMARY TRINIDAD PREVENTIV 9 9 CARE DOROTHY E MED EST CENTERS PATIENT OF [facility] [id number] OFFICE 24269 PRIMARY PEDRO LUIS OUTPATIEN 9 9 CARE TOOTIE T VISIT CENTERS [facility] OFFICE 11719 JULIO CESAR HARRELL OUTPATIEN 9 9 RENARD Patel T [facility] 20 [facility] YASMANI - 9 9 BRECKINRI OUTPATIEN DGE T HOSPITAL OFFICE 42644 DEE ALMARAZPATIEN 9 9 MOY/HY ANASTACIO T VISIT [facility] ZEYNEP 10 [facility] YASMANI - 9 9 BRECKINRI OUTPATIEN DGE T HOSPITAL EMERGENCY 47760 YASMANI LARA, 9 9 [facility] MODERATE EMERGENCY SEVERITY SERVICES HOSPITAL YASMANI - 9 9 [place] OUTPATIEN DGE T HOSPITAL EMERGENCY 07157 YASMANI 9 9 [facility] LOW/MODER SEVERITY EMERGENCY 92624 EMERGENCY RICHARDSO 9 9 LEONIE TSAI DEPARTMEN PHYS T VISIT [facility] H[place] [facility] - 9 9 [facility] MEDICALCE [facility]TER OFFICE 25554 [facility] 9 9 MCKAYLA TAYLOR T VISIT MED CTR 15 MINUTES OFFICE 26180 [facility] 9 9 MEDICAL ROSALES E T VISIT GROUP 15 MINUTES OFFICE 49208 [facility]IS [facility] 9 9 MEDICAL ROSALES E T VISIT GROUP [address] - 9 9 [facility] EMERGENCY 81333 MARILIN LEGGETTRD 9 9 HOSP MED I, [facility] E T VISIT LOW/MODER SEVERITY HOSPITAL [address] [facility] 16044 [facility]IMARY [facility] 9 9 CARE DOROTHY T NEW 20 CENTERS MINUTES OF [facility] YASMANI - 9 9 [facility] EMERGENCY 02482 YASMANI LARA, 9 9 [facility]RI [facility] DGE T VISIT HOSPITAL LOW/MODER EMERGENCY SEVERITY SERVICES EMERGENCY 62183 VIVI SONNY, 9 9 [facility] DEPARTMEN CORPORATI T VISIT ON MODERATE SEVERITY [facility]OSP[facility] - 9 9 [facility] 9 9 HOSPITAL INPATIENT [facility] OFFICE 86314 MIKAELA ESTRADA 9 9 MCKAYLA VAZQUEZ T VISIT MED CTR 15 MINUTES OFFICE 25392 LEODAN ELKINS 9 9 [facility] ION I NEW/ESTAB PATIENT ASSOC 15 MIN [facility] OFFICE 39955 MIKAELA ESTRADA 9 9 MCKAYLA SCHAEFERLL T VISIT MED CTR [address] [facility] 9 9 [facility] 9 9 [facility] OFFICE 48937 [facility] 9 9 HOSPITAL T VISIT EAST 40 MINUTES OFFICE [address]203 [place] [address] 9 HOSPITAL T VISIT [facility] 40 MINUTES HOSPITAL [place] [id number] 9 [facility] OFFICE 56547 [facility] 9 9 MCKAYLA VAZQUEZ T [facility]IT [facility] 15 MINUTES OFFICE [address]0562 [place] [address] 9 HOSPITAL T VISIT [facility] 40 MINUTES [facility] [place] [address] 9 [facility] [place] [address] 8 [facility] OFFICE 88312 [facility] 8 8 [facility] T [facility]ISIT 15 PHYSICIAN MINUTES S FOR WOMEN OFFICE 29642 [facility] 8 8 [facility] T [facility]ISIT 15 PHYSICIAN MINUT[facility] [place] [address] 8 [facility] OFFICE 00436 [facility] 8 8 [facility] III, T VISIT JJ 15 PHYSICIAN MINUTES S FOR WOMEN OFFICE 78544 [facility] 8 8 [facility] [place] T VISIT 15 PHYSICIAN MINUTES S [facility] [place] [address] 8 [facility] OFFICE 65806 [facility] 8 8 [facility] T VISIT 15 PHYSICIAN MINUTES S [facility] [place] [address] 8 [facility] OFFICE 34336 [facility] 8 8 [facility] [place] T VISIT 15 PHYSICIAN MINUTES S FOR WOMEN OFFICE 33821 [facility] 8 8 [facility] T VISIT 10 PHYSICIAN MINUTES S FOR WOMEN EMERGENCY 70940 EMERGENCY HERFE, 8 8 CARE DOROTHY Myers [facility] V[facility]IT [facility] [place] [facility] T[facility] - 8 8 [facility] [place] [address] 8 [facility] OFFICE 71165 [facility] 8 8 [facility] T VISIT 15 PHYSICIAN MINUTES S FOR WOMEN OFFICE 62267 [facility] 8 8 MEDICAL DUNG Leon T VISIT GROUP B 15 MINUTES [facility] [place] [address] 8 [facility] EMERGENCY 90179 [place] [address] 8 [facility] VISIT MODERATE SEVERITY [facility]OSP[facility] [place] [address] 8 [facility] OFFICE 57626 [place] [address] 8 MEDICAL DUNG Leon VISIT GROUP B 15 MINUTES EMERGENCY 50835 EMERGENCY RITU DEPT 8 8 CARE JUNIOR Dial VISIT PHYS [facility]IGH [facility] [place] [place] FUNJ OFF[place] 23577 [facility] 8 8 [facility] T VISIT 15 PHYSICIAN MINUTES S FOR W[facility] [place] [address] 8 [facility] EMERGENCY 99950 [place] [address] 8 [facility] VISIT MODERATE SEVERITY [facility] [place] [address] 8 [facility] [place] [address] 8 [facility] [place] [address] 8 [facility] OFFICE 63603 [facility] 8 8 [facility] T VISIT 25 PHYSICIAN MINUTES S FOR WOMEN EMERGENCY 24821 EMERGENCY VEST, 8 8 CARE ZEKE DEPARTMEN PHYS T VISIT [facility] [place] [facility] [place] [address] 8 [facility] [place] [address] 8 [facility] EMERGENCY 04661 EMERGENCY VEST, 8 8 CARE ZEKE DEPARTMEN PHYS T VISIT [facility] [place] [facility] 8 [facility] MEDICALCE NTER OFFICE 62058 [facility] 8 8 MEDICAL DUNG Leon T VISIT GROUP B 15 MINUTES EMERGENCY 18977 EMERGENCY HERFEL, 8 8 CARE DOROTHY F DEPARTMEN PHYS T VISIT [facility] [place] [facility] [place] [address] 8 [facility] EMERGENCY 60126 [place] [address] 8 [facility] VISIT MODERATE SEVERITY [facility]OSP[facility] [place] [address] 8 [facility] EMERGENCY [address] VISIT LOW/MODER SEVERITY HOSPITAL [place] [address] 8 [facility] EMERGENCY 67820 EMERGENCY [place], 8 8 CARE WALTER P DEPARTMEN PHYS T VISIT [facility] [place] OFFICE 29911 [facility] 8 8 HOSPITALS III, T VISIT 5 JJ MINUTES PHYSICIAN S FOR WOMEN EMERGENCY 03035 [place] 8 8 [facility] T VISIT MODERATE SEVERITY HOSPITAL [place] [address] 8 [facility] OUTPATIEN INC T OFFICE 38982 [facility] 8 8 [facility] T VISIT 10 PHYSICIAN MINUTES S FOR WOMEN EMERGENCY 28743 [facility] 8 8 [facility] DEPARTMEN INC T VISIT MODERATE SEVERITY [facility]OSP[facility] [place] [address] 8 [facility] T [facility] 8 [facility] T OFFICE 62725 [facility] 8 8 [facility] T VISIT 15 PHYSICIAN MINUTES S FOR W[facility] [place] [address] 8 [facility] OUTPATIEN INC T EMERGENCY 76847 [facility] 8 8 [facility] DEPARTMEN INC T VISIT MODERATE SEVERITY OFFICE 95531 [facility] 8 8 [facility] A, ROBER T VISIT 25 PHYSICIAN MINUTES S FOR WOMEN [facility]OSP[facility] 8 [facility] T HOSPITAL [place] [address] 8 [facility] T EMERGENCY 33485 [facility] 8 8 [facility] DEPARTMEN INC T VISIT MODERATE SEVERITY OFFICE 13080 [facility] 8 8 [facility] T VISIT 15 PHYSICIAN MINUTES S FOR WOMEN EMERGENCY 19754 [facility] 8 8 [place] [facility] T VISIT HIGH/URGE NT SEVERITY EMERGENCY 98342 [facility] 8 [facility] T VISIT MEDICALCE MODERATE NTER SEVERITY [facility]OSPITAL [facility] 8 8 [facility] T MEDICALCE NTER EMERGENCY 67911 [facility] 8 8 [place] Dial DEPARTMEN MED CTR T VISIT HIGH/URGE NT SEVERITY EMERGENCY [address] T VISIT MODERATE SEVERITY HOSPITAL [facility] 8 [facility] 8 [facility] T OFFICE 26393 [facility] 8 8 MEDICAL G DUNG T VISIT GROUP B 15 MINUTES EMERGENCY [address] T VISIT MEDICALCE MODERATE NTER SEVERITY HOSPITAL [facility] 8 [facility] MEDICALCE NTER EMERGENCY [address] E VISIT MED CTR HIGH SEVERITY& THREAT FUNJ EMERGENCY [address] T VISIT MODERATE SEVERITY HOSPITAL [facility] 8 [facility] T OFFICE 78585 [facility] 8 8 [facility] 45 MINUTES PHYSICIAN S FOR WOMEN OFFICE 95174 [facility] 8 MEDICAL VIRAL T VISIT GROUP 15 MINUTES HOSPITAL [facility] 8 [facility] T
--- OUTSIDE RECORDS SUMMARY | 2017-04-29 08:17 | External Medical Summary Rpt | CCD ---
Demographics Preferred Language Welsh Marital Status Unknown Congregation Affiliation Unknown Race Unknown Ethnic Group Unknown Author Author , DESHAWN HESS Address Unknown Phone Immunization No patient found.
--- OUTSIDE RECORDS SUMMARY | 2017-04-29 08:17 | External Medical Summary Rpt | CCD ---
Demographics Preferred Language Indonesian Marital Status Unknown Yarsanism Affiliation Unknown Race Unknown Ethnic Group Unknown Author Author , DESHAWN HESS Address Unknown Phone Immunization No patient found.
== END 2017-04-20 18:24 | disposition home or self-care (01) ==
LOC: UTC 17:18
DX: M54.41 Lumbago with sciatica, right side (principal); J06.9 Acute upper respiratory infection, unspecified; F17.210 Nicotine dependence, cigarettes, uncomplicated; Z88.2 Allergy status to sulfonamides